=== PATIENT | male | born 1955 | race African-American/Black ===

== ENCOUNTER 2017-02-10 09:09 | Observation (INO) | payer MEDICARE, MEDICAID ==
[~2017-02-10] VITALS: Ht 182.9 cm; Wt 66.2 kg
[~2017-02-10 09:09] MED LIST: ASPI81 PO; FOLI200T PO; LASI20TA PO; LISI-357 PO; METO50CR PO; NEPHRO PO; OMEP20TA39 PO; PRAV40TA PO; SEVEL800 PO; TAB-TAB PO; TRAZ50TA4 PO
[2017-02-10 09:25] VITALS: BP 121/67; PULSE 101; RESP 20; TEMP 98.8; O2SAT 100
[2017-02-10 10:32] LABS: BICARBONATE 29.1 MEQ/L (21.0-32.0); CALCIUM 8.9 MG/DL (8.5-10.1)
[2017-02-10 10:39] LABS: CREATININE 10.79 MG/DL (0.60-1.30)
[2017-02-10] MEDS ORDERED: SEVEL800 PO ×2 (11:00)
[2017-02-10] MEDS ORDERED: FOLIC ACID (11:00)
[2017-02-10] MEDS ORDERED: MEMA21CA PO (11:00)
[2017-02-10] MEDS ORDERED: VITA2000 PO (11:00)
[2017-02-10] MEDS ORDERED: DIALTAB2 PO (11:00)
[2017-02-10] MEDS ORDERED: QUET1TAB7 PO (11:00)
[2017-02-10] MEDS ORDERED: ASPI81CH6 CHEW (11:00)
[2017-02-10] MEDS ORDERED: OMEP40CA2 PO (11:00)
[2017-02-10] MEDS ORDERED: FURO40TA PO (11:00)
[2017-02-10] MEDS ORDERED: PRAV40TA2 PO (11:00)
[2017-02-10] MEDS ORDERED: folic acid PO (11:00)
--- NOTE | 2017-02-10 11:42 | PD ---
HPI Chief Complaint: Medical Clearance Time Seen by Provider: 09:40 Travel History International Travel<30 days: No Contact w/Intl Traveler<30days: No Traveled to known affect area: No History of Present Illness HPI Is a 61-year-old who presents to the emergency department complaining of brought in by EMS. The history is a little bit confusing. Patient reports he has a history of end-stage renal disease, he follows with Dr. Hernandez, he is sister used to taken to dialysis. He reports his sister has had her boyfriend and their children movement with them. He reports a now 1 him "out of the house " and called the embolus today. He notes reports that sisters called DCF and reports that they told him to bring him to the emergency department because they were unable to care for him. Patient is not under a [place] act. He is able to give history. Denies any recent illness or injury. States he last went to dialysis last week. Is otherwise been feeling well. History Past Medical History Narrative Medical End-stage renal disease, on HD, follows with Dr. Hernandez Hypertension Social History Alcohol Use: No Tobacco Use: No Allergies-Medications (Allergen,Severity, Reaction): Coded Allergies: No Known Allergies (Verified Adverse Reaction, Unknown, 02/10/17) Reported Meds & Prescriptions Reported Meds & Active Scripts Active Reported Aspirin Low Dose (Aspirin) 81 Mg Chew 81 Mg CHEW DAILY Vitamin D3 (Cholecalciferol) 2,000 Unit Cap 2,000 Units PO DAILY Furosemide 40 Mg Tab Mg PO DAILY on non-dialysis days Pravastatin 40 Mg Tab 40 Mg PO DAILY [folic acid] 1 Mg PO DAILY [folic acide] Renvela (Sevelamer Carbonate) 800 Mg Tab 800 Mg PO BID with snacks Renvela (Sevelamer Carbonate) 800 Mg Tab 3 Tab PO TID Namenda Xr (Memantine) 21 Mg Caper 21 Mg PO DAILY Dialyvite Rx (B-Complex W/ C & Folic Acid) 1 Mg Tab 1 Tab PO DAILY Omeprazole 40 Mg Cap 40 Mg PO DAILY Quetiapine (Quetiapine Fumarate) 25 Mg Tab 25 Mg PO HS Review of Systems Except as stated in HPI: all other systems reviewed are Neg Physical Exam Narrative GENERAL: Well-appearing 61-year-old man, no acute distress. SKIN: Focused skin assessment warm/dry. HEAD: Atraumatic. Normocephalic. EYES: Pupils equal and round. No scleral icterus. No injection or drainage. ENT: No nasal bleeding or discharge. Mucous membranes pink and moist. NECK: Trachea midline. No JVD. CARDIOVASCULAR: Regular rate and rhythm. No murmur appreciated. RESPIRATORY: No accessory muscle use. Clear to auscultation. Breath sounds equal bilaterally. GASTROINTESTINAL: Abdomen soft, non-tender, nondistended. Hepatic and splenic margins not palpable. MUSCULOSKELETAL: No obvious deformities. No clubbing. No cyanosis. No edema. Large fistula left arm. NEUROLOGICAL: Awake and alert. No obvious cranial nerve deficits. Motor grossly within normal limits. Normal speech. Data Data Last Documented VS Vital Signs Date Time Temp Pulse Resp B/P (MAP) Pulse Ox O2 Delivery O2 Flow Rate FiO2 02/10/17 09:33 94 02/10/17 09:25 98.8 20 121/67 (85) 100 Orders Orders Basic Metabolic Panel (Bmp) (02/10/17 09:55) Case Management Consult (02/10/17 ) Labs Laboratory Tests Test 02/10/17 10:00 Blood Urea Nitrogen 42 MG/DL Creatinine 10.79 MG/DL Random Glucose 116 MG/DL Calcium Level 8.9 MG/DL Sodium Level 137 MEQ/L Potassium Level 5.3 MEQ/L Chloride Level 100 MEQ/L Carbon Dioxide Level 29.1 MEQ/L Anion Gap 8 MEQ/L Estimat Glomerular Filtration Rate 6 ML/MIN MDM Medical Decision Making Medical Screen Exam Complete: Yes Emergency Medical Condition: Yes Differential Diagnosis End-stage renal disease, social disturbance, delirium, dementia, other Narrative Course Medical decision-making 61-year-old man, brought to the ED reportedly for assistance with placement. Then clear the patient and wants or needs to be placed. His electrolytes show any indications for emergent electrolytes were checked. Patient has no indications for emergent dialysis or hospitalization. He does not appear to be an immediate threat to himself or others. Patient is safe for discharge. Will have case management help coordinate discharge with patient's family. Diagnosis Primary Impression: ESRD (end stage renal disease) on dialysis Additional Instructions: Follow-up with her regular scheduled dialysis. Return to the emergency department for any new or worsening symptoms. Med/Other Pt SpecificInfo: No Change to Meds Disposition: DISCHARGE HOME Condition: Stable Cale Avalos MD Feb 10, 2017 11:42
[2017-02-10 12:30] VITALS: BP 108/60; PULSE 71; RESP 20; O2SAT 97
[2017-02-10 16:49] VITALS: BP 156/95; PULSE 78; RESP 19; O2SAT 97
[2017-02-10] MEDS ORDERED: SODIUM CHLORIDE 0.9% FLUSH 10 ML FLUSH IV FLUSH PRN (17:00)
[2017-02-10] MEDS ORDERED: NALOXONE HCL 0.4 MG/ML AMP IV PUSH PRN (17:00)
[2017-02-10] MEDS: SODIUM CHLORIDE 0.9% FLUSH 10 ML FLUSH IV FLUSH SCH (21:00)
--- NOTE | 2017-02-10 21:55 | HHI.HP ---
[facility] Service [facility] Primary Care Physician Unknown Admission Diagnosis dementia with behavioral disturbance Diagnoses: Travel History International Travel<30 Days: No Contact w/Intl Traveler <30 Da: No Traveled to Known Affected Are: No History of Present Illness 61-year-old male with a past medical history significant for end-stage renal disease on dialysis, follows with Dr. Hernandez, hypertension, dementia with behavioral disturbances and hyperlipidemia was brought to the emergency department by EMS. The patient is not sure why he is in the emergency department but states that he needs to have his fistula repaired. He is an extremely poor historian. According to ED notes, EMS was called by the patient' s sister and she is unable to care for him anymore. Lab values significant for potassium of 5.3, BUN/creatinine of 42/10.79. The patient states he last had dialysis "sometime last week." The patient's fistula does not have signs of infection and has good thrill. Review of Systems Denies fever or chills Denies blurry vision, otorrhea, rhinorrhea Denies sore throat and cough No chest pain, palpitations, shortness of breath No abdominal pain Denies constipation/diarrhea/nausea/vomiting Denies muscle pain/weakness No rashes Past Family Social History Past Medical History End-stage renal disease on dialysis, patient unsure of his dialysis schedule Hypertension Hyperlipidemia Dementia with behavioral disturbances Chronic anemia Past Surgical History Left arm fistula for dialysis Left elbow Inguinal hernia repair Reported Medications Reported Meds & Active Scripts Active Reported Aspirin Low Dose (Aspirin) 81 Mg Chew 81 Mg CHEW DAILY Vitamin D3 (Cholecalciferol) 2,000 Unit Cap 2,000 Units PO DAILY Furosemide 40 Mg Tab Mg PO DAILY on non-dialysis days Pravastatin 40 Mg Tab 40 Mg PO DAILY [folic acid] 1 Mg PO DAILY [folic acide] Renvela (Sevelamer Carbonate) 800 Mg Tab 800 Mg PO BID with snacks Renvela (Sevelamer Carbonate) 800 Mg Tab 3 Tab PO TID Namenda Xr (Memantine) 21 Mg Caper 21 Mg PO DAILY Dialyvite Rx (B-Complex W/ C & Folic Acid) 1 Mg Tab 1 Tab PO DAILY Omeprazole 40 Mg Cap 40 Mg PO DAILY Quetiapine (Quetiapine Fumarate) 25 Mg Tab 25 Mg PO HS Allergies: Coded Allergies: No Known Allergies (Verified Allergy, Unknown, 02/10/17) Family History Both parents with CAD, both in their late 50s or early 60s with AL Social History Denies alcohol, tobacco or illicit drugs Physical Exam Vital Signs Vital Signs Date Time Temp Pulse Resp B/P (MAP) Pulse Ox O2 Delivery O2 Flow Rate FiO2 02/10/17 17:30 02/10/17 16:49 78 19 156/95 (115) 97 Room Air 02/10/17 12:30 71 20 108/60 (76) 97 Room Air 02/10/17 09:33 94 02/10/17 09:25 98.8 101 20 121/67 (85) 100 Physical Exam GENERAL: male sitting up in bed SKIN: No rashes, ecchymoses or lesions. Cool and dry. HEAD: Atraumatic. Normocephalic. No temporal or scalp tenderness. EYES: Pupils equal round and reactive. Extraocular motions intact. No scleral icterus. No injection or drainage. ENT: Nose without bleeding, purulent drainage or septal hematoma. Throat without erythema, tonsillar hypertrophy or exudate. Uvula midline. Airway patent. NECK: Trachea midline. No JVD or lymphadenopathy. Supple, nontender, no meningeal signs. CARDIOVASCULAR: Regular rate and rhythm without murmurs, gallops, or rubs. RESPIRATORY: Clear to auscultation. Breath sounds equal bilaterally. No wheezes , rales, or rhonchi. GASTROINTESTINAL: Abdomen soft, non-tender, nondistended. No hepato-splenomegaly , or palpable masses. No guarding. MUSCULOSKELETAL: Extremities without clubbing, cyanosis, or edema. No joint tenderness, effusion, or edema noted. No calf tenderness. Left upper extremity fistula with palpable thrill. NEUROLOGICAL: Awake and alert. Cranial nerves II through XII intact. Motor and sensory grossly within normal limits. Normal speech. Laboratory Laboratory Tests Test 02/10/17 10:00 Blood Urea Nitrogen 42 Creatinine 10.79 Random Glucose 116 Calcium Level 8.9 Sodium Level 137 Potassium Level 5.3 Chloride Level 100 Carbon Dioxide Level 29.1 Anion Gap 8 Estimat Glomerular Filtration Rate 6 Result Diagram: 02/10/17 1000 Caprini VTE Risk Assessment Caprini VTE Risk Assessment: Mod/High Risk (score >= 2) Caprini Risk Assessment Model Point Value = 1 Point Value = 2 Point Value = 3 Point Value = 5 Age 41-60 Minor surgery BMI > 25 kg/m2 Swollen legs Varicose veins or History of unexplained or recurrent spontaneous Oral contraceptives or hormone replacement Sepsis (< 1 month) Serious lung disease, including pneumonia (< 1 month) Abnormal pulmonary function Acute myocardial infarction Congestive heart failure (< 1 month) History of inflammatory bowel disease Medical patient at bed rest Age 61-74 Arthroscopic surgery Major open surgery (> 45 min) Laparoscopic surgery (> 45 min) Malignancy Confined to bed (> 72 hours) Immobilizing plaster cast Central venous access Age >= 75 History of VTE Family history of VTE Factor V Leiden Prothrombin [id number] Lupus anticoagulant Anticardiolipin antibodies Elevated serum homocysteine Heparin-induced thrombocytopenia Other congenital or acquired thrombophilia Stroke (< 1 month) Elective arthroplasty Hip, pelvis, or leg fracture Acute spinal cord injury (< 1 month) Prophylaxis Regimen Total Risk Factor Score Risk Level Prophylaxis Regimen 0-1 Low Early ambulation 2 Moderate Order ONE of the following: *Sequential Compression Device (SCD) *Heparin 5000 units SQ BID 3-4 Higher Order ONE of the following medications: *Heparin 5000 units SQ TID *Enoxaparin/Lovenox 40 mg SQ daily (WT < 150 kg, CrCl > 30 mL/min) *Enoxaparin/Lovenox 30 mg SQ daily (WT < 150 kg, CrCl > 10-29 mL/min) *Enoxaparin/Lovenox 30 mg SQ BID (WT < 150 kg, CrCl > 30 mL/min) AND/OR *Sequential Compression Device (SCD) 5 or more Highest Order ONE of the following medications: *Heparin 5000 units SQ TID (Preferred with Epidurals) *Enoxaparin/Lovenox 40 mg SQ daily (WT < 150 kg, CrCl > 30 mL/min) *Enoxaparin/Lovenox 30 mg SQ daily (WT < 150 kg, CrCl > 10-29 mL/min) *Enoxaparin/Lovenox 30 mg SQ BID (WT < 150 kg, CrCl > 30 mL/min) AND *Sequential Compression Device (SCD) Assessment and Plan Assessment and Plan Assessment/plan: 1. End-stage renal disease on dialysis Patient follows with Dr. Hernandez Potassium 5.3, creatinine 10.79 Nephrology consulted, appreciate assistance 2. Hypertension Continue home Lasix 3. Dementia Continue Seroquel and Namenda 4. GERD Continue omeprazole 5. Hyperlipidemia Continue home statin 6. Placement Case management consulted to assist in placement FEN Renal diet Electrolytes: monitor SCDs Radha Price MD Feb 10, 2017 21:55
[2017-02-10 22:44] VITALS: BP 117/69; PULSE 113; RESP 18; TEMP 98.9; O2SAT 98
[2017-02-11 00:21] VITALS: BP 110/71; PULSE 86; RESP 18; TEMP 97.9; O2SAT 98
[2017-02-11 04:24] VITALS: BP 116/73; PULSE 78; RESP 18; TEMP 97.7; O2SAT 100
[2017-02-11 07:05] LABS: AUTOMATED NEUTROPHIL # 3.8 TH/MM3 (1.8-7.7); BASOPHIL # 0.1 TH/MM3 (0-0.2); BASOPHIL % 1.5 % (0.0-2.0); EOSINOPHIL # 0.3 TH/MM3 (0-0.4); EOSINOPHIL % 5.9 % (0.0-4.0); HEMOGLOBIN 11.4 GM/DL (13.0-17.0); LYMPH % 15.8 % (9.0-44.0); LYMPHOCYTE # 0.8 TH/MM3 (1.0-4.8); MEAN CORPUSCULAR HEMOGLOBIN 29.7 PG (27.0-34.0); MEAN CORPUSCULAR HGB CONC 32.7 % (32.0-36.0); MEAN PLATELET VOLUME 8.9 FL (7.0-11.0); MONO % 6.6 % (0.0-8.0); MONOCYTE # 0.4 TH/MM3 (0-0.9); NEUT % 70.2 % (16.0-70.0); PLATELET COUNT 169 TH/MM3 (150-450); RED BLOOD COUNT 3.85 MIL/MM3 (4.50-5.90); RED CELL DISTRIBUTION WIDTH 14.3 % (11.6-17.2); WHITE BLOOD COUNT 5.4 TH/MM3 (4.0-11.0)
[2017-02-11 07:39] LABS: BICARBONATE 28.8 MEQ/L (21.0-32.0); CALCIUM 8.6 MG/DL (8.5-10.1)
[2017-02-11 07:44] LABS: CREATININE 12.87 MG/DL (0.60-1.30)
[2017-02-11] MEDS ORDERED: SODIUM CHLOR 0.9% 1000 ML INJ 1,000 ML IV PRN (08:19)
[2017-02-11] MEDS ORDERED: SODIUM CHLOR 0.9% 1000 ML INJ 1,000 ML OTHER PRN ×2 (08:19)
--- NOTE | 2017-02-11 08:19 | PD.CONS ---
HPI Service Nephrology Consult Requested By Reason for Consult ESRD Primary Care Physician Unknown History of Present Illness patient is admitted with confusion. He usually dialyzes TTS. Apparently his sister cannot take care of him anymore. When I asked him this morning, he did not why he is in the ER, thought that he brought someone here, and they found that his AVF is "too big" and therefore admitted him. Review of Systems Constitutional: DENIES: Fatigue, Fever Respiratory: DENIES: Apneas, Cough Gastrointestinal: DENIES: Abdominal pain, Black stools Musculoskeletal: DENIES: Joint pain, Muscle aches Hematologic/lymphatic: DENIES: Bruising Neurologic: DENIES: Abnormal gait, Localized weakness, Paresthesias, Seizures Psychiatric: COMPLAINS OF: Confusion Past Family Social History Allergies: Coded Allergies: No Known Allergies (Verified Allergy, Unknown, 02/10/17) Past Medical History ESRD Dementia? Anemia Reported Medications Aspirin Low Dose (Aspirin) 81 Mg Chew 81 Mg CHEW DAILY Vitamin D3 (Cholecalciferol) 2,000 Unit Cap 2,000 Units PO DAILY Furosemide 40 Mg Tab Mg PO DAILY on non-dialysis days Pravastatin 40 Mg Tab 40 Mg PO DAILY [folic acid] 1 Mg PO DAILY [folic acide] Renvela (Sevelamer Carbonate) 800 Mg Tab 800 Mg PO BID with snacks Renvela (Sevelamer Carbonate) 800 Mg Tab 3 Tab PO TID Namenda Xr (Memantine) 21 Mg Caper 21 Mg PO DAILY Dialyvite Rx (B-Complex W/ C & Folic Acid) 1 Mg Tab 1 Tab PO DAILY Omeprazole 40 Mg Cap 40 Mg PO DAILY Quetiapine (Quetiapine Fumarate) 25 Mg Tab 25 Mg PO HS Active Ordered Medications Current Medications Medications (Trade) Dose Ordered Sig/Michell Route Start Time Stop Time Status Last Admin (NS Flush) 2 ml UNSCH PRN IV FLUSH 02/10/17 17:00 (NS Flush) 2 ml BID IV FLUSH 02/10/17 21:00 (Narcan Inj) 0.4 mg UNSCH PRN IV PUSH 02/10/17 17:00 (Aspirin Chew) 81 mg DAILY CHEW 02/11/17 09:00 (Pravachol) 40 mg DAILY PO 02/11/17 09:00 (SEROquel) 25 mg HS PO 02/11/17 21:00 (Renvela) 800 mg BID PO 02/11/17 09:00 (Namenda) 10 mg BID PO 02/11/17 09:00 (Protonix) 40 mg DAILY PO 02/11/17 09:00 (Lasix) 40 mg DAILY PO 02/11/17 09:00 (Flu (Quadrivalent) Vaccine Inj) 0.5 ml ONCE ONCE IM 02/11/17 09:00 02/11/17 09:01 Family History reviewed, non contributory Social History no tobacco, no ETOH Physical Exam Vital Signs Vital Signs Date Time Temp Pulse Resp B/P (MAP) Pulse Ox O2 Delivery O2 Flow Rate FiO2 02/11/17 04:24 97.7 78 18 116/73 (87) 100 02/11/17 00:21 97.9 86 18 110/71 (84) 98 02/10/17 22:44 98.9 113 18 117/69 (85) 98 02/10/17 17:30 02/10/17 16:49 78 19 156/95 (115) 97 Room Air 02/10/17 12:30 71 20 108/60 (76) 97 Room Air 02/10/17 09:33 94 02/10/17 09:25 98.8 101 20 121/67 (85) 100 Physical Exam GENERAL: awake, not in distress, memory deficits. SKIN: Warm and dry. HEAD: Normocephalic. EYES: No scleral icterus. No injection or drainage. NECK: Supple, trachea midline. No JVD or lymphadenopathy. CARDIOVASCULAR: Regular rate and rhythm without murmurs, gallops, or rubs. RESPIRATORY: Breath sounds equal bilaterally. No accessory muscle use. GASTROINTESTINAL: Abdomen soft, non-tender, nondistended. MUSCULOSKELETAL: No cyanosis, or edema. Well formed AVF left arm. BACK: Nontender without obvious deformity. No CVA tenderness. Laboratory Laboratory Tests Test 02/10/17 10:00 02/11/17 06:00 Blood Urea Nitrogen 42 55 Creatinine 10.79 12.87 Random Glucose 116 68 Calcium Level 8.9 8.6 Sodium Level 137 138 Potassium Level 5.3 5.4 Chloride Level 100 100 Carbon Dioxide Level 29.1 28.8 Anion Gap 8 9 Estimat Glomerular Filtration Rate 6 5 White Blood Count 5.4 Red Blood Count 3.85 Hemoglobin 11.4 Hematocrit 35.0 Mean Corpuscular Volume 91.0 Mean Corpuscular Hemoglobin 29.7 Mean Corpuscular Hemoglobin Concent 32.7 Red Cell Distribution Width 14.3 Platelet Count 169 Mean Platelet Volume 8.9 Neutrophils (%) (Auto) 70.2 Lymphocytes (%) (Auto) 15.8 Monocytes (%) (Auto) 6.6 Eosinophils (%) (Auto) 5.9 Basophils (%) (Auto) 1.5 Neutrophils # (Auto) 3.8 Lymphocytes # (Auto) 0.8 Monocytes # (Auto) 0.4 Eosinophils # (Auto) 0.3 Basophils # (Auto) 0.1 CBC Comment DIFF FINAL Differential Comment Result Diagram: 02/11/17 0600 02/11/17 0600 Assessment and Plan Problem List: (1) ESRD (end stage renal disease) on dialysis ICD Codes: N18.6 - ESRD (end stage renal disease) on dialysis; Z99.2 - Dependence on renal dialysis Status: Chronic Plan: continue dialysis as per outpatient regimen. Currently he is stable. Mild hyperkalemia is noted, should improve with dialysis. High protein diet. Fluid restriction to 1500 ml/day. (2) Metabolic bone disease ICD Codes: E88.9 - Metabolic disorder, unspecified; M90.80 - Osteopathy in diseases classified elsewhere, unspecified site Plan: Obtain phosphorus level. Binder use as needed. (3) HTN (hypertension) ICD Codes: I10 - HTN (hypertension) Status: Chronic Plan: currently normotensive. (4) Chronic anemia ICD Codes: D64.9 - Chronic anemia Status: Acute Plan: Epogen with dialysis. Assessment and Plan May need placement. Thanks for the consult. Cole Valencia MD Feb 11, 2017 08:19
[2017-02-11 08:20] VITALS: BP 118/67; PULSE 63; RESP 20; TEMP 98.2; O2SAT 96
[2017-02-11] MEDS ORDERED: ONDANSETRON HCL 4 MG/2 ML VIAL IV PUSH PRN (08:30)
[2017-02-11] MEDS ORDERED: GENTAMICIN SULFATE (DIALYSIS USE ONLY) 20 MG/2 ML VIAL OTHER PRN (08:30)
[2017-02-11] MEDS ORDERED: cloNIDine HCL 0.1 MG TAB PO PRN (08:30)
[2017-02-11] MEDS ORDERED: HEPARIN SODIUM - IV 10,000 UNITS/10 ML VIAL IV FLUSH PRN (08:30)
[2017-02-11] MEDS ORDERED: HEPARIN SODIUM - IV 10,000 UNITS/10 ML VIAL PRN (08:30)
[2017-02-11] MEDS ORDERED: ALBUMIN 25% INJ 100 ML IV PRN (08:30)
[2017-02-11] MEDS ORDERED: NITROGLYCERIN 0.4 MG SL 25 TABS/BTL SL PRN (08:30)
[2017-02-11] MEDS ORDERED: ACETAMINOPHEN 325 MG TAB PO PRN (08:30)
[2017-02-11] MEDS ORDERED: SODIUM CHLORIDE 0.9% FLUSH 10 ML FLUSH IV FLUSH PRN (08:30)
[2017-02-11] MEDS ORDERED: MANNITOL 12.5 GM/50 ML VIAL IV PRN (08:30)
[2017-02-11] MEDS ORDERED: diphenhydrAMINE HCL 25 MG CAP PO PRN (08:30)
[2017-02-11] MEDS ORDERED: INFLUENZA VIRUS VACCINE (QUADRIVALENT) 0.5 ML SYR IM ONE (09:00)
[2017-02-11] MEDS: SODIUM CHLORIDE 0.9% FLUSH 10 ML FLUSH IV FLUSH SCH ×2 (09:00→19:23)
[2017-02-11] MEDS: FUROSEMIDE 40 MG TAB PO SCH (09:01)
[2017-02-11] MEDS: ASPIRIN 81 MG CHEW TAB CHEW SCH (09:01)
[2017-02-11] MEDS: PRAVASTATIN SOD 40 MG TAB PO SCH (09:01)
[2017-02-11] MEDS: PANTOPRAZOLE SOD 40 MG DELAYED RELEASE TAB PO SCH (09:01)
[2017-02-11] MEDS: MEMANTINE HCL 10 MG TAB PO SCH ×2 (09:01→19:23)
[2017-02-11] MEDS: SEVELAMER CARBONATE 800 MG TAB PO SCH ×2 (09:01→19:23)
[2017-02-11] MEDS: EPOETIN ALFA 10,000 UNITS/ML VIAL IV PUSH PRN (11:30)
[2017-02-11] MEDS: GELATIN 12 MM/7 MM FOAM TOP PRN (13:00)
--- NOTE | 2017-02-11 14:57 | HHI.PR ---
Subjective Remarks Follow up on patient with ESRD on HD, HTN, dementia. Patient seen and examined. Patient has just returned from dialysis. He has no complaints. States he is feeling well. No fever, chills, dyspnea, N/V, chest pain or abdominal pain. Objective Vitals Vital Signs Date Time Temp Pulse Resp B/P (MAP) Pulse Ox O2 Delivery O2 Flow Rate FiO2 02/11/17 08:20 98.2 63 20 118/67 (84) 96 02/11/17 04:24 97.7 78 18 116/73 (87) 100 02/11/17 00:21 97.9 86 18 110/71 (84) 98 02/10/17 22:44 98.9 113 18 117/69 (85) 98 02/10/17 17:30 02/10/17 16:49 78 19 156/95 (115) 97 Room Air I/O 02/10/17 02/10/17 02/10/17 02/11/17 02/11/17 02/11/17 07:00 15:00 23:00 07:00 15:00 23:00 Intake Total 240 ml 300 ml 100 ml Output Total 1500 ml Balance 240 ml 300 ml 100 ml -1500 ml Intake Oral 240 ml 300 ml 100 ml Output Hemodialysis 1500 ml Result Diagram: 02/11/17 0600 02/11/17 0600 Objective Remarks GENERAL: WDWN male, INAD. Ambulating in the hallway and in his room. SKIN: Cool and dry. HEAD: Atraumatic. Normocephalic. EYES: Extraocular motions intact. No scleral icterus. No injection or drainage. ENT: Nose without bleeding or purulent drainage. Airway patent. MMM. NECK: Trachea midline. CARDIOVASCULAR: Regular rate and rhythm without murmurs, gallops, or rubs. RESPIRATORY: Clear to auscultation. Breath sounds equal bilaterally. No wheezes , rales, or rhonchi. GASTROINTESTINAL: Abdomen soft, non-tender, nondistended. No guarding. MUSCULOSKELETAL: Extremities without clubbing, cyanosis, or edema. Left upper extremity fistula with palpable thrill. NEUROLOGICAL: Awake and alert. Able to move all extremities spontaneously. Nonfocal. Normal speech. Medications and IVs Current Medications Medications (Trade) Dose Ordered Sig/Michell Route Start Time Stop Time Status Last Admin (NS Flush) 2 ml UNSCH PRN IV FLUSH 02/10/17 17:00 (NS Flush) 2 ml BID IV FLUSH 02/10/17 21:00 (Narcan Inj) 0.4 mg UNSCH PRN IV PUSH 02/10/17 17:00 (Aspirin Chew) 81 mg DAILY CHEW 02/11/17 09:00 02/11/17 09:01 (Pravachol) 40 mg DAILY PO 02/11/17 09:00 02/11/17 09:01 (SEROquel) 25 mg HS PO 02/11/17 21:00 (Renvela) 800 mg BID PO 02/11/17 09:00 02/11/17 09:01 (Namenda) 10 mg BID PO 02/11/17 09:00 02/11/17 09:01 (Protonix) 40 mg DAILY PO 02/11/17 09:00 02/11/17 09:01 (Lasix) 40 mg DAILY PO 02/11/17 09:00 02/11/17 09:01 Sodium Chloride 1,000 ml @ 0 mls/hr Q0M PRN OTHER 02/11/17 08:19 (Heparin Inj) 8,000 units UNSCH PRN IV FLUSH 02/11/17 08:30 Sodium Chloride 1,000 ml @ 200 mls/hr Q5H PRN IV 02/11/17 08:19 Sodium Chloride 1,000 ml @ 0 mls/hr Q0M PRN OTHER 02/11/17 08:19 (Mannitol Inj) 12.5 gm UNSCH PRN IV 02/11/17 08:30 Albumin Human 100 ml @ 60 mls/hr UNSCH PRN IV 02/11/17 08:30 (NS Flush) 5 ml UNSCH PRN IV FLUSH 02/11/17 08:30 (Heparin Inj) UNSCH PRN .XX 02/11/17 08:30 (Gentamicin (Dialysis) Inj) 20 mg UNSCH PRN OTHER 02/11/17 08:30 (Zofran Inj) 4 mg UNSCH PRN IV PUSH 02/11/17 08:30 (Tylenol) 650 mg UNSCH PRN PO 02/11/17 08:30 (Benadryl) 25 mg UNSCH PRN PO 02/11/17 08:30 (Nitrostat Sl) 0.4 mg UNSCH PRN SL 02/11/17 08:30 (Catapres) 0.1 mg UNSCH PRN PO 02/11/17 08:30 (Epogen Inj) 5,000 units UNSCH PRN IV PUSH 02/11/17 08:30 02/11/17 11:30 (Gelfoam 12 Mm/7 Mm Top) 1 foam UNSCH PRN TOP 02/11/17 08:30 02/11/17 13:00 A/P Assessment and Plan 1. End-stage renal disease on dialysis Patient follows with Dr. Hernandez Potassium 5.4, creatinine 12.87 Nephrology consulted, appreciate assistance. s/p HD earlier today. 2. Hypertension Controlled Continue home Lasix 3. Dementia Continue Seroquel and Namenda 4. GERD Continue omeprazole 5. Hyperlipidemia Continue home statin 6. Placement Case management consulted to assist in placement FEN Renal diet Electrolytes: monitor SCDs Discussed with patient, Dr. Roman Discharge Planning Pending nephrology clearance Irma Hendrix Feb 11, 2017 14:57
[2017-02-11 16:34] VITALS: BP 103/60; PULSE 101; RESP 20; TEMP 98.2; O2SAT 96
[2017-02-11] MEDS: QUEtiapine FUMARATE 25 MG TAB PO SCH (19:23)
[2017-02-11 20:36] VITALS: BP 108/63; PULSE 99; RESP 16; TEMP 97.5; O2SAT 100
[2017-02-11 21:04] VITALS: O2SAT 94
[2017-02-12 07:10] VITALS: O2SAT 99
--- NOTE | 2017-02-12 08:03 | HHI.PR ---
Subjective Remarks Follow-up on patient with end-stage renal disease on hemodialysis, hypertension , dementia. Patient seen and examined. Patient has no complaints. He is anxious to leave our facility. He denies any fever or chills. Denies any chest pain or shortness of breath. Denies any nausea, vomiting or abdominal pain. Denies any swelling in his lower extremities. Reports good appetite. Objective Vitals Vital Signs Date Time Temp Pulse Resp B/P (MAP) Pulse Ox O2 Delivery O2 Flow Rate FiO2 02/12/17 07:10 99 21 02/11/17 21:04 94 21 02/11/17 20:36 97.5 99 16 108/63 (78) 100 02/11/17 16:34 98.2 101 20 103/60 (74) 96 02/11/17 08:20 98.2 63 20 118/67 (84) 96 I/O 02/11/17 02/11/17 02/11/17 02/12/17 02/12/17 02/12/17 07:00 15:00 23:00 07:00 15:00 23:00 Intake Total 100 ml 100 ml Output Total 1500 ml Balance 100 ml -1500 ml 100 ml Intake Oral 100 ml 100 ml Output Hemodialysis 1500 ml # Voids 1 Result Diagram: 02/11/17 0600 02/11/17 0600 Objective Remarks GENERAL: WDWN male, INAD. Ambulating in the hallway and in his room. SKIN: Cool and dry. HEAD: Atraumatic. Normocephalic. EYES: Extraocular motions intact. No scleral icterus. No injection or drainage. ENT: Nose without bleeding or purulent drainage. Airway patent. MMM. NECK: Trachea midline. CARDIOVASCULAR: Regular rate and rhythm without murmurs, gallops, or rubs. RESPIRATORY: Clear to auscultation. Breath sounds equal bilaterally. No wheezes , rales, or rhonchi. GASTROINTESTINAL: Abdomen soft, non-tender, nondistended. No guarding. MUSCULOSKELETAL: Extremities without clubbing, cyanosis, or edema. Left upper extremity fistula with palpable thrill. NEUROLOGICAL: Awake and alert. Able to move all extremities spontaneously. Nonfocal. Normal speech. Medications and IVs Current Medications Medications (Trade) Dose Ordered Sig/Michell Route Start Time Stop Time Status Last Admin (NS Flush) 2 ml UNSCH PRN IV FLUSH 02/10/17 17:00 (NS Flush) 2 ml BID IV FLUSH 02/10/17 21:00 02/11/17 19:23 (Narcan Inj) 0.4 mg UNSCH PRN IV PUSH 02/10/17 17:00 (Aspirin Chew) 81 mg DAILY CHEW 02/11/17 09:00 02/11/17 09:01 (Pravachol) 40 mg DAILY PO 02/11/17 09:00 02/11/17 09:01 (SEROquel) 25 mg HS PO 02/11/17 21:00 02/11/17 19:23 (Renvela) 800 mg BID PO 02/11/17 09:00 02/11/17 19:23 (Namenda) 10 mg BID PO 02/11/17 09:00 02/11/17 19:23 (Protonix) 40 mg DAILY PO 02/11/17 09:00 02/11/17 09:01 (Lasix) 40 mg DAILY PO 02/11/17 09:00 02/11/17 09:01 Sodium Chloride 1,000 ml @ 0 mls/hr Q0M PRN OTHER 02/11/17 08:19 (Heparin Inj) 8,000 units UNSCH PRN IV FLUSH 02/11/17 08:30 Sodium Chloride 1,000 ml @ 200 mls/hr Q5H PRN IV 02/11/17 08:19 Sodium Chloride 1,000 ml @ 0 mls/hr Q0M PRN OTHER 02/11/17 08:19 (Mannitol Inj) 12.5 gm UNSCH PRN IV 02/11/17 08:30 Albumin Human 100 ml @ 60 mls/hr UNSCH PRN IV 02/11/17 08:30 (NS Flush) 5 ml UNSCH PRN IV FLUSH 02/11/17 08:30 (Heparin Inj) UNSCH PRN .XX 02/11/17 08:30 (Gentamicin (Dialysis) Inj) 20 mg UNSCH PRN OTHER 02/11/17 08:30 (Zofran Inj) 4 mg UNSCH PRN IV PUSH 02/11/17 08:30 (Tylenol) 650 mg UNSCH PRN PO 02/11/17 08:30 (Benadryl) 25 mg UNSCH PRN PO 02/11/17 08:30 (Nitrostat Sl) 0.4 mg UNSCH PRN SL 02/11/17 08:30 (Catapres) 0.1 mg UNSCH PRN PO 02/11/17 08:30 (Epogen Inj) 5,000 units UNSCH PRN IV PUSH 02/11/17 08:30 02/11/17 11:30 (Gelfoam 12 Mm/7 Mm Top) 1 foam UNSCH PRN TOP 02/11/17 08:30 02/11/17 13:00 A/P Assessment and Plan 1. End-stage renal disease on dialysis, TTHSat schedule Patient follows with Dr. Hernandez Potassium 5.4, creatinine 12.87, today's lab pending Nephrology consulted, appreciate assistance. DR. Valencia following. s/p HD yesterday. Per recs, high protein/fluid restricted diet. Cleared for discharge from nephrology standpoint. 2. Hyperkalemia secondary to above anticipate improvement with dialysis today's labs pending continue on low K diet 3. Hypertension Controlled Continue home Lasix dose on non dialysis days 4. Dementia Continue Seroquel and Namenda 5. GERD Continue omeprazole 6. Hyperlipidemia Continue home statin 7. Placement Case management consulted to assist in placement FEN Renal diet Electrolytes: monitor SCDs Discussed with patient, nursing staff, Dr. Roman, CM Discharge patient to SNF Condition on discharge: Improved Renal, high protein, low potassium 1500ml fluid restricted diet as tolerated Ad Iva activity. Resume outpatient hemodialysis arrangements following discharge. Rx written: resume home medications Follow-up with primary care physician and Dr. Hernandez Nephrology Discharge Planning Discharge pending placement, case management actively following. Irma Hendrix Feb 12, 2017 08:03
[2017-02-12 08:21] VITALS: BP 110/50; PULSE 67; RESP 18; TEMP 98.2; O2SAT 98
[2017-02-12] MEDS: SODIUM CHLORIDE 0.9% FLUSH 10 ML FLUSH IV FLUSH SCH ×2 (09:00→19:57)
[2017-02-12] MEDS: SEVELAMER CARBONATE 800 MG TAB PO SCH ×2 (09:26→19:56)
[2017-02-12] MEDS: PANTOPRAZOLE SOD 40 MG DELAYED RELEASE TAB PO SCH (09:26)
[2017-02-12] MEDS: PRAVASTATIN SOD 40 MG TAB PO SCH (09:26)
[2017-02-12] MEDS: ASPIRIN 81 MG CHEW TAB CHEW SCH (09:26)
[2017-02-12] MEDS: FUROSEMIDE 40 MG TAB PO SCH (09:26)
[2017-02-12] MEDS: MEMANTINE HCL 10 MG TAB PO SCH ×2 (09:26→19:56)
--- NOTE | 2017-02-12 11:13 | HHI.NPPN ---
Subjective General Problems: Anemia Renal Failure: Chronic, End Stage Renal Disease Interval History Ambulating in ER. No acute concerns. He is demented, confused at baseline. Dialyzed yesterday. (Nicci Nolan) Objective Data Data Vital Signs Date Time Temp Pulse Resp B/P (MAP) Pulse Ox O2 Delivery O2 Flow Rate FiO2 02/12/17 08:21 98.2 67 18 110/50 (70) 98 02/12/17 07:10 99 21 02/11/17 21:04 94 21 02/11/17 20:36 97.5 99 16 108/63 (78) 100 02/11/17 16:34 98.2 101 20 103/60 (74) 96 (Nicci Nolan) -: 02/11/17 0600 02/11/17 0600 Physical Exam General Appearance: Well Developed, No Acute Distress, Comfortable, Malnourished (Nicci Nolan) Eyes Eye Exam: Pupils Equal (Nicci Nolan) Throat Throat Exam: Oral Mucosa [place] & Moist (Nicci Nolan) Pulmonary Resp Exam: Clear Bilaterally, Breath Sounds Equal (Nicci Nolan) Cardiology CV Exam: Regular, Normal Sinus Rhythm, Good Perfusion (Nicci Nolan) Gastrointestinal/Abdomen GI Exam: Soft, Non-Tender, Bowel Sounds Present (Nicci Nolan) Musculoskeletal MS Exam: Normal Gait, Normal Tone, Good Strength (Nicci Nolan) Extremeties Extremities Exam: No Edema, Pedal Pulses Palpable Extremeties Remarks Large AVF left upper arm, + aneurysm at site, it is patent (Nicci Nolan) Neurologic Neuro Exam: Awake, Speech Clear, Moving All Extremities (Nicci Nolan) Psychiatric Psych Remarks pleasantly confused (Nicci Nolan) Assessment/Plan Discussed Condition With: Patient Assessment Summary: Anemia of CKD, Hypertension, End Stage Renal Disease Problem List: (1) ESRD (end stage renal disease) on dialysis ICD Codes: N18.6 - ESRD (end stage renal disease) on dialysis; Z99.2 - Dependence on renal dialysis Status: Chronic Plan: HD TTS, had 1.5 L UF yesterday Continue dialysis as per outpatient regimen. Can resume outpatient arrangements after discharge Mild hyperkalemia is again noted, low K diet ordered High protein diet. Fluid restriction to 1500 ml/day. He has aneurysm at AVF however it is patent and works well. (2) Metabolic bone disease ICD Codes: E88.9 - Metabolic disorder, unspecified; M90.80 - Osteopathy in diseases classified elsewhere, unspecified site Plan: He is on Renvela. Phosphorus level has been added but not available. (3) HTN (hypertension) ICD Codes: I10 - HTN (hypertension) Status: Chronic Plan: Currently normotensive. Diet controlled. PRN clonidine has not been used. (4) Chronic anemia ICD Codes: D64.9 - Chronic anemia Status: Acute Plan: Low dose Epogen with dialysis. Plan Stable for discharge from renal perspective. (Nicci Nolan) Plan patient was seen and examined. Agree with above assessment and plan. He can be discharged from renal standpoint. (Cole Valencia MD) Nicci Nolan Feb 12, 2017 11:13 Cole Valencia MD Feb 12, 2017 15:53
--- NOTE | 2017-02-12 11:43 | HHI.DCPOC ---
Discharge Care Plan Diagnosis: (1) Dementia (2) Hyperkalemia (3) Electrolyte abnormality (4) ESRD (end stage renal disease) on dialysis (5) HTN (hypertension) (6) HLD (hyperlipidemia) Goals to Promote Your Health * To prevent worsening of your condition and complications * To maintain your health at the optimal level Directions to Meet Your Goals Maintain a heart healthy, renal failure, high protein, low potassium, 1500 mL fluid restricted diet Please continue your regular outpatient hemodialysis schedule Take your medications as prescribed Follow your dietary instruction Follow activity as directed Keep your appointments as scheduled Take your immunizations and boosters as scheduled If your symptoms worsen call your PCP, if no PCP go to Urgent Care Center or Emergency Room Smoking is Dangerous to Your Health. Avoid second hand smoke Call the 24-hour hour crisis hotline for domestic abuse at Irma Hendrix Feb 12, 2017 11:43
[2017-02-12 12:32] VITALS: BP 103/55; PULSE 88; RESP 20; TEMP 98.2; O2SAT 96
[2017-02-12 15:42] VITALS: BP 112/60; PULSE 60; RESP 20; TEMP 97.9; O2SAT 96
[2017-02-12 16:35] LABS: BICARBONATE 33.8 MEQ/L (21.0-32.0); CALCIUM 8.8 MG/DL (8.5-10.1)
[2017-02-12 16:40] LABS: CREATININE 11.53 MG/DL (0.60-1.30)
[2017-02-12] MEDS: QUEtiapine FUMARATE 25 MG TAB PO SCH (19:56)
[2017-02-12 20:00] VITALS: BP 122/64; PULSE 78; RESP 18; TEMP 97.8; O2SAT 97
[2017-02-12 22:58] VITALS: BP 118/62; PULSE 78; RESP 18; TEMP 97.9; O2SAT 97
[2017-02-13] VITALS: BP 118/68; PULSE 78; RESP 18; TEMP 98.4; O2SAT 100
[2017-02-13 07:40] VITALS: BP 114/69; PULSE 72; RESP 16; TEMP 98; O2SAT 100
--- NOTE | 2017-02-13 08:54 | HHI.PR ---
Subjective Remarks Follow-up on patient with dementia, end-stage renal disease on hemodialysis. Patient seen and examined before going to dialysis. Patient denies any complaints. States he slept well. Reports a good appetite. Denies any fever, chills, cough, chest pain, shortness of breath, nausea, vomiting or abdominal pain. Denies any swelling in his lower extremities. Objective Vitals Vital Signs Date Time Temp Pulse Resp B/P (MAP) Pulse Ox O2 Delivery O2 Flow Rate FiO2 02/13/17 07:40 98.0 72 16 114/69 (84) 100 02/13/17 00:00 98.4 78 18 118/68 (85) 100 02/12/17 22:58 97.9 78 18 118/62 (80) 97 02/12/17 20:00 97.8 78 18 122/64 (83) 97 02/12/17 15:42 97.9 60 20 112/60 (77) 96 02/12/17 12:32 98.2 88 20 103/55 (71) 96 I/O 02/12/17 02/12/17 02/12/17 02/13/17 02/13/17 02/13/17 07:00 15:00 23:00 07:00 15:00 23:00 # Voids 1 Result Diagram: 02/11/17 0600 02/12/17 1534 Objective Remarks GENERAL: WDWN male, INAD. Lying his hospital bed awake and alert. Appears comfortable. SKIN: Cool and dry. HEAD: Atraumatic. Normocephalic. EYES: Extraocular motions intact. No scleral icterus. No injection or drainage. ENT: Nose without bleeding or purulent drainage. Airway patent. MMM. NECK: Trachea midline. CARDIOVASCULAR: Regular rate and rhythm without murmurs, gallops, or rubs. RESPIRATORY: Clear to auscultation. Breath sounds equal bilaterally. No wheezes , rales, or rhonchi. GASTROINTESTINAL: Abdomen soft, non-tender, nondistended. No guarding. MUSCULOSKELETAL: Extremities without clubbing, cyanosis, or edema. Left upper extremity fistula with palpable thrill. NEUROLOGICAL: Awake and alert. Able to move all extremities spontaneously. Nonfocal. Normal speech. PSYCHIATRIC: Calm, pleasant. Medications and IVs Current Medications Medications (Trade) Dose Ordered Sig/Michell Route Start Time Stop Time Status Last Admin (NS Flush) 2 ml UNSCH PRN IV FLUSH 02/10/17 17:00 (NS Flush) 2 ml BID IV FLUSH 02/10/17 21:00 02/11/17 19:23 (Narcan Inj) 0.4 mg UNSCH PRN IV PUSH 02/10/17 17:00 (Aspirin Chew) 81 mg DAILY CHEW 02/11/17 09:00 02/12/17 09:26 (Pravachol) 40 mg DAILY PO 02/11/17 09:00 02/12/17 09:26 (SEROquel) 25 mg HS PO 02/11/17 21:00 02/12/17 19:56 (Renvela) 800 mg BID PO 02/11/17 09:00 02/12/17 19:56 (Namenda) 10 mg BID PO 02/11/17 09:00 02/12/17 19:56 (Protonix) 40 mg DAILY PO 02/11/17 09:00 02/12/17 09:26 Sodium Chloride 1,000 ml @ 0 mls/hr Q0M PRN OTHER 02/11/17 08:19 (Heparin Inj) 8,000 units UNSCH PRN IV FLUSH 02/11/17 08:30 Sodium Chloride 1,000 ml @ 200 mls/hr Q5H PRN IV 02/11/17 08:19 Sodium Chloride 1,000 ml @ 0 mls/hr Q0M PRN OTHER 02/11/17 08:19 (Mannitol Inj) 12.5 gm UNSCH PRN IV 02/11/17 08:30 Albumin Human 100 ml @ 60 mls/hr UNSCH PRN IV 02/11/17 08:30 (NS Flush) 5 ml UNSCH PRN IV FLUSH 02/11/17 08:30 (Heparin Inj) UNSCH PRN .XX 02/11/17 08:30 (Gentamicin (Dialysis) Inj) 20 mg UNSCH PRN OTHER 02/11/17 08:30 (Zofran Inj) 4 mg UNSCH PRN IV PUSH 02/11/17 08:30 (Tylenol) 650 mg UNSCH PRN PO 02/11/17 08:30 (Benadryl) 25 mg UNSCH PRN PO 02/11/17 08:30 (Nitrostat Sl) 0.4 mg UNSCH PRN SL 02/11/17 08:30 (Catapres) 0.1 mg UNSCH PRN PO 02/11/17 08:30 (Epogen Inj) 5,000 units UNSCH PRN IV PUSH 02/11/17 08:30 02/11/17 11:30 (Gelfoam 12 Mm/7 Mm Top) 1 foam UNSCH PRN TOP 02/11/17 08:30 02/11/17 13:00 (Lasix) 40 mg SuMoWeFr PO 02/14/17 09:00 A/P Assessment and Plan Patient discharged 02/12/17, discharge held pending SNF placement. 1. End-stage renal disease on dialysis, TTHSat schedule Patient follows with Dr. Hernandez Potassium 5.4, creatinine 12.87 Nephrology consulted, appreciate assistance. DR. Valencia following. Hemodialysis today. Per recs, high protein/fluid restricted diet. Cleared for discharge from nephrology standpoint. 2. Hyperphosphatemia Management per nephrology Continue on phosphate binder 3. Hyperkalemia, resolved secondary to above K now 4.6 continue on low K diet 4. Hypertension Controlled Continue home Lasix dose on non dialysis days 5. Dementia Continue Seroquel and Namenda 6. GERD Continue omeprazole 7. Hyperlipidemia Continue home statin 8. Anemia Suspect secondary to anemia of chronic disease Chronic, stable Epogen per nephrology 9. Placement Case management consulted to assist in placement FEN Renal diet Electrolytes: monitor SCDs Discussed with patient, nursing staff, Dr. Abel CM Discharge Planning Discharge pending placement, case management actively following. Irma Hendrix Feb 13, 2017 08:54
[2017-02-13] MEDS: SEVELAMER CARBONATE 800 MG TAB PO SCH ×3 (09:00→20:45)
[2017-02-13] MEDS: SODIUM CHLORIDE 0.9% FLUSH 10 ML FLUSH IV FLUSH SCH ×2 (09:00→20:57)
--- NOTE | 2017-02-13 10:01 | HHI.NPPN ---
Subjective General Problems: Anemia Renal Failure: Chronic, End Stage Renal Disease Additional Remarks Patient is alert, now on HD, no SOB, feeling better. Objective Data Data Vital Signs Date Time Temp Pulse Resp B/P (MAP) Pulse Ox O2 Delivery O2 Flow Rate FiO2 02/13/17 07:40 98.0 72 16 114/69 (84) 100 02/13/17 00:00 98.4 78 18 118/68 (85) 100 02/12/17 22:58 97.9 78 18 118/62 (80) 97 02/12/17 20:00 97.8 78 18 122/64 (83) 97 02/12/17 15:42 97.9 60 20 112/60 (77) 96 02/12/17 12:32 98.2 88 20 103/55 (71) 96 -: 02/11/17 0600 02/12/17 1534 Physical Exam General Appearance: No Acute Distress, Comfortable, Malnourished Eyes Eye Exam: Pupils Equal Throat Throat Exam: Oral Mucosa [place] & Moist Pulmonary Resp Exam: Clear Bilaterally, Breath Sounds Equal Cardiology CV Exam: Regular, Normal Sinus Rhythm, Good Perfusion Gastrointestinal/Abdomen GI Exam: Soft, Non-Tender, Bowel Sounds Present Musculoskeletal MS Exam: Normal Gait, Normal Tone, Good Strength Extremeties Extremities Exam: No Edema Neurologic Neuro Exam: Awake, Speech Clear, Moving All Extremities Assessment/Plan Discussed Condition With: Patient Assessment Summary: Anemia of CKD, Hypertension, End Stage Renal Disease Problem List: (1) ESRD (end stage renal disease) on dialysis ICD Codes: N18.6 - ESRD (end stage renal disease) on dialysis; Z99.2 - Dependence on renal dialysis Status: Chronic Plan: HD TTS, Continue dialysis as per outpatient regimen. Can resume outpatient arrangements after discharge Mild hyperkalemia , now normal, low K diet ordered High protein diet. Fluid restriction to 1500 ml/day. He has aneurysm at AVF however it is patent and works well. Confusion is improving. (2) Metabolic bone disease ICD Codes: E88.9 - Metabolic disorder, unspecified; M90.80 - Osteopathy in diseases classified elsewhere, unspecified site Plan: He is on Renvela. Phosphorus level has been added but not available. (3) HTN (hypertension) ICD Codes: I10 - HTN (hypertension) Status: Chronic Plan: Currently normotensive. Diet controlled. PRN clonidine has not been used. (4) Chronic anemia ICD Codes: D64.9 - Chronic anemia Status: Acute Plan: Low dose Epogen with dialysis. Plan patient was seen and examined. Agree with above assessment and plan. He can be discharged from renal standpoint. Problem Qualifiers (1) HTN (hypertension): Qualified Codes: I10 - Essential (primary) hypertension Najma Vilchis MD Feb 13, 2017 10:01
[2017-02-13] MEDS: GELATIN 12 MM/7 MM FOAM TOP PRN (10:31)
[2017-02-13] MEDS: EPOETIN ALFA 10,000 UNITS/ML VIAL IV PUSH PRN (10:32)
[2017-02-13] MEDS ORDERED: FOLI1TAB6 PO (10:58)
[2017-02-13] MEDS: PANTOPRAZOLE SOD 40 MG DELAYED RELEASE TAB PO SCH (12:21)
[2017-02-13] MEDS: ASPIRIN 81 MG CHEW TAB CHEW SCH (12:21)
[2017-02-13] MEDS: PRAVASTATIN SOD 40 MG TAB PO SCH (12:21)
[2017-02-13] MEDS: MEMANTINE HCL 10 MG TAB PO SCH ×2 (12:21→20:45)
[2017-02-13 12:58] VITALS: BP 127/73; PULSE 81; RESP 18; TEMP 97.7; O2SAT 97
[2017-02-13 16:29] VITALS: BP 127/83; PULSE 92; RESP 18; TEMP 98.5; O2SAT 100
[2017-02-13] MEDS: QUEtiapine FUMARATE 25 MG TAB PO SCH (20:45)
[2017-02-13 21:30] VITALS: O2SAT 98
[2017-02-14 05:18] LABS: BICARBONATE 34.2 MEQ/L (21.0-32.0); CALCIUM 8.3 MG/DL (8.5-10.1); PHOSPHORUS 4.9 MG/DL (2.5-4.9)
[2017-02-14 05:22] LABS: CREATININE 10.51 MG/DL (0.60-1.30)
[2017-02-14 08:40] VITALS: BP 112/62; PULSE 78; RESP 18; TEMP 98.2; O2SAT 96
[2017-02-14] MEDS: SODIUM CHLORIDE 0.9% FLUSH 10 ML FLUSH IV FLUSH SCH ×2 (09:00→21:00)
[2017-02-14] MEDS: PANTOPRAZOLE SOD 40 MG DELAYED RELEASE TAB PO SCH (09:02)
[2017-02-14] MEDS: SEVELAMER CARBONATE 800 MG TAB PO SCH ×2 (09:02→23:02)
[2017-02-14] MEDS: MEMANTINE HCL 10 MG TAB PO SCH ×2 (09:02→23:03)
[2017-02-14] MEDS: ASPIRIN 81 MG CHEW TAB CHEW SCH (09:02)
[2017-02-14] MEDS: FUROSEMIDE 40 MG TAB PO SCH (09:02)
[2017-02-14] MEDS: PRAVASTATIN SOD 40 MG TAB PO SCH (09:02)
[2017-02-14 12:00] VITALS: BP 110/60; PULSE 68; RESP 20; TEMP 98.2; O2SAT 98
--- NOTE | 2017-02-14 13:18 | HHI.PR ---
Subjective Remarks Follow-up dementia, end-stage renal disease on hemodialysis. Patient seen and examined, sitting up on side of bed comfortably. Alert and awake, oriented x 2. Follows commands appropriately. Denies any new acute complaints overnight. Denies any pain, chest pain, shortness of breath, n/v/d or abdominal pain. Objective Vitals Vital Signs Date Time Temp Pulse Resp B/P (MAP) Pulse Ox O2 Delivery O2 Flow Rate FiO2 02/14/17 12:00 98.2 68 20 110/60 (77) 98 02/14/17 08:40 98.2 78 18 112/62 (79) 96 02/13/17 21:30 98 02/13/17 16:29 98.5 92 18 127/83 (98) 100 Result Diagram: 02/11/17 0600 02/14/17 0339 Objective Remarks GENERAL: WDWN male, sitting on side of bed in nad. Awake and alert. Appears comfortable. SKIN: Cool and dry. HEAD: Atraumatic. Normocephalic. EYES: Extraocular motions intact. No scleral icterus. No injection or drainage. ENT: Nose without bleeding or purulent drainage. Airway patent. MMM. NECK: Trachea midline. CARDIOVASCULAR: Regular rate and rhythm without murmurs, gallops, or rubs. RESPIRATORY: Clear to auscultation. Breath sounds equal bilaterally. No wheezes , rales, or rhonchi. GASTROINTESTINAL: Abdomen soft, non-tender, nondistended. No guarding. MUSCULOSKELETAL: Extremities without clubbing, cyanosis, or edema. Left upper extremity fistula with palpable thrill, bruit present. NEUROLOGICAL: Awake and alert. Able to move all extremities spontaneously. Nonfocal. Normal speech. PSYCHIATRIC: Calm, pleasant. A/P Assessment and Plan Patient discharged 02/12/17, discharge held pending SNF placement. End-stage renal disease on dialysis, TTat schedule Patient follows with Dr. Hernandez Potassium 5.3, creatinine 10.51 Nephrology consulted, appreciate assistance. DR. Valencia following. Hemodialysis today. Per recs, high protein/fluid restricted diet. Cleared for discharge from nephrology standpoint. Hyperphosphatemia Management per nephrology Continue on phosphate binder Hyperkalemia secondary to above K now 5.3 continue on low K diet Hypertension Controlled Continue home Lasix dose on non dialysis days Dementia Continue Seroquel and Namenda GERD Continue omeprazole Hyperlipidemia Continue home statin Anemia Suspect secondary to anemia of chronic disease Chronic, stable Epogen per nephrology Placement: Case management consulted to assist in placement Shira Mckeon Feb 14, 2017 13:18
[2017-02-14] MEDS ORDERED: SODIUM POLYSTYRENE SULFONATE SUSP 15 GM/60 ML CUP PO ONE (15:15)
--- NOTE | 2017-02-14 15:17 | HHI.NPPN ---
Subjective General Problems: Anemia Renal Failure: Chronic, End Stage Renal Disease Additional Remarks Patient is alert, no SOB, feeling well. Objective Data Data Vital Signs Date Time Temp Pulse Resp B/P (MAP) Pulse Ox O2 Delivery O2 Flow Rate FiO2 02/14/17 12:00 98.2 68 20 110/60 (77) 98 02/14/17 08:40 98.2 78 18 112/62 (79) 96 02/13/17 21:30 98 02/13/17 16:29 98.5 92 18 127/83 (98) 100 -: 02/11/17 0600 02/14/17 0339 Physical Exam General Appearance: No Acute Distress, Comfortable, Malnourished Eyes Eye Exam: Pupils Equal Throat Throat Exam: Oral Mucosa [place] & Moist Pulmonary Resp Exam: Clear Bilaterally, Breath Sounds Equal Cardiology CV Exam: Regular, Normal Sinus Rhythm, Good Perfusion Gastrointestinal/Abdomen GI Exam: Soft, Non-Tender, Bowel Sounds Present Musculoskeletal MS Exam: Normal Gait, Normal Tone, Good Strength Extremeties Extremities Exam: No Edema Neurologic Neuro Exam: Awake, Speech Clear, Moving All Extremities Assessment/Plan Discussed Condition With: Patient Assessment Summary: Anemia of CKD, Hypertension, End Stage Renal Disease Problem List: (1) ESRD (end stage renal disease) on dialysis ICD Codes: N18.6 - ESRD (end stage renal disease) on dialysis; Z99.2 - Dependence on renal dialysis Status: Chronic Plan: HD TTS, Continue dialysis as per outpatient regimen. Can resume outpatient arrangements after discharge Mild hyperkalemia , now normal, low K diet ordered High protein diet. Fluid restriction to 1500 ml/day. He has aneurysm at AVF however it is patent and works well. Confusion is better. K is 5.3, one dose of Kayexalate as he will not have HD tomorrow. Possible D/C once arranged. (2) Metabolic bone disease ICD Codes: E88.9 - Metabolic disorder, unspecified; M90.80 - Osteopathy in diseases classified elsewhere, unspecified site Plan: He is on Renvela. Phosphorus level has been added but not available. (3) HTN (hypertension) ICD Codes: I10 - HTN (hypertension) Status: Chronic Plan: Currently normotensive. Diet controlled. PRN clonidine has not been used. (4) Chronic anemia ICD Codes: D64.9 - Chronic anemia Status: Acute Plan: Low dose Epogen with dialysis. Plan patient was seen and examined. Agree with above assessment and plan. He can be discharged from renal standpoint. Problem Qualifiers (1) HTN (hypertension): Qualified Codes: I10 - Essential (primary) hypertension Najma Vilchis MD Feb 14, 2017 15:17
[2017-02-14 16:16] VITALS: BP 126/70; PULSE 78; RESP 18; TEMP 97.9; O2SAT 98
[2017-02-14 19:54] VITALS: BP 125/77; PULSE 79; RESP 16; TEMP 98; O2SAT 100
[2017-02-14 20:01] VITALS: BP 118/73; PULSE 69; RESP 16; TEMP 98; O2SAT 94
[2017-02-14] MEDS: QUEtiapine FUMARATE 25 MG TAB PO SCH (23:03)
[2017-02-14 23:38] VITALS: BP 120/74; PULSE 84; RESP 16; TEMP 98; O2SAT 97
[2017-02-15 07:08] VITALS: BP 134/75; PULSE 71; RESP 18; TEMP 97.7; O2SAT 100
[2017-02-15] MEDS: PANTOPRAZOLE SOD 40 MG DELAYED RELEASE TAB PO SCH (08:41)
[2017-02-15] MEDS: ASPIRIN 81 MG CHEW TAB CHEW SCH (08:41)
[2017-02-15] MEDS: SEVELAMER CARBONATE 800 MG TAB PO SCH ×2 (08:41→19:56)
[2017-02-15] MEDS: FUROSEMIDE 40 MG TAB PO SCH (08:41)
[2017-02-15] MEDS: MEMANTINE HCL 10 MG TAB PO SCH ×2 (08:42→19:56)
[2017-02-15] MEDS: PRAVASTATIN SOD 40 MG TAB PO SCH (08:42)
[2017-02-15] MEDS: SODIUM CHLORIDE 0.9% FLUSH 10 ML FLUSH IV FLUSH SCH ×2 (08:42→19:56)
--- NOTE | 2017-02-15 08:48 | HHI.PR ---
Subjective Remarks Follow up for dementia, ESRD on HD. The patient is seen sleeping in bed, easily awakens to voice. He is oriented to person and hospital. He has no medical complaints including no headache, cough, chest pain, shortness of breath, abdominal pain, diarrhea/constipation, or urinary complaints. He wants to eat breakfast. Objective Vitals Vital Signs Date Time Temp Pulse Resp B/P (MAP) Pulse Ox O2 Delivery O2 Flow Rate FiO2 02/15/17 07:08 97.7 71 18 134/75 (94) 100 02/14/17 23:38 98.0 84 16 120/74 (89) 97 02/14/17 20:01 98.0 69 16 118/73 (88) 94 02/14/17 19:54 98.0 79 16 125/77 (93) 100 02/14/17 16:16 97.9 78 18 126/70 (88) 98 02/14/17 12:00 98.2 68 20 110/60 (77) 98 Result Diagram: 02/11/17 0600 02/14/17 0339 Objective Remarks GENERAL: Well-nourished, well-developed pleasant male patient in [facility]. SKIN: Warm and dry. No rash. HEENT: Normocephalic. Atraumatic. Pupils equal and round. Mucous membranes pink and moist. NECK: Supple. Trachea midline. CARDIOVASCULAR: Regular rate and rhythm. S1, S2 noted. No murmur appreciated. RESPIRATORY: No accessory muscle use. Clear to auscultation. Breath sounds equal bilaterally. GASTROINTESTINAL: Abdomen soft, non-tender, nondistended. Normoactive bowel sounds x4. MUSCULOSKELETAL: No obvious deformities. Extremities without clubbing, cyanosis , or edema. NEUROLOGICAL: Awake and alert. No obvious cranial nerve deficits. Motor grossly within normal limits. 5/5 muscle strength in bilateral upper and lower extremities. Normal speech. PSYCHIATRIC: Appropriate mood and affect; insight and judgment limited. Medications and IVs Current Medications Medications (Trade) Dose Ordered Sig/Michell Route Start Time Stop Time Status Last Admin (NS Flush) 2 ml UNSCH PRN IV FLUSH 02/10/17 17:00 (NS Flush) 2 ml BID IV FLUSH 02/10/17 21:00 02/11/17 19:23 (Narcan Inj) 0.4 mg UNSCH PRN IV PUSH 02/10/17 17:00 (Aspirin Chew) 81 mg DAILY CHEW 02/11/17 09:00 02/14/17 09:02 (Pravachol) 40 mg DAILY PO 02/11/17 09:00 02/14/17 09:02 (SEROquel) 25 mg HS PO 02/11/17 21:00 02/14/17 23:03 (Renvela) 800 mg BID PO 02/11/17 09:00 02/14/17 23:02 (Namenda) 10 mg BID PO 02/11/17 09:00 02/14/17 23:03 (Protonix) 40 mg DAILY PO 02/11/17 09:00 02/14/17 09:02 Sodium Chloride 1,000 ml @ 0 mls/hr Q0M PRN OTHER 02/11/17 08:19 (Heparin Inj) 8,000 units UNSCH PRN IV FLUSH 02/11/17 08:30 Sodium Chloride 1,000 ml @ 200 mls/hr Q5H PRN IV 02/11/17 08:19 Sodium Chloride 1,000 ml @ 0 mls/hr Q0M PRN OTHER 02/11/17 08:19 (Mannitol Inj) 12.5 gm UNSCH PRN IV 02/11/17 08:30 Albumin Human 100 ml @ 60 mls/hr UNSCH PRN IV 02/11/17 08:30 (NS Flush) 5 ml UNSCH PRN IV FLUSH 02/11/17 08:30 (Heparin Inj) UNSCH PRN .XX 02/11/17 08:30 (Gentamicin (Dialysis) Inj) 20 mg UNSCH PRN OTHER 02/11/17 08:30 (Zofran Inj) 4 mg UNSCH PRN IV PUSH 02/11/17 08:30 (Tylenol) 650 mg UNSCH PRN PO 02/11/17 08:30 (Benadryl) 25 mg UNSCH PRN PO 02/11/17 08:30 (Nitrostat Sl) 0.4 mg UNSCH PRN SL 02/11/17 08:30 (Catapres) 0.1 mg UNSCH PRN PO 02/11/17 08:30 (Epogen Inj) 5,000 units UNSCH PRN IV PUSH 02/11/17 08:30 02/13/17 10:32 (Gelfoam 12 Mm/7 Mm Top) 1 foam UNSCH PRN TOP 02/11/17 08:30 02/13/17 10:31 (Lasix) 40 mg SuMoWeFr PO 02/14/17 09:00 02/14/17 09:02 A/P Problem List: (1) ESRD (end stage renal disease) on dialysis ICD Code: N18.6 - ESRD (end stage renal disease) on dialysis; Z99.2 - Dependence on renal dialysis Status: Chronic (2) HTN (hypertension) ICD Code: I10 - HTN (hypertension) Status: Chronic (3) Chronic anemia ICD Code: D64.9 - Chronic anemia Status: Acute Assessment and Plan 61-year-old male with: End-stage renal disease on dialysis, TTHSat schedule: Patient follows with Dr. Hernandez Potassium 5.3, creatinine 10.51 upon arrival Nephrology consulted, Dr. Nevarez following, appreciate assistance Continue dialysis. Continue high protein/fluid restricted diet. Cleared for discharge from nephrology standpoint. Hyperphosphatemia Management per nephrology Continue on phosphate binder Hyperkalemia: secondary to above K 5.3 continue on low K diet and continue dialysis per nephrology Hypertension Controlled Continue home Lasix dose on non dialysis days Dementia Continue Seroquel and Namenda GERD Continue omeprazole Hyperlipidemia Continue home statin Anemia: Chronic, stable Suspect secondary to anemia of chronic disease Epogen per nephrology Patient medically stable and discharged 02/12/17, discharge held pending SNF placement. Discharge Planning Case management consulted to assist in placement arrangements. Problem Qualifiers (1) HTN (hypertension): Qualified Codes: I10 - Essential (primary) hypertension Liliam Hsu PA-C Feb 15, 2017 8:48 am
[2017-02-15 11:25] VITALS: BP 113/63; PULSE 77; RESP 18; TEMP 98.1; O2SAT 100
[2017-02-15 15:18] VITALS: BP 127/75; PULSE 75; RESP 16; TEMP 98.2; O2SAT 100
[2017-02-15] MEDS: QUEtiapine FUMARATE 25 MG TAB PO SCH (19:56)
[2017-02-15 20:47] VITALS: BP 120/72; PULSE 72; RESP 18; TEMP 98.2; O2SAT 100
[2017-02-16 00:52] VITALS: BP 105/66; PULSE 72; RESP 18; TEMP 97.9; O2SAT 100
[2017-02-16 04:39] VITALS: BP 117/71; PULSE 78; RESP 18; TEMP 98; O2SAT 96
[2017-02-16 07:25] VITALS: BP 110/67; PULSE 70; RESP 18; TEMP 98; O2SAT 100
[2017-02-16] MEDS: EPOETIN ALFA 10,000 UNITS/ML VIAL IV PUSH PRN (09:24)
[2017-02-16] MEDS: GELATIN 12 MM/7 MM FOAM TOP PRN (09:24)
--- NOTE | 2017-02-16 11:12 | HHI.NPPN ---
Subjective General Problems: Anemia Renal Failure: Chronic, End Stage Renal Disease Interval History patient was seen during dialysis. On 2K, UF goal is about 1800 ml. BFR 350 ml/ min. Tolerating it well. Objective Data Data 02/16/17 02/17/17 19:00 07:00 Output Total 1500 ml Balance -1500 ml Output Hemodialysis 1500 ml Vital Signs Date Time Temp Pulse Resp B/P (MAP) Pulse Ox O2 Delivery O2 Flow Rate FiO2 02/16/17 07:25 98.0 70 18 110/67 (81) 100 02/16/17 04:39 98.0 78 18 117/71 (86) 96 02/16/17 00:52 97.9 72 18 105/66 (79) 100 02/15/17 20:47 98.2 72 18 120/72 (88) 100 02/15/17 15:18 98.2 75 16 127/75 (92) 100 02/15/17 11:25 98.1 77 18 113/63 (80) 100 -: 02/14/17 0339 Physical Exam General Appearance: No Acute Distress, Comfortable, Malnourished Eyes Eye Exam: Pupils Equal Throat Throat Exam: Oral Mucosa [place] & Moist Pulmonary Resp Exam: Clear Bilaterally, Breath Sounds Equal Cardiology CV Exam: Regular, Normal Sinus Rhythm, Good Perfusion Gastrointestinal/Abdomen GI Exam: Soft, Non-Tender, Bowel Sounds Present Musculoskeletal MS Exam: Normal Gait, Normal Tone, Good Strength Extremeties Extremities Exam: No Edema Neurologic Neuro Exam: Awake, Speech Clear, Moving All Extremities Assessment/Plan Discussed Condition With: Patient Assessment Summary: Anemia of CKD, Hypertension, End Stage Renal Disease Problem List: (1) ESRD (end stage renal disease) on dialysis ICD Codes: N18.6 - ESRD (end stage renal disease) on dialysis; Z99.2 - Dependence on renal dialysis Status: Chronic Plan: HD TTS, dialysis today as above. Continue dialysis as per outpatient regimen. Can resume outpatient arrangements after discharge Mild hyperkalemia , now normal, low K diet ordered High protein diet. Fluid restriction to 1500 ml/day. He has aneurysm at AVF however it is patent and works well. (2) Metabolic bone disease ICD Codes: E88.9 - Metabolic disorder, unspecified; M90.80 - Osteopathy in diseases classified elsewhere, unspecified site Plan: He is on Renvela. Phosphorus level has been added but not available. (3) HTN (hypertension) ICD Codes: I10 - HTN (hypertension) Status: Chronic Plan: Currently normotensive. Diet controlled. PRN clonidine has not been used. (4) Chronic anemia ICD Codes: D64.9 - Chronic anemia Status: Acute Plan: Low dose Epogen with dialysis. Plan patient is cleared for discharge from renal standpoint. Problem Qualifiers (1) HTN (hypertension): Qualified Codes: I10 - Essential (primary) hypertension Cole Valencia MD Feb 16, 2017 11:12
[2017-02-16 13:09] VITALS: BP 122/68; PULSE 83; RESP 18; TEMP 98.3; O2SAT 98
[2017-02-16] MEDS: PANTOPRAZOLE SOD 40 MG DELAYED RELEASE TAB PO SCH (13:25)
[2017-02-16] MEDS: MEMANTINE HCL 10 MG TAB PO SCH ×2 (13:25→20:09)
[2017-02-16] MEDS: PRAVASTATIN SOD 40 MG TAB PO SCH (13:25)
[2017-02-16] MEDS: SODIUM CHLORIDE 0.9% FLUSH 10 ML FLUSH IV FLUSH SCH ×2 (13:25→20:09)
[2017-02-16] MEDS: SEVELAMER CARBONATE 800 MG TAB PO SCH ×2 (13:25→20:09)
[2017-02-16] MEDS: ASPIRIN 81 MG CHEW TAB CHEW SCH (13:25)
--- NOTE | 2017-02-16 13:41 | HHI.PR ---
Subjective Remarks Follow up for dementia, ESRD on HD, hyperkalemia. The patient is seen after dialysis. He has no medical complaints. Denies any headache, lightheadedness, dizziness, chest pain, or shortness of breath. Vital signs reviewed and stable. Objective Vitals Vital Signs Date Time Temp Pulse Resp B/P (MAP) Pulse Ox O2 Delivery O2 Flow Rate FiO2 02/16/17 13:09 98.3 83 18 122/68 (86) 98 02/16/17 07:25 98.0 70 18 110/67 (81) 100 02/16/17 04:39 98.0 78 18 117/71 (86) 96 02/16/17 00:52 97.9 72 18 105/66 (79) 100 02/15/17 20:47 98.2 72 18 120/72 (88) 100 02/15/17 15:18 98.2 75 16 127/75 (92) 100 I/O 02/15/17 02/15/17 02/15/17 02/16/17 02/16/17 02/16/17 07:00 15:00 23:00 07:00 15:00 23:00 Output Total 1500 ml Balance -1500 ml Output Hemodialysis 1500 ml Result Diagram: 02/14/17 0339 Objective Remarks GENERAL: Well-nourished, well-developed pleasant male patient in [facility]. SKIN: Warm and dry. No rash. LUE AVF. HEENT: Normocephalic. Atraumatic. Pupils equal and round. Mucous membranes pink and moist. CARDIOVASCULAR: Regular rate and rhythm. S1, S2 noted. RESPIRATORY: No accessory muscle use. Clear to auscultation. Breath sounds equal bilaterally. GASTROINTESTINAL: Abdomen soft, non-tender, nondistended. Normoactive bowel sounds x4. MUSCULOSKELETAL: No obvious deformities. Extremities without clubbing, cyanosis , or edema. NEUROLOGICAL: Awake and alert. No obvious cranial nerve deficits. Motor grossly within normal limits. Normal speech. PSYCHIATRIC: Appropriate mood and affect; insight and judgment limited. Medications and IVs Current Medications Medications (Trade) Dose Ordered Sig/Michell Route Start Time Stop Time Status Last Admin (NS Flush) 2 ml UNSCH PRN IV FLUSH 02/10/17 17:00 (NS Flush) 2 ml BID IV FLUSH 02/10/17 21:00 02/16/17 13:25 (Narcan Inj) 0.4 mg UNSCH PRN IV PUSH 02/10/17 17:00 (Aspirin Chew) 81 mg DAILY CHEW 02/11/17 09:00 02/16/17 13:25 (Pravachol) 40 mg DAILY PO 02/11/17 09:00 02/16/17 13:25 (SEROquel) 25 mg HS PO 02/11/17 21:00 02/15/17 19:56 (Renvela) 800 mg BID PO 02/11/17 09:00 02/16/17 13:25 (Namenda) 10 mg BID PO 02/11/17 09:00 02/16/17 13:25 (Protonix) 40 mg DAILY PO 02/11/17 09:00 02/16/17 13:25 Sodium Chloride 1,000 ml @ 0 mls/hr Q0M PRN OTHER 02/11/17 08:19 (Heparin Inj) 8,000 units UNSCH PRN IV FLUSH 02/11/17 08:30 Sodium Chloride 1,000 ml @ 200 mls/hr Q5H PRN IV 02/11/17 08:19 Sodium Chloride 1,000 ml @ 0 mls/hr Q0M PRN OTHER 02/11/17 08:19 (Mannitol Inj) 12.5 gm UNSCH PRN IV 02/11/17 08:30 Albumin Human 100 ml @ 60 mls/hr UNSCH PRN IV 02/11/17 08:30 (NS Flush) 5 ml UNSCH PRN IV FLUSH 02/11/17 08:30 (Heparin Inj) UNSCH PRN .XX 02/11/17 08:30 (Gentamicin (Dialysis) Inj) 20 mg UNSCH PRN OTHER 02/11/17 08:30 (Zofran Inj) 4 mg UNSCH PRN IV PUSH 02/11/17 08:30 (Tylenol) 650 mg UNSCH PRN PO 02/11/17 08:30 (Benadryl) 25 mg UNSCH PRN PO 02/11/17 08:30 (Nitrostat Sl) 0.4 mg UNSCH PRN SL 02/11/17 08:30 (Catapres) 0.1 mg UNSCH PRN PO 02/11/17 08:30 (Epogen Inj) 5,000 units UNSCH PRN IV PUSH 02/11/17 08:30 02/16/17 09:24 (Gelfoam 12 Mm/7 Mm Top) 1 foam UNSCH PRN TOP 02/11/17 08:30 02/16/17 09:24 (Lasix) 40 mg SuMoWeFr PO 02/14/17 09:00 02/15/17 08:41 A/P Problem List: (1) ESRD (end stage renal disease) on dialysis ICD Code: N18.6 - ESRD (end stage renal disease) on dialysis; Z99.2 - Dependence on renal dialysis Status: Chronic (2) HTN (hypertension) ICD Code: I10 - HTN (hypertension) Status: Chronic (3) Chronic anemia ICD Code: D64.9 - Chronic anemia Status: Acute Assessment and Plan 61-year-old male with: End-stage renal disease on dialysis: TuThSat schedule. Patient follows with Dr. Hernandez. Potassium 5.3, creatinine 10.51 upon arrival -Nephrology consulted, Dr. Valencia following, appreciate assistance -Continue dialysis as scheduled. -Continue high protein/fluid restricted diet. -Cleared for discharge from nephrology standpoint. Hyperphosphatemia -Management per nephrology -Continue on phosphate binder Hyperkalemia: secondary to above -K 5.3 -given Kayexalate -continue on low K diet and continue dialysis per nephrology Hypertension: Well Controlled -Continue home Lasix dose on non dialysis days Dementia -Continue Seroquel and Namenda GERD -Continue omeprazole Hyperlipidemia -Continue home statin Anemia: Chronic, stable -Suspect secondary to anemia of chronic disease -Epogen per nephrology Patient medically stable and discharged 02/12/17, discharge held pending SNF placement. Discharge Planning Case management consulted to assist in placement arrangements. Problem Qualifiers (1) HTN (hypertension): Qualified Codes: I10 - Essential (primary) hypertension Liliam Hsu PA-C Feb 16, 2017 13:41
[2017-02-16 15:48] VITALS: BP 112/70; PULSE 84; RESP 18; TEMP 97.9; O2SAT 98
[2017-02-16 19:56] VITALS: BP 124/71; PULSE 80; RESP 18; TEMP 97.9; O2SAT 99
[2017-02-16] MEDS: QUEtiapine FUMARATE 25 MG TAB PO SCH (20:09)
[2017-02-17 03:18] VITALS: BP 123/72; PULSE 70; RESP 18; TEMP 97.9; O2SAT 99
[2017-02-17] MEDS: SODIUM CHLORIDE 0.9% FLUSH 10 ML FLUSH IV FLUSH SCH ×2 (09:00→19:40)
[2017-02-17 09:02] VITALS: BP 130/78; PULSE 75; RESP 18; TEMP 98.4; O2SAT 97
--- NOTE | 2017-02-17 09:12 | HHI.NPPN ---
Subjective General Problems: Anemia Renal Failure: Chronic, End Stage Renal Disease Interval History Had dialysis yesterday, he is cleared for discharge from renal prospective. Objective Data Data Vital Signs Date Time Temp Pulse Resp B/P (MAP) Pulse Ox O2 Delivery O2 Flow Rate FiO2 02/17/17 09:02 98.4 75 18 130/78 (95) 97 02/17/17 03:18 97.9 70 18 123/72 (89) 99 02/16/17 19:56 97.9 80 18 124/71 (88) 99 02/16/17 15:48 97.9 84 18 112/70 (84) 98 02/16/17 13:09 98.3 83 18 122/68 (86) 98 -: 02/14/17 0339 Physical Exam General Appearance: No Acute Distress, Comfortable, Malnourished Eyes Eye Exam: Pupils Equal Throat Throat Exam: Oral Mucosa [place] & Moist Pulmonary Resp Exam: Clear Bilaterally, Breath Sounds Equal Cardiology CV Exam: Regular, Normal Sinus Rhythm, Good Perfusion Gastrointestinal/Abdomen GI Exam: Soft, Non-Tender, Bowel Sounds Present Musculoskeletal MS Exam: Normal Gait, Normal Tone, Good Strength Extremeties Extremities Exam: No Edema Neurologic Neuro Exam: Awake, Speech Clear, Moving All Extremities Assessment/Plan Discussed Condition With: Patient Assessment Summary: Anemia of CKD, Hypertension, End Stage Renal Disease Problem List: (1) ESRD (end stage renal disease) on dialysis ICD Codes: N18.6 - ESRD (end stage renal disease) on dialysis; Z99.2 - Dependence on renal dialysis Status: Chronic Plan: HD to be continued TTS. High protein, Low potassium diet. Fluid restriction to 1500 ml/day. He has aneurysm at AVF however it is patent and works well. (2) Metabolic bone disease ICD Codes: E88.9 - Metabolic disorder, unspecified; M90.80 - Osteopathy in diseases classified elsewhere, unspecified site Plan: He is on Renvela. Phosphorus level has been added but not available. (3) HTN (hypertension) ICD Codes: I10 - HTN (hypertension) Status: Chronic Plan: Currently normotensive. Diet controlled. PRN clonidine has not been used. (4) Chronic anemia ICD Codes: D64.9 - Chronic anemia Status: Acute Plan: Low dose Epogen with dialysis. Plan patient is cleared for discharge from renal standpoint. Problem Qualifiers (1) HTN (hypertension): Qualified Codes: I10 - Essential (primary) hypertension Cole Valencia MD Feb 17, 2017 09:12
[2017-02-17] MEDS: SEVELAMER CARBONATE 800 MG TAB PO SCH ×2 (10:02→20:28)
[2017-02-17] MEDS: ASPIRIN 81 MG CHEW TAB CHEW SCH (10:03)
[2017-02-17] MEDS: MEMANTINE HCL 10 MG TAB PO SCH ×2 (10:03→20:28)
[2017-02-17] MEDS: PANTOPRAZOLE SOD 40 MG DELAYED RELEASE TAB PO SCH (10:03)
[2017-02-17] MEDS: PRAVASTATIN SOD 40 MG TAB PO SCH (10:03)
--- NOTE | 2017-02-17 11:07 | HHI.PR ---
Subjective Remarks Follow up for ESRD on HD, hyperkalemia, placement issue. The patient is seen lying in his bed. He has no medical complaints. He is oriented to self only, says he's in the skilled nursing, doesn't know the year/president. No acute events overnight. Vital signs reviewed and stable. Objective Vitals Vital Signs Date Time Temp Pulse Resp B/P (MAP) Pulse Ox O2 Delivery O2 Flow Rate FiO2 02/17/17 09:02 98.4 75 18 130/78 (95) 97 02/17/17 03:18 97.9 70 18 123/72 (89) 99 02/16/17 19:56 97.9 80 18 124/71 (88) 99 02/16/17 15:48 97.9 84 18 112/70 (84) 98 02/16/17 13:09 98.3 83 18 122/68 (86) 98 I/O 02/16/17 02/16/17 02/16/17 02/17/17 02/17/17 02/17/17 07:00 15:00 23:00 07:00 15:00 23:00 Intake Total 800 ml Output Total 1500 ml Balance -1500 ml 800 ml Intake Oral 800 ml Output Hemodialysis 1500 ml Result Diagram: 02/14/17 0339 Objective Remarks GENERAL: Well-nourished, well-developed pleasant male patient in [facility]. SKIN: Warm and dry. No rash. LUE AVF with chronic aneurysm. HEENT: Normocephalic. Atraumatic. Pupils equal and round. Mucous membranes pink and moist. CARDIOVASCULAR: Regular rate and rhythm. S1, S2 noted. RESPIRATORY: No accessory muscle use. Clear to auscultation. Breath sounds equal bilaterally. GASTROINTESTINAL: Abdomen soft, non-tender, nondistended. Normoactive bowel sounds x4. MUSCULOSKELETAL: No obvious deformities. Extremities without clubbing, cyanosis , or edema. NEUROLOGICAL: Awake and alert. No obvious cranial nerve deficits. Motor grossly within normal limits. Normal speech. PSYCHIATRIC: Pleasantly confused; insight and judgment limited. Medications and IVs Current Medications Medications (Trade) Dose Ordered Sig/Michell Route Start Time Stop Time Status Last Admin (NS Flush) 2 ml UNSCH PRN IV FLUSH 02/10/17 17:00 (NS Flush) 2 ml BID IV FLUSH 02/10/17 21:00 02/16/17 13:25 (Narcan Inj) 0.4 mg UNSCH PRN IV PUSH 02/10/17 17:00 (Aspirin Chew) 81 mg DAILY CHEW 02/11/17 09:00 02/17/17 10:03 (Pravachol) 40 mg DAILY PO 02/11/17 09:00 02/17/17 10:03 (SEROquel) 25 mg HS PO 02/11/17 21:00 02/16/17 20:09 (Renvela) 800 mg BID PO 02/11/17 09:00 02/17/17 10:02 (Namenda) 10 mg BID PO 02/11/17 09:00 02/17/17 10:03 (Protonix) 40 mg DAILY PO 02/11/17 09:00 02/17/17 10:03 Sodium Chloride 1,000 ml @ 0 mls/hr Q0M PRN OTHER 02/11/17 08:19 (Heparin Inj) 8,000 units UNSCH PRN IV FLUSH 02/11/17 08:30 Sodium Chloride 1,000 ml @ 200 mls/hr Q5H PRN IV 02/11/17 08:19 Sodium Chloride 1,000 ml @ 0 mls/hr Q0M PRN OTHER 02/11/17 08:19 (Mannitol Inj) 12.5 gm UNSCH PRN IV 02/11/17 08:30 Albumin Human 100 ml @ 60 mls/hr UNSCH PRN IV 02/11/17 08:30 (NS Flush) 5 ml UNSCH PRN IV FLUSH 02/11/17 08:30 (Heparin Inj) UNSCH PRN .XX 02/11/17 08:30 (Gentamicin (Dialysis) Inj) 20 mg UNSCH PRN OTHER 02/11/17 08:30 (Zofran Inj) 4 mg UNSCH PRN IV PUSH 02/11/17 08:30 (Tylenol) 650 mg UNSCH PRN PO 02/11/17 08:30 (Benadryl) 25 mg UNSCH PRN PO 02/11/17 08:30 (Nitrostat Sl) 0.4 mg UNSCH PRN SL 02/11/17 08:30 (Catapres) 0.1 mg UNSCH PRN PO 02/11/17 08:30 (Epogen Inj) 5,000 units UNSCH PRN IV PUSH 02/11/17 08:30 02/16/17 09:24 (Gelfoam 12 Mm/7 Mm Top) 1 foam UNSCH PRN TOP 02/11/17 08:30 02/16/17 09:24 (Lasix) 40 mg SuMoWeFr PO 02/14/17 09:00 02/15/17 08:41 A/P Problem List: (1) ESRD (end stage renal disease) on dialysis ICD Code: N18.6 - ESRD (end stage renal disease) on dialysis; Z99.2 - Dependence on renal dialysis Status: Chronic (2) HTN (hypertension) ICD Code: I10 - HTN (hypertension) Status: Chronic (3) Chronic anemia ICD Code: D64.9 - Chronic anemia Status: Acute Assessment and Plan 61-year-old male with: End-stage renal disease on dialysis[facility] Patient follows with Dr. Hernandez. Potassium 5.3, creatinine 10.51 upon arrival -Nephrology consulted, Dr. Valencia following, appreciate assistance -Continue dialysis as scheduled. -Continue high protein/fluid restricted diet. -Cleared for discharge from nephrology standpoint. Hyperphosphatemia -Management per nephrology -Continue on phosphate binder Hyperkalemia: secondary to above -K 5.3 -given Kayexalate -continue on low K diet and continue dialysis per nephrology -repeat labs pending Hypertension: Well Controlled -Continue home Lasix dose on non dialysis days Dementia -Continue Seroquel and Namenda GERD -Continue omeprazole Hyperlipidemia -Continue home statin Anemia: Chronic, stable -Suspect secondary to anemia of chronic disease -Epogen per nephrology Patient medically stable and discharged 02/12/17, discharge held pending SNF placement. Discharge Planning Case management consulted to assist in placement arrangements. Problem Qualifiers (1) HTN (hypertension): Qualified Codes: I10 - Essential (primary) hypertension Liliam Hsu PA-C Feb 17, 2017 11:07 am
[2017-02-17] MEDS: FUROSEMIDE 40 MG TAB PO SCH (11:15)
[2017-02-17 11:46] LABS: BICARBONATE 32.4 MEQ/L (21.0-32.0); CALCIUM 8.3 MG/DL (8.5-10.1)
[2017-02-17 11:54] LABS: CREATININE 11.83 MG/DL (0.60-1.30)
[2017-02-17 12:45] VITALS: BP 132/79; PULSE 75; RESP 18; TEMP 97.6; O2SAT 98
[2017-02-17 16:26] VITALS: BP 137/80; PULSE 70; RESP 18; TEMP 97.4; O2SAT 98
[2017-02-17] MEDS: QUEtiapine FUMARATE 25 MG TAB PO SCH (20:28)
[2017-02-17 22:11] VITALS: BP 128/74; PULSE 74; RESP 18; TEMP 98.5; O2SAT 97
[2017-02-17 23:33] VITALS: BP 128/68; PULSE 78; RESP 18; TEMP 98.5; O2SAT 98
[2017-02-18 05:44] LABS: AUTOMATED NEUTROPHIL # 2.4 TH/MM3 (1.8-7.7); BASOPHIL # 0.1 TH/MM3 (0-0.2); BASOPHIL % 1.9 % (0.0-2.0); EOSINOPHIL # 0.3 TH/MM3 (0-0.4); EOSINOPHIL % 7.3 % (0.0-4.0); HEMATOCRIT 30.9 % (39.0-51.0); HEMOGLOBIN 10.4 GM/DL (13.0-17.0); LYMPH % 25.5 % (9.0-44.0); LYMPHOCYTE # 1.2 TH/MM3 (1.0-4.8); MEAN CELL VOLUME 90.1 FL (80.0-100.0); MEAN CORPUSCULAR HEMOGLOBIN 30.3 PG (27.0-34.0); MEAN CORPUSCULAR HGB CONC 33.7 % (32.0-36.0); MONO % 11.2 % (0.0-8.0); MONOCYTE # 0.5 TH/MM3 (0-0.9); NEUT % 54.1 % (16.0-70.0); PLATELET COUNT 179 TH/MM3 (150-450); RED BLOOD COUNT 3.43 MIL/MM3 (4.50-5.90); RED CELL DISTRIBUTION WIDTH 13.9 % (11.6-17.2); WHITE BLOOD COUNT 4.5 TH/MM3 (4.0-11.0)
[2017-02-18 06:07] LABS: ALBUMIN 2.9 GM/DL (3.4-5.0); ALKALINE PHOSPHATASE 62 U/L (45-117); ALT (GPT) 16 U/L (12-78); AST (GOT) 18 U/L (15-37); BICARBONATE 29.6 MEQ/L (21.0-32.0); BLOOD UREA NITROGEN 63 MG/DL (7-18); CALCIUM 7.7 MG/DL (8.5-10.1); CHLORIDE 90 MEQ/L (98-107); GLOMERULAR FILTRATION RATE 5 ML/MIN (>89); GLUCOSE,RANDOM 72 MG/DL (74-106); SODIUM (NA) 132 MEQ/L (136-145); TOTAL BILIRUBIN ADULT 0.3 MG/DL (0.2-1.0); TOTAL PROTEIN 6.4 GM/DL (6.4-8.2)
[2017-02-18 07:47] VITALS: BP 123/70; PULSE 67; RESP 18; TEMP 98.1; O2SAT 100
[2017-02-18] MEDS: PRAVASTATIN SOD 40 MG TAB PO SCH (08:02)
[2017-02-18] MEDS: PANTOPRAZOLE SOD 40 MG DELAYED RELEASE TAB PO SCH (08:02)
[2017-02-18] MEDS: SODIUM CHLORIDE 0.9% FLUSH 10 ML FLUSH IV FLUSH SCH ×2 (08:02→21:00)
[2017-02-18] MEDS: ASPIRIN 81 MG CHEW TAB CHEW SCH (08:02)
[2017-02-18] MEDS: MEMANTINE HCL 10 MG TAB PO SCH ×2 (08:02→21:03)
[2017-02-18] MEDS: SEVELAMER CARBONATE 800 MG TAB PO SCH ×4 (08:21→17:55)
--- NOTE | 2017-02-18 08:41 | HHI.NPPN ---
Subjective General Problems: Anemia Renal Failure: Chronic, End Stage Renal Disease Interval History Seen during dialysis. Confusion persists. No complaints from patient. (Nicci Nolan) Objective Data Data Vital Signs Date Time Temp Pulse Resp B/P (MAP) Pulse Ox O2 Delivery O2 Flow Rate FiO2 02/18/17 07:47 98.1 67 18 123/70 (87) 100 02/17/17 23:33 98.5 78 18 128/68 (88) 98 02/17/17 22:11 98.5 74 18 128/74 (92) 97 02/17/17 16:26 97.4 70 18 137/80 (99) 98 02/17/17 12:45 97.6 75 18 132/79 (96) 98 02/17/17 09:02 98.4 75 18 130/78 (95) 97 (Nicci Nolan) -: 02/18/17 0336 02/18/17 0336 Physical Exam General Appearance: No Acute Distress, Comfortable, Malnourished (Nicci Nolan) Eyes Eye Exam: Pupils Equal (Nicci Nolan) Throat Throat Exam: Oral Mucosa [place] & Moist (Nicci Nolan) Pulmonary Resp Exam: Clear Bilaterally, Breath Sounds Equal (Nicci Nolan) Cardiology CV Exam: Regular, Normal Sinus Rhythm, Good Perfusion (Nicci Nolan) Gastrointestinal/Abdomen GI Exam: Soft, Non-Tender, Bowel Sounds Present (Nicci Nolan) Musculoskeletal MS Exam: Normal Gait, Normal Tone, Good Strength (Nicci Nolan) Extremeties Extremities Exam: No Edema Extremeties Remarks Large AVF left upper arm, + aneurysm at site, it is patent (Nicci Nolan) Neurologic Neuro Exam: Awake, Speech Clear, Moving All Extremities (Nicci Nolan) Psychiatric Psych Remarks pleasantly confused (Nicci Nolan) Assessment/Plan Discussed Condition With: Patient Assessment Summary: Anemia of CKD, Hypertension, End Stage Renal Disease Problem List: (1) ESRD (end stage renal disease) on dialysis ICD Codes: N18.6 - ESRD (end stage renal disease) on dialysis; Z99.2 - Dependence on renal dialysis Status: Chronic Plan: Seen during dialysis today on a 2K, 350 BFR, goal 2L HD to be continued TTS. He has outpatient HD arrangements at [facility]. High protein, Low potassium diet. Monitor potassium level, intermittently hyperkalemic this admission. Fluid restriction to 1500 ml/day. He has aneurysm at AVF however it is patent and works well. (2) Metabolic bone disease ICD Codes: E88.9 - Metabolic disorder, unspecified; M90.80 - Osteopathy in diseases classified elsewhere, unspecified site Plan: He is on Renvela. Phosphorus level is acceptable. (3) HTN (hypertension) ICD Codes: I10 - HTN (hypertension) Status: Chronic Plan: Currently normotensive. Diet controlled. PRN clonidine has not been used. (4) Chronic anemia ICD Codes: D64.9 - Chronic anemia Status: Acute Plan: Low dose Epogen with dialysis. Plan patient is cleared for discharge from renal standpoint. (Nicci Nolan) Problem List: (1) ESRD (end stage renal disease) on dialysis ICD Codes: N18.6 - ESRD (end stage renal disease) on dialysis; Z99.2 - Dependence on renal dialysis Status: Chronic Plan: Seen during dialysis today on a 2K, 350 BFR, goal 2L HD to be continued TTS. He has outpatient HD arrangements at [facility]. High protein, Low potassium diet. Monitor potassium level, intermittently hyperkalemic this admission. Fluid restriction to 1500 ml/day. He has aneurysm at AVF however it is patent and works well. (2) Metabolic bone disease ICD Codes: E88.9 - Metabolic disorder, unspecified; M90.80 - Osteopathy in diseases classified elsewhere, unspecified site Plan: He is on Renvela. Phosphorus level is acceptable. (3) HTN (hypertension) ICD Codes: I10 - HTN (hypertension) Status: Chronic Plan: Currently normotensive. Diet controlled. PRN clonidine has not been used. (4) Chronic anemia ICD Codes: D64.9 - Chronic anemia Status: Acute Plan: Low dose Epogen with dialysis. Plan patient was seen and examined. Agree with above assessment and plan. (Cole Valencia MD) Problem Qualifiers (1) HTN (hypertension): Qualified Codes: I10 - Essential (primary) hypertension Nicci Nolan Feb 18, 2017 08:41 Cole Valencia MD Feb 18, 2017 14:33
[2017-02-18] MEDS: EPOETIN ALFA 10,000 UNITS/ML VIAL IV PUSH PRN (08:48)
[2017-02-18] MEDS: GELATIN 12 MM/7 MM FOAM TOP PRN (08:48)
[2017-02-18] MEDS ORDERED: SEVELAMER CARBONATE 800 MG TAB PO SCH (09:00)
--- NOTE | 2017-02-18 13:02 | HHI.PR ---
Subjective Remarks Follow up for ESRD on HD, placement issue. The patient is seen s/p dialysis. He has no medical complaints. He is oriented to self and knows he is in a hospital today, does not know the year or president. He is hungry and wants to eat. No acute events overnight. Objective Vitals Vital Signs Date Time Temp Pulse Resp B/P (MAP) Pulse Ox O2 Delivery O2 Flow Rate FiO2 02/18/17 07:47 98.1 67 18 123/70 (87) 100 02/17/17 23:33 98.5 78 18 128/68 (88) 98 02/17/17 22:11 98.5 74 18 128/74 (92) 97 02/17/17 16:26 97.4 70 18 137/80 (99) 98 I/O 02/17/17 02/17/17 02/17/17 02/18/17 02/18/17 02/18/17 07:00 15:00 23:00 07:00 15:00 23:00 Intake Total 240 ml Balance 240 ml Intake Oral 240 ml # Voids 1 1 Result Diagram: 02/18/17 0336 02/18/17 0336 Objective Remarks GENERAL: Well-nourished, well-developed pleasant male patient in [facility]. SKIN: Warm and dry. No rash. LUE AVF with chronic aneurysm. HEENT: Normocephalic. Atraumatic. Pupils equal and round. Mucous membranes pink and moist. CARDIOVASCULAR: Regular rate and rhythm. S1, S2 noted. RESPIRATORY: No accessory muscle use. Clear to auscultation. Breath sounds equal bilaterally. GASTROINTESTINAL: Abdomen soft, non-tender, nondistended. Normoactive bowel sounds x4. MUSCULOSKELETAL: No obvious deformities. Extremities without clubbing, cyanosis , or edema. NEUROLOGICAL: Awake and alert. No obvious cranial nerve deficits. Motor grossly within normal limits. Normal speech. PSYCHIATRIC: Pleasantly confused; insight and judgment limited. Medications and IVs Current Medications Medications (Trade) Dose Ordered Sig/Michell Route Start Time Stop Time Status Last Admin (NS Flush) 2 ml UNSCH PRN IV FLUSH 02/10/17 17:00 (NS Flush) 2 ml BID IV FLUSH 02/10/17 21:00 02/16/17 13:25 (Narcan Inj) 0.4 mg UNSCH PRN IV PUSH 02/10/17 17:00 (Aspirin Chew) 81 mg DAILY CHEW 02/11/17 09:00 02/18/17 08:02 (Pravachol) 40 mg DAILY PO 02/11/17 09:00 02/18/17 08:02 (SEROquel) 25 mg HS PO 02/11/17 21:00 02/17/17 20:28 (Namenda) 10 mg BID PO 02/11/17 09:00 02/18/17 08:02 (Protonix) 40 mg DAILY PO 02/11/17 09:00 02/18/17 08:02 Sodium Chloride 1,000 ml @ 0 mls/hr Q0M PRN OTHER 02/11/17 08:19 (Heparin Inj) 8,000 units UNSCH PRN IV FLUSH 02/11/17 08:30 Sodium Chloride 1,000 ml @ 200 mls/hr Q5H PRN IV 02/11/17 08:19 Sodium Chloride 1,000 ml @ 0 mls/hr Q0M PRN OTHER 02/11/17 08:19 (Mannitol Inj) 12.5 gm UNSCH PRN IV 02/11/17 08:30 Albumin Human 100 ml @ 60 mls/hr UNSCH PRN IV 02/11/17 08:30 (NS Flush) 5 ml UNSCH PRN IV FLUSH 02/11/17 08:30 (Heparin Inj) UNSCH PRN .XX 02/11/17 08:30 (Gentamicin (Dialysis) Inj) 20 mg UNSCH PRN OTHER 02/11/17 08:30 (Zofran Inj) 4 mg UNSCH PRN IV PUSH 02/11/17 08:30 (Tylenol) 650 mg UNSCH PRN PO 02/11/17 08:30 (Benadryl) 25 mg UNSCH PRN PO 02/11/17 08:30 (Nitrostat Sl) 0.4 mg UNSCH PRN SL 02/11/17 08:30 (Catapres) 0.1 mg UNSCH PRN PO 02/11/17 08:30 (Epogen Inj) 5,000 units UNSCH PRN IV PUSH 02/11/17 08:30 02/18/17 08:48 (Gelfoam 12 Mm/7 Mm Top) 1 foam UNSCH PRN TOP 02/11/17 08:30 02/18/17 08:48 (Lasix) 40 mg SuMoWeFr PO 02/14/17 09:00 02/17/17 11:15 (Renvela) 800 mg TID PO 02/18/17 10:00 A/P Problem List: (1) ESRD (end stage renal disease) on dialysis ICD Code: N18.6 - ESRD (end stage renal disease) on dialysis; Z99.2 - Dependence on renal dialysis Status: Chronic (2) HTN (hypertension) ICD Code: I10 - HTN (hypertension) Status: Chronic (3) Chronic anemia ICD Code: D64.9 - Chronic anemia Status: Acute Assessment and Plan 61-year-old male with: End-stage renal disease on dialysis: TuThSat schedule. Patient follows with Dr. Hernandez. Potassium 5.3, creatinine 10.51 upon arrival -Nephrology consulted, Dr. Valencia following, appreciate assistance -Continue dialysis as scheduled. -Continue high protein/fluid restricted diet. -Cleared for discharge from nephrology standpoint. Hyperphosphatemia -Management per nephrology -Continue on phosphate binder Hyperkalemia: secondary to above -K 5.4 -given Kayexalate -continue on low K diet and continue dialysis per nephrology -repeat labs show improvement with K 4.4 Hypertension: Well Controlled -Continue home Lasix dose on non dialysis days Dementia -Continue Seroquel and Namenda GERD -Continue omeprazole Hyperlipidemia -Continue home statin Anemia: Chronic, stable -Suspect secondary to anemia of chronic disease -Epogen per nephrology Patient medically stable and discharged 02/12/17, discharge held pending SNF placement. Discharge Planning Case management consulted to assist in placement arrangements. The patient is medically cleared for discharge. Problem Qualifiers (1) HTN (hypertension): Qualified Codes: I10 - Essential (primary) hypertension Liliam Hsu PA-C Feb 18, 2017 1:02 pm
[2017-02-18 15:37] VITALS: BP 126/78; PULSE 83; RESP 18; TEMP 98.7; O2SAT 98
[2017-02-18] MEDS: QUEtiapine FUMARATE 25 MG TAB PO SCH (21:03)
[2017-02-19] VITALS (7 sets, daily range): BP systolic 122–147; BP diastolic 60–79; PULSE 68–76; RESP 16–20; TEMP 97.9–98.3; O2SAT 96–99
[2017-02-19 07:23] LABS: AUTOMATED NEUTROPHIL # 2.8 TH/MM3 (1.8-7.7); BASOPHIL # 0.1 TH/MM3 (0-0.2); BASOPHIL % 1.4 % (0.0-2.0); EOSINOPHIL # 0.3 TH/MM3 (0-0.4); EOSINOPHIL % 6.2 % (0.0-4.0); HEMOGLOBIN 11.4 GM/DL (13.0-17.0); LYMPH % 17.1 % (9.0-44.0); LYMPHOCYTE # 0.7 TH/MM3 (1.0-4.8); MEAN CELL VOLUME 91.1 FL (80.0-100.0); MEAN CORPUSCULAR HEMOGLOBIN 30.4 PG (27.0-34.0); MEAN CORPUSCULAR HGB CONC 33.4 % (32.0-36.0); MEAN PLATELET VOLUME 8.9 FL (7.0-11.0); MONO % 10.5 % (0.0-8.0); MONOCYTE # 0.5 TH/MM3 (0-0.9); NEUT % 64.8 % (16.0-70.0); PLATELET COUNT 188 TH/MM3 (150-450); RED BLOOD COUNT 3.73 MIL/MM3 (4.50-5.90); RED CELL DISTRIBUTION WIDTH 14.2 % (11.6-17.2); WHITE BLOOD COUNT 4.3 TH/MM3 (4.0-11.0)
[2017-02-19 07:40] LABS: ALBUMIN 3.3 GM/DL (3.4-5.0); ALKALINE PHOSPHATASE 69 U/L (45-117); ALT (GPT) 19 U/L (12-78); AST (GOT) 18 U/L (15-37); BICARBONATE 30.9 MEQ/L (21.0-32.0); BLOOD UREA NITROGEN 45 MG/DL (7-18); CALCIUM 8.6 MG/DL (8.5-10.1); CHLORIDE 95 MEQ/L (98-107); GLOMERULAR FILTRATION RATE 6 ML/MIN (>89); GLUCOSE,RANDOM 93 MG/DL (74-106); SODIUM (NA) 136 MEQ/L (136-145); TOTAL BILIRUBIN ADULT 0.4 MG/DL (0.2-1.0); TOTAL PROTEIN 7.2 GM/DL (6.4-8.2)
[2017-02-19 07:46] LABS: CREATININE 10.45 MG/DL (0.60-1.30)
[2017-02-19] MEDS: SEVELAMER CARBONATE 800 MG TAB PO SCH ×3 (09:04→17:44)
[2017-02-19] MEDS: PANTOPRAZOLE SOD 40 MG DELAYED RELEASE TAB PO SCH (09:05)
[2017-02-19] MEDS: PRAVASTATIN SOD 40 MG TAB PO SCH (09:05)
[2017-02-19] MEDS: MEMANTINE HCL 10 MG TAB PO SCH ×2 (09:05→20:26)
[2017-02-19] MEDS: ASPIRIN 81 MG CHEW TAB CHEW SCH (09:07)
[2017-02-19] MEDS: SODIUM CHLORIDE 0.9% FLUSH 10 ML FLUSH IV FLUSH SCH ×2 (09:07→20:26)
[2017-02-19] MEDS: FUROSEMIDE 40 MG TAB PO SCH (09:07)
--- NOTE | 2017-02-19 09:23 | HHI.NPPN ---
Subjective General Problems: Anemia Renal Failure: Chronic, End Stage Renal Disease Interval History Sitting up eating breakfast, no distress noted. Per case management he has been accepted at [facility] just waiting on bed placement. (Nicci Nolan) Objective Data Data Vital Signs Date Time Temp Pulse Resp B/P (MAP) Pulse Ox O2 Delivery O2 Flow Rate FiO2 02/19/17 08:05 97.9 72 18 127/73 (91) 96 02/19/17 05:15 98.0 68 18 122/62 (82) 98 02/19/17 00:13 98.3 68 18 147/69 (95) 97 02/18/17 15:37 98.7 83 18 126/78 (94) 98 (Nicci Nolan) -: 02/19/17 0615 02/19/17 0615 Physical Exam General Appearance: No Acute Distress, Comfortable, Malnourished (Nicci Nolan) Eyes Eye Exam: Pupils Equal (Nicci Nolan) Throat Throat Exam: Oral Mucosa [place] & Moist (Nicci Nolan) Pulmonary Resp Exam: Clear Bilaterally, Breath Sounds Equal (Nicci Nolan) Cardiology CV Exam: Regular, Normal Sinus Rhythm, Good Perfusion (Nicci Nolan) Gastrointestinal/Abdomen GI Exam: Soft, Non-Tender, Bowel Sounds Present (Nicci Nolan) Musculoskeletal MS Exam: Normal Gait, Normal Tone, Good Strength (Nicci Nolan) Extremeties Extremities Exam: No Edema Extremeties Remarks Large AVF left upper arm, + aneurysm at site, it is patent (Nicci Nolan) Neurologic Neuro Exam: Awake, Speech Clear, Moving All Extremities (Nicci Nolan) Psychiatric Psych Remarks pleasantly confused (Nicci Nolan) Assessment/Plan Discussed Condition With: Patient Assessment Summary: Anemia of CKD, Hypertension, End Stage Renal Disease Problem List: (1) ESRD (end stage renal disease) on dialysis ICD Codes: N18.6 - ESRD (end stage renal disease) on dialysis; Z99.2 - Dependence on renal dialysis Status: Chronic Plan: HD to be continued TTS. 2L UF yesterday. He has outpatient HD arrangements at [facility]. High protein, Low potassium diet. Monitor potassium level, intermittently hyperkalemic this admission. Fluid restriction to 1500 ml/day. He has aneurysm at AVF however it is patent and works well. (2) Metabolic bone disease ICD Codes: E88.9 - Metabolic disorder, unspecified; M90.80 - Osteopathy in diseases classified elsewhere, unspecified site Plan: He is on Renvela. Intermittently monitor phosphorus level. Repeat has been ordered. (3) HTN (hypertension) ICD Codes: I10 - HTN (hypertension) Status: Chronic Plan: Currently normotensive. Diet controlled. PRN clonidine has not been used. He is on Lasix on non HD days. (4) Chronic anemia ICD Codes: D64.9 - Chronic anemia Status: Acute Plan: Low dose Epogen with dialysis. (Nicci Nolan) Plan patient was seen and examined. Agree with above assessment and plan. (Cole Valencia MD) Problem Qualifiers (1) HTN (hypertension): Qualified Codes: I10 - Essential (primary) hypertension Nicci Nolan Feb 19, 2017 09:23 Cole Valencia MD Feb 19, 2017 13:47
--- NOTE | 2017-02-19 09:58 | HHI.PR ---
Subjective Remarks Follow up for ESRD on HD, placement issue. The patient is seen awake, lying in bed. He is oriented to self only today. He has no specific medical complaints. He says he is feeling alright. Vital signs reviewed and stable. Objective Vitals Vital Signs Date Time Temp Pulse Resp B/P (MAP) Pulse Ox O2 Delivery O2 Flow Rate FiO2 02/19/17 08:05 97.9 72 18 127/73 (91) 96 02/19/17 05:15 98.0 68 18 122/62 (82) 98 02/19/17 00:13 98.3 68 18 147/69 (95) 97 02/18/17 15:37 98.7 83 18 126/78 (94) 98 I/O 02/18/17 02/18/17 02/18/17 02/19/17 02/19/17 02/19/17 07:00 15:00 23:00 07:00 15:00 23:00 Intake Total 600 ml Output Total 2000 ml Balance -2000 ml 600 ml Intake Oral 600 ml Output Hemodialysis 2000 ml Result Diagram: 02/19/1715 02/19/1715 Objective Remarks GENERAL: Well-nourished, well-developed pleasant male patient in [facility]. SKIN: Warm and dry. No rash. LUE AVF with chronic aneurysm. HEENT: Normocephalic. Atraumatic. Pupils equal and round. Mucous membranes pink and moist. CARDIOVASCULAR: Regular rate and rhythm. S1, S2 noted. RESPIRATORY: No accessory muscle use. Clear to auscultation. Breath sounds equal bilaterally. GASTROINTESTINAL: Abdomen soft, non-tender, nondistended. Normoactive bowel sounds x4. MUSCULOSKELETAL: No obvious deformities. Extremities without clubbing, cyanosis , or edema. NEUROLOGICAL: Awake and alert. No obvious cranial nerve deficits. Motor grossly within normal limits. Normal speech. PSYCHIATRIC: Pleasantly confused; insight and judgment limited. Medications and IVs Current Medications Medications (Trade) Dose Ordered Sig/Michell Route Start Time Stop Time Status Last Admin (NS Flush) 2 ml UNSCH PRN IV FLUSH 02/10/17 17:00 (NS Flush) 2 ml BID IV FLUSH 02/10/17 21:00 02/16/17 13:25 (Narcan Inj) 0.4 mg UNSCH PRN IV PUSH 02/10/17 17:00 (Aspirin Chew) 81 mg DAILY CHEW 02/11/17 09:00 02/19/17 09:07 (Pravachol) 40 mg DAILY PO 02/11/17 09:00 02/19/17 09:05 (SEROquel) 25 mg HS PO 02/11/17 21:00 02/18/17 21:03 (Namenda) 10 mg BID PO 02/11/17 09:00 02/19/17 09:05 (Protonix) 40 mg DAILY PO 02/11/17 09:00 02/19/17 09:05 Sodium Chloride 1,000 ml @ 0 mls/hr Q0M PRN OTHER 02/11/17 08:19 (Heparin Inj) 8,000 units UNSCH PRN IV FLUSH 02/11/17 08:30 Sodium Chloride 1,000 ml @ 200 mls/hr Q5H PRN IV 02/11/17 08:19 Sodium Chloride 1,000 ml @ 0 mls/hr Q0M PRN OTHER 02/11/17 08:19 (Mannitol Inj) 12.5 gm UNSCH PRN IV 02/11/17 08:30 Albumin Human 100 ml @ 60 mls/hr UNSCH PRN IV 02/11/17 08:30 (NS Flush) 5 ml UNSCH PRN IV FLUSH 02/11/17 08:30 (Heparin Inj) UNSCH PRN .XX 02/11/17 08:30 (Gentamicin (Dialysis) Inj) 20 mg UNSCH PRN OTHER 02/11/17 08:30 (Zofran Inj) 4 mg UNSCH PRN IV PUSH 02/11/17 08:30 (Tylenol) 650 mg UNSCH PRN PO 02/11/17 08:30 (Benadryl) 25 mg UNSCH PRN PO 02/11/17 08:30 (Nitrostat Sl) 0.4 mg UNSCH PRN SL 02/11/17 08:30 (Catapres) 0.1 mg UNSCH PRN PO 02/11/17 08:30 (Epogen Inj) 5,000 units UNSCH PRN IV PUSH 02/11/17 08:30 02/18/17 08:48 (Gelfoam 12 Mm/7 Mm Top) 1 foam UNSCH PRN TOP 02/11/17 08:30 02/18/17 08:48 (Lasix) 40 mg SuMoWeFr PO 02/14/17 09:00 02/19/17 09:07 (Renvela) 800 mg TID PO 02/18/17 10:00 02/18/17 17:55 A/P Problem List: (1) ESRD (end stage renal disease) on dialysis ICD Code: N18.6 - ESRD (end stage renal disease) on dialysis; Z99.2 - Dependence on renal dialysis Status: Chronic (2) HTN (hypertension) ICD Code: I10 - HTN (hypertension) Status: Chronic (3) Chronic anemia ICD Code: D64.9 - Chronic anemia Status: Acute Assessment and Plan 61-year-old male with: End-stage renal disease on dialysis: TuTat schedule. Patient follows with Dr. Heranndez. Potassium 5.3, creatinine 10.51 upon arrival -Nephrology consulted, Dr. Valencia following, appreciate assistance -Continue dialysis as scheduled. -Continue high protein/fluid restricted diet. -Continue Renvela -Cleared for discharge from nephrology standpoint. Hyperphosphatemia -Management per nephrology -Continue on phosphate binder Hyperkalemia: secondary to above -K 5.4 -given Kayexalate -continue on low K diet and continue dialysis per nephrology -repeat labs show improvement with K 3.9 Hypertension: Well Controlled -Continue home Lasix dose on non dialysis days Dementia -Continue Seroquel and Namenda GERD -Continue omeprazole Hyperlipidemia -Continue home statin Anemia: Chronic, stable -Suspect secondary to anemia of chronic disease -Epogen per nephrology Patient medically stable and discharged 02/12/17, discharge held pending SNF placement. Discharge Planning The patient is medically cleared for discharge. Discussed with case management , patient accepted to facility clinically however awaiting financial sources. Problem Qualifiers (1) HTN (hypertension): Qualified Codes: I10 - Essential (primary) hypertension Liliam Hsu PA-C Feb 19, 2017 09:58
[2017-02-19] MEDS ORDERED: SEVEL800 PO (16:21)
[2017-02-19] MEDS ORDERED: FURO40TA PO (16:30)
[2017-02-19] MEDS ORDERED: ASPI81CH6 CHEW (16:30)
[2017-02-19] MEDS ORDERED: DIALTAB2 PO (16:30)
[2017-02-19] MEDS ORDERED: OMEP40CA2 PO (16:30)
[2017-02-19] MEDS ORDERED: QUET1TAB7 PO (16:30)
[2017-02-19] MEDS ORDERED: PRAV40TA2 PO (16:30)
[2017-02-19] MEDS ORDERED: MEMA21CA PO (16:30)
[2017-02-19] MEDS ORDERED: FOLI1TAB6 PO (16:30)
[2017-02-19] MEDS ORDERED: VITA2000 PO (16:30)
[2017-02-19] MEDS: QUEtiapine FUMARATE 25 MG TAB PO SCH (20:26)
[2017-02-20 04:36] VITALS: BP 122/74; PULSE 76; RESP 18; TEMP 98.4; O2SAT 100
[2017-02-20 07:57] LABS: AUTOMATED NEUTROPHIL # 3.7 TH/MM3 (1.8-7.7); BASOPHIL % 0.9 % (0.0-2.0); EOSINOPHIL # 0.3 TH/MM3 (0-0.4); EOSINOPHIL % 5.5 % (0.0-4.0); HEMATOCRIT 32.4 % (39.0-51.0); HEMOGLOBIN 10.7 GM/DL (13.0-17.0); LYMPH % 15.8 % (9.0-44.0); LYMPHOCYTE # 0.8 TH/MM3 (1.0-4.8); MEAN CELL VOLUME 90.2 FL (80.0-100.0); MEAN CORPUSCULAR HEMOGLOBIN 29.8 PG (27.0-34.0); MEAN CORPUSCULAR HGB CONC 33.1 % (32.0-36.0); MEAN PLATELET VOLUME 8.3 FL (7.0-11.0); MONO % 8.9 % (0.0-8.0); MONOCYTE # 0.5 TH/MM3 (0-0.9); NEUT % 68.9 % (16.0-70.0); PLATELET COUNT 177 TH/MM3 (150-450); RED BLOOD COUNT 3.59 MIL/MM3 (4.50-5.90); WHITE BLOOD COUNT 5.4 TH/MM3 (4.0-11.0)
[2017-02-20 08:18] LABS: ALBUMIN 3.4 GM/DL (3.4-5.0); ALKALINE PHOSPHATASE 69 U/L (45-117); ALT (GPT) 20 U/L (12-78); AST (GOT) 22 U/L (15-37); BICARBONATE 28.8 MEQ/L (21.0-32.0); BLOOD UREA NITROGEN 59 MG/DL (7-18); CALCIUM 8.3 MG/DL (8.5-10.1); CHLORIDE 93 MEQ/L (98-107); GLOMERULAR FILTRATION RATE 5 ML/MIN (>89); GLUCOSE,RANDOM 71 MG/DL (74-106); SODIUM (NA) 133 MEQ/L (136-145); TOTAL BILIRUBIN ADULT 0.3 MG/DL (0.2-1.0); TOTAL PROTEIN 7.2 GM/DL (6.4-8.2)
[2017-02-20 08:24] LABS: CREATININE 12.31 MG/DL (0.60-1.30)
--- NOTE | 2017-02-20 08:37 | HHI.DS ---
Discharge Summary Admission Date Feb 10, 2017 at 4:58 pm Discharge Date: Feb 20, 2017 Admitting Diagnosis dementia with behavioral disturbance (1) Dementia with behavioral disturbance ICD Code: F03.91 - Unspecified dementia with behavioral disturbance (2) ESRD (end stage renal disease) on dialysis ICD Code: N18.6 - ESRD (end stage renal disease) on dialysis; Z99.2 - Dependence on renal dialysis Status: Chronic (3) HTN (hypertension) ICD Code: I10 - HTN (hypertension) Status: Chronic (4) Chronic anemia ICD Code: D64.9 - Chronic anemia Status: Acute Procedures None. Brief History - From Admission 61-year-old male with a past medical history significant for end-stage renal disease on dialysis, follows with Dr. Hernandez, hypertension, dementia with behavioral disturbances and hyperlipidemia was brought to the emergency department by EMS. The patient is not sure why he is in the emergency department but states that he needs to have his fistula repaired. He is an extremely poor historian. According to ED notes, EMS was called by the patient' s sister and she is unable to care for him anymore. Lab values significant for potassium of 5.3, BUN/creatinine of 42/10.79. The patient states he last had dialysis "sometime last week." The patient's fistula does not have signs of infection and has good thrill. CBC/BMP: 02/20/17 0744 02/20/17 0744 Significant Findings Laboratory Tests Test 02/17/17 10:28 02/18/17 03:36 02/19/17 06:15 02/20/17 07:44 Blood Urea Nitrogen 54 MG/DL (7-18) 63 MG/DL (7-18) 45 MG/DL (7-18) 59 MG/DL (7-18) Creatinine 11.83 MG/DL (0.60-1.30) 13.20 MG/DL (0.60-1.30) 10.45 MG/DL (0.60-1.30) 12.31 MG/DL (0.60-1.30) Random Glucose 134 MG/DL (74-106) 72 MG/DL (74-106) 71 MG/DL (74-106) Calcium Level 8.3 MG/DL (8.5-10.1) 7.7 MG/DL (8.5-10.1) 8.3 MG/DL (8.5-10.1) Chloride Level 95 MEQ/L (98-107) 90 MEQ/L (98-107) 95 MEQ/L (98-107) 93 MEQ/L (98-107) Carbon Dioxide Level 32.4 MEQ/L (21.0-32.0) Estimat Glomerular Filtration Rate 5 ML/MIN (>89) 5 ML/MIN (>89) 6 ML/MIN (>89) 5 ML/MIN (>89) Red Blood Count 3.43 MIL/MM3 (4.50-5.90) 3.73 MIL/MM3 (4.50-5.90) 3.59 MIL/MM3 (4.50-5.90) Hemoglobin 10.4 GM/DL (13.0-17.0) 11.4 GM/DL (13.0-17.0) 10.7 GM/DL (13.0-17.0) Hematocrit 30.9 % (39.0-51.0) 34.0 % (39.0-51.0) 32.4 % (39.0-51.0) Monocytes (%) (Auto) 11.2 % (0.0-8.0) 10.5 % (0.0-8.0) 8.9 % (0.0-8.0) Eosinophils (%) (Auto) 7.3 % (0.0-4.0) 6.2 % (0.0-4.0) 5.5 % (0.0-4.0) Albumin 2.9 GM/DL (3.4-5.0) 3.3 GM/DL (3.4-5.0) Sodium Level 132 MEQ/L (136-145) 133 MEQ/L (136-145) Lymphocytes # (Auto) 0.7 TH/MM3 (1.0-4.8) 0.8 TH/MM3 (1.0-4.8) Phosphorus Level 5.0 MG/DL (2.5-4.9) PE at Discharge GENERAL: Well-nourished, well-developed pleasant male patient in [facility]. SKIN: Warm and dry. No rash. LUE AVF with chronic aneurysm. HEENT: Normocephalic. Atraumatic. Pupils equal and round. Mucous membranes pink and moist. CARDIOVASCULAR: Regular rate and rhythm. S1, S2 noted. RESPIRATORY: No accessory muscle use. Clear to auscultation. Breath sounds equal bilaterally. GASTROINTESTINAL: Abdomen soft, non-tender, nondistended. Normoactive bowel sounds x4. MUSCULOSKELETAL: No obvious deformities. Extremities without clubbing, cyanosis , or edema. NEUROLOGICAL: Awake and alert. No obvious cranial nerve deficits. Motor grossly within normal limits. Normal speech. PSYCHIATRIC: Pleasantly confused; insight and judgment limited. Pt update on day of discharge The patient has no medical complaints including no headache, lightheadedness, chest pain, shortness of breath, or abdominal complaints. He is going for dialysis prior to discharge today. No acute events overnight. Vital signs reviewed and stable. Hospital Course 61-year-old male with history of ESRD on HD, Dementia, GERD, HLD, Anemia, presents after his sister brought him in, unable to care for him any longer. There were reports of behavioral disturbances at home however patient was calm, cooperative, and very pleasant throughout his 10 day stay. He was admitted on , discharged on 02/12, however stayed in observation unit until placement could be arranged. He was seen by nephrology to continue dialysis on TuThSat schedule. He has an aneurysm at the left AVF however it is patent and works well per nephrology. He was treated for hyperphosphatemia with phosphate binder. He was treated for hyperkalemia K 5.4 with Kayexalate x1 and repeat labs showed improvement with K 3.9. His blood pressure remained well controlled. His Lasix 40mg on non-dialysis days was continued. He was continued on seroquel and Namenda for his dementia. His anemia remained stable, likely anemia of chronic disease, on Epogen per nephrology. After 10 day admission, placement was finally arranged at [place]. Pt Condition on Discharge: Stable Discharge Disposition: Discharge to SNF Discharge Time: > 30 minutes Discharge Instructions DIET: Follow Instructions for: Heart Healthy Diet, Renal Failure Diet, High Protein Diet Additional Diet Instructions: Low potassium diet Fluid Restrictions: 1500ml Activities you can perform: Regular-No Restrictions Follow up Referrals: Nephrology - 1 Week PCP Follow-up - 1 Week New Medications: Sevelamer Carbonate (Renvela) 800 Mg Tab 800 MG PO TID for CKD, #90 TAB Changed Medications: Furosemide (Furosemide) 40 Mg Tab 40 MG PO DAILY for fluid, #30 TAB 0 Refills (Changed from: MG; on non-dialysis days) give on non-dialysis days ONLY (Wednesday, Wednesday, Wed, Wed) Continued Medications: Aspirin (Aspirin Low Dose) 81 Mg Chew 81 MG CHEW DAILY for Prevent Blood Clot, #30 TAB 0 Refills (This prescription has been renewed) B-Complex W/ C & Folic Acid (Dialyvite Rx) 1 Mg Tab 1 TAB PO DAILY for vitamin, #30 TAB (This prescription has been renewed) Cholecalciferol (Vitamin D3) 2,000 Unit Cap 2000 UNITS PO DAILY for Nutritional Supplement, #30 TAB 0 Refills (This prescription has been renewed) Folic Acid (Folic Acid) 1 Mg Tablet 1 MG PO DAILY for Nutritional Supplement, #30 TAB (This prescription has been renewed) Memantine Er (Namenda Xr) 21 Mg Caper 21 MG PO DAILY for Alzheimer Disease, #30 CAP 0 Refills (This prescription has been renewed) Omeprazole (Omeprazole) 40 Mg Cap 40 MG PO DAILY for GERD, #30 CAP 0 Refills (This prescription has been renewed) Pravastatin (Pravastatin) 40 Mg Tab 40 MG PO DAILY for Cholesterol Management, #30 TAB 0 Refills (This prescription has been renewed) Quetiapine (Quetiapine) 25 Mg Tab 25 MG PO HS for Control Mood Swing, #30 TAB 0 Refills (This prescription has been renewed) Discontinued Medications: Sevelamer Carbonate (Renvela) 800 Mg Tab 3 TAB PO TID for Control phosphorous levels, #90 TAB 0 Refills Sevelamer Carbonate (Renvela) 800 Mg Tab 800 MG PO BID for Control phosphorous levels, #90 TAB 0 Refills with snacks Liliam Hsu PA-C Feb 20, 2017 8:37 am
[2017-02-20] MEDS: SODIUM CHLORIDE 0.9% FLUSH 10 ML FLUSH IV FLUSH SCH (09:00)
[2017-02-20] MEDS: SEVELAMER CARBONATE 800 MG TAB PO SCH ×2 (09:00→12:55)
[2017-02-20] MEDS: GELATIN 12 MM/7 MM FOAM TOP PRN (09:22)
[2017-02-20] MEDS: EPOETIN ALFA 10,000 UNITS/ML VIAL IV PUSH PRN (09:22)
--- NOTE | 2017-02-20 11:13 | HHI.NPPN ---
Subjective General Problems: Anemia Renal Failure: Chronic, End Stage Renal Disease Interval History patient was seen during dialysis. On 3K, UF goal is 1500 ml. AVF is cannulated. He is tolerating dialysis well. To be discharged today Objective Data Data 02/20/17 02/21/17 19:00 07:00 Intake Total 360 ml Output Total 1500 ml Balance -1140 ml Intake Oral 360 ml Output Hemodialysis 1500 ml Vital Signs Date Time Temp Pulse Resp B/P (MAP) Pulse Ox O2 Delivery O2 Flow Rate FiO2 02/20/17 04:36 98.4 76 18 122/74 (90) 100 02/19/17 23:10 98.1 74 16 124/79 (94) 99 02/19/17 19:22 98.1 76 18 143/71 (95) 98 02/19/17 15:33 97.9 70 20 122/60 (80) 96 02/19/17 12:04 98.2 68 20 122/60 (80) 96 -: 02/20/17 0744 02/20/17 0744 Physical Exam General Appearance: No Acute Distress, Comfortable, Malnourished Eyes Eye Exam: Pupils Equal Throat Throat Exam: Oral Mucosa [place] & Moist Pulmonary Resp Exam: Clear Bilaterally, Breath Sounds Equal Cardiology CV Exam: Regular, Normal Sinus Rhythm, Good Perfusion Gastrointestinal/Abdomen GI Exam: Soft, Non-Tender, Bowel Sounds Present Musculoskeletal MS Exam: Normal Gait, Normal Tone, Good Strength Extremeties Extremities Exam: No Edema Neurologic Neuro Exam: Awake, Speech Clear, Moving All Extremities Assessment/Plan Discussed Condition With: Patient Assessment Summary: Anemia of CKD, Hypertension, End Stage Renal Disease Problem List: (1) ESRD (end stage renal disease) on dialysis ICD Codes: N18.6 - ESRD (end stage renal disease) on dialysis; Z99.2 - Dependence on renal dialysis Status: Chronic Plan: HD to be continued TTS. He has outpatient HD arrangements at [facility]. High protein, Low potassium diet. Monitor potassium level, intermittently hyperkalemic this admission. Fluid restriction to 1500 ml/day. (2) Metabolic bone disease ICD Codes: E88.9 - Metabolic disorder, unspecified; M90.80 - Osteopathy in diseases classified elsewhere, unspecified site Plan: He is on Renvela. Intermittently monitor phosphorus level. Repeat has been ordered. (3) HTN (hypertension) ICD Codes: I10 - HTN (hypertension) Status: Chronic Plan: Currently normotensive. Diet controlled. PRN clonidine has not been used. He is on Lasix on non HD days. (4) Chronic anemia ICD Codes: D64.9 - Chronic anemia Status: Acute Plan: Low dose Epogen with dialysis. Problem Qualifiers (1) HTN (hypertension): Qualified Codes: I10 - Essential (primary) hypertension Cole Valencia MD Feb 20, 2017 11:13
[2017-02-20] MEDS: PRAVASTATIN SOD 40 MG TAB PO SCH (12:55)
[2017-02-20] MEDS: MEMANTINE HCL 10 MG TAB PO SCH (12:55)
[2017-02-20] MEDS: PANTOPRAZOLE SOD 40 MG DELAYED RELEASE TAB PO SCH (12:55)
[2017-02-20] MEDS: ASPIRIN 81 MG CHEW TAB CHEW SCH (12:58)
== END 2017-02-20 15:55 | disposition home or self-care (01) ==
LOC: NEPE 09:09 → NEDA 16:58 → NEPGCP 19:38
PROVIDERS: ADMIT Hospitalist; ATTEND Hospitalist
DX: F03.91 Unspecified dementia, unspecified severity, with behavioral disturbance (principal); E87.5 Hyperkalemia; N18.6 End stage renal disease; Z99.2 Dependence on renal dialysis; E78.5 Hyperlipidemia, unspecified; D63.1 Anemia in chronic kidney disease; K21.9 Gastro-esophageal reflux disease without esophagitis; E83.39 Other disorders of phosphorus metabolism; Z79.899 Other long term (current) drug therapy; Z75.1 Person awaiting admission to adequate facility elsewhere; E88.89 Other specified metabolic disorders; M90.80 Osteopathy in diseases classified elsewhere, unspecified site; I12.0 Hypertensive chronic kidney disease with stage 5 chronic kidney disease or end stage renal disease
CPT/HCPCS: 80048; 80053; 84100; 85025; 90935; 96372; 96374; 97161; 99285; G0257; G0378; G8987; G8988; Q4081

== ENCOUNTER 2017-06-13 05:58 | Inpatient (IN) | payer MEDICARE, MEDICAID, OTHER ==
[~2017-06-13] VITALS: Ht 170.2 cm; Wt 67.7 kg
[~2017-06-13 05:58] MED LIST changes: -ASPI81 PO; +ASPI81CH6 CHEW; +DIALTAB2 PO; +FOLI1TAB6 PO; -FOLI200T PO; +FURO40TA PO; -LASI20TA PO; -LISI-357 PO; +MEMA21CA PO; -METO50CR PO; -NEPHRO PO; -OMEP20TA39 PO; +OMEP40CA2 PO; -PRAV40TA PO; +PRAV40TA2 PO; +QUET1TAB7 PO; -TAB-TAB PO; -TRAZ50TA4 PO; +VITA2000 PO
[2017-06-13 06:12] VITALS: BP 117/59; PULSE 97; RESP 19; TEMP 98.1; O2SAT 98
[2017-06-13 06:30] VITALS: BP 115/65; PULSE 91; RESP 18; O2SAT 95
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
[2017-06-13 07:04] LABS: AUTOMATED NEUTROPHIL # 3.5 TH/MM3 (1.8-7.7); BASOPHIL # 0.1 TH/MM3 (0-0.2); BASOPHIL % 1.9 % (0.0-2.0); EOSINOPHIL # 0.4 TH/MM3 (0-0.4); EOSINOPHIL % 8.3 % (0.0-4.0); HEMATOCRIT 31.7 % (39.0-51.0); HEMOGLOBIN 10.4 GM/DL (13.0-17.0); LYMPH % 12.9 % (9.0-44.0); LYMPHOCYTE # 0.7 TH/MM3 (1.0-4.8); MEAN CELL VOLUME 89.5 FL (80.0-100.0); MEAN CORPUSCULAR HEMOGLOBIN 29.3 PG (27.0-34.0); MEAN CORPUSCULAR HGB CONC 32.7 % (32.0-36.0); MEAN PLATELET VOLUME 8.3 FL (7.0-11.0); MONO % 10.9 % (0.0-8.0); MONOCYTE # 0.6 TH/MM3 (0-0.9); PLATELET COUNT 185 TH/MM3 (150-450); RED BLOOD COUNT 3.54 MIL/MM3 (4.50-5.90); RED CELL DISTRIBUTION WIDTH 15.1 % (11.6-17.2); WHITE BLOOD COUNT 5.3 TH/MM3 (4.0-11.0)
[2017-06-13 07:24] LABS: ALBUMIN 3.4 GM/DL (3.4-5.0); ALT (GPT) 30 U/L (12-78); AST (GOT) 24 U/L (15-37); BICARBONATE 29.2 MEQ/L (21.0-32.0); BLOOD UREA NITROGEN 51 MG/DL (7-18); CALCIUM 8.5 MG/DL (8.5-10.1); CHLORIDE 99 MEQ/L (98-107); GLOMERULAR FILTRATION RATE 8 ML/MIN (>89); GLUCOSE,RANDOM 81 MG/DL (74-106); SODIUM (NA) 139 MEQ/L (136-145)
--- NOTE | 2017-06-13 07:31 | PD ---
Physical Exam Narrative Received sign out from previous team to follow up labs to medically clear patient for psych evaluation. 61yo M with dementia sent here from residential for agitation. Pt apparently threatened staff and is now sent here for psych evaluation under Mcrae Act. Pt is a ESRD patient on HD but has no complaints. Pt tells me his name and then closes his eyes and sleeps. Currently calm and not agitated. Labs reviewed, no leukocytosis. H/H low at 10.4/31.7 but is at baseline. K is normal at 4.5. BUN/creatinine 51/8.30 consistent with his ESRD. Vital signs stable. Pt is medically clear for psych evaluation. Pt became agitated and was wandering and redirected back to his bed. He is aggressive and requires medication to calm him at this time. Haldol 5mg IM given. Pt now has a sitter watching him. Will place pt on director of cardiac rehabilitation. Pt has been observed and is calm now. Still pending psych evaluation. Data Data Last Documented VS Vital Signs Date Time Temp Pulse Resp B/P (MAP) Pulse Ox O2 Delivery O2 Flow Rate FiO2 06/14/17 07:45 71 18 140/87 (104) 99 Room Air 06/13/17 06:12 98.1 Orders Orders Complete Blood Count With Diff (06/13/17 06:31) Comprehensive Metabolic Panel (06/13/17 06:31) Thyroid Stimulating Hormone (06/13/17 06:31) Urinalysis - C+S If Indicated (06/13/17 06:31) Psych Screen (06/13/17 06:31) Haloperidol Inj (Haldol Inj) (06/13/17 11:15) Director Of Teaching And Learning / Telemetry [email or web address] (06/13/17 11:12) Diet Renal (06/13/17 Dinner) Memantine (Namenda) (06/14/17 15:30) Quetiapine (Seroquel) (06/14/17 15:30) Labs Laboratory Tests Test 06/13/17 06:46 White Blood Count 5.3 TH/MM3 Red Blood Count 3.54 MIL/MM3 Hemoglobin 10.4 GM/DL Hematocrit 31.7 % Mean Corpuscular Volume 89.5 FL Mean Corpuscular Hemoglobin 29.3 PG Mean Corpuscular Hemoglobin Concent 32.7 % Red Cell Distribution Width 15.1 % Platelet Count 185 TH/MM3 Mean Platelet Volume 8.3 FL Neutrophils (%) (Auto) 66.0 % Lymphocytes (%) (Auto) 12.9 % Monocytes (%) (Auto) 10.9 % Eosinophils (%) (Auto) 8.3 % Basophils (%) (Auto) 1.9 % Neutrophils # (Auto) 3.5 TH/MM3 Lymphocytes # (Auto) 0.7 TH/MM3 Monocytes # (Auto) 0.6 TH/MM3 Eosinophils # (Auto) 0.4 TH/MM3 Basophils # (Auto) 0.1 TH/MM3 CBC Comment DIFF FINAL Differential Comment Blood Urea Nitrogen 51 MG/DL Creatinine 8.30 MG/DL Random Glucose 81 MG/DL Total Protein 7.8 GM/DL Albumin 3.4 GM/DL Calcium Level 8.5 MG/DL Alkaline Phosphatase 60 U/L Aspartate Amino Transf (AST/SGOT) 24 U/L Alanine Aminotransferase (ALT/SGPT) 30 U/L Total Bilirubin 0.3 MG/DL Sodium Level 139 MEQ/L Potassium Level 4.5 MEQ/L Chloride Level 99 MEQ/L Carbon Dioxide Level 29.2 MEQ/L Anion Gap 11 MEQ/L Estimat Glomerular Filtration Rate 8 ML/MIN Thyroid Stimulating Hormone 3rd Gen 1.390 uIU/ML MDM Supervised Visit with EDA: No Diagnosis Primary Impression: Dementia with behavioral disturbance Additional Impression: ESRD (end stage renal disease) on dialysis Kendal Alcazar DO Jun 13, 2017 07:31
[2017-06-13 07:34] LABS: ALKALINE PHOSPHATASE 60 U/L (45-117); TOTAL BILIRUBIN ADULT 0.3 MG/DL (0.2-1.0); TOTAL PROTEIN 7.8 GM/DL (6.4-8.2)
[2017-06-13] MEDS ORDERED: HALOPERIDOL LACTATE 5 MG/ML AMP IM ONE (11:15)
[2017-06-13 13:38] VITALS: BP 134/70; PULSE 94; RESP 18; O2SAT 97
[2017-06-13 17:44] VITALS: BP 136/84; PULSE 91; RESP 18; O2SAT 99
[2017-06-14] MEDS ORDERED: CINA30 PO (07:33)
[2017-06-14] MEDS ORDERED: ZOFR4TAB PO (07:33)
[2017-06-14] MEDS ORDERED: QUET1TAB7 PO (07:33)
[2017-06-14] MEDS ORDERED: CALC1CAP PO (07:33)
[2017-06-14 07:45] VITALS: BP 140/87; PULSE 71; RESP 18; O2SAT 99
[2017-06-14] MEDS ORDERED: QUEtiapine FUMARATE 25 MG TAB PO ONE (15:30)
[2017-06-14] MEDS ORDERED: MEMANTINE HCL 10 MG TAB PO ONE (15:30)
[2017-06-14] MEDS ORDERED: MAGNESIUM HYDROXIDE SUSP 30 ML CUP PO PRN (16:45)
[2017-06-14] MEDS ORDERED: ACETAMINOPHEN 325 MG TAB PO PRN (16:45)
[2017-06-14] MEDS ORDERED: ALUMINUM/MAGNESIUM/SIMETH 30 ML CUP PO PRN (16:45)
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
--- NOTE | 2017-06-14 17:37 | PD.CONS ---
HPI Service [facility] Consult Requested By Primary Care Physician Unknown Diagnoses: History of Present Illness Mr. Rodriguez is a 61-year-old male. He is admitted secondary to psychosis and dementia. At baseline he is on dialysis secondary to chronic end-stage renal disease. His last dialysis date is unknown. Creatinine is elevated above 8. Patient is presently delusional and not providing any coherent history. Review of Systems ROS Limitations: Altered Mental Status, Uncooperative, Psychotic, Poor Historian Past Family Social History Allergies: Coded Allergies: No Known Allergies (Verified Allergy, Unknown, 06/13/17) Past Medical History ESRD on dialysis HTN HLD PR---10 yrs ago, no stents per patient report Past Surgical History vascular access for dialysis (AV fistula) Reported Medications Reported Meds & Active Scripts Active Folic Acid 1 Mg Tablet 1 Mg PO DAILY Aspirin Low Dose (Aspirin) 81 Mg Chew 81 Mg CHEW DAILY Vitamin D3 (Cholecalciferol) 2,000 Unit Cap 2,000 Units PO DAILY Furosemide 40 Mg Tab 40 Mg PO DAILY give on non-dialysis days ONLY (Wednesday, Wednesday, Wed, Wed) Pravastatin 40 Mg Tab 40 Mg PO DAILY Namenda Xr (Memantine) 21 Mg Caper 21 Mg PO DAILY Dialyvite Rx (B-Complex W/ C & Folic Acid) 1 Mg Tab 1 Tab PO DAILY Omeprazole 40 Mg Cap 40 Mg PO DAILY Reported Zofran (Ondansetron HCl) 4 Mg Tab 4 Mg PO Q6HR PRN Sensipar (Cinacalcet) 30 Mg Tab 30 Mg PO HS Calcium Acetate (Phosphate Binder) 667 Mg Cap 1,334 Mg PO TID Quetiapine (Quetiapine Fumarate) 25 Mg Tab 25 Mg PO BID Family History mother from CHF father had unknown cancer Social History Uncertain of current habits, patient is a poor historian today In the past patient drinks about 1 beer per week Patient has no past history of smoking No IV drug abuse history Past history of cocaine abuse Physical Exam Vital Signs Vital Signs Date Time Temp Pulse Resp B/P (MAP) Pulse Ox O2 Delivery O2 Flow Rate FiO2 06/14/17 16:34 06/14/17 07:45 71 18 140/87 (104) 99 Room Air 06/14/17 07:45 71 18 06/13/17 17:44 91 18 136/84 (101) 99 Room Air Physical Exam GENERAL: NAD, A&Ox0 HEAD: Normocephalic. NECK: Supple, trachea midline. No lymphadenopathy. EYES: No scleral icterus. No injection or drainage. CARDIOVASCULAR: Regular rate and rhythm without murmurs, gallops, or rubs. RESPIRATORY: Breath sounds equal bilaterally. No accessory muscle use. GASTROINTESTINAL: Abdomen soft, non-tender, nondistended. MUSCULOSKELETAL: No cyanosis, or edema. SKIN: Warm and dry. NEURO: No focal neurological deficitis. Result Diagram: 06/13/1764506/13/17645 Assessment and Plan Problem List: (1) ESRD (end stage renal disease) on dialysis ICD Code: N18.6 - ESRD (end stage renal disease) on dialysis; Z99.2 - Dependence on renal dialysis Status: Chronic Assessment and Plan 61-year-old male admitted secondary to psychosis and dementia with chronic end- stage renal disease Acute psychosis Dementia Management per psychiatry ESRD on dialysis Consult nephrology Monitor renal function Plan for dialysis continuation Hypertension Continue baseline treatment Follow blood pressures Adjust treatments as needed Hyperlipidemia Continue present treatment Follow as an outpatient Coronary artery disease [place] Continue baseline treatments No complaints of chest pain Follow clinically DVT prophylaxis Patient is ambulatory Patient is ambulating during my visit with him today Jose Roberto Meyer MD Jun 14, 2017 17:37
[2017-06-14 18:00] VITALS: BP 131/64; PULSE 67; RESP 16; TEMP 97.8; O2SAT 98
[2017-06-14] MEDS ORDERED: HALOPERIDOL LACTATE 5 MG/ML AMP IM ONE (23:33)
[2017-06-14] MEDS ORDERED: LORazepam 2 MG/ML VIAL IM ONE (23:33)
[2017-06-14] MEDS ORDERED: LORazepam 2 MG/ML VIAL ONE (23:43)
[2017-06-14] MEDS ORDERED: HALOPERIDOL LACTATE 5 MG/ML AMP ONE (23:43)
[2017-06-15 06:19] VITALS: BP 128/71; PULSE 88; RESP 15; TEMP 97.6
[2017-06-15] MEDS: QUEtiapine FUMARATE 25 MG TAB PO SCH ×2 (09:00→20:14)
[2017-06-15] MEDS ORDERED: NAMENDA 21 MG PO SCH (09:00)
[2017-06-15 09:03] LABS: AUTOMATED NEUTROPHIL # 2.8 TH/MM3 (1.8-7.7); BASOPHIL # 0.1 TH/MM3 (0-0.2); BASOPHIL % 1.8 % (0.0-2.0); EOSINOPHIL # 0.4 TH/MM3 (0-0.4); EOSINOPHIL % 7.6 % (0.0-4.0); HEMATOCRIT 30.1 % (39.0-51.0); MEAN CELL VOLUME 88.5 FL (80.0-100.0); MEAN CORPUSCULAR HEMOGLOBIN 29.4 PG (27.0-34.0); MEAN CORPUSCULAR HGB CONC 33.2 % (32.0-36.0); MEAN PLATELET VOLUME 8.3 FL (7.0-11.0); MONO % 8.1 % (0.0-8.0); MONOCYTE # 0.4 TH/MM3 (0-0.9); NEUT % 60.5 % (16.0-70.0); PLATELET COUNT 190 TH/MM3 (150-450); RED CELL DISTRIBUTION WIDTH 14.6 % (11.6-17.2); WHITE BLOOD COUNT 4.6 TH/MM3 (4.0-11.0)
[2017-06-15 09:31] LABS: ALBUMIN 3.3 GM/DL (3.4-5.0); ALKALINE PHOSPHATASE 53 U/L (45-117); ALT (GPT) 26 U/L (12-78); AST (GOT) 21 U/L (15-37); BICARBONATE 24.2 MEQ/L (21.0-32.0); BLOOD UREA NITROGEN 91 MG/DL (7-18); CALCIUM 8.5 MG/DL (8.5-10.1); CHLORIDE 97 MEQ/L (98-107); CHOLESTEROL 105 MG/DL (120-200); CHOLESTEROL/ HDL RATIO 1.95 RATIO; GLOMERULAR FILTRATION RATE 4 ML/MIN (>89); GLUCOSE,RANDOM 70 MG/DL (74-106); HDL CHOLESTEROL 53.7 MG/DL (40.0-60.0); LDL CHOLESTEROL 44 MG/DL (0-99); SODIUM (NA) 137 MEQ/L (136-145); TOTAL BILIRUBIN ADULT 0.4 MG/DL (0.2-1.0); TOTAL PROTEIN 7.4 GM/DL (6.4-8.2); TRIGLYCERIDES 38 MG/DL (42-150)
[2017-06-15 09:34] LABS: CREATININE 13.74 MG/DL (0.60-1.30)
[2017-06-15] MEDS ORDERED: SODIUM CHLOR 0.9% 1000 ML INJ 1,000 ML OTHER PRN ×2 (09:51)
[2017-06-15] MEDS ORDERED: SODIUM CHLOR 0.9% 1000 ML INJ 1,000 ML IV PRN (09:51)
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
[2017-06-15] MEDS ORDERED: cloNIDine HCL 0.1 MG TAB PO PRN (10:00)
[2017-06-15] MEDS ORDERED: HEPARIN SODIUM - IV 10,000 UNITS/10 ML VIAL IV FLUSH PRN (10:00)
[2017-06-15] MEDS ORDERED: ALBUMIN 25% INJ 100 ML IV PRN (10:00)
[2017-06-15] MEDS ORDERED: NITROGLYCERIN 0.4 MG SL 25 TABS/BTL SL PRN (10:00)
[2017-06-15] MEDS ORDERED: ONDANSETRON HCL 4 MG/2 ML VIAL IV PUSH PRN (10:00)
[2017-06-15] MEDS ORDERED: SODIUM CHLORIDE 0.9% FLUSH 10 ML FLUSH IV FLUSH PRN (10:00)
[2017-06-15] MEDS ORDERED: GENTAMICIN SULFATE 20 MG/2 ML VIAL OTHER PRN (10:00)
[2017-06-15] MEDS ORDERED: INFLUENZA VIRUS VACCINE (QUADRIVALENT) 0.5 ML SYR IM ONE (10:00)
[2017-06-15] MEDS ORDERED: EPOETIN ALFA 4,000 UNITS/ML VIAL IV PUSH PRN (10:00)
[2017-06-15] MEDS ORDERED: diphenhydrAMINE HCL 25 MG CAP PO PRN (10:00)
[2017-06-15] MEDS ORDERED: HEPARIN SODIUM - IV 10,000 UNITS/10 ML VIAL PRN (10:00)
[2017-06-15] MEDS ORDERED: MANNITOL 12.5 GM/50 ML VIAL IV PRN (10:00)
[2017-06-15] MEDS ORDERED: GELATIN 12 MM/7 MM FOAM TOP PRN (10:00)
[2017-06-15] MEDS ORDERED: ACETAMINOPHEN 325 MG TAB PO PRN (10:00)
[2017-06-15 16:45] LABS: HEMOGLOBIN A1C 5.4 % (4.3-6.0)
--- NOTE | 2017-06-15 17:11 | HHI.PR ---
Subjective Remarks Follow-up visit end-stage renal disease on hemodialysis, dementia. Patient seen and examined today sitting in a chair. Patient does ask how is he doing, patient replies "I am 70." Every question being asked with a yes or no answer patient answers "uh huh." Occasionally follows commands. No meaningful conversation. As per RN, no acute issues overnight. Objective Vitals Vital Signs Date Time Temp Pulse Resp B/P (MAP) Pulse Ox O2 Delivery O2 Flow Rate FiO2 06/15/17 06:19 97.6 88 15 128/71 (90) 06/14/17 18:00 97.8 67 16 131/64 (86) 98 I/O 06/14/17 06/14/17 06/14/17 06/15/17 06/15/17 06/15/17 07:00 15:00 23:00 07:00 15:00 23:00 Intake Total 480 ml 120 ml 240 ml Output Total 2000 ml Balance 480 ml 120 ml -1760 ml Intake Oral 480 ml 120 ml 240 ml Output Hemodialysis 2000 ml # Voids 1 0 Result Diagram: 06/15/1719 06/15/17 0819 Objective Remarks GENERAL: This is a well-nourished, well-developed patient, in no apparent distress. SKIN: Warm and dry HEENT: Normocephalic. Pupils equal round and reactive. Nose without bleeding. Airway patent. NECK: Trachea midline. CARDIOVASCULAR: Regular rate and rhythm without murmurs, gallops, or rubs. RESPIRATORY: Clear to auscultation. Breath sounds equal bilaterally. No wheezes , rales, or rhonchi. GASTROINTESTINAL: Abdomen soft, non-tender, nondistended. Bowel Sounds normoactive x4. MUSCULOSKELETAL: Extremities without clubbing, cyanosis, or edema. Left upper extremity AV fistula site positive thrill and bruit. NEUROLOGICAL: Awake and alert. Moves all extremities. Minimal verbalization. A/P Problem List: (1) ESRD (end stage renal disease) on dialysis ICD Code: N18.6 - ESRD (end stage renal disease) on dialysis; Z99.2 - Dependence on renal dialysis Status: Chronic Assessment and Plan 61-year-old male with a history of dementia, sent from the intermediate for psychiatric evaluation. Acute psychosis Dementia -Management per psychiatry ESRD on dialysis -Consult nephrology -Monitor renal function. DIGITAL ASSOCIATE 13 but will have HD today -Continue HD T-TH-S Coronary artery disease History of AR HLD Hx HTN -Continue pravastatin 40 mg, aspirin 81 mg -BP well controlled. Clonidine as needed. DVT prophylaxis ambulatory Stable from Hospitalist standpoint. We will sign off. Reconsult as needed. Erma Salinas Jun 15, 2017 17:11
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
[2017-06-15 18:33] VITALS: BP 120/69; PULSE 101; RESP 14; TEMP 98.7; O2SAT 98
[2017-06-16 05:07] VITALS: BP 118/70; PULSE 86; RESP 17; TEMP 98.2; O2SAT 96
[2017-06-16 05:15] VITALS: O2SAT 94
[2017-06-16] MEDS: QUEtiapine FUMARATE 25 MG TAB PO SCH ×2 (08:15→20:31)
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
[2017-06-16 09:39] LABS: ALBUMIN 3.3 GM/DL (3.4-5.0); BICARBONATE 26.9 MEQ/L (21.0-32.0); CALCIUM 8.4 MG/DL (8.5-10.1); PHOSPHORUS 8.6 MG/DL (2.5-4.9)
--- NOTE | 2017-06-16 09:39 | EKG ---
Date Performed: 06/15/2017 Time Performed: 13:59:32 PTAGE: 61 years EKG: Sinus rhythm WITH SINUS ARRHYTHMIA LEFT ANTERIOR FASCICULAR BLOCK NONSPECIFIC T-WAVE ABNORMALITY ABNORMAL ECG PREVIOUS TRACING : 09/29/2013 23.34 DOCTOR: Cale To Interpretating Date/Time 06/16/2017 09:36:55
[2017-06-16 09:45] LABS: CREATININE 12.74 MG/DL (0.60-1.30)
--- NOTE | 2017-06-16 10:23 | HHI.NPPN ---
Subjective General Problems: Anemia Renal Failure: Chronic, End Stage Renal Disease Interval History Ambulating in hallway, doing well. No new issues. Dialyzed yesterday without incident. (Nicci Nolan) Objective Data Data 06/16/17 06/17/17 19:00 07:00 Intake Total 240 ml Balance 240 ml Intake Oral 240 ml Vital Signs Date Time Temp Pulse Resp B/P (MAP) Pulse Ox O2 Delivery O2 Flow Rate FiO2 06/16/17 05:15 94 21 06/16/17 05:07 98.2 86 17 118/70 (86) 96 06/15/17 18:33 98.7 101 14 120/69 (86) 98 (Nicci Nolan) -: 06/15/17 0819 06/16/17 0750 Physical Exam General Appearance: Well Developed, Well Nourished, Comfortable (Nicci Nolan) Eyes Eye Exam: Pupils Equal (Nicci Nolan) Throat Throat Exam: Oral Mucosa [place] & Moist (Nicci Nolan) Pulmonary Resp Exam: Clear Bilaterally, Breath Sounds Equal (Nicci Nolan) Cardiology CV Exam: Regular, Normal Sinus Rhythm (Nicci Nolan) Gastrointestinal/Abdomen GI Exam: Soft, Non-Tender, Bowel Sounds Present (Nicci Nolan) Musculoskeletal MS Exam: Normal Tone, Good Strength (Nicci Nolan) Integumentary Skin Exam: Clear, Warm, Dry, Intact (Nicci Nolan) Extremeties Extremities Exam: No Edema, Pedal Pulses Palpable (Nicci Nolan) Neurologic Neuro Exam: Alert, Awake, Oriented (Nicci Nolan) Psychiatric Psych Remarks flat affect, cooperative , quiet voice, mumbles at times, scattered/ disorganized thought processes (Nicci Nolan) Assessment/Plan Discussed Condition With: Patient Assessment Summary: Anemia of CKD, Hypertension, End Stage Renal Disease Problem List: (1) ESRD (end stage renal disease) on dialysis ICD Codes: N18.6 - ESRD (end stage renal disease) on dialysis; Z99.2 - Dependence on renal dialysis Status: Chronic Plan: HD TTS, 2L UF yesterday Due for treatment tomorrow AVF left arm with aneurism, protect that extremity Avoid IVF administration High protein diet ordered He has outpatient HD arrangements at [facility] (2) Dementia with behavioral disturbance ICD Codes: F03.91 - Unspecified dementia with behavioral disturbance Plan: Admitted to [facility] unit He has been evaluated by psychiatrist, may need dementia type SNF at discharge On Seroquel scheduled, had PRN Ativan and Haldol (3) Chronic anemia ICD Codes: D64.9 - Chronic anemia Status: Acute Plan: Epogen with dialysis, monitor hemoglobin (4) HTN (hypertension) ICD Codes: I10 - HTN (hypertension) Status: Chronic Plan: Resume home medications, titrate to effectiveness (5) Metabolic bone disease ICD Codes: E88.9 - Metabolic disorder, unspecified; M90.80 - Osteopathy in diseases classified elsewhere, unspecified site Plan: Start Renvela with meals (Nicci Nolan) Plan patient was seen and examined. Patient is psychiatry oropeza. Agree with above assessment and plan. (Cole Valencia MD) Nicci Nolan Jun 16, 2017 10:23 Cole Valencia MD Jun 17, 2017 14:28
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
[2017-06-16] MEDS: SEVELAMER CARBONATE 800 MG TAB PO SCH ×2 (13:03→16:59)
--- NOTE | 2017-06-16 16:44 | HHI.PYPN ---
Subjective Remarks Patient seen for follow-up, chart reviewed. Discussion with nursing staff reported that patient continues to be confused, paranoid; med compliant. Patient was found ambulating in the hallways; noted to be superficially cooperative with interview. He was noted to provided concrete answers. He states feeling "ok", reports sleeping well, no physical complaints at this time. Alert and oriented only to person. Review of Systems Except as stated in HPI: all other systems reviewed are Neg Mental Status Examination Appearance: Disheveled Consciousness: Alert Orientation: Person Motor Activity: Other Speech: Unremarkable Language: Adequate Fund of Knowledge: Inadequate, Poor Attention and Concentration: Inadequate Memory: Impaired Mood: Appropriate Affect: Blunt Thought Process & Associations: Disorganized Thought Content: Other Hallucination Type: Other Delusion Type: Other Suicidal Ideation: Yes (denies) Suicidal Plan: No Suicidal Intention: No Homicidal Ideation: Yes (denies) Homicidal Plan: No Homicidal Intention: No Insight: Poor Judgment: Poor Results Labs labs reviewed Test 06/16/17 07:50 Blood Urea Nitrogen 82 MG/DL Creatinine 12.74 MG/DL Random Glucose 81 MG/DL Albumin 3.3 GM/DL Calcium Level 8.4 MG/DL Phosphorus Level 8.6 MG/DL Sodium Level 137 MEQ/L Potassium Level 4.4 MEQ/L Chloride Level 95 MEQ/L Carbon Dioxide Level 26.9 MEQ/L Anion Gap 15 MEQ/L Estimat Glomerular Filtration Rate 5 ML/MIN Vitals/IOs Vital Signs Date Time Temp Pulse Resp B/P (MAP) Pulse Ox O2 Delivery O2 Flow Rate FiO2 06/16/17 05:15 94 21 06/16/17 05:07 98.2 86 17 118/70 (86) 06/14/17 07:45 Room Air Intake and Output 06/16/17 06/16/17 06/16/17 07:59 15:59 23:59 Intake Total 480 ml 720 ml Balance 480 ml 720 ml Assessment & Plan Problem List: (1) Dementia with behavioral disturbance ICD Codes: F03.91 - Unspecified dementia with behavioral disturbance Assessment & Plan Patient at this time continues to be confused, with disorganized behavior at times. Attempts to reach patient's sister have been unsuccessful today, therefore patient is unable to start psychotropic medications until consent is obtained. Continue to monitor mood and behavior. Discharge planning in progress. Justification for Cont. Inpt. At risk for further decompensation at lower level of care. Request HC Surrog/Guard Advoc?: Yes Troy Mayfield MD Jun 16, 2017 16:44
[2017-06-16 17:56] VITALS: BP 166/97; PULSE 108; RESP 16; TEMP 97.3; O2SAT 98
[2017-06-17 06:00] VITALS: BP 150/80; PULSE 91; RESP 20; TEMP 97.6
[2017-06-17] MEDS: SEVELAMER CARBONATE 800 MG TAB PO SCH ×3 (08:00→17:41)
[2017-06-17] MEDS: QUEtiapine FUMARATE 25 MG TAB PO SCH ×2 (08:31→20:24)
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
[2017-06-17] MEDS: EPOETIN ALFA 10,000 UNITS/ML VIAL IV PUSH PRN (11:28)
--- NOTE | 2017-06-17 16:17 | HHI.PYPN ---
Subjective Remarks Patient seen for follow-up, chart review. Patient was taken to dialysis today and become agitated and was put in four-point restraints which she required redirection. Patient on the units continues to be exit seeking, intrusive and spitting on the floor in the hallway. Patient was found heavily on the unit noted B, cooperative, concrete, alert and oriented only to person. Patient denies any physical complaints at this time. Patient states that he was visited by his family 2 weeks ago. Patient denies feeling depressed, having any SI or HI or perceptual disturbances. Review of Systems Except as stated in HPI: all other systems reviewed are Neg Mental Status Examination Appearance: Disheveled Consciousness: Alert Orientation: Person Motor Activity: Other Speech: Unremarkable Language: Adequate Fund of Knowledge: Inadequate, Poor Attention and Concentration: Inadequate Memory: Impaired Mood: Appropriate Affect: Blunt Thought Process & Associations: Disorganized Thought Content: Other Hallucination Type: Other Delusion Type: Other Suicidal Ideation: Yes (denies) Suicidal Plan: No Suicidal Intention: No Homicidal Ideation: Yes (denies) Homicidal Plan: No Homicidal Intention: No Insight: Poor Judgment: Poor Results Vitals/IOs Vital Signs Date Time Temp Pulse Resp B/P (MAP) Pulse Ox O2 Delivery O2 Flow Rate FiO2 06/17/17 06:00 97.6 91 20 150/80 (103) 06/16/17 17:56 98 06/16/17 05:15 21 06/14/17 07:45 Room Air Intake and Output 06/17/17 06/17/17 06/18/17 08:00 16:00 00:00 Intake Total 600 ml Output Total 3000 ml Balance -2400 ml Assessment & Plan Problem List: (1) Dementia with behavioral disturbance ICD Codes: F03.91 - Unspecified dementia with behavioral disturbance Assessment & Plan Patient this time continues to be alert and oriented only to person, compliant with dialysis treatment but had become agitated which she required 4 point restraints. Multiple attempts have been made to try to reach patient's sister who will serve as patient's health care surrogate to start psychotropic medications but multiple times have been unsuccessful. Specialist Field Engineer again attempted to call today, Dilip Vasques [phone]; [phone], and left a voicemail for her to call back. Patient continues to have some disorganized behavior required redirection. Continue to monitor mood and behavior. Discharge planning in progress. Justification for Cont. Inpt. At risk of further decompensation a lower level of care. Request HC Surrog/Guard Advoc?: Yes Troy Mayfield MD Jun 17, 2017 16:17
[2017-06-17 18:52] VITALS: BP 128/71; PULSE 88; RESP 15; TEMP 97.6
[2017-06-18] MEDS: SEVELAMER CARBONATE 800 MG TAB PO SCH ×3 (08:00→17:00)
[2017-06-18] MEDS: QUEtiapine FUMARATE 25 MG TAB PO SCH ×3 (09:00→20:16)
--- NOTE | 2017-06-18 13:47 | HHI.NPPN ---
Subjective General Problems: Anemia Renal Failure: Chronic, End Stage Renal Disease Interval History Ambulating in room. Has a bizarre affect, seems confused and paranoid. Dialyzed yesterday. No nursing concerns. (Nicci Nolan) Objective Data Data 06/18/17 06/19/17 19:00 07:00 Intake Total 600 ml Balance 600 ml Intake Oral 600 ml Vital Signs Date Time Temp Pulse Resp B/P (MAP) Pulse Ox O2 Delivery O2 Flow Rate FiO2 06/17/17 18:52 97.6 88 15 128/71 (90) (Nicci Nolan) -: 06/15/17 0819 06/16/17 0750 Physical Exam General Appearance: Well Developed, Well Nourished, No Acute Distress, Comfortable (Nicci Nolan) Eyes Eye Exam: Pupils Equal (Nicci Nolan) Throat Throat Exam: Oral Mucosa [place] & Moist (Nicci Nolan) Pulmonary Resp Exam: Clear Bilaterally, Breath Sounds Equal (Nicci Nolan) Cardiology CV Exam: Regular, Normal Sinus Rhythm (Nicci Nolan) Gastrointestinal/Abdomen GI Exam: Soft, Non-Tender, Bowel Sounds Present (Nicci Nolan) Musculoskeletal MS Exam: Normal Tone, Good Strength (Nicci Nolan) Integumentary Skin Exam: Clear, Warm, Dry, Intact (Nicci Nolan) Extremeties Extremities Exam: No Edema, Pedal Pulses Palpable (Nicci Nolan) Neurologic Neuro Exam: Alert, Awake, Oriented (Nicci Nolan) Psychiatric Psych Remarks flat affect, cooperative , quiet voice, mumbles at times, scattered/ disorganized thought processes (Nicci Nolan) Assessment/Plan Discussed Condition With: Patient Assessment Summary: Anemia of CKD, Hypertension, End Stage Renal Disease Problem List: (1) ESRD (end stage renal disease) on dialysis ICD Codes: N18.6 - ESRD (end stage renal disease) on dialysis; Z99.2 - Dependence on renal dialysis Status: Chronic Plan: Continue HD support TTS, 3L UF yesterday AVF left arm with aneurism, protect that extremity Avoid IVF administration High protein diet ordered He has outpatient HD arrangements at [facility], but he may not be safe to dialyze outpatient given recent psych issues. (2) Dementia with behavioral disturbance ICD Codes: F03.91 - Unspecified dementia with behavioral disturbance Plan: [facility], may need dementia type SNF at discharge On Seroquel scheduled, has PRN Ativan and Haldol Out of restraints (3) Chronic anemia ICD Codes: D64.9 - Chronic anemia Status: Acute Plan: Epogen with dialysis, monitor hemoglobin (4) HTN (hypertension) ICD Codes: I10 - HTN (hypertension) Status: Chronic Plan: Resume home medications, titrate to effectiveness (5) Metabolic bone disease ICD Codes: E88.9 - Metabolic disorder, unspecified; M90.80 - Osteopathy in diseases classified elsewhere, unspecified site Plan: On Renvela with meals (Nicci Nolan) Plan patient was seen and examined. Agree with above assessment and plan. (Cole Valencia MD) Nicci Nolan Jun 18, 2017 13:47 Cole Valencia MD Jun 18, 2017 15:40
--- NOTE | 2017-06-18 17:54 | HHI.PYPN ---
Subjective Remarks Patient seen for follow, chart reviewed. Discussion nursing staff reported the patient with no behavioral disturbances today, has a compliant medications can be continued to be exit seeking at times but redirectable. Patient was found walking on the unit was able to sit down to participate in interview today. Patient confused and alert and oriented only to person. Patient states that he is feeling "alright" noted to be disorganized during interview making some nonsensical statements but did express wanted to contact his sister. Gasket Maker was able to contact patient's sister as patient's sister is now patient's healthcare surrogate and agreed to starting neuroleptic medications to address behavioral disturbances as well as mood stabilization. She had also expressed that the patient cannot return back to her residence that she is unable to care for him adequately. Review of Systems Except as stated in HPI: all other systems reviewed are Neg Mental Status Examination Appearance: Disheveled Consciousness: Alert Orientation: Person Motor Activity: Other Speech: Unremarkable Language: Adequate Fund of Knowledge: Inadequate, Poor Attention and Concentration: Inadequate Memory: Impaired Mood: Appropriate Affect: Blunt Thought Process & Associations: Disorganized Thought Content: Other Hallucination Type: Other Delusion Type: Other Suicidal Ideation: No Suicidal Plan: No Suicidal Intention: No Homicidal Ideation: No Homicidal Plan: No Homicidal Intention: No Insight: Poor Judgment: Poor Results Vitals/IOs Vital Signs Date Time Temp Pulse Resp B/P (MAP) Pulse Ox O2 Delivery O2 Flow Rate FiO2 06/17/17 18:52 97.6 88 15 128/71 (90) 06/16/17 17:56 98 06/16/17 05:15 21 06/14/17 07:45 Room Air Intake and Output 06/18/17 06/18/17 06/19/17 08:00 16:00 00:00 Intake Total 600 ml Balance 600 ml Assessment & Plan Problem List: (1) Dementia with behavioral disturbance ICD Codes: F03.91 - Unspecified dementia with behavioral disturbance Assessment & Plan Patient continues to have baseline confusion secondary to dementia. Patient had recent agitation yesterday but no behavioral disturbances today. We will start patient on quetiapine 25 mg p.o. twice daily with upper titration as needed. Patient's sister will be healthcare surrogate during his admission. Continue current treatment. We will continue to monitor mood and behavior. Patient to continue dialysis as scheduled. Discharge planning in progress. Justification for Cont. Inpt. At risk for further decompensation if at lower level of care Discharge Planning To be determined. Request HC Surrog/Guard Advoc?: Yes Troy Mayfield MD Jun 18, 2017 17:54
[2017-06-18 18:01] VITALS: BP 106/72; PULSE 113; RESP 18; TEMP 97.8
[2017-06-19 06:04] VITALS: BP 126/65; PULSE 88; RESP 18; TEMP 97.9; O2SAT 95
[2017-06-19] MEDS: QUEtiapine FUMARATE 25 MG TAB PO SCH ×2 (07:55→20:28)
[2017-06-19] MEDS: SEVELAMER CARBONATE 800 MG TAB PO SCH ×3 (07:55→17:00)
--- NOTE | 2017-06-19 10:44 | HHI.NPPN ---
Subjective General Problems: Anemia Renal Failure: Chronic, End Stage Renal Disease Additional Remarks seen on dialysis, ongoing confusion. Objective Data Data 06/19/17 06/20/17 19:00 07:00 Intake Total 120 ml Balance 120 ml Intake Oral 120 ml Vital Signs Date Time Temp Pulse Resp B/P (MAP) Pulse Ox O2 Delivery O2 Flow Rate FiO2 06/19/17 06:04 97.9 88 18 126/65 (85) 95 06/18/17 18:01 97.8 113 18 106/72 (83) -: 06/15/17 0819 06/16/17 0750 Physical Exam General Appearance: Well Developed, Well Nourished, No Acute Distress, Comfortable Eyes Eye Exam: Pupils Equal Throat Throat Exam: Oral Mucosa [place] & Moist Pulmonary Resp Exam: Clear Bilaterally, Breath Sounds Equal Cardiology CV Exam: Regular, Normal Sinus Rhythm Gastrointestinal/Abdomen GI Exam: Soft, Non-Tender, Bowel Sounds Present Musculoskeletal MS Exam: Normal Tone, Good Strength Integumentary Skin Exam: Clear, Warm, Dry, Intact Extremeties Extremities Exam: No Edema, Pedal Pulses Palpable Neurologic Neuro Exam: Alert, Awake, Oriented Assessment/Plan Discussed Condition With: Patient Assessment Summary: Anemia of CKD, Hypertension, End Stage Renal Disease Problem List: (1) ESRD (end stage renal disease) on dialysis ICD Codes: N18.6 - ESRD (end stage renal disease) on dialysis; Z99.2 - Dependence on renal dialysis Status: Chronic Plan: Continue HD support TTS HD Seen on HD today, tolerating HD well. 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 Avoid IVF administration High protein diet ordered He has outpatient HD arrangements at [facility], but he may not be safe to dialyze outpatient given recent psych issues. (2) Dementia with behavioral disturbance ICD Codes: F03.91 - Unspecified dementia with behavioral disturbance Plan: Admitted to [facility] unit, may need dementia type SNF at discharge On Seroquel scheduled, has PRN Ativan and Haldol Out of restraints (3) Chronic anemia ICD Codes: D64.9 - Chronic anemia Status: Acute Plan: Epogen with dialysis, monitor hemoglobin (4) HTN (hypertension) ICD Codes: I10 - HTN (hypertension) Status: Chronic Plan: Resume home medications, titrate to effectiveness (5) Metabolic bone disease ICD Codes: E88.9 - Metabolic disorder, unspecified; M90.80 - Osteopathy in diseases classified elsewhere, unspecified site Plan: On Renvela with meals Jose Roberto Hernandez MD Jun 19, 2017 10:44
[2017-06-19] MEDS: EPOETIN ALFA 10,000 UNITS/ML VIAL IV PUSH PRN (11:29)
--- NOTE | 2017-06-19 11:58 | HHI.PYPN ---
Subjective Remarks The patient was seen today for psychiatric reevaluation. Patient confused and alert and oriented only to person. Patient states that he is feeling "ok" noted to be disorganized during interview making some nonsensical statements but did express wanted to contact his sister. Patient has been compliant with medications. Today he got his hemodialysis without problems. Mental Status Examination Appearance: Disheveled Consciousness: Alert Orientation: Person Motor Activity: Other Speech: Unremarkable Language: Adequate Fund of Knowledge: Inadequate, Poor Attention and Concentration: Inadequate Memory: Impaired Mood: Appropriate Affect: Blunt Thought Process & Associations: Disorganized Thought Content: Other Hallucination Type: Other Delusion Type: Other Suicidal Ideation: No Suicidal Plan: No Suicidal Intention: No Homicidal Ideation: No Homicidal Plan: No Homicidal Intention: No Insight: Poor Judgment: Poor Results Vitals/IOs Vital Signs Date Time Temp Pulse Resp B/P (MAP) Pulse Ox O2 Delivery O2 Flow Rate FiO2 06/19/17 06:04 97.9 88 18 126/65 (85) 95 06/16/17 05:15 21 Intake and Output 06/19/17 06/19/17 06/20/17 08:00 16:00 00:00 Intake Total 0 ml 120 ml Output Total 3000 ml Balance 0 ml -2880 ml Assessment & Plan Problem List: (1) Dementia with behavioral disturbance ICD Codes: F03.91 - Unspecified dementia with behavioral disturbance Assessment & Plan: Continue current psychotropic regimen. Assessment & Plan Estimated LOS: days Justification for Cont. Inpt. Patient has an elevated risk to decompensate at a lower level of care Request HC Surrog/Guard Advoc?: Yes Hector Cisneros MD Jun 19, 2017 11:58
[2017-06-19 18:27] VITALS: BP 103/58; PULSE 106; RESP 16; TEMP 98.9; O2SAT 96
[2017-06-20 07:22] VITALS: BP 132/71; PULSE 91; RESP 18; TEMP 97.7
[2017-06-20] MEDS: QUEtiapine FUMARATE 25 MG TAB PO SCH ×2 (08:42→21:00)
[2017-06-20] MEDS: SEVELAMER CARBONATE 800 MG TAB PO SCH ×3 (08:42→18:16)
--- NOTE | 2017-06-20 09:15 | HHI.NPPN ---
Subjective General Problems: Anemia Renal Failure: Chronic, End Stage Renal Disease Additional Remarks Tolerated HD yesterday, ongoing confusion Objective Data Data Vital Signs Date Time Temp Pulse Resp B/P (MAP) Pulse Ox O2 Delivery O2 Flow Rate FiO2 06/20/17 07:22 97.7 91 18 132/71 (91) 06/19/17 18:27 98.9 106 16 103/58 (73) 96 -: 06/16/17 0750 Physical Exam General Appearance: Well Developed, Well Nourished, No Acute Distress, Comfortable Eyes Eye Exam: Pupils Equal Throat Throat Exam: Oral Mucosa [place] & Moist Pulmonary Resp Exam: Clear Bilaterally, Breath Sounds Equal Cardiology CV Exam: Regular, Normal Sinus Rhythm Gastrointestinal/Abdomen GI Exam: Soft, Non-Tender, Bowel Sounds Present Musculoskeletal MS Exam: Normal Tone, Good Strength Integumentary Skin Exam: Clear, Warm, Dry, Intact Extremeties Extremities Exam: No Edema, Pedal Pulses Palpable Neurologic Neuro Exam: Alert, Awake, Oriented Assessment/Plan Discussed Condition With: Patient Assessment Summary: Anemia of CKD, Hypertension, End Stage Renal Disease Problem List: (1) ESRD (end stage renal disease) on dialysis ICD Codes: N18.6 - ESRD (end stage renal disease) on dialysis; Z99.2 - Dependence on renal dialysis Status: Chronic Plan: Continue HD support TTS HD Tolerated HD yesterday, 3L UF. 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 Avoid IVF administration High protein diet ordered He has outpatient HD arrangements at [facility], but he may not be safe to dialyze outpatient given recent psych issues. (2) Dementia with behavioral disturbance ICD Codes: F03.91 - Unspecified dementia with behavioral disturbance Plan: Admitted to [facility] unit, may need dementia type SNF at discharge On Seroquel scheduled, has PRN Ativan and Haldol Out of restraints (3) Chronic anemia ICD Codes: D64.9 - Chronic anemia Status: Acute Plan: Epogen with dialysis, monitor hemoglobin (4) HTN (hypertension) ICD Codes: I10 - HTN (hypertension) Status: Chronic Plan: BP stable, continue medications (5) Metabolic bone disease ICD Codes: E88.9 - Metabolic disorder, unspecified; M90.80 - Osteopathy in diseases classified elsewhere, unspecified site Plan: On Renvela with meals Jose Roberto Hernandez MD Jun 20, 2017 09:15
--- NOTE | 2017-06-20 11:25 | HHI.PYPN ---
Subjective Remarks The patient was seen today for psychiatric reevaluation. Patient confused and alert and oriented only to person, denies SI/HI/VH/ANDERSON. Patient denies mood symptoms, just partially oriented and time and place . Patient has been compliant with medications, no side effect reported. Mental Status Examination Appearance: Disheveled Consciousness: Alert Orientation: Person Motor Activity: Other Speech: Unremarkable Language: Adequate Fund of Knowledge: Inadequate, Poor Attention and Concentration: Inadequate Memory: Impaired Mood: Appropriate Affect: Blunt Thought Process & Associations: Disorganized Thought Content: Other Hallucination Type: Other Delusion Type: Other Suicidal Ideation: No Suicidal Plan: No Suicidal Intention: No Homicidal Ideation: No Homicidal Plan: No Homicidal Intention: No Insight: Poor Judgment: Poor Results Vitals/IOs Vital Signs Date Time Temp Pulse Resp B/P (MAP) Pulse Ox O2 Delivery O2 Flow Rate FiO2 06/20/17 07:22 97.7 91 18 132/71 (91) 06/19/17 18:27 96 Intake and Output 06/20/17 06/20/17 06/21/17 08:00 16:00 00:00 Intake Total 0 ml Balance 0 ml Assessment & Plan Problem List: (1) Dementia with behavioral disturbance ICD Codes: F03.91 - Unspecified dementia with behavioral disturbance Assessment & Plan: continue current psychotropic regiment Assessment & Plan Estimated LOS: days Justification for Cont. Inpt. Patient has a high risk to decompensate Request HC Surrog/Guard Advoc?: Yes Hector Cisneros MD Jun 20, 2017 11:25
[2017-06-20 17:53] VITALS: BP 112/86; PULSE 95; RESP 18; TEMP 97.5; O2SAT 99
[2017-06-20] MEDS ORDERED: HALOPERIDOL LACTATE 5 MG/ML AMP ONE (19:21)
[2017-06-20] MEDS ORDERED: LORazepam 2 MG/ML VIAL ONE (19:22)
[2017-06-20] MEDS ORDERED: LORazepam 2 MG/ML VIAL IM STA (19:28)
[2017-06-20] MEDS ORDERED: HALOPERIDOL LACTATE 5 MG/ML AMP IM STA (19:28)
[2017-06-21 06:00] VITALS: BP 94/62; PULSE 72; RESP 16; TEMP 98; O2SAT 95
[2017-06-21] MEDS: QUEtiapine FUMARATE 25 MG TAB PO SCH ×2 (08:13→20:18)
[2017-06-21] MEDS: SEVELAMER CARBONATE 800 MG TAB PO SCH ×3 (08:13→16:50)
[2017-06-21 08:14] LABS: ALBUMIN 3.4 GM/DL (3.4-5.0); BICARBONATE 30.6 MEQ/L (21.0-32.0); CALCIUM 9.4 MG/DL (8.5-10.1)
[2017-06-21 08:16] LABS: PHOSPHORUS 7.4 MG/DL (2.5-4.9)
[2017-06-21 08:33] LABS: CREATININE 13.81 MG/DL (0.60-1.30)
--- NOTE | 2017-06-21 11:03 | HHI.NPPN ---
Subjective General Problems: Anemia Renal Failure: Chronic, End Stage Renal Disease Interval History Sleeping. No issues this morning. (Nicci Nolan) Objective Data Data Vital Signs Date Time Temp Pulse Resp B/P (MAP) Pulse Ox O2 Delivery O2 Flow Rate FiO2 06/21/17 06:00 98.0 72 16 94/62 (73) 95 06/20/17 17:53 97.5 95 18 112/86 (95) 99 (Nicci Nolan) -: 06/21/17 0710 Physical Exam General Appearance: Well Developed, Well Nourished, No Acute Distress, Comfortable (Nicci Nolan) Eyes Eye Exam: Pupils Equal (Nicci Nolan) Throat Throat Exam: Oral Mucosa [place] & Moist (Nicci Nolan) Pulmonary Resp Exam: Clear Bilaterally, Breath Sounds Equal (Nicci Nolan) Cardiology CV Exam: Regular, Normal Sinus Rhythm (Nicci Nolan) Gastrointestinal/Abdomen GI Exam: Soft, Non-Tender, Bowel Sounds Present (Nicci Nolan) Musculoskeletal MS Exam: Normal Tone, Good Strength (Nicci Nolan) Integumentary Skin Exam: Clear, Warm, Dry, Intact (Nicci Nolan) Extremeties Extremities Exam: No Edema, Pedal Pulses Palpable (Nicci Nolan) Neurologic Neuro Exam: Alert, Awake, Oriented (Nicci Nolan) Psychiatric Psych Remarks flat affect, cooperative , quiet voice, mumbles at times, scattered/ disorganized thought processes (Nicci Nolan) Assessment/Plan Discussed Condition With: Patient Assessment Summary: Anemia of CKD, Hypertension, End Stage Renal Disease Problem List: (1) ESRD (end stage renal disease) on dialysis ICD Codes: N18.6 - ESRD (end stage renal disease) on dialysis; Z99.2 - Dependence on renal dialysis Status: Chronic Plan: Continue HD support TTS, due tomorrow 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 Avoid procedures on that side. Avoid IVF administration High protein diet ordered He has outpatient HD arrangements at [facility], but he may not be safe to dialyze outpatient given recent psych issues. (2) Dementia with behavioral disturbance ICD Codes: F03.91 - Unspecified dementia with behavioral disturbance Plan: Admitted [facility] unit, may need dementia type SNF at discharge On Seroquel scheduled, has PRN Ativan and Haldol Out of restraints (3) Chronic anemia ICD Codes: D64.9 - Chronic anemia Status: Acute Plan: Epogen with dialysis, monitor hemoglobin (4) HTN (hypertension) ICD Codes: I10 - HTN (hypertension) Status: Chronic Plan: BP stable, continue medications (5) Metabolic bone disease ICD Codes: E88.9 - Metabolic disorder, unspecified; M90.80 - Osteopathy in diseases classified elsewhere, unspecified site Plan: On Renvela with meals (Nicci Nolan) Plan patient was seen and examined on 06/21/17. Agree with above assessment and plan. (Cole Valencia MD) Nicci Nolan Jun 21, 2017 11:03 Cole Valencia MD June 22, 2017 11:21
[2017-06-21 18:13] VITALS: BP 125/71; PULSE 89; RESP 17; TEMP 98; O2SAT 94
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
[2017-06-22 04:46] VITALS: BP 104/51; PULSE 91; RESP 16; TEMP 98.3; O2SAT 94
[2017-06-22] MEDS: SEVELAMER CARBONATE 800 MG TAB PO SCH ×3 (08:00→17:00)
--- NOTE | 2017-06-22 10:01 | HHI.NPPN ---
Subjective General Problems: Anemia Renal Failure: Chronic, End Stage Renal Disease Interval History Seen during dialysis. No new complaints. (Nicci Nolan) Objective Data Data Vital Signs Date Time Temp Pulse Resp B/P (MAP) Pulse Ox O2 Delivery O2 Flow Rate FiO2 06/22/17 04:46 98.3 91 16 104/51 (68) 94 06/21/17 18:13 98.0 89 17 125/71 (89) 94 (Nicci Nolan) -: 06/21/17 0710 Physical Exam General Appearance: Well Developed, Well Nourished, No Acute Distress, Comfortable (Nicci Nolan) Eyes Eye Exam: Pupils Equal (Nicci Nolan) Throat Throat Exam: Oral Mucosa [place] & Moist (Nicci Nolan) Pulmonary Resp Exam: Clear Bilaterally, Breath Sounds Equal (Nicci Nolan) Cardiology CV Exam: Regular, Normal Sinus Rhythm (Nicci Nolan) Gastrointestinal/Abdomen GI Exam: Soft, Non-Tender, Bowel Sounds Present (Nicci Nolan) Musculoskeletal MS Exam: Normal Tone, Good Strength (Nicci Nolan) Integumentary Skin Exam: Clear, Warm, Dry, Intact (Nicci Nolan) Extremeties Extremities Exam: No Edema, Pedal Pulses Palpable (Nicci Nolan) Neurologic Neuro Exam: Alert, Awake, Oriented (Nicic Nolan) Psychiatric Psych Remarks flat affect, cooperative , quiet voice, mumbles at times, scattered/ disorganized thought processes (Nicci Nolan) Assessment/Plan Discussed Condition With: Patient Assessment Summary: Anemia of CKD, Hypertension, End Stage Renal Disease Problem List: (1) ESRD (end stage renal disease) on dialysis ICD Codes: N18.6 - ESRD (end stage renal disease) on dialysis; Z99.2 - Dependence on renal dialysis Status: Chronic Plan: Seen during dialysis today on a 2K, 350 BFR, goal 2L Continue HD support TTS 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 Avoid procedures on that side. Avoid IVF administration High protein diet ordered He has outpatient HD arrangements at [facility], but he may not be safe to dialyze outpatient given recent psych issues. (2) Dementia with behavioral disturbance ICD Codes: F03.91 - Unspecified dementia with behavioral disturbance Plan: Admitted to [facility] unit, may need dementia type SNF at discharge On Seroquel scheduled, has PRN Ativan and Haldol Out of restraints (3) Chronic anemia ICD Codes: D64.9 - Chronic anemia Status: Acute Plan: Epogen with dialysis, monitor hemoglobin (4) HTN (hypertension) ICD Codes: I10 - HTN (hypertension) Status: Chronic Plan: BP stable, continue medications (5) Metabolic bone disease ICD Codes: E88.9 - Metabolic disorder, unspecified; M90.80 - Osteopathy in diseases classified elsewhere, unspecified site Plan: On Renvela with meals, phosphorus elevated but improving. 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 Avoid procedures on that side. Avoid IVF administration High protein diet ordered He has outpatient HD arrangements at [facility], but he may not be safe to dialyze outpatient given recent psych issues. (2) Dementia with behavioral disturbance ICD Codes: F03.91 - Unspecified dementia with behavioral disturbance Plan: Admitted to [facility] unit, may need dementia type SNF at discharge On Seroquel scheduled, has PRN Ativan and Haldol Out of restraints (3) Chronic anemia ICD Codes: D64.9 - Chronic anemia Status: Acute Plan: Epogen with dialysis, monitor hemoglobin (4) HTN (hypertension) ICD Codes: I10 - HTN (hypertension) Status: Chronic Plan: BP stable, continue medications (5) Metabolic bone disease ICD Codes: E88.9 - Metabolic disorder, unspecified; M90.80 - Osteopathy in diseases classified elsewhere, unspecified site Plan: On Renvela with meals, phosphorus elevated but improving. Plan patient was seen and examined, agree with above assessment and plan. Seen during dialysis. (Cole Valencia MD) Nicci Nolan June 22, 2017 10:01 Cole Valencia MD June 22, 2017 11:40
--- NOTE | 2017-06-22 11:07 | PD.TTN ---
Patient Problems 1. Discharge planning 2. Medication compliance 3. Knowledge deficit 4. Lack of coping skills Progress Toward Goals Provider Present: Dr. Paresh Mayfield Provider Input: 06/21/2017; Adjustment with patient's medication, Nurse(s) Present: RN Nurse(s) Input: Patient require redirection and coaching, he can be exist seeking at times. Takes medication and eat meals Psychiatric Counselors Present: PEG Marmolejo Psych Therapist Input: 06/21/2017; counselor will request that [facility] reassess patient to return to there facility, and continue faxing package to other skill facility/refer to DC counselor (Ellyn) Group Spec/RT/OT/FIELD Present: Jean Salgado OT Group Spec/RT/OT/FIELD Input: 06/21/2017 refuses to participate with groups or activities Documentation Scribe: Lucy Owens June 22, 2017 11:07
[2017-06-22] MEDS: QUEtiapine FUMARATE 25 MG TAB PO SCH ×2 (13:28→20:24)
--- NOTE | 2017-06-22 17:22 | HHI.PYPN ---
Subjective Remarks Patient seen for follow, chart reviewed. Discussion with nursing staff reported patient has a compliant with treatment has been having decreased episodes of emesis since yesterday. Patient was found in blade on the unit noted B, cooperative. Patient had dialysis earlier today with no behavioral disturbances. Patient states that he has not been vomiting today feeling physically better, patient continued to be noted to be disorganized during interview, alert and oriented only to person. Review of Systems Except as stated in HPI: all other systems reviewed are Neg Mental Status Examination Appearance: Disheveled Consciousness: Alert Orientation: Person Motor Activity: Other Speech: Unremarkable Language: Adequate Fund of Knowledge: Inadequate, Poor Attention and Concentration: Inadequate Memory: Impaired Mood: Other ("Okay") Affect: Blunt Thought Process & Associations: Disorganized Thought Content: Other Hallucination Type: None Delusion Type: None Suicidal Ideation: No Suicidal Plan: No Suicidal Intention: No Homicidal Ideation: No Homicidal Plan: No Homicidal Intention: No Insight: Poor Judgment: Poor Results Vitals/IOs Vital Signs Date Time Temp Pulse Resp B/P (MAP) Pulse Ox O2 Delivery O2 Flow Rate FiO2 06/22/17 04:46 98.3 91 16 104/51 (68) 94 Intake and Output 06/22/17 06/22/17 06/23/17 08:00 16:00 00:00 Intake Total 0 ml Output Total 2000 ml Balance 0 ml -2000 ml Assessment & Plan Problem List: (1) Dementia with behavioral disturbance ICD Codes: F03.91 - Unspecified dementia with behavioral disturbance Assessment & Plan Patient to continue current treatment, continue monitor mood and behavior. Patient continues with baseline confusion secondary to neurocognitive deficits. Discharge planning in progress. Justification for Cont. Inpt. At risk of further decompensation at lower level of care. Request HC Surrog/Guard Advoc?: Yes Troy Mayfield MD June 22, 2017 17:22
[2017-06-22 18:23] VITALS: BP 104/65; PULSE 111; RESP 16; TEMP 98.1; O2SAT 96
[2017-06-23 06:24] VITALS: BP 107/56; PULSE 96; RESP 18; TEMP 97.8; O2SAT 94
[2017-06-23] MEDS ORDERED: SEVEL800 PO (08:36)
[2017-06-23] MEDS ORDERED: QUET1TAB7 PO (08:36)
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
[2017-06-23] MEDS: QUEtiapine FUMARATE 25 MG TAB PO SCH (09:21)
[2017-06-23] MEDS: SEVELAMER CARBONATE 800 MG TAB PO SCH (09:21)
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
== END 2017-06-23 10:45 | DRG 884 ==
LOC: NEPE 05:58 → NEDA 06-14 16:08 → H4EA 06-14 16:30
PROVIDERS: ADMIT Student in an Organized Health Care Education/Training Program; ATTEND Student in an Organized Health Care Education/Training Program
PROC: 5A1D70Z Performance of Urinary Filtration, Intermittent, Less than 6 Hours Per Day (ICD-10-PCS; principal; 2017-06-15)
DX: F03.91 Unspecified dementia, unspecified severity, with behavioral disturbance (principal); N18.6 End stage renal disease; I12.0 Hypertensive chronic kidney disease with stage 5 chronic kidney disease or end stage renal disease; E78.5 Hyperlipidemia, unspecified; I25.10 Atherosclerotic heart disease of native coronary artery without angina pectoris; E88.9 Metabolic disorder, unspecified; F28 Other psychotic disorder not due to a substance or known physiological condition; M90.80 Osteopathy in diseases classified elsewhere, unspecified site; D63.1 Anemia in chronic kidney disease; Z79.82 Long term (current) use of aspirin; Z79.899 Other long term (current) drug therapy; I25.2 Old myocardial infarction; Z99.2 Dependence on renal dialysis
CPT/HCPCS: 80053; 80061; 80069; 83036; 84443; 85025; 90935; 93005; 96372; 96374; J1630; J2060; Q4081

== ENCOUNTER 2017-06-30 14:53 | Emergency (ER) | payer MEDICARE, MEDICAID ==
[~2017-06-30] VITALS: Ht 177.8 cm; Wt 67.7 kg
[~2017-06-30 14:53] MED LIST changes: -ASPI81CH6 CHEW; +CINA30 PO; +ZOFR4TAB PO
[2017-06-30 15:13] VITALS: BP 139/79; PULSE 91; RESP 18; TEMP 98.8; O2SAT 100
--- NOTE | 2017-06-30 15:19 | PD ---
HPI Chief Complaint: Edema Time Seen by Provider: 15:06 Travel History International Travel<30 days: No Contact w/Intl Traveler<30days: No History of Present Illness HPI 62-year-old male presents to the emergency department via EMS from nursing facility for evaluation of enlarged AV fistula to the left upper extremity. The patient has dementia and is a poor historian. According to EMS, they noticed today that his AV fistula was enlarged. There is no active bleeding noted. The patient denies any pain. He states his enamel sprayer is Dr. Hernandez. Moderate severity. PFSH Past Medical History Arthritis: No Asthma: No Autoimmune Disease: No Blood Disorders: No Anxiety: No Depression: No Heart Rhythm Problems: No Cardiovascular Problems: No (see EMR) High Cholesterol: No Chemotherapy: No Chest Pain: No Congestive Heart Failure: No COPD: No Cerebrovascular Accident: No Dementia: Yes Dialysis: Yes () Diminished Hearing: No Endocrine: No Gastrointestinal Disorders: No GERD: No Glaucoma: No Genitourinary: Yes (dialysis patient) Hepatitis: No Hiatal Hernia: No Hypertension: Yes Immune Disorder: No Implanted Vascular Access Dvce: No Kidney Stones: No Musculoskeletal: No Neurologic: Yes (becoming forgetful) Reproductive: No Respiratory: No Migraines: No Myocardial Infarction: No Radiation Therapy: No Renal Failure: Yes Seizures: No (see EMR) Sickle Cell Disease: No Sleep Apnea: No Thyroid Disease: No Ulcer: No Past Surgical History Abdominal Surgery: Yes (hernia repair) AICD: No Appendectomy: No Arteriovenous Shunt: Yes Cardiac Surgery: No Cholecystectomy: No Ear Surgery: No Endocrine Surgery: No Eye Surgery: No Genitourinary Surgery: No Gynecologic Surgery: No Insulin Pump: No Joint Replacement: No Neurologic Surgery: No Oral Surgery: No Pacemaker: No Thoracic Surgery: No Other Surgery: Yes (ELBOW SURGERY,INGUINAL HERNIA REPAIR, LEFT AV FISTULA) Social History Alcohol Use: No Tobacco Use: No Substance Use: No Allergies-Medications (Allergen,Severity, Reaction): Coded Allergies: No Known Allergies (Verified Allergy, Unknown, 06/30/17) Reported Meds & Prescriptions Reported Meds & Active Scripts Active Renvela (Sevelamer Carbonate) 800 Mg Tab 1,600 Mg PO TIDAC 30 Days Quetiapine (Quetiapine Fumarate) 25 Mg Tab 25 Mg PO BID 30 Days Folic Acid 1 Mg Tablet 1 Mg PO DAILY Vitamin D3 (Cholecalciferol) 2,000 Unit Cap 2,000 Units PO DAILY Furosemide 40 Mg Tab 40 Mg PO DAILY give on non-dialysis days ONLY (Wednesday, Wednesday, Wed, Wed) Pravastatin 40 Mg Tab 40 Mg PO DAILY Namenda Xr (Memantine) 21 Mg Caper 21 Mg PO DAILY Dialyvite Rx (B-Complex W/ C & Folic Acid) 1 Mg Tab 1 Tab PO DAILY Omeprazole 40 Mg Cap 40 Mg PO DAILY Reported Lexapro (Escitalopram Oxalate) 10 Mg Tab 10 Mg PO DAILY Zofran (Ondansetron HCl) 4 Mg Tab 4 Mg PO Q6HR PRN Sensipar (Cinacalcet) 30 Mg Tab 30 Mg PO HS Review of Systems Except as stated in HPI: all other systems reviewed are Neg Physical Exam Narrative GENERAL: Well-nourished, well-developed male patient. Patient is alert and oriented to self only. SKIN: Focused skin assessment warm/dry. Patient has AV fistula which appears to be quite enlarged on exam. He has a positive bruit and thrill. HEAD: Normocephalic. Atraumatic. EYES: No scleral icterus. No injection or drainage. NECK: Supple, trachea midline. No JVD or lymphadenopathy. CARDIOVASCULAR: Regular rate and rhythm without murmurs, gallops, or rubs. RESPIRATORY: Breath sounds equal bilaterally. No accessory muscle use. Lung sounds are clear to auscultation. GASTROINTESTINAL: Abdomen soft, non-tender, nondistended. MUSCULOSKELETAL: No cyanosis, or edema. BACK: Nontender without obvious deformity. No CVA tenderness. Data Data Last Documented VS Vital Signs Date Time Temp Pulse Resp B/P (MAP) Pulse Ox O2 Delivery O2 Flow Rate FiO2 06/30/17 15:29 Nasal Cannula 2.00 06/30/17 15:13 98.8 91 18 139/79 (99) 100 Orders Orders Us Arm Hematoma/Pseudoaneurysm (06/30/17 ) Complete Blood Count With Diff (06/30/17 15:14) Comprehensive Metabolic Panel (06/30/17 15:14) Prothrombin Time / Inr (Pt) (06/30/17 15:14) Act Partial Throm Time (Ptt) (06/30/17 15:14) Iv Access Insert/Monitor (06/30/17 15:14) Haloperidol Inj (Haldol Inj) (06/30/17 16:30) Labs Laboratory Tests Test 06/30/17 15:40 White Blood Count 5.4 TH/MM3 Red Blood Count 2.98 MIL/MM3 Hemoglobin 8.7 GM/DL Hematocrit 26.7 % Mean Corpuscular Volume 89.6 FL Mean Corpuscular Hemoglobin 29.4 PG Mean Corpuscular Hemoglobin Concent 32.8 % Red Cell Distribution Width 14.5 % Platelet Count 211 TH/MM3 Mean Platelet Volume 8.6 FL Neutrophils (%) (Auto) 64.0 % Lymphocytes (%) (Auto) 20.8 % Monocytes (%) (Auto) 8.9 % Eosinophils (%) (Auto) 5.3 % Basophils (%) (Auto) 1.0 % Neutrophils # (Auto) 3.5 TH/MM3 Lymphocytes # (Auto) 1.1 TH/MM3 Monocytes # (Auto) 0.5 TH/MM3 Eosinophils # (Auto) 0.3 TH/MM3 Basophils # (Auto) 0.1 TH/MM3 CBC Comment DIFF FINAL Differential Comment Prothrombin Time 10.9 SEC Prothromb Time International Ratio 1.1 RATIO Activated Partial Thromboplast Time 30.1 SEC Blood Urea Nitrogen 58 MG/DL Creatinine 11.47 MG/DL Random Glucose 108 MG/DL Total Protein 7.0 GM/DL Albumin 3.2 GM/DL Calcium Level 8.2 MG/DL Alkaline Phosphatase 52 U/L Aspartate Amino Transf (AST/SGOT) 17 U/L Alanine Aminotransferase (ALT/SGPT) 16 U/L Total Bilirubin 0.3 MG/DL Sodium Level 141 MEQ/L Potassium Level 4.1 MEQ/L Chloride Level 101 MEQ/L Carbon Dioxide Level 28.3 MEQ/L Anion Gap 12 MEQ/L Estimat Glomerular Filtration Rate 5 ML/MIN [facility] Medical Decision Making Medical Screen Exam Complete: Yes Emergency Medical Condition: Yes Medical Record Reviewed: Yes Differential Diagnosis Pseudoaneurysm versus hematoma versus medical clearance Narrative Course 62-year-old male presents to the emergency department for evaluation of a large AV fistula to left upper extremity. Patient denies any pain. IV access established. CBC, CMP, PTT, PT/INR are ordered and pending. Ultrasound of the arm for hematoma/pseudoaneurysm is ordered and pending CBC shows anemia hemoglobin 8.7, hematocrit 26.7. CMP shows BUN 58, creatinine 11.47. Coags are unremarkable. The US report shows dilatation of the cephalic vein with increased flow likely from a dialysis fistula. I spoke with Dr. Maria, the radiologist, who states the proced tech needs to do further images. He contacted the proced tech and I did as well and she states she will obtain the additional requested images. There is a long delay in getting additional images. My attending physician, Dr. Cortez, performed bedside ultrasound which shows pseudoaneurysm. I spoke to Dr. Gillette, vascular surgeon. He would like the vascular surgeon who placed AV fistula to be called if possible. Otherwise, he states that he would admit the patient and consult vascular. The AV fistula [place] [address] Mcnair. I contacted Dr. Durham who states that the patient needs to go back to the assisted and be seen in the office. He states that this is a typical complication and he does not need admission at this time. Patient's enamel sprayer, Dr. Jose Roberto Hernandez is paged. I spoke to Dr. Valencia who actually states he is the patient's enamel sprayer. I told him what was going on with the AV fistula my concern that he will not be able to receive dialysis tomorrow. Dr. Valencia says that he will evaluate the patient tomorrow at dialysis. He states the patient is safe to be discharged back to nursing facility. Diagnosis Primary Impression: Pseudoaneurysm of AV hemodialysis fistula Qualified Codes: T82.898A - Other specified complication of vascular prosthetic devices, implants and grafts, initial encounter Referrals: Casey Durham MD Patient Instructions: General Instructions, Pseudoaneurysm (ED) Additional Instructions: Please follow-up with Dr. Durham, vascular surgeon. Your enamel sprayer, Dr. Valencia, states he will evaluate tomorrow at dialysis. Return to the emergency department for any acute worsening of symptoms. Med/Other Pt SpecificInfo: No Change to Meds Disposition: 01 DISCHARGE HOME Condition: Stable Katy Banks SANDY June 30, 2017 15:19
[2017-06-30] MEDS ORDERED: LEXA10TA PO (16:21)
[2017-06-30] MEDS ORDERED: HALOPERIDOL LACTATE 5 MG/ML AMP IM ONE (16:30)
[2017-06-30 16:45] LABS: AUTOMATED NEUTROPHIL # 3.5 TH/MM3 (1.8-7.7); BASOPHIL # 0.1 TH/MM3 (0-0.2); EOSINOPHIL # 0.3 TH/MM3 (0-0.4); EOSINOPHIL % 5.3 % (0.0-4.0); HEMATOCRIT 26.7 % (39.0-51.0); HEMOGLOBIN 8.7 GM/DL (13.0-17.0); LYMPH % 20.8 % (9.0-44.0); LYMPHOCYTE # 1.1 TH/MM3 (1.0-4.8); MEAN CELL VOLUME 89.6 FL (80.0-100.0); MEAN CORPUSCULAR HEMOGLOBIN 29.4 PG (27.0-34.0); MEAN CORPUSCULAR HGB CONC 32.8 % (32.0-36.0); MEAN PLATELET VOLUME 8.6 FL (7.0-11.0); MONO % 8.9 % (0.0-8.0); MONOCYTE # 0.5 TH/MM3 (0-0.9); PLATELET COUNT 211 TH/MM3 (150-450); RED BLOOD COUNT 2.98 MIL/MM3 (4.50-5.90); RED CELL DISTRIBUTION WIDTH 14.5 % (11.6-17.2); WHITE BLOOD COUNT 5.4 TH/MM3 (4.0-11.0)
[2017-06-30 16:52] LABS: INTERNATIONAL NORMALIZED RATIO 1.1 RATIO; PROTHROMBIN TIME - PATIENT 10.9 SEC (9.8-11.6)
[2017-06-30 17:01] LABS: ALBUMIN 3.2 GM/DL (3.4-5.0); ALT (GPT) 16 U/L (12-78); AST (GOT) 17 U/L (15-37); BICARBONATE 28.3 MEQ/L (21.0-32.0); BLOOD UREA NITROGEN 58 MG/DL (7-18); CALCIUM 8.2 MG/DL (8.5-10.1); CHLORIDE 101 MEQ/L (98-107); GLOMERULAR FILTRATION RATE 5 ML/MIN (>89); GLUCOSE,RANDOM 108 MG/DL (74-106); SODIUM (NA) 141 MEQ/L (136-145)
[2017-06-30 17:03] LABS: ALKALINE PHOSPHATASE 52 U/L (45-117); TOTAL BILIRUBIN ADULT 0.3 MG/DL (0.2-1.0)
[2017-06-30 17:21] LABS: CREATININE 11.47 MG/DL (0.60-1.30)
--- NOTE | 2017-06-30 18:39 | RADRPT ---
EXAM DATE/TIME: 06/30/2017 17:48 [facility] COMPARISON: No previous studies available for comparison. INDICATIONS : Pseudoaneurysm left arm. Enlarged AV fistula. MEDICAL HISTORY : Dementia. AV shunt. HTN. Dialysis. Renal failure. SURGICAL HISTORY : Hernia repair. Left elbow repair. ENCOUNTER: Initial ACUITY: 1 day PAIN SCORE: 0/10 LOCATION: Left arm. AREA EVALUATED: Left arm venous. FINDINGS: An ultrasound of the left upper arm has been performed. The cephalic vein appears dilated measuring u p to 3.8 cm in diameter. There is increased flow seen in the cephalic vein. The patient does have a h istory of a dialysis fistula. The fistula was not imaged. CONCLUSION: Dilatation of the cephalic vein with increased flow likely from a dialysis fistula. Paresh Maria MD on June 30, 2017 at 18:35 Board Certified Radiologist. This report was verified electronically.
--- NOTE | 2017-06-30 22:16 | PD ---
Data Data Last Documented VS Vital Signs Date Time Temp Pulse Resp B/P (MAP) Pulse Ox O2 Delivery O2 Flow Rate FiO2 06/30/17 15:29 Nasal Cannula 2.00 06/30/17 15:13 98.8 91 18 139/79 (99) 100 Orders Orders Us Arm Hematoma/Pseudoaneurysm (06/30/17 ) Complete Blood Count With Diff (06/30/17 15:14) Comprehensive Metabolic Panel (06/30/17 15:14) Prothrombin Time / Inr (Pt) (06/30/17 15:14) Act Partial Throm Time (Ptt) (06/30/17 15:14) Iv Access Insert/Monitor (06/30/17 15:14) Haloperidol Inj (Haldol Inj) (06/30/17 16:30) Ed Discharge Order (06/30/17 22:45) Labs Laboratory Tests Test 06/30/17 15:40 White Blood Count 5.4 TH/MM3 Red Blood Count 2.98 MIL/MM3 Hemoglobin 8.7 GM/DL Hematocrit 26.7 % Mean Corpuscular Volume 89.6 FL Mean Corpuscular Hemoglobin 29.4 PG Mean Corpuscular Hemoglobin Concent 32.8 % Red Cell Distribution Width 14.5 % Platelet Count 211 TH/MM3 Mean Platelet Volume 8.6 FL Neutrophils (%) (Auto) 64.0 % Lymphocytes (%) (Auto) 20.8 % Monocytes (%) (Auto) 8.9 % Eosinophils (%) (Auto) 5.3 % Basophils (%) (Auto) 1.0 % Neutrophils # (Auto) 3.5 TH/MM3 Lymphocytes # (Auto) 1.1 TH/MM3 Monocytes # (Auto) 0.5 TH/MM3 Eosinophils # (Auto) 0.3 TH/MM3 Basophils # (Auto) 0.1 TH/MM3 CBC Comment DIFF FINAL Differential Comment Prothrombin Time 10.9 SEC Prothromb Time International Ratio 1.1 RATIO Activated Partial Thromboplast Time 30.1 SEC Blood Urea Nitrogen 58 MG/DL Creatinine 11.47 MG/DL Random Glucose 108 MG/DL Total Protein 7.0 GM/DL Albumin 3.2 GM/DL Calcium Level 8.2 MG/DL Alkaline Phosphatase 52 U/L Aspartate Amino Transf (AST/SGOT) 17 U/L Alanine Aminotransferase (ALT/SGPT) 16 U/L Total Bilirubin 0.3 MG/DL Sodium Level 141 MEQ/L Potassium Level 4.1 MEQ/L Chloride Level 101 MEQ/L Carbon Dioxide Level 28.3 MEQ/L Anion Gap 12 MEQ/L Estimat Glomerular Filtration Rate 5 ML/MIN [facility] Supervised Visit with EDA: Yes Narrative Course I, Dr. Cortez, have reviewed the advance practice practitioner's documentation and am in agreement, met with the patient face to face, made the diagnosis, and the medical decision making was done by me. *My assessment and Findings: Patient seen and examined by me in addition to Katy Frazier, this is a severely demented man who is not able to give any history is not oriented at all. Apparently this is his baseline. He presented to the emergency department today after was noted in the [facility] that his left-sided brachial AV fistula was significantly dilated. I have examined it with ultrasound bedside do see what appears to be swirling motion inside the dilation, my concern is for a pseudoaneurysm, the patient has had formal ultrasound here and with talking with the data clerk it appears as though the patient either has aneurysm or pseudoaneurysm. We discussed the patient with Dr. Durham patient's vascular surgeon who states that this does not represent a surgical emergency and is a common complication and can follow-up in the office. My concern however is that the patient has no other access for hemodialysis at this time and I doubt that this axis can be used. We therefore page the patient's meat products demonstrator Dr. Hernandez for additional recommendations. The patient may require admission to establish new access for dialysis if Dr. Hernandez thinks indicated. Was informed by Katy that after speaking with the patient's actual meat products demonstrator Dr. Valencia he would like the patient to go to regular scheduled dialysis tomorrow and he will evaluate there. If necessary we will refer back to the emergency department. I think is a reasonable course of action. He is stable for discharge per Artie Cortez MD June 30, 2017 22:16
== END 2017-07-01 00:31 | disposition home or self-care (01) ==
LOC: NEPC 14:53
DX: T82.898A Other specified complication of vascular prosthetic devices, implants and grafts, initial encounter (principal); F03.90 Unspecified dementia, unspecified severity, without behavioral disturbance, psychotic disturbance, mood disturbance, and anxiety; I12.0 Hypertensive chronic kidney disease with stage 5 chronic kidney disease or end stage renal disease; N18.6 End stage renal disease; Z99.2 Dependence on renal dialysis
CPT/HCPCS: 80053; 85025; 85610; 85730; 93931; 96372

== ENCOUNTER 2017-08-03 10:10 | Inpatient (IN) | payer MEDICARE, MEDICAID ==
[~2017-08-03] VITALS: Ht 180.3 cm; Wt 73.1 kg
[~2017-08-03 10:10] MED LIST changes: +LEXA10TA PO
[2017-08-03 10:26] VITALS: BP 122/78; PULSE 130; PULSE 70; RESP 16; TEMP 98.6; O2SAT 95
[2017-08-03] MEDS ORDERED: LORazepam 1 MG TAB PO ONE (10:30)
[2017-08-03] MEDS ORDERED: HALOPERIDOL 5 MG TAB PO ONE (10:30)
--- NOTE | 2017-08-03 10:52 | PD ---
HPI Chief Complaint: Altered Mental Status Time Seen by Provider: 10:20 Travel History International Travel<30 days: No Contact w/Intl Traveler<30days: No Traveled to known affect area: No History of Present Illness HPI The patient is a 62-year-old -[place] male who presents to the emergency department from the dialysis center for combative behavior. The patient has a history of end-stage renal disease and is on hemodialysis followed by his senior product engineer, Dr. Hi Hernandez. The patient was receiving dialysis earlier today when he became combative, started picking at his dialysis catheters, subsequently was sent to the emergency department. The patient does have a history of dementia and psychosis and is a poor historian. Upon arrival the patient was noted to be tachycardic with underlying atrial fibrillation. The patient is unable to tell me if he has any history of atrial fibrillation. Symptoms are moderate. He denies any chest pain or shortness of breath, however, is a limited historian. PFSH Past Medical History Anemia: Yes Arthritis: No Asthma: No Autoimmune Disease: No Blood Disorders: No Anxiety: Yes Depression: No Heart Rhythm Problems: No High Cholesterol: No Chemotherapy: No Chest Pain: No Congestive Heart Failure: No COPD: No Cerebrovascular Accident: No Dementia: Yes Dialysis: Yes () Diminished Hearing: No Endocrine: No Gastrointestinal Disorders: No GERD: No Glaucoma: No Genitourinary: Yes (dialysis patient) Hepatitis: No Hiatal Hernia: No Hypertension: Yes Immune Disorder: No Implanted Vascular Access Dvce: No Kidney Stones: No Musculoskeletal: Yes (LOW BACK PAIN) Neurologic: Yes (becoming forgetful) Reproductive: No Respiratory: No Immunizations Current: No Migraines: No Myocardial Infarction: No Radiation Therapy: No Renal Failure: Yes Sickle Cell Disease: No Sleep Apnea: No Thyroid Disease: No Ulcer: No Influenza Vaccination: No Past Surgical History Abdominal Surgery: Yes (hernia repair) AICD: No Appendectomy: No Arteriovenous Shunt: Yes Cardiac Surgery: No Cholecystectomy: No Ear Surgery: No Endocrine Surgery: No Eye Surgery: No Genitourinary Surgery: No Gynecologic Surgery: No Insulin Pump: No Joint Replacement: No Neurologic Surgery: No Oral Surgery: No Pacemaker: No Thoracic Surgery: No Other Surgery: Yes (ELBOW SURGERY,INGUINAL HERNIA REPAIR, LEFT AV FISTULA) Social History Alcohol Use: No Tobacco Use: No Substance Use: No Allergies-Medications (Allergen,Severity, Reaction): Coded Allergies: No Known Allergies (Verified Allergy, Unknown, 06/30/17) Reported Meds & Prescriptions Reported Meds & Active Scripts Active Renvela (Sevelamer Carbonate) 800 Mg Tab 1,600 Mg PO TIDAC 30 Days Quetiapine (Quetiapine Fumarate) 25 Mg Tab 25 Mg PO BID 30 Days Folic Acid 1 Mg Tablet 1 Mg PO DAILY Vitamin D3 (Cholecalciferol) 2,000 Unit Cap 2,000 Units PO DAILY Furosemide 40 Mg Tab 40 Mg PO DAILY give on non-dialysis days ONLY (Wednesday, Wednesday, Wed, Wed) Pravastatin 40 Mg Tab 40 Mg PO DAILY Namenda Xr (Memantine) 21 Mg Caper 21 Mg PO DAILY Dialyvite Rx (B-Complex W/ C & Folic Acid) 1 Mg Tab 1 Tab PO DAILY Omeprazole 40 Mg Cap 40 Mg PO DAILY Reported Lexapro (Escitalopram Oxalate) 10 Mg Tab 10 Mg PO DAILY Zofran (Ondansetron HCl) 4 Mg Tab 4 Mg PO Q6HR PRN Sensipar (Cinacalcet) 30 Mg Tab 30 Mg PO HS Review of Systems ROS Limitations: Poor Historian Except as stated in HPI: all other systems reviewed are Neg Cardiovascular: No: Chest Pain or Discomfort Respiratory: No: Shortness of Breath Gastrointestinal: No: Nausea, Vomiting Neurologic: Positive: Change in Mentation Physical Exam Narrative GENERAL: Awake, alert, 62-year-old male who is a poor historian. SKIN: Focused skin assessment warm/dry. HEAD: Atraumatic. Normocephalic. EYES: No injection or drainage. ENT: No nasal bleeding or discharge. Mucous membranes pink and moist. NECK: Trachea midline. No JVD. CARDIOVASCULAR: Irregularly irregular with a heart rate in the RESPIRATORY: No accessory muscle use. Clear to auscultation. Breath sounds equal bilaterally. GASTROINTESTINAL: Abdomen soft, non-tender, nondistended. MUSCULOSKELETAL: Large left AV fistula with positive thrill. Positive bruit. Patient also has a positive thrill over a vein overlying the left anterior shoulder. NEUROLOGICAL: Awake and alert. No obvious cranial nerve deficits. Motor grossly within normal limits. Poor historian, does not answer questions appropriately. Needs multiple redirection to follow commands. PSYCHIATRIC: Appears confused, possible underlying dementia. Data Data Last Documented VS Vital Signs Date Time Temp Pulse Resp B/P (MAP) Pulse Ox O2 Delivery O2 Flow Rate FiO2 08/03/17 12:33 138 17 146/104 (118) 97 Room Air 08/03/17 10:26 98.6 Orders Orders Complete Blood Count With Diff (08/03/17 10:25) Basic Metabolic Panel (Bmp) (08/03/17 10:25) Lorazepam (Ativan) (08/03/17 10:30) Haloperidol (Haldol) (08/03/17 10:30) Electrocardiogram (08/03/17 ) Chest, Single Ap (08/03/17 ) Metoprolol Tartrate Inj (Lopressor Inj) (08/03/17 11:45) Esmolol Drip Inj Premix (Brevibloc Drip (08/03/17 12:15) Esmolol Bolus Inj (Brevibloc Bolus Inj) (08/03/17 12:15) Aspirin Chew (Aspirin Chew) (08/03/17 12:30) Metoprolol Tartrate Inj (Lopressor Inj) (08/03/17 12:45) Admit Order (Ed Use Only) (08/03/17 13:11) Labs Laboratory Tests Test 08/03/17 10:30 White Blood Count 6.3 TH/MM3 Red Blood Count 3.80 MIL/MM3 Hemoglobin 11.0 GM/DL Hematocrit 33.9 % Mean Corpuscular Volume 89.3 FL Mean Corpuscular Hemoglobin 28.9 PG Mean Corpuscular Hemoglobin Concent 32.3 % Red Cell Distribution Width 16.5 % Platelet Count 223 TH/MM3 Mean Platelet Volume 9.0 FL Neutrophils (%) (Auto) 57.0 % Lymphocytes (%) (Auto) 22.9 % Monocytes (%) (Auto) 11.7 % Eosinophils (%) (Auto) 7.3 % Basophils (%) (Auto) 1.1 % Neutrophils # (Auto) 3.6 TH/MM3 Lymphocytes # (Auto) 1.4 TH/MM3 Monocytes # (Auto) 0.7 TH/MM3 Eosinophils # (Auto) 0.5 TH/MM3 Basophils # (Auto) 0.1 TH/MM3 CBC Comment DIFF FINAL Differential Comment Blood Urea Nitrogen 32 MG/DL Creatinine 8.95 MG/DL Random Glucose 64 MG/DL Calcium Level 8.9 MG/DL Sodium Level 140 MEQ/L Potassium Level 4.3 MEQ/L Chloride Level 102 MEQ/L Carbon Dioxide Level 27.9 MEQ/L Anion Gap 10 MEQ/L Estimat Glomerular Filtration Rate 7 ML/MIN [facility] Medical Decision Making Medical Screen Exam Complete: Yes Emergency Medical Condition: Yes Medical Record Reviewed: Yes Interpretation(s) EKG reveals atrial fibrillation with RVR with a rate of 154. Nonspecific T- wave changes. Last Impressions Chest X-Ray 08/03/17 0000 Signed Impressions: CONCLUSION: 1. Cardiomegaly with vascular congestive changes and small to moderate right p leural effusion. 2. Bibasilar airspace disease. 3. Stable bilateral pleural nodules previously described. Laboratory Tests Test 08/03/17 10:30 White Blood Count 6.3 TH/MM3 Red Blood Count 3.80 MIL/MM3 Hemoglobin 11.0 GM/DL Hematocrit 33.9 % Mean Corpuscular Volume 89.3 FL Mean Corpuscular Hemoglobin 28.9 PG Mean Corpuscular Hemoglobin Concent 32.3 % Red Cell Distribution Width 16.5 % Platelet Count 223 TH/MM3 Mean Platelet Volume 9.0 FL Neutrophils (%) (Auto) 57.0 % Lymphocytes (%) (Auto) 22.9 % Monocytes (%) (Auto) 11.7 % Eosinophils (%) (Auto) 7.3 % Basophils (%) (Auto) 1.1 % Neutrophils # (Auto) 3.6 TH/MM3 Lymphocytes # (Auto) 1.4 TH/MM3 Monocytes # (Auto) 0.7 TH/MM3 Eosinophils # (Auto) 0.5 TH/MM3 Basophils # (Auto) 0.1 TH/MM3 CBC Comment DIFF FINAL Differential Comment Blood Urea Nitrogen 32 MG/DL Creatinine 8.95 MG/DL Random Glucose 64 MG/DL Calcium Level 8.9 MG/DL Sodium Level 140 MEQ/L Potassium Level 4.3 MEQ/L Chloride Level 102 MEQ/L Carbon Dioxide Level 27.9 MEQ/L Anion Gap 10 MEQ/L Estimat Glomerular Filtration Rate 7 ML/MIN Differential Diagnosis Differential diagnosis includes atrial fibrillation with RVR, electrolyte abnormality, volume overload, ESRD on HD, dementia, psychosis, delirium. Narrative Course IV was established, labs are drawn and sent, and the patient was placed on cardiac telemetry monitoring and continuous pulse oximetry monitoring. EKG was ordered and interpreted. Chest x-ray was obtained. The patient was administered Ativan and Haldol orally, was administered Lopressor 5 mg intravenously for A. fib with RVR. I reviewed the EMR, the patient was just recently seen for an enlarged left AV fistula and underwent ultrasound of the left upper extremity. I reviewed Dr. Cortez's note, he spoke with Dr. Durham and with Dr. Hernandez. The patient was discharged home. I also reviewed old EKGs, the patient has a history of sinus rhythm with sinus arrhythmia, but I cannot see any old EKG revealing atrial fibrillation. The patient appears to have new onset atrial fibrillation with RVR. The patient was administered Lopressor 5 mg intravenously. The patient continued to be tachycardic with a heart rate in 120s-130s, therefore, was placed on an esmolol drip. Prior to the esmolol drip , the patient was re-bolused with Lopressor 5 mg intravenously. The patient was placed in soft restraints as he was somewhat confused with underlying dementia and psychosis. Patient was administered aspirin 162 mg orally. The patient will be admitted to the medical service. The patient's primary physician is Dr. Ana Saxena, therefore, [facility]. Critical Care Narrative Aggregate critical care time was 40 minutes. Time to perform other separately billable procedures was not included in the critical care time. My time did not include minutes spent treating any other patients simultaneously or on activities that did not directly contribute to the patient's treatment. The services I provided to this patient were to treat and/or prevent clinically significant deterioration that could result in: Arrhythmia, anoxia, hypoxia, cardiomyopathy, congestive heart failure, pulmonary edema, . I provided critical care services requiring my management, as noted below: Chart data review, documentation time, medication orders and management, vital sign assessments/reviewing monitor data, ordering and reviewing lab tests, ordering and interpreting/reviewing x-rays and diagnostic studies, care of the patient and discussion of the patient with the admitting physicians. Physician Communication Physician Communication [facility]. I discussed the patient with Dr. Crum who agrees with admission. Diagnosis Primary Impression: New onset atrial fibrillation Additional Impressions: Dementia with behavioral disturbance Qualified Codes: F03.91 - Unspecified dementia with behavioral disturbance ESRD (end stage renal disease) on dialysis Admitting Information Admitting Physician Requests: Admit Condition: Stable Armando Payne MD Aug 03, 2017 10:52
--- NOTE | 2017-08-03 11:23 | RADRPT ---
EXAM DATE: 08/03/2017 11:16 AM EDT AGE/SEX: 62 years / Male INDICATIONS: Palpitations. CLINICAL DATA: This is the patient's initial encounter. Patient reports that signs and symptoms have been present for 1 day and indicates a pain score of Nonresponsive. MEDICAL/SURGICAL HISTORY: . renal failure,dialysis, dementia. Information per nurse Non-respon sive. COMPARISON: [facility] [place] AP, 09/29/2013. . FINDINGS: The heart is moderately enlarged. Vascular coursing is seen throughout both lungs. Small to moderate right pleural effusion is identified. Bilateral pleural nodules are again identifie d. Bibasilar airspace disease is noted. Mediastinal and hilar calcific deposits are noted. Left subclavian vascular stent is noted. CONCLUSION: 1. Cardiomegaly with vascular congestive changes and small to moderate right pleural effusion. 2. Bibasilar airspace disease. 3. Stable bilateral pleural nodules previously described. Electronically signed by: Antonio Alex MD 08/03/2017 11:21 AM EDT
[2017-08-03 11:31] LABS: AUTOMATED NEUTROPHIL # 3.6 TH/MM3 (1.8-7.7); BASOPHIL # 0.1 TH/MM3 (0-0.2); BASOPHIL % 1.1 % (0.0-2.0); EOSINOPHIL # 0.5 TH/MM3 (0-0.4); EOSINOPHIL % 7.3 % (0.0-4.0); HEMATOCRIT 33.9 % (39.0-51.0); LYMPH % 22.9 % (9.0-44.0); LYMPHOCYTE # 1.4 TH/MM3 (1.0-4.8); MEAN CELL VOLUME 89.3 FL (80.0-100.0); MEAN CORPUSCULAR HEMOGLOBIN 28.9 PG (27.0-34.0); MEAN CORPUSCULAR HGB CONC 32.3 % (32.0-36.0); MONO % 11.7 % (0.0-8.0); MONOCYTE # 0.7 TH/MM3 (0-0.9); PLATELET COUNT 223 TH/MM3 (150-450); RED CELL DISTRIBUTION WIDTH 16.5 % (11.6-17.2); WHITE BLOOD COUNT 6.3 TH/MM3 (4.0-11.0)
[2017-08-03] MEDS ORDERED: METOPROLOL TARTRATE 5 MG/5 ML VIAL IV PUSH ONE ×2 (11:45→12:45)
[2017-08-03 11:50] VITALS: BP 135/78; PULSE 130; RESP 16; O2SAT 95
[2017-08-03 11:59] LABS: BICARBONATE 27.9 MEQ/L (21.0-32.0); CALCIUM 8.9 MG/DL (8.5-10.1); CREATININE 8.95 MG/DL (0.60-1.30)
[2017-08-03] MEDS ORDERED: ESMOLOL HCL 100 MG/10 ML VIAL IV PUSH PRN (12:15)
[2017-08-03] MEDS ORDERED: ASPIRIN 81 MG CHEW TAB CHEW ONE (12:30)
[2017-08-03 12:33] VITALS: BP 146/104; PULSE 138; RESP 17; O2SAT 97
[2017-08-03] MEDS: ESMOLOL DRIP INJ PREMIX 250 ML IV PRN ×2 (13:14→20:16)
[2017-08-03] MEDS ORDERED: BISACODYL 10 MG SUPP RECTAL PRN (13:30)
[2017-08-03] MEDS ORDERED: LACTULOSE SYRUP 20 GM/30 ML CUP PO PRN (13:30)
[2017-08-03] MEDS ORDERED: ACETAMINOPHEN 325 MG TAB PO PRN ×2 (13:30→14:00)
[2017-08-03] MEDS ORDERED: SENNOSIDES 8.6 MG TAB PO PRN (13:30)
[2017-08-03] MEDS ORDERED: NALOXONE HCL 0.4 MG/ML AMP IV PUSH PRN (13:30)
[2017-08-03] MEDS ORDERED: SODIUM CHLORIDE 0.9% FLUSH 10 ML FLUSH IV FLUSH PRN ×2 (13:30→14:00)
[2017-08-03] MEDS ORDERED: METOCLOPRAMIDE HCL 10 MG/2 ML VIAL IV PUSH PRN (13:30)
[2017-08-03] MEDS ORDERED: MAGNESIUM HYDROXIDE SUSP 30 ML CUP PO PRN (13:30)
[2017-08-03 13:40] VITALS: BP 122/99; PULSE 126; RESP 17; O2SAT 97
--- NOTE | 2017-08-03 13:43 | HHI.HP ---
[facility] Service [facility] Primary Care Physician Ana Saxena MD Admission Diagnosis Atrial fibrillation with RVR, ESRD on HD, dementia with psychosis Diagnoses: Travel History International Travel<30 Days: No Contact w/Intl Traveler <30 Da: No Traveled to Known Affected Are: No History of Present Illness 62 yo AA M with PMH of ESRD on dialysis, HTN, HLD, ME---10 years ago, psychosis and dementia who went for HD today. The patient presents to the emergency department from the dialysis center for evaluation of combative behavior. The patient has a history of end-stage renal disease and is on hemodialysis followed by his device test engineer, Dr. Hi Hernandez. The patient was receiving dialysis earlier today when he became combative, started picking at his dialysis catheters, subsequently was sent to the emergency department. The patient does have a history of dementia and psychosis and is a poor historian. Upon arrival the patient was noted to be tachycardic with underlying atrial fibrillation. The patient is unable to tell me if he has any history of atrial fibrillation. Symptoms are moderate. He denies any chest pain or shortness of breath, however, is a limited historian. History is limited as patient is a very poor historian and due to clinical presentation. history is obtained from records, staff. Review of Systems ROS Limitations: Clinical Condition, Altered Mental Status, Combative, Psychotic, Poor Historian Except as stated in HPI: all other systems reviewed are Neg Past Family Social History Past Medical History ESRD on dialysis HTN HLD ME---10 yrs ago, no stents per records Past Surgical History Vascular access for dialysis (AV fistula) Reported Medications Reported Meds & Active Scripts Active Renvela (Sevelamer Carbonate) 800 Mg Tab 1,600 Mg PO TIDAC 30 Days Quetiapine (Quetiapine Fumarate) 25 Mg Tab 25 Mg PO BID 30 Days Folic Acid 1 Mg Tablet 1 Mg PO DAILY Vitamin D3 (Cholecalciferol) 2,000 Unit Cap 2,000 Units PO DAILY Furosemide 40 Mg Tab 40 Mg PO DAILY give on non-dialysis days ONLY (Wednesday, Wednesday, Wed, Wed) Pravastatin 40 Mg Tab 40 Mg PO DAILY Namenda Xr (Memantine) 21 Mg Caper 21 Mg PO DAILY Dialyvite Rx (B-Complex W/ C & Folic Acid) 1 Mg Tab 1 Tab PO DAILY Omeprazole 40 Mg Cap 40 Mg PO DAILY Reported Lexapro (Escitalopram Oxalate) 10 Mg Tab 10 Mg PO DAILY Zofran (Ondansetron HCl) 4 Mg Tab 4 Mg PO Q6HR PRN Sensipar (Cinacalcet) 30 Mg Tab 30 Mg PO HS Allergies: Coded Allergies: No Known Allergies (Verified Allergy, Unknown, 06/30/17) Family History mother from CHF father had unknown cancer Social History In the past 1 beer per week per records Patient has no past history of smoking No IV drug abuse history Past history of cocaine abuse per records Physical Exam Vital Signs Vital Signs Date Time Temp Pulse Resp B/P (MAP) Pulse Ox O2 Delivery O2 Flow Rate FiO2 08/03/17 13:14 125 146/104 08/03/17 12:33 138 17 146/104 (118) 97 Room Air 08/03/17 11:50 130 16 135/78 (97) 95 Room Air 08/03/17 10:26 98.6 130 16 122/78 (93) 95 Physical Exam GENERAL: This is a well-nourished, well-developed patient, in no apparent distress. SKIN: No rashes, ecchymoses or lesions. Cool and dry. HEAD: Atraumatic. Normocephalic. No temporal or scalp tenderness. EYES: Pupils equal round and reactive. Extraocular motions intact. No scleral icterus. No injection or drainage. ENT: Nose without bleeding, purulent drainage or septal hematoma. Throat without erythema, tonsillar hypertrophy or exudate. Uvula midline. Airway patent. NECK: Trachea midline. No JVD or lymphadenopathy. Supple, nontender, no meningeal signs. CARDIOVASCULAR: Regular rate and rhythm without murmurs, gallops, or rubs. RESPIRATORY: Clear to auscultation. Breath sounds equal bilaterally. No wheezes , rales, or rhonchi. GASTROINTESTINAL: Abdomen soft, non-tender, nondistended. No hepato-splenomegaly , or palpable masses. No guarding. MUSCULOSKELETAL: Extremities without clubbing, cyanosis, or edema. No joint tenderness, effusion, or edema noted. No calf tenderness. Negative Homans sign bilaterally. NEUROLOGICAL: Awake and alert. Cranial nerves II through XII intact. Motor and sensory grossly within normal limits. Five out of 5 muscle strength in all muscle groups. Normal speech. Laboratory Laboratory Tests Test 08/03/17 10:30 White Blood Count 6.3 Red Blood Count 3.80 Hemoglobin 11.0 Hematocrit 33.9 Mean Corpuscular Volume 89.3 Mean Corpuscular Hemoglobin 28.9 Mean Corpuscular Hemoglobin Concent 32.3 Red Cell Distribution Width 16.5 Platelet Count 223 Mean Platelet Volume 9.0 Neutrophils (%) (Auto) 57.0 Lymphocytes (%) (Auto) 22.9 Monocytes (%) (Auto) 11.7 Eosinophils (%) (Auto) 7.3 Basophils (%) (Auto) 1.1 Neutrophils # (Auto) 3.6 Lymphocytes # (Auto) 1.4 Monocytes # (Auto) 0.7 Eosinophils # (Auto) 0.5 Basophils # (Auto) 0.1 CBC Comment DIFF FINAL Differential Comment Blood Urea Nitrogen 32 Creatinine 8.95 Random Glucose 64 Calcium Level 8.9 Sodium Level 140 Potassium Level 4.3 Chloride Level 102 Carbon Dioxide Level 27.9 Anion Gap 10 Estimat Glomerular Filtration Rate 7 Result Diagram: 08/03/17 1030 08/03/17 1030 Imaging Last Impressions Chest X-Ray 08/03/17 0000 Signed Impressions: CONCLUSION: 1. Cardiomegaly with vascular congestive changes and small to moderate right p leural effusion. 2. Bibasilar airspace disease. 3. Stable bilateral pleural nodules previously described. Caprini VTE Risk Assessment Caprini VTE Risk Assessment: Mod/High Risk (score >= 2) Caprini Risk Assessment Model Point Value = 1 Point Value = 2 Point Value = 3 Point Value = 5 Age 41-60 Minor surgery BMI > 25 kg/m2 Swollen legs Varicose veins or History of unexplained or recurrent spontaneous Oral contraceptives or hormone replacement Sepsis (< 1 month) Serious lung disease, including pneumonia (< 1 month) Abnormal pulmonary function Acute myocardial infarction Congestive heart failure (< 1 month) History of inflammatory bowel disease Medical patient at bed rest Age 61-74 Arthroscopic surgery Major open surgery (> 45 min) Laparoscopic surgery (> 45 min) Malignancy Confined to bed (> 72 hours) Immobilizing plaster cast Central venous access Age >= 75 History of VTE Family history of VTE Factor V Leiden Prothrombin [id number] Lupus anticoagulant Anticardiolipin antibodies Elevated serum homocysteine Heparin-induced thrombocytopenia Other congenital or acquired thrombophilia Stroke (< 1 month) Elective arthroplasty Hip, pelvis, or leg fracture Acute spinal cord injury (< 1 month) Prophylaxis Regimen Total Risk Factor Score Risk Level Prophylaxis Regimen 0-1 Low Early ambulation 2 Moderate Order ONE of the following: *Sequential Compression Device (SCD) *Heparin 5000 units SQ BID 3-4 Higher Order ONE of the following medications: *Heparin 5000 units SQ TID *Enoxaparin/Lovenox 40 mg SQ daily (WT < 150 kg, CrCl > 30 mL/min) *Enoxaparin/Lovenox 30 mg SQ daily (WT < 150 kg, CrCl > 10-29 mL/min) *Enoxaparin/Lovenox 30 mg SQ BID (WT < 150 kg, CrCl > 30 mL/min) AND/OR *Sequential Compression Device (SCD) 5 or more Highest Order ONE of the following medications: *Heparin 5000 units SQ TID (Preferred with Epidurals) *Enoxaparin/Lovenox 40 mg SQ daily (WT < 150 kg, CrCl > 30 mL/min) *Enoxaparin/Lovenox 30 mg SQ daily (WT < 150 kg, CrCl > 10-29 mL/min) *Enoxaparin/Lovenox 30 mg SQ BID (WT < 150 kg, CrCl > 30 mL/min) AND *Sequential Compression Device (SCD) Assessment and Plan Assessment and Plan 62-year-old male admitted secondary to new onset Afib with RVR, psychosis and dementia, chronic end-stage renal disease on HD New onset A fib with RVR EKG reviewed with ER phsyciain Patient received multiple labetalol IV bolus in the ED. Started on esmolol drip Place on telemetry Consult cardiology 2D ECHO Acute psychosis/ Dementia. Consult psych . Management per psychiatry. Hold home meds at this time until reconcilliation meds done and after seen by psych as patient is also altered mental status Will also have neurochecks ESRD on dialysis Consult nephrology. Continue HD per nephro recommendations Monitor renal function Hypertension Continue homemeds Follow blood pressures Adjust treatments as needed Hyperlipidemia Continue present treatment Follow as an outpatient Coronary artery disease Old [place] Continue home meds DVT prophylaxis SCD/TEDs, lovenox Records reviewed. Discussed Condition With pt, nurse, ED physician Dr Payne Physician Certification 2 Midnight Certification Type: Admission for Inpatient Services Order for Inpatient Services The services are ordered in accordance with Medicare regulations or non- Medicare payer requirements, as applicable. In the case of services not specified as inpatient-only, they are appropriately provided as inpatient services in accordance with the 2-midnight benchmark. Estimated LOS (days): 3 days is the estimated time the patient will need to remain in the hospital, assuming treatment plan goals are met and no additional complications. Post-Hospital Plan: Home Mavis Black MD Aug 03, 2017 13:43
[2017-08-03] MEDS ORDERED: SODIUM CHLOR 0.9% 1000 ML INJ 1,000 ML IV PRN (13:49)
[2017-08-03] MEDS ORDERED: SODIUM CHLOR 0.9% 1000 ML INJ 1,000 ML OTHER PRN ×2 (13:49)
--- NOTE | 2017-08-03 13:56 | EKG ---
Date Performed: 08/03/2017 Time Performed: 10:41:34 PTAGE: 62 years EKG: ATRIAL FIBRILLATION WITH RAPID VENTRICULAR RESPONSE LEFT ANTERIOR FASCICULAR BLOCK NONSPECI FIC ST & T-WAVE ABNORMALITY ABNORMAL ECG Compared to prior electrocardiogram, atrial fibrillation is now present . PREVIOUS TRACING : 06/15/2017 13.59 DOCTOR: Kayode Cesar Interpretating Date/Time 08/03/2017 13:56:09
[2017-08-03] MEDS ORDERED: ONDANSETRON ODT 4 MG TAB PO PRN (14:00)
[2017-08-03] MEDS ORDERED: MANNITOL 12.5 GM/50 ML VIAL IV PRN (14:00)
[2017-08-03] MEDS ORDERED: diphenhydrAMINE HCL 25 MG CAP PO PRN (14:00)
[2017-08-03] MEDS ORDERED: HEPARIN SODIUM - IV 10,000 UNITS/10 ML VIAL PRN (14:00)
[2017-08-03] MEDS ORDERED: cloNIDine HCL 0.1 MG TAB PO PRN (14:00)
[2017-08-03] MEDS ORDERED: HEPARIN SODIUM - IV 10,000 UNITS/10 ML VIAL IV FLUSH PRN (14:00)
[2017-08-03] MEDS ORDERED: NITROGLYCERIN 0.4 MG SL 25 TABS/BTL SL PRN (14:00)
[2017-08-03] MEDS ORDERED: GENTAMICIN SULFATE 20 MG/2 ML VIAL OTHER PRN (14:00)
[2017-08-03] MEDS: HEPARIN SODIUM - SQ 10,000 UNITS/ML VIAL SQ SCH (14:00)
[2017-08-03] MEDS ORDERED: ALBUMIN 25% INJ 100 ML IV PRN (14:00)
--- NOTE | 2017-08-03 16:57 | PD.CONS ---
HPI Service Nephrology Consult Requested By Reason for Consult ESRD on HD Primary Care Physician Ana Saxena MD History of Present Illness This is a 62 y/o AAM dialysis patient who was one hour into treatment today when he became aggressive and attempted to decannulate HD needles. PMH listed below includes HTN, anemia, and psychiatric issues. He was in A fib RVR on arrival, on Esmolol gtt currently, seen during dialysis. We were consulted to assist with management, and he is a full code. (Nicci Nolan) Review of Systems ROS Limitations: Clinical Condition, Altered Mental Status (Nicci Nolan) Past Family Social History Allergies: Coded Allergies: No Known Allergies (Verified Allergy, Unknown, 06/30/17) Past Medical History ESRD on HD TTS HTN Hyperlipidemia Dementia/behavioral issues CT/CAD Anemia Past Surgical History AVF Left arm Reported Medications Renvela (Sevelamer Carbonate) 800 Mg Tab 1,600 Mg PO TIDAC 30 Days Quetiapine (Quetiapine Fumarate) 25 Mg Tab 25 Mg PO BID 30 Days Folic Acid 1 Mg Tablet 1 Mg PO DAILY Vitamin D3 (Cholecalciferol) 2,000 Unit Cap 2,000 Units PO DAILY Furosemide 40 Mg Tab 40 Mg PO DAILY give on non-dialysis days ONLY (Wednesday, Wednesday, Wed, Wed) Pravastatin 40 Mg Tab 40 Mg PO DAILY Namenda Xr (Memantine) 21 Mg Caper 21 Mg PO DAILY Dialyvite Rx (B-Complex W/ C & Folic Acid) 1 Mg Tab 1 Tab PO DAILY Omeprazole 40 Mg Cap 40 Mg PO DAILY Lexapro (Escitalopram Oxalate) 10 Mg Tab 10 Mg PO DAILY Zofran (Ondansetron HCl) 4 Mg Tab 4 Mg PO Q6HR PRN Sensipar (Cinacalcet) 30 Mg Tab 30 Mg PO HS Active Ordered Medications Current Medications Medications (Trade) Dose Ordered Sig/Michell Route Start Time Stop Time Status Last Admin Esmolol HCl/ Sodium Chloride 250 ml @ 0 mls/hr TITRATE PRN IV 08/03/17 12:15 08/03/17 13:14 (Brevibloc Bolus Inj) 35 mg BOLUS PRN IV PUSH 08/03/17 12:15 (NS Flush) 2 ml UNSCH PRN IV FLUSH 08/03/17 13:30 (NS Flush) 2 ml BID IV FLUSH 08/03/17 21:00 (Tylenol) 650 mg Q4H PRN PO 08/03/17 13:30 (Reglan Inj) 5 mg Q6H PRN IV PUSH 08/03/17 13:30 (Heparin Inj) 5,000 units Q12H SQ 08/03/17 14:00 (Narcan Inj) 0.4 mg UNSCH PRN IV PUSH 08/03/17 13:30 (Hilda-Colace) 1 tab BID PO 08/03/17 21:00 (Milk Of Magnesia Liq) 30 ml Q12H PRN PO 08/03/17 13:30 (Senokot) 17.2 mg Q12H PRN PO 08/03/17 13:30 (Dulcolax Supp) 10 mg DAILY PRN RECTAL 08/03/17 13:30 (Lactulose Liq) 30 ml DAILY PRN PO 08/03/17 13:30 Sodium Chloride 1,000 ml @ 0 mls/hr Q0M PRN OTHER 08/03/17 13:49 (Heparin Inj) 8,000 units UNSCH PRN IV FLUSH 08/03/17 14:00 Sodium Chloride 1,000 ml @ 200 mls/hr Q5H PRN IV 08/03/17 13:49 Sodium Chloride 1,000 ml @ 0 mls/hr Q0M PRN OTHER 08/03/17 13:49 (Mannitol Inj) 12.5 gm UNSCH PRN IV 08/03/17 14:00 Albumin Human 100 ml @ 60 mls/hr UNSCH PRN IV 08/03/17 14:00 (NS Flush) 5 ml UNSCH PRN IV FLUSH 08/03/17 14:00 (Heparin Inj) UNSCH PRN .XX 08/03/17 14:00 (Gentamicin Inj) 20 mg UNSCH PRN OTHER 08/03/17 14:00 (Zofran Odt) 4 mg UNSCH PRN PO 08/03/17 14:00 (Tylenol) 650 mg UNSCH PRN PO 08/03/17 14:00 (Benadryl) 25 mg UNSCH PRN PO 08/03/17 14:00 (Nitrostat Sl) 0.4 mg UNSCH PRN SL 08/03/17 14:00 (Catapres) 0.1 mg UNSCH PRN PO 08/03/17 14:00 (Epogen Inj) 5,000 units UNSCH PRN IV PUSH 08/03/17 14:00 (Gelfoam 12 Mm/7 Mm Top) 1 foam UNSCH PRN TOP 08/03/17 14:00 Family History Non contributory Social History Lives in a SNF/LTC Non smoking No ETOH He is not has grown children Full code status (Nicci Nolan) Physical Exam Vital Signs Vital Signs Date Time Temp Pulse Resp B/P (MAP) Pulse Ox O2 Delivery O2 Flow Rate FiO2 08/03/17 13:40 97 21 08/03/17 13:40 126 17 122/99 (107) 97 Room Air 08/03/17 13:14 125 146/104 08/03/17 12:33 138 17 146/104 (118) 97 Room Air 08/03/17 11:50 130 16 135/78 (97) 95 Room Air 08/03/17 10:26 98.6 130 16 122/78 (93) 95 Physical Exam AAM awake, seems confused, restless. Seen during dialysis AVF aneurysm, accessed during HD Rhonchi scattered abdomen soft, normal bowel sounds Ext no edema Laboratory Laboratory Tests Test 08/03/17 10:30 White Blood Count 6.3 Red Blood Count 3.80 Hemoglobin 11.0 Hematocrit 33.9 Mean Corpuscular Volume 89.3 Mean Corpuscular Hemoglobin 28.9 Mean Corpuscular Hemoglobin Concent 32.3 Red Cell Distribution Width 16.5 Platelet Count 223 Mean Platelet Volume 9.0 Neutrophils (%) (Auto) 57.0 Lymphocytes (%) (Auto) 22.9 Monocytes (%) (Auto) 11.7 Eosinophils (%) (Auto) 7.3 Basophils (%) (Auto) 1.1 Neutrophils # (Auto) 3.6 Lymphocytes # (Auto) 1.4 Monocytes # (Auto) 0.7 Eosinophils # (Auto) 0.5 Basophils # (Auto) 0.1 CBC Comment DIFF FINAL Differential Comment Blood Urea Nitrogen 32 Creatinine 8.95 Random Glucose 64 Calcium Level 8.9 Sodium Level 140 Potassium Level 4.3 Chloride Level 102 Carbon Dioxide Level 27.9 Anion Gap 10 Estimat Glomerular Filtration Rate 7 (Nicci Nolan) Result Diagram: 08/03/17 1030 08/03/17 1030 Imaging Last Impressions Chest X-Ray 08/03/17 0000 Signed Impressions: CONCLUSION: 1. Cardiomegaly with vascular congestive changes and small to moderate right p leural effusion. 2. Bibasilar airspace disease. 3. Stable bilateral pleural nodules previously described. (Nicci Nolan) Assessment and Plan Problem List: (1) ESRD (end stage renal disease) on dialysis ICD Codes: N18.6 - ESRD (end stage renal disease) on dialysis; Z99.2 - Dependence on renal dialysis Status: Chronic Plan: Seen during HD on a 2K, 350 BFR, goal 2L We will continue HD TTS Monitor electrolytes intermittently Fluid removal as tolerated. High protein diet Avoid IVF (2) Chronic anemia ICD Codes: D64.9 - Chronic anemia Status: Acute Plan: Epogen has been ordered (3) HTN (hypertension) ICD Codes: I10 - HTN (hypertension) Status: Chronic Plan: Resume antihypertensives (4) Dementia with behavioral disturbance ICD Codes: F03.91 - Unspecified dementia with behavioral disturbance Plan: Psych eval ordered Restraints for safety as needed (5) A-fib ICD Codes: I48.91 - Unspecified atrial fibrillation Plan: New onset, A fib RVR To go to [facility] [place], will need cardiology evaluation On Esmolol gtt currently (Nicci Nolan) Problem List: (1) ESRD (end stage renal disease) on dialysis ICD Codes: N18.6 - ESRD (end stage renal disease) on dialysis; Z99.2 - Dependence on renal dialysis Status: Chronic Plan: Seen during HD on a 2K, 350 BFR, goal 2L We will continue HD TTS Monitor electrolytes intermittently Fluid removal as tolerated. High protein diet Avoid IVF (2) Chronic anemia ICD Codes: D64.9 - Chronic anemia Status: Acute Plan: Epogen has been ordered (3) HTN (hypertension) ICD Codes: I10 - HTN (hypertension) Status: Chronic Plan: Resume antihypertensives (4) Dementia with behavioral disturbance ICD Codes: F03.91 - Unspecified dementia with behavioral disturbance Plan: Psych eval ordered Restraints for safety as needed (5) A-fib ICD Codes: I48.91 - Unspecified atrial fibrillation Plan: New onset, A fib RVR [facility], will need cardiology evaluation On Esmolol gtt currently Assessment and Plan patient was seen and examined. Agree with above assessment and plan. Consider neurology evaluation as his mental status has rapidly deteriorated in the past few months. (Cole Valencia MD) Problem Qualifiers (1) Dementia with behavioral disturbance: Qualified Codes: F03.91 - Unspecified dementia with behavioral disturbance Nicci Nolan Aug 03, 2017 16:56 Cole Valencia MD Aug 03, 2017 20:07
[2017-08-03] MEDS: EPOETIN ALFA 10,000 UNITS/ML VIAL IV PUSH PRN (18:03)
[2017-08-03] MEDS ORDERED: CALC1CAP PO (18:31)
[2017-08-03] MEDS ORDERED: LORA-392 PO (18:31)
[2017-08-03] MEDS ORDERED: MEMA14CA PO (18:31)
[2017-08-03] MEDS ORDERED: LORA-474 PO (18:31)
[2017-08-03] MEDS ORDERED: NEPHTAB3 PO (18:31)
[2017-08-03] MEDS ORDERED: ASPI81TA16 PO (18:31)
[2017-08-03] MEDS ORDERED: LORazepam 2 MG/ML VIAL ONE (19:38)
[2017-08-03] MEDS ORDERED: LORazepam 2 MG/ML VIAL IV PUSH ONE (19:45)
[2017-08-03] MEDS ORDERED: CHLORHEXIDINE GLUCONATE 2 % 1 PACK (2 CLOTHS)(extra cloths) TOPICAL PRN (19:45)
[2017-08-03 20:00] VITALS: BP 184/84; PULSE 97; RESP 24; TEMP 97.7; O2SAT 96
[2017-08-03] MEDS ORDERED: HALOPERIDOL LACTATE 5 MG/ML AMP IV PUSH ONE (20:15)
[2017-08-03] MEDS: DOCUSATE SODIUM 50 MG/SENNA 8.6 MG TAB PO SCH (21:00)
[2017-08-03] MEDS: SODIUM CHLORIDE 0.9% FLUSH 10 ML FLUSH IV FLUSH SCH (21:40)
[2017-08-03 22:00] VITALS: PULSE 90
[2017-08-04] VITALS (12 sets, daily range): BP systolic 120–176; BP diastolic 72–104; PULSE 83–101; RESP 14–30; TEMP 97.4–98.3; O2SAT 77–100
[2017-08-04] MEDS: HEPARIN SODIUM - SQ 10,000 UNITS/ML VIAL SQ SCH ×2 (02:00→13:10)
[2017-08-04] MEDS ORDERED: HALOPERIDOL LACTATE 5 MG/ML AMP IM ONE (03:45)
[2017-08-04] MEDS: CHLORHEXIDINE GLUCONATE 2 % 1 PACK (2 CLOTHS)(taper/protocol) TOPICAL SCH (03:59)
[2017-08-04 05:50] LABS: ALKALINE PHOSPHATASE 67 U/L (45-117); ALT (GPT) 40 U/L (12-78); AST (GOT) 31 U/L (15-37); BICARBONATE 25.7 MEQ/L (21.0-32.0); BLOOD UREA NITROGEN 24 MG/DL (7-18); CALCIUM 8.3 MG/DL (8.5-10.1); CHLORIDE 99 MEQ/L (98-107); GLOMERULAR FILTRATION RATE 9 ML/MIN (>89); GLUCOSE,RANDOM 64 MG/DL (74-106); SODIUM (NA) 136 MEQ/L (136-145); TOTAL BILIRUBIN ADULT 0.4 MG/DL (0.2-1.0); TOTAL PROTEIN 6.8 GM/DL (6.4-8.2)
[2017-08-04 05:53] LABS: AUTOMATED NEUTROPHIL # 3.9 TH/MM3 (1.8-7.7); BASOPHIL # 0.1 TH/MM3 (0-0.2); BASOPHIL % 1.1 % (0.0-2.0); EOSINOPHIL # 0.2 TH/MM3 (0-0.4); EOSINOPHIL % 3.4 % (0.0-4.0); HEMATOCRIT 36.5 % (39.0-51.0); HEMOGLOBIN 11.7 GM/DL (13.0-17.0); LYMPH % 14.6 % (9.0-44.0); LYMPHOCYTE # 0.8 TH/MM3 (1.0-4.8); MEAN CORPUSCULAR HEMOGLOBIN 28.8 PG (27.0-34.0); MEAN PLATELET VOLUME 8.9 FL (7.0-11.0); MONO % 11.8 % (0.0-8.0); MONOCYTE # 0.7 TH/MM3 (0-0.9); NEUT % 69.1 % (16.0-70.0); PLATELET COUNT 200 TH/MM3 (150-450); RED BLOOD COUNT 4.05 MIL/MM3 (4.50-5.90); RED CELL DISTRIBUTION WIDTH 16.4 % (11.6-17.2); WHITE BLOOD COUNT 5.7 TH/MM3 (4.0-11.0)
--- NOTE | 2017-08-04 08:36 | PD.CONS ---
HPI Consult Requested By Dr Black Reason for Consult Atrial fibrillation with rapid ventricular response Primary Care Physician Ana Sxaena MD History of Present Illness HPI obtained from admission H&P as patient is confused and unable to provide additional information. 62 yo AA M with PMH of ESRD on dialysis, HTN, HLD, remote history of SVT, [place]--- 10 years ago, psychosis and dementia who went for HD today. The patiented to the emergency department from the dialysis center for evaluation of combative behavior. The patient has a history of end-stage renal disease and is on hemodialysis followed by his otr van cdl truck driver, Dr. Hi Hernandez. The patient was receiving dialysis yesterday when he became combative, started picking at his dialysis catheters, subsequently was sent to the emergency department. The patient does have a history of dementia and psychosis and is a poor historian. Upon arrival to the ED the patient was noted to be tachycardic with underlying atrial fibrillation. The patient is unable to tell me if he has any history of atrial fibrillation. History is limited as patient is a very poor historian and due to clinical presentation. Review of Systems unable to be obtained due to the patient's confusion and poor historian Past Family Social History Allergies: Coded Allergies: No Known Allergies (Verified Allergy, Unknown, 06/30/17) Past Medical History ESRD on dialysis HTN HLD SVT in 2013 [place]---10 yrs ago, no stents per records Dementia Psychosis Past Surgical History Vascular access for dialysis (AV fistula) Reported Medications Reported Meds & Active Scripts Active Renvela (Sevelamer Carbonate) 800 Mg Tab 1,600 Mg PO TIDAC 30 Days Quetiapine (Quetiapine Fumarate) 25 Mg Tab 25 Mg PO BID 30 Days Folic Acid 1 Mg Tablet 1 Mg PO DAILY Furosemide 40 Mg Tab 40 Mg PO DAILY give on non-dialysis days ONLY (Wednesday, Wednesday, Wed, Wed) Pravastatin 40 Mg Tab 40 Mg PO DAILY Omeprazole 40 Mg Cap 40 Mg PO DAILY Reported Nephro-Minal (B-Complex W/ C & Folic Acid) 1 Tab 1 Tab PO DAILY Namenda Xr (Memantine) 14 Mg Caper 14 Mg PO DAILY Calcium Acetate (Phosphate Binder) 667 Mg Cap 1,334 Mg PO TID Ativan (Lorazepam) 1 Mg Tab 1 Mg PO TUTHSA PRN Take 1 tablet (1mg) daily on Wednesday, and Wednesday Ativan (Lorazepam) 0.5 Mg Tab 0.5 Mg PO Q8H Aspirin Adult Low Strength (Aspirin) 81 Mg Tabdr 81 Mg PO DAILY Lexapro (Escitalopram Oxalate) 10 Mg Tab 10 Mg PO DAILY Sensipar (Cinacalcet) 30 Mg Tab 30 Mg PO HS Active Ordered Medications Current Medications Medications (Trade) Dose Ordered Sig/Michell Route Start Time Stop Time Status Last Admin Esmolol HCl/ Sodium Chloride 250 ml @ 0 mls/hr TITRATE PRN IV 08/03/17 12:15 08/03/17 20:16 (Brevibloc Bolus Inj) 35 mg BOLUS PRN IV PUSH 08/03/17 12:15 (NS Flush) 2 ml UNSCH PRN IV FLUSH 08/03/17 13:30 (NS Flush) 2 ml BID IV FLUSH 08/03/17 21:00 08/03/17 21:40 (Tylenol) 650 mg Q4H PRN PO 08/03/17 13:30 (Reglan Inj) 5 mg Q6H PRN IV PUSH 08/03/17 13:30 (Heparin Inj) 5,000 units Q12H SQ 08/03/17 14:00 08/04/17 02:00 (Narcan Inj) 0.4 mg UNSCH PRN IV PUSH 08/03/17 13:30 (Hilda-Colace) 1 tab BID PO 08/03/17 21:00 (Milk Of Magnesia Liq) 30 ml Q12H PRN PO 08/03/17 13:30 (Senokot) 17.2 mg Q12H PRN PO 08/03/17 13:30 (Dulcolax Supp) 10 mg DAILY PRN RECTAL 08/03/17 13:30 (Lactulose Liq) 30 ml DAILY PRN PO 08/03/17 13:30 Sodium Chloride 1,000 ml @ 0 mls/hr Q0M PRN OTHER 08/03/17 13:49 (Heparin Inj) 8,000 units UNSCH PRN IV FLUSH 08/03/17 14:00 Sodium Chloride 1,000 ml @ 200 mls/hr Q5H PRN IV 08/03/17 13:49 Sodium Chloride 1,000 ml @ 0 mls/hr Q0M PRN OTHER 08/03/17 13:49 (Mannitol Inj) 12.5 gm UNSCH PRN IV 08/03/17 14:00 Albumin Human 100 ml @ 60 mls/hr UNSCH PRN IV 08/03/17 14:00 (NS Flush) 5 ml UNSCH PRN IV FLUSH 08/03/17 14:00 (Heparin Inj) UNSCH PRN .XX 08/03/17 14:00 (Gentamicin Inj) 20 mg UNSCH PRN OTHER 08/03/17 14:00 (Zofran Odt) 4 mg UNSCH PRN PO 08/03/17 14:00 (Tylenol) 650 mg UNSCH PRN PO 08/03/17 14:00 (Benadryl) 25 mg UNSCH PRN PO 08/03/17 14:00 (Nitrostat Sl) 0.4 mg UNSCH PRN SL 08/03/17 14:00 (Catapres) 0.1 mg UNSCH PRN PO 08/03/17 14:00 (Epogen Inj) 5,000 units UNSCH PRN IV PUSH 08/03/17 14:00 08/03/17 18:03 (Gelfoam 12 Mm/7 Mm Top) 1 foam UNSCH PRN TOP 08/03/17 14:00 ([facility]) Patient in critical care unit? Ass... Q361D .XX 08/03/17 19:45 08/03/17 19:45 (Chlorhexidine 2% Cloth) 3 pack DAILY@04 TOPICAL 08/04/17 04:00 08/08/17 04:01 08/04/17 03:59 (Chlorhexidine 2% Cloth) 3 pack UNSCH PRN TOPICAL 08/03/17 19:45 08/08/17 19:32 Family History mother from CHF father had unknown cancer Social History In the past 1 beer per week per records Patient has no past history of smoking No IV drug abuse history Past history of cocaine abuse per records Physical Exam Vital Signs Vital Signs Date Time Temp Pulse Resp B/P (MAP) Pulse Ox O2 Delivery O2 Flow Rate FiO2 08/04/17 06:00 93 08/04/17 04:00 97.7 100 26 176/81 (112) 08/04/17 04:00 100 08/04/17 02:00 96 08/04/17 00:00 97.4 95 27 147/95 (112) 08/04/17 00:00 95 08/03/17 22:00 90 08/03/17 20:16 93 184/84 08/03/17 20:00 97 08/03/17 20:00 97.7 97 24 184/84 (117) 96 08/03/17 13:40 97 21 08/03/17 13:40 126 17 122/99 (107) 97 Room Air 08/03/17 13:14 125 146/104 08/03/17 12:33 138 17 146/104 (118) 97 Room Air 08/03/17 11:50 130 16 135/78 (97) 95 Room Air 08/03/17 10:26 98.6 130 16 122/78 (93) 95 Physical Exam GENERAL: Patient is confused in four-point restraints. NECK: No carotid bruits. No JVD. CARDIOVASCULAR: Tachycardic and rhythm. No murmur appreciated. RESPIRATORY: No accessory muscle use. Clear to auscultation. Breath sounds equal bilaterally. MUSCULOSKELETAL: No clubbing or cyanosis. No edema. AV fistula noted in upper extremity NEUROLOGICAL: Awake and alert. Moves all except extremities Laboratory Laboratory Tests Test 08/03/17 10:30 08/03/17 20:38 08/04/17 04:59 White Blood Count 6.3 5.7 Red Blood Count 3.80 4.05 Hemoglobin 11.0 11.7 Hematocrit 33.9 36.5 Mean Corpuscular Volume 89.3 90.0 Mean Corpuscular Hemoglobin 28.9 28.8 Mean Corpuscular Hemoglobin Concent 32.3 32.0 Red Cell Distribution Width 16.5 16.4 Platelet Count 223 200 Mean Platelet Volume 9.0 8.9 Neutrophils (%) (Auto) 57.0 69.1 Lymphocytes (%) (Auto) 22.9 14.6 Monocytes (%) (Auto) 11.7 11.8 Eosinophils (%) (Auto) 7.3 3.4 Basophils (%) (Auto) 1.1 1.1 Neutrophils # (Auto) 3.6 3.9 Lymphocytes # (Auto) 1.4 0.8 Monocytes # (Auto) 0.7 0.7 Eosinophils # (Auto) 0.5 0.2 Basophils # (Auto) 0.1 0.1 CBC Comment DIFF FINAL DIFF FINAL Differential Comment Blood Urea Nitrogen 32 24 Creatinine 8.95 7.50 Random Glucose 64 64 Calcium Level 8.9 8.3 Sodium Level 140 136 Potassium Level 4.3 5.0 Chloride Level 102 99 Carbon Dioxide Level 27.9 25.7 Anion Gap 10 11 Estimat Glomerular Filtration Rate 7 9 Nasal Screen MRSA (PCR) MRSA NOT DETECTED Total Protein 6.8 Albumin 3.0 Alkaline Phosphatase 67 Aspartate Amino Transf (AST/SGOT) 31 Alanine Aminotransferase (ALT/SGPT) 40 Total Bilirubin 0.4 Result Diagram: 08/04/1745808/04/17458 Imaging Last Impressions Chest X-Ray 08/03/17 0000 Signed Impressions: CONCLUSION: 1. Cardiomegaly with vascular congestive changes and small to moderate right p leural effusion. 2. Bibasilar airspace disease. 3. Stable bilateral pleural nodules previously described. Assessment and Plan Assessment and Plan 62-year-old -French gentleman with ESRD on dialysis, hypertension, dyslipidemia, CAD with remote [place] and remote documented history of SVT presented to the ER after an episode of psychosis at HD yesterday and was noted to be in atrial fibrillation with rapid ventricular response. He was started on an esmolol drip. Apparently he spontaneously cardioverted to normal sinus rhythm for which he currently maintains. Atrial fibrillation with rapid ventricular response: Currently in normal sinus rhythm. -Discontinue esmolol drip -Start diltiazem 120 mg twice daily with holding parameters SBP<100, HR<60 which may be continued at time of discharge -He is not a candidate for chronic anticoagulation therapy due to his underlying dementia and psychosis which would cause increased risk for severe bleeding complication. CAD: Continue aspirin 81 mg daily and pravastatin. EKG is nonischemic Hypertension: BP currently elevated. The diltiazem will help with this however clearly with ESRD he is at risk of becoming hypotensive during dialysis. This will need to be followed closely by his outpatient otr van cdl truck driver. We will sign off for now. Please contact with any questions. Tomas Mullen DO Aug 04, 2017 08:36
[2017-08-04] MEDS ORDERED: CARD120C4 PO (08:39)
--- NOTE | 2017-08-04 08:39 | HHI.DS ---
Discharge Summary Admission Date Aug 03, 2017 at 13:12 Discharge Date: Aug 04, 2017 Admitting Diagnosis Atrial fibrillation with RVR, ESRD on HD, dementia with psychosis Brief History - From Admission 62 yo AA M with PMH of ESRD on dialysis, HTN, HLD, [place]---10 years ago, psychosis and dementia who went for HD today. The patient presents to the emergency department from the dialysis center for evaluation of combative behavior. The patient has a history of end-stage renal disease and is on hemodialysis followed by his angle shear operator, Dr. Hi Hernandez. The patient was receiving dialysis earlier today when he became combative, started picking at his dialysis catheters, subsequently was sent to the emergency department. The patient does have a history of dementia and psychosis and is a poor historian. Upon arrival the patient was noted to be tachycardic with underlying atrial fibrillation. The patient is unable to tell me if he has any history of atrial fibrillation. Symptoms are moderate. He denies any chest pain or shortness of breath, however, is a limited historian. History is limited as patient is a very poor historian and due to clinical presentation. history is obtained from records, staff. CBC/BMP: 08/04/17 0459 08/04/17 0459 Significant Findings Laboratory Tests Test 08/03/17 10:30 08/03/17 20:38 08/04/17 04:59 Red Blood Count 3.80 MIL/MM3 (4.50-5.90) 4.05 MIL/MM3 (4.50-5.90) Hemoglobin 11.0 GM/DL (13.0-17.0) 11.7 GM/DL (13.0-17.0) Hematocrit 33.9 % (39.0-51.0) 36.5 % (39.0-51.0) Monocytes (%) (Auto) 11.7 % (0.0-8.0) 11.8 % (0.0-8.0) Eosinophils (%) (Auto) 7.3 % (0.0-4.0) Eosinophils # (Auto) 0.5 TH/MM3 (0-0.4) Blood Urea Nitrogen 32 MG/DL (7-18) 24 MG/DL (7-18) Creatinine 8.95 MG/DL (0.60-1.30) 7.50 MG/DL (0.60-1.30) Random Glucose 64 MG/DL (74-106) 64 MG/DL (74-106) Estimat Glomerular Filtration Rate 7 ML/MIN (>89) 9 ML/MIN (>89) Lymphocytes # (Auto) 0.8 TH/MM3 (1.0-4.8) Albumin 3.0 GM/DL (3.4-5.0) Calcium Level 8.3 MG/DL (8.5-10.1) Imaging Last Impressions Chest X-Ray 08/03/17 0000 Signed Impressions: CONCLUSION: 1. Cardiomegaly with vascular congestive changes and small to moderate right p leural effusion. 2. Bibasilar airspace disease. 3. Stable bilateral pleural nodules previously described. Pt Condition on Discharge: Stable Discharge Disposition: Discharge Home Discharge Time: > 30 minutes Discharge Instructions DIET: Follow Instructions for: Dialysis Diet Activities you can perform: Regular-No Restrictions Mavis Black MD Aug 04, 2017 08:39
[2017-08-04] MEDS ORDERED: DILTIAZEM-CD 120 MG CAP ER PO ONE (10:15)
--- NOTE | 2017-08-04 11:07 | HHI.NPPN ---
Subjective General Problems: Anemia Renal Failure: Chronic, End Stage Renal Disease Interval History Dialyzed yesterday, he was not aggressive during treatment. Today he is not speaking. In restraints. Off esmolol. (Nicci Nolan) Objective Data Data Vital Signs Date Time Temp Pulse Resp B/P (MAP) Pulse Ox O2 Delivery O2 Flow Rate FiO2 08/04/17 06:00 93 08/04/17 04:00 97.7 100 26 176/81 (112) 08/04/17 04:00 100 08/04/17 02:00 96 08/04/17 00:00 97.4 95 27 147/95 (112) 08/04/17 00:00 95 08/03/17 22:00 90 08/03/17 20:16 93 184/84 08/03/17 20:00 97 08/03/17 20:00 97.7 97 24 184/84 (117) 96 08/03/17 13:40 97 21 08/03/17 13:40 126 17 122/99 (107) 97 Room Air 08/03/17 13:14 125 146/104 08/03/17 12:33 138 17 146/104 (118) 97 Room Air 08/03/17 11:50 130 16 135/78 (97) 95 Room Air (Nicci Nolan) -: 08/04/17 0459 08/04/17 0459 Imaging Last 72 hours Impressions Chest X-Ray 08/03/17 0000 Signed Impressions: CONCLUSION: 1. Cardiomegaly with vascular congestive changes and small to moderate right p leural effusion. 2. Bibasilar airspace disease. 3. Stable bilateral pleural nodules previously described. (Nicci Nolan) Physical Exam General Appearance: Well Developed, Comfortable, Malnourished (Nicci Nolan) Eyes Eye Exam: Pupils Equal, Pupils Reactive (Nicci Nolan) Throat Throat Exam: Oral Mucosa [place] & Moist (Nicci Nolan) Pulmonary Resp Exam: Clear Bilaterally, Breath Sounds Equal (Nicci Nolan) Cardiology CV Exam: Irregular, Tachycardia (Nicci Nolan) Gastrointestinal/Abdomen GI Exam: Soft, Non-Tender, Bowel Sounds Present (Nicci Nolan) Musculoskeletal MS Exam: Joints Intact, Good Strength, Atrophy (Nicci Nolan) Integumentary Skin Exam: Clear, Warm, Dry, Intact (Nicci Nolan) Extremeties Extremities Exam: No Edema, Pedal Pulses Palpable (Nicci Nolan) Neurologic Neuro Exam: Awake, Moving All Extremities (Nicci Nolan) Assessment/Plan Discussed Condition With: Patient Assessment Summary: Anemia of CKD, Hypertension, End Stage Renal Disease Problem List: (1) ESRD (end stage renal disease) on dialysis ICD Codes: N18.6 - ESRD (end stage renal disease) on dialysis; Z99.2 - Dependence on renal dialysis Status: Chronic Plan: 2L fluid removal yesterday. We will continue HD TTS, due tomorrow. Monitor electrolytes intermittently Fluid removal as tolerated. High protein diet ordered, supplements added Avoid IVF (2) Chronic anemia ICD Codes: D64.9 - Chronic anemia Status: Acute Plan: Epogen with dialysis (3) HTN (hypertension) ICD Codes: I10 - HTN (hypertension) Status: Chronic Plan: Start Cardizem 120 mg BID per cardiology (4) Dementia with behavioral disturbance ICD Codes: F03.91 - Unspecified dementia with behavioral disturbance Plan: Consider neurology evaluation He has had a significant decline recently Restraints for safety as needed (5) A-fib ICD Codes: I48.91 - Unspecified atrial fibrillation Plan: New onset Off esmolol gtt Start Cardizem PO Echo pending (Nicci Nolan) Plan patient was seen and examined. Agree with above assessment and plan. Started on Cardizem for tachycardia and hypertension. Consider neurology evaluation in addition to psychiatric consult. (Cole Valencia MD) Problem Qualifiers (1) Dementia with behavioral disturbance: Qualified Codes: F03.91 - Unspecified dementia with behavioral disturbance Nicci Nolan Aug 04, 2017 11:07 Cole Valencia MD Aug 05, 2017 09:04
[2017-08-04] MEDS: DOCUSATE SODIUM 50 MG/SENNA 8.6 MG TAB PO SCH ×2 (13:47→21:30)
[2017-08-04] MEDS: SODIUM CHLORIDE 0.9% FLUSH 10 ML FLUSH IV FLUSH SCH ×2 (13:47→21:31)
--- NOTE | 2017-08-04 14:12 | HHI.PR ---
Subjective Remarks Patient is still confused. However heart rate is better controlled. He is agitated on and off requiring restraints and his heart rate is going up when he is agitated. Patient denies having any chest pain or shortness of breath. He is saturating well while on room air. Nephrology also following for dialysis. Cardiology signed off Objective Vitals Vital Signs Date Time Temp Pulse Resp B/P (MAP) Pulse Ox O2 Delivery O2 Flow Rate FiO2 08/04/17 12:00 97 08/04/17 12:00 97.8 97 30 162/104 (123) 99 08/04/17 10:00 101 08/04/17 09:15 92 160/80 08/04/17 08:00 93 08/04/17 08:00 97.7 93 29 122/87 (99) 77 08/04/17 06:00 93 08/04/17 04:00 97.7 100 26 176/81 (112) 08/04/17 04:00 100 08/04/17 02:00 96 08/04/17 00:00 97.4 95 27 147/95 (112) 08/04/17 00:00 95 08/03/17 22:00 90 08/03/17 20:16 93 184/84 08/03/17 20:00 97 08/03/17 20:00 97.7 97 24 184/84 (117) 96 I/O 08/03/17 08/03/17 08/03/17 08/04/17 08/04/17 08/04/17 07:00 15:00 23:00 07:00 15:00 23:00 # Voids 2 # Bowel Movements 0 Result Diagram: 08/04/17 0459 08/04/17 0459 Imaging Last Impressions Chest X-Ray 08/03/17 0000 Signed Impressions: CONCLUSION: 1. Cardiomegaly with vascular congestive changes and small to moderate right p leural effusion. 2. Bibasilar airspace disease. 3. Stable bilateral pleural nodules previously described. Objective Remarks GENERAL: This is a well-nourished, well-developed patient, in no apparent distress. CARDIOVASCULAR: Regular rate and rhythm without murmurs, gallops, or rubs. RESPIRATORY: Clear to auscultation. Breath sounds equal bilaterally. No wheezes , rales, or rhonchi. GASTROINTESTINAL: Abdomen soft, non-tender, nondistended. No hepato-splenomegaly , or palpable masses. No guarding. MUSCULOSKELETAL: Extremities without clubbing, cyanosis, or edema. No joint tenderness, effusion, or edema noted. No calf tenderness. Negative Homans sign bilaterally. NEUROLOGICAL: Awake and alert. Cranial nerves II through XII intact. Motor and sensory grossly within normal limits. Five out of 5 muscle strength in all muscle groups. Normal speech. A/P Assessment and Plan 62-year-old male admitted secondary to new onset Afib with RVR, psychosis and dementia, chronic end-stage renal disease on HD New onset A fib with RVR EKG reviewed with ER phscorbyiain Patient received multiple labetalol IV bolus in the ED. Discontinue esmolol drip, cardiology signed off. Start on Cardizem p.o. patient is requiring Place on telemetry Consult cardiology 2D ECHO is pending Acute psychosis/ Dementia. Consult psych . Management per psychiatry. Hold home meds at this time until reconcilliation meds done and after seen by psych as patient is also altered mental status Will also have neurochecks The patient is requiring restraints ESRD on dialysis Consult nephrology. Continue HD per nephro recommendations Monitor renal function Hypertension Continue homemeds Follow blood pressures Adjust treatments as needed Hyperlipidemia Continue present treatment Follow as an outpatient Coronary artery disease [place] Continue home meds DVT prophylaxis SCD/TEDs, lovenox Records reviewed. Discussed Condition With pt, nurse, Heart rate is better controlled now on p.o. Cardizem. Medically appears stable. Awaiting psychiatry evaluation is still patient is with agitation or confusion. Might benefit from inpatient psychiatric admission. Mavis Black MD Aug 04, 2017 14:11
--- NOTE | 2017-08-04 14:56 | PD.PSY.CON ---
Provisional Diagnosis Admission Date Aug 03, 2017 at 13:12 [place] I. Unspecified psychosis, delirium, dementia with behavioral disturbance [place] II. Deferred History of Present Illness Service Psychiatry Consult Requested By Critical care team Reason for Consult psychosis Primary Care Physician Ana Saxena MD HPI Patient is a 62-year-old -[place] man, domiciled in a [facility], with past psychiatric history of psychosis/dementia, recently admitted to [facility] in May 2017, documentation review, remote history of cocaine use, no previous suicidal attempts, he was discharged on quetiapine 25 mg twice daily, Namenda 14 mg with a past medical history significant for ESRD on HD, HTN, who admitted secondary to new onset Afib with RVR, psychosis and dementia, chronic end-stage renal disease on HD. Admitted due to New onset A fib with RVR. The patient was consulted to psychiatry due to acute psychosis. On my psychiatric evaluation today the patient is restrained in four-point, is quite disorganized, disoriented, unable to provide any meaningful information for the psychiatric assessment at the moment. He was recently medicated with Haldol 5 mg due to severe agitation. Past psychiatric history: Dementia, one psychiatric hospitalization here at [facility] in May 2017, no previous suicide attempts or self-injurious behavior. Medication reconciliation list included Namenda as well as quetiapine. Substance use history: Remote history of cocaine use Past medical history: ESRD, on HD, hypertension Review of Systems Constitutional: DENIES: Diaphoretic episodes, Fatigue, Fever, Weight gain, Weight loss, Chills, Dizziness, Change in appetite, Night Sweats Endocrine: DENIES: Heat/cold intolerance, Polydipsia, Polyuria, Polyphagia Eyes: DENIES: Blurred vision, Diplopia, Eye inflammation, Eye pain, Vision loss , Photosensitivity, Double Vision Ears, nose, mouth, throat: DENIES: Tinnitus, Hearing loss, Vertigo, Nasal discharge, Oral lesions, Throat pain, Hoarseness, Ear Pain, Running Nose, Epistaxis, Sinus Pain, Toothache, Odynophagia Respiratory: DENIES: Apneas, Cough, Snoring, Wheezing, Hemoptysis, Sputum production, Shortness of breath Cardiovascular: DENIES: Chest pain, Palpitations, Syncope, Dyspnea on Exertion , PND, Lower Extremity Edema, Orthopnea, Claudication Gastrointestinal: DENIES: Abdominal pain, Black stools, Bloody stools, Constipation, Diarrhea, Nausea, Vomiting, Difficulty Swallowing, Anorexia Genitourinary: DENIES: Sexual dysfunction, Urinary frequency, Urinary incontinence, Urgency, Hematuria, Dysuria, Nocturia, Penile Discharge, Testicular Pain, Testicular Swelling Musculoskeletal: DENIES: Joint pain, Muscle aches, Stiffness, Joint Swelling, Back pain, Neck pain Integumentary: DENIES: Abnormal pigmentation, Nail changes, Pruritus, Rash Hematologic/lymphatic: DENIES: Bruising, Lymphadenopathy Immunologic/allergic: DENIES: Eczema, Urticaria Neurologic: DENIES: Abnormal gait, Headache, Localized weakness, Paresthesias, Seizures, Speech Problems, Tremor, Poor Balance Psychiatric: COMPLAINS OF: Hallucinations, Agitation, Delusions Past Family Social History Coded Allergies: No Known Allergies (Verified Allergy, Unknown, 06/30/17) Active Scripts Diltiazem CD 24 HR (Cardizem CD 24 HR) 120 Mg Caper, 120 MG PO DAILY for Blood Pressure Management, #30 CAP 0 Refills Prov:Mavis Black MD 08/04/17 Sevelamer Carbonate (Renvela) 800 Mg Tab, 1600 MG PO TIDAC for health for 30 Days, #90 TAB Prov:Troy Mayfield MD 06/23/17 Quetiapine (Quetiapine) 25 Mg Tab, 25 MG PO BID for health for 30 Days, #60 TAB 0 Refills Prov:Troy Mayfield MD 06/23/17 Folic Acid (Folic Acid) 1 Mg Tablet, 1 MG PO DAILY for Nutritional Supplement, # 30 TAB Prov:Liliam Hsu PA-C 02/19/17 Furosemide (Furosemide) 40 Mg Tab, 40 MG PO DAILY for fluid, #30 TAB 0 Refills give on non-dialysis days ONLY (Wednesday, Wednesday, Wed, Wed) Prov:Liliam Hsu PA-C 02/19/17 Pravastatin (Pravastatin) 40 Mg Tab, 40 MG PO DAILY for Cholesterol Management, #30 TAB 0 Refills Prov:Liliam Hsu PA-C 02/19/17 Omeprazole (Omeprazole) 40 Mg Cap, 40 MG PO DAILY for GERD, #30 CAP 0 Refills Prov:Liliam Hsu PA-C 02/19/17 Reported Medications B-Complex W/ C & Folic Acid (Nephro-Minal) 1 Tab, 1 TAB PO DAILY for Nutritional Supplement, #30 TAB 0 Refills 08/03/17 Memantine Er (Namenda Xr) 14 Mg Caper, 14 MG PO DAILY for Alzheimer Disease, # 30 CAP 0 Refills 08/03/17 Calcium Acetate (Phosphate Binder) (Calcium Acetate (Phosphate Binder)) 667 Mg Cap, 1334 MG PO TID for Hyperphosphatemia, #180 CAP 0 Refills 08/03/17 Lorazepam (Ativan) 1 Mg Tab, 1 MG PO TuThSa Y for ANXIETY AND/OR AGITATION, TAB 0 Refills Take 1 tablet (1mg) daily on Wednesday, and Wednesday08/03/17 Lorazepam (Ativan) 0.5 Mg Tab, 0.5 MG PO Q8H for Anxiety, TAB 0 Refills 08/03/[address] (Aspirin Adult Low Strength) 81 Mg Tabdr, 81 MG PO DAILY, TAB 08/03/17 Escitalopram (Lexapro) 10 Mg Tab, 10 MG PO DAILY, #30 TAB 0 Refills 06/30/17 Cinacalcet (Sensipar) 30 Mg Tab, 30 MG PO HS, #30 TAB 0 Refills 06/14/17 Discontinued Reported Medications Ondansetron (Zofran) 4 Mg Tab, 4 MG PO Q6HR Y for NAUSEA OR VOMITING, TAB 0 Refills 06/14/17 Discontinued Scripts Cholecalciferol (Vitamin D3) 2,000 Unit Cap, 2000 UNITS PO DAILY for Nutritional Supplement, #30 TAB 0 Refills Prov:Liliam Hsu PA-C 02/19/17 B-Complex W/ C & Folic Acid (Dialyvite Rx) 1 Mg Tab, 1 TAB PO DAILY for vitamin , #30 TAB Prov:Liliam Hsu PA-C 02/19/17 Current Medications Medications (Trade) Dose Ordered Sig/Michell Route Start Time Stop Time Status Last Admin (Brevibloc Bolus Inj) 35 mg BOLUS PRN IV PUSH 08/03/17 12:15 (NS Flush) 2 ml UNSCH PRN IV FLUSH 08/03/17 13:30 (NS Flush) 2 ml BID IV FLUSH 08/03/17 21:00 08/04/17 13:47 (Tylenol) 650 mg Q4H PRN PO 08/03/17 13:30 (Reglan Inj) 5 mg Q6H PRN IV PUSH 08/03/17 13:30 (Heparin Inj) 5,000 units Q12H SQ 08/03/17 14:00 08/04/17 13:10 (Narcan Inj) 0.4 mg UNSCH PRN IV PUSH 08/03/17 13:30 (Hilda-Colace) 1 tab BID PO 08/03/17 21:00 08/04/17 13:47 (Milk Of Magnesia Liq) 30 ml Q12H PRN PO 08/03/17 13:30 (Senokot) 17.2 mg Q12H PRN PO 08/03/17 13:30 (Dulcolax Supp) 10 mg DAILY PRN RECTAL 08/03/17 13:30 (Lactulose Liq) 30 ml DAILY PRN PO 08/03/17 13:30 Sodium Chloride 1,000 ml @ 0 mls/hr Q0M PRN OTHER 08/03/17 13:49 (Heparin Inj) 8,000 units UNSCH PRN IV FLUSH 08/03/17 14:00 Sodium Chloride 1,000 ml @ 200 mls/hr Q5H PRN IV 08/03/17 13:49 Sodium Chloride 1,000 ml @ 0 mls/hr Q0M PRN OTHER 08/03/17 13:49 (Mannitol Inj) 12.5 gm UNSCH PRN IV 08/03/17 14:00 Albumin Human 100 ml @ 60 mls/hr UNSCH PRN IV 08/03/17 14:00 (NS Flush) 5 ml UNSCH PRN IV FLUSH 08/03/17 14:00 (Heparin Inj) UNSCH PRN .XX 08/03/17 14:00 (Gentamicin Inj) 20 mg UNSCH PRN OTHER 08/03/17 14:00 (Zofran Odt) 4 mg UNSCH PRN PO 08/03/17 14:00 (Tylenol) 650 mg UNSCH PRN PO 08/03/17 14:00 (Benadryl) 25 mg UNSCH PRN PO 08/03/17 14:00 (Nitrostat Sl) 0.4 mg UNSCH PRN SL 08/03/17 14:00 (Catapres) 0.1 mg UNSCH PRN PO 08/03/17 14:00 08/04/17 13:46 (Epogen Inj) 5,000 units UNSCH PRN IV PUSH 08/03/17 14:00 08/03/17 18:03 (Gelfoam 12 Mm/7 Mm Top) 1 foam UNSCH PRN TOP 08/03/17 14:00 ([facility]) Patient in critical care unit? Ass... Q361D .XX 08/03/17 19:45 08/03/17 19:45 (Chlorhexidine 2% Cloth) 3 pack DAILY@04 TOPICAL 08/04/17 04:00 08/08/17 04:01 08/04/17 03:59 (Chlorhexidine 2% Cloth) 3 pack UNSCH PRN TOPICAL 08/03/17 19:45 08/08/17 19:32 (Cardizem Cd) 120 mg BID PO 08/04/17 21:00 Physical Exam Vital Signs Vital Signs Date Time Temp Pulse Resp B/P (MAP) Pulse Ox O2 Delivery O2 Flow Rate FiO2 08/04/17 12:00 97 08/04/17 12:00 97.8 30 162/104 (123) 99 08/03/17 13:40 21 08/03/17 13:40 Room Air Lab Results Test 08/03/17 20:38 08/04/17 04:59 Nasal Screen MRSA (PCR) MRSA NOT DETECTED White Blood Count 5.7 TH/MM3 Red Blood Count 4.05 MIL/MM3 Hemoglobin 11.7 GM/DL Hematocrit 36.5 % Mean Corpuscular Volume 90.0 FL Mean Corpuscular Hemoglobin 28.8 PG Mean Corpuscular Hemoglobin Concent 32.0 % Red Cell Distribution Width 16.4 % Platelet Count 200 TH/MM3 Mean Platelet Volume 8.9 FL Neutrophils (%) (Auto) 69.1 % Lymphocytes (%) (Auto) 14.6 % Monocytes (%) (Auto) 11.8 % Eosinophils (%) (Auto) 3.4 % Basophils (%) (Auto) 1.1 % Neutrophils # (Auto) 3.9 TH/MM3 Lymphocytes # (Auto) 0.8 TH/MM3 Monocytes # (Auto) 0.7 TH/MM3 Eosinophils # (Auto) 0.2 TH/MM3 Basophils # (Auto) 0.1 TH/MM3 CBC Comment DIFF FINAL Differential Comment Blood Urea Nitrogen 24 MG/DL Creatinine 7.50 MG/DL Random Glucose 64 MG/DL Total Protein 6.8 GM/DL Albumin 3.0 GM/DL Calcium Level 8.3 MG/DL Alkaline Phosphatase 67 U/L Aspartate Amino Transf (AST/SGOT) 31 U/L Alanine Aminotransferase (ALT/SGPT) 40 U/L Total Bilirubin 0.4 MG/DL Sodium Level 136 MEQ/L Potassium Level 5.0 MEQ/L Chloride Level 99 MEQ/L Carbon Dioxide Level 25.7 MEQ/L Anion Gap 11 MEQ/L Estimat Glomerular Filtration Rate 9 ML/MIN Mental Status Examination Appearance: Appropriate Consciousness: Alert Orientation: Person Motor Activity: Abnormal gait Speech: Incoherent Memory: Impaired Mood: Oppositional Affect: Irritable Thought Process & Associations: Loose associations, Disorganized Hallucination Type: Visual Suicidal Ideation: No Suicidal Plan: No Suicidal Intention: No Homicidal Ideation: No Homicidal Plan: No Homicidal Intention: No Insight: Poor Judgment: Poor Assessment & Plan Problem List: (1) Unspecified psychosis ICD Codes: F29 - Unspecified psychosis not due to a substance or known physiological condition Assessment & Plan: On psychiatric evaluation today the patient is restrained in 4 points, disorganized, incoherent, completely disoriented, unable to provide any meaningful information for the psychiatric assessment. Patient had attention deficit, visible fluctuation of consciousness which could be consistent with delirium secondary to his underlying medical conditions. There is a patient with an underlying dementia with behavioral disturbances, he has been psychotic before, with previous psychiatric hospitalizations, one recently here in [place] in May 2017. I will restart his Seroquel 25 mg twice daily. Haldol 5 mg IM/IV every 8 hours as needed aggressive behavior and agitation. QTc is 447. I will follow-up Assessment & Plan Estimated LOS: Hector Randhawa MD Aug 04, 2017 14:56
[2017-08-04] MEDS: QUEtiapine FUMARATE 25 MG TAB PO SCH ×2 (15:00→21:31)
[2017-08-04] MEDS: DILTIAZEM-CD 120 MG CAP ER PO SCH (21:30)
[2017-08-04] MEDS: MEMANTINE HCL 10 MG TAB PO SCH (21:31)
[2017-08-05] VITALS (10 sets, daily range): BP systolic 114–146; BP diastolic 83–95; PULSE 83–101; RESP 18–20; TEMP 97.5–98.2; O2SAT 94–100
[2017-08-05] MEDS: HEPARIN SODIUM - SQ 10,000 UNITS/ML VIAL SQ SCH ×2 (02:00→14:00)
[2017-08-05] MEDS: CHLORHEXIDINE GLUCONATE 2 % 1 PACK (2 CLOTHS)(taper/protocol) TOPICAL SCH (03:52)
[2017-08-05 04:20] LABS: AUTOMATED NEUTROPHIL # 3.6 TH/MM3 (1.8-7.7); BASOPHIL # 0.1 TH/MM3 (0-0.2); BASOPHIL % 1.2 % (0.0-2.0); EOSINOPHIL # 0.5 TH/MM3 (0-0.4); EOSINOPHIL % 8.2 % (0.0-4.0); HEMATOCRIT 33.9 % (39.0-51.0); HEMOGLOBIN 10.9 GM/DL (13.0-17.0); LYMPH % 15.2 % (9.0-44.0); LYMPHOCYTE # 0.9 TH/MM3 (1.0-4.8); MEAN CELL VOLUME 89.6 FL (80.0-100.0); MEAN CORPUSCULAR HEMOGLOBIN 28.8 PG (27.0-34.0); MEAN CORPUSCULAR HGB CONC 32.1 % (32.0-36.0); MEAN PLATELET VOLUME 8.8 FL (7.0-11.0); MONO % 12.5 % (0.0-8.0); MONOCYTE # 0.7 TH/MM3 (0-0.9); NEUT % 62.9 % (16.0-70.0); PLATELET COUNT 181 TH/MM3 (150-450); RED BLOOD COUNT 3.79 MIL/MM3 (4.50-5.90); RED CELL DISTRIBUTION WIDTH 15.9 % (11.6-17.2); WHITE BLOOD COUNT 5.7 TH/MM3 (4.0-11.0)
[2017-08-05 05:00] LABS: BICARBONATE 28.7 MEQ/L (21.0-32.0); CALCIUM 8.4 MG/DL (8.5-10.1); MAGNESIUM 2.2 MG/DL (1.5-2.5)
[2017-08-05 05:06] LABS: CREATININE 10.11 MG/DL (0.60-1.30)
[2017-08-05] MEDS: QUEtiapine FUMARATE 25 MG TAB PO SCH ×2 (08:15→20:39)
[2017-08-05] MEDS: DOCUSATE SODIUM 50 MG/SENNA 8.6 MG TAB PO SCH ×2 (08:15→20:39)
[2017-08-05] MEDS: DILTIAZEM-CD 120 MG CAP ER PO SCH ×2 (08:15→20:39)
[2017-08-05] MEDS: SODIUM CHLORIDE 0.9% FLUSH 10 ML FLUSH IV FLUSH SCH ×2 (08:15→20:39)
[2017-08-05] MEDS: MEMANTINE HCL 10 MG TAB PO SCH ×2 (08:15→20:39)
[2017-08-05] MEDS ORDERED: DILTIAZEM-CD 120 MG CAP ER PO SCH (09:00)
--- NOTE | 2017-08-05 11:47 | HHI.NPPN ---
Subjective General Problems: Anemia Renal Failure: Chronic, End Stage Renal Disease Interval History He continues to be restrained, was evaluated by psychiatry. Due for dialysis. (Nicci Nolan) Objective Data Data Vital Signs Date Time Temp Pulse Resp B/P (MAP) Pulse Ox O2 Delivery O2 Flow Rate FiO2 08/05/17 09:00 97.9 85 18 142/92 (109) 94 08/05/17 08:29 Room Air 08/05/17 08:00 94 Room Air 08/05/17 08:00 87 08/05/17 04:00 86 08/05/17 03:52 97.8 88 18 132/83 (99) 100 08/05/17 02:35 Room Air 08/05/17 00:00 98.2 101 18 138/92 (107) 100 08/05/17 00:00 83 08/04/17 22:08 91 08/04/17 20:00 100 08/04/17 20:00 Room Air 08/04/17 20:00 98.1 83 20 120/83 (95) 100 08/04/17 17:15 98.3 89 20 125/72 (89) 100 08/04/17 16:00 90 08/04/17 16:00 90 14 126/82 (97) 92 08/04/17 14:00 101 08/04/17 12:00 97 08/04/17 12:00 97.8 97 30 162/104 (123) 99 (Nicci Nolan) -: 08/05/17 0342 08/05/17 0342 Imaging Last 72 hours Impressions Chest X-Ray 08/03/17 0000 Signed Impressions: CONCLUSION: 1. Cardiomegaly with vascular congestive changes and small to moderate right p leural effusion. 2. Bibasilar airspace disease. 3. Stable bilateral pleural nodules previously described. (Nicci Nolan) Physical Exam General Appearance: Well Developed, Comfortable, Malnourished (Nicci Nolan) Eyes Eye Exam: Pupils Equal, Pupils Reactive (Nicci Nolan) Throat Throat Exam: Oral Mucosa Lilly & Moist (Nicci Nolan) Pulmonary Resp Exam: Clear Bilaterally, Breath Sounds Equal (Nicci Nolan) Cardiology CV Exam: Good Perfusion, Irregular, Tachycardia (Nicci Nolan) Gastrointestinal/Abdomen GI Exam: Soft, Non-Tender, Bowel Sounds Present (Nicci Nolan) Musculoskeletal MS Exam: Joints Intact, Good Strength, Atrophy (Nicci Nolan) Integumentary Skin Exam: Clear, Warm, Dry, Intact (Nicci Nolan) Extremeties Extremities Exam: No Edema, Pedal Pulses Palpable (Nicci Nolan) Neurologic Neuro Exam: Awake, Moving All Extremities (Nicci Nolan) Assessment/Plan Discussed Condition With: Patient Assessment Summary: Anemia of CKD, Hypertension, End Stage Renal Disease Problem List: (1) ESRD (end stage renal disease) on dialysis ICD Codes: N18.6 - ESRD (end stage renal disease) on dialysis; Z99.2 - Dependence on renal dialysis Status: Chronic Plan: We will continue HD TTS, due today Monitor electrolytes intermittently Fluid removal as tolerated. 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 (2) Dementia with behavioral disturbance ICD Codes: F03.91 - Unspecified dementia with behavioral disturbance Plan: s/p psychiatry evaluation, started on Namenda, Seroquel, and PRN Haldol Consider neurology evaluation as there has had a significant decline recently Restraints for safety as needed (3) Chronic anemia ICD Codes: D64.9 - Chronic anemia Status: Acute Plan: Epogen with dialysis (4) HTN (hypertension) ICD Codes: I10 - HTN (hypertension) Status: Chronic Plan: Ordered Cardizem 120 mg BID per cardiology (5) A-fib ICD Codes: I48.91 - Unspecified atrial fibrillation Plan: Rate controlled, on PO Cardizem Echo pending (Nicci Nolan) Problem List: (1) ESRD (end stage renal disease) on dialysis ICD Codes: N18.6 - ESRD (end stage renal disease) on dialysis; Z99.2 - Dependence on renal dialysis Status: Chronic Plan: We will continue HD TTS, due today Monitor electrolytes intermittently Fluid removal as tolerated. 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 (2) Dementia with behavioral disturbance ICD Codes: F03.91 - Unspecified dementia with behavioral disturbance Plan: s/p psychiatry evaluation, started on Namenda, Seroquel, and PRN Haldol Consider neurology evaluation as there has had a significant decline recently Restraints for safety as needed (3) Chronic anemia ICD Codes: D64.9 - Chronic anemia Status: Acute Plan: Epogen with dialysis (4) HTN (hypertension) ICD Codes: I10 - HTN (hypertension) Status: Chronic Plan: Ordered Cardizem 120 mg BID per cardiology (5) A-fib ICD Codes: I48.91 - Unspecified atrial fibrillation Plan: Rate controlled, on PO Cardizem Echo pending Plan patient was seen and examined. Agree with above assessment and plan. (Cole Valencia MD) Problem Qualifiers (1) Dementia with behavioral disturbance: Qualified Codes: F03.91 - Unspecified dementia with behavioral disturbance Nicci Nolan [facility] Aug 05, 2017 11:47 Cole Valencia MD Aug 05, 2017 20:22
--- NOTE | 2017-08-05 12:43 | HHI.PR ---
Subjective Remarks He is pleasantly confused today. Denies any chest pain or shortness of breath. No nausea vomiting diarrhea constipation. Dialysis today. Objective Vitals Vital Signs Date Time Temp Pulse Resp B/P (MAP) Pulse Ox O2 Delivery O2 Flow Rate FiO2 08/05/17 09:00 97.9 85 18 142/92 (109) 94 08/05/17 08:29 Room Air 08/05/17 08:00 94 Room Air 08/05/17 08:00 87 08/05/17 04:00 86 08/05/17 03:52 97.8 88 18 132/83 (99) 100 08/05/17 02:35 Room Air 08/05/17 00:00 98.2 101 18 138/92 (107) 100 08/05/17 00:00 83 08/04/17 22:08 91 08/04/17 20:00 100 08/04/17 20:00 Room Air 08/04/17 20:00 98.1 83 20 120/83 (95) 100 08/04/17 17:15 98.3 89 20 125/72 (89) 100 08/04/17 16:00 90 08/04/17 16:00 90 14 126/82 (97) 92 08/04/17 14:00 101 I/O 08/04/17 08/04/17 08/04/17 08/05/17 08/05/17 08/05/17 07:00 15:00 23:00 07:00 15:00 23:00 Intake Total 360 ml 0 ml Output Total 0 ml Balance 360 ml 0 ml Intake Oral 360 ml 0 ml Output Urine Total 0 ml # Voids 2 # Bowel Movements 0 0 1 Result Diagram: 08/05/17 0342 08/05/17 0342 Imaging Last Impressions Chest X-Ray 08/03/17 0000 Signed Impressions: CONCLUSION: 1. Cardiomegaly with vascular congestive changes and small to moderate right p leural effusion. 2. Bibasilar airspace disease. 3. Stable bilateral pleural nodules previously described. Objective Remarks GENERAL: This is a well-nourished, well-developed patient, in no apparent distress. CARDIOVASCULAR: Regular rate and rhythm without murmurs, gallops, or rubs. RESPIRATORY: Clear to auscultation. Breath sounds equal bilaterally. No wheezes , rales, or rhonchi. GASTROINTESTINAL: Abdomen soft, non-tender, nondistended. No hepato-splenomegaly , or palpable masses. No guarding. MUSCULOSKELETAL: Extremities without clubbing, cyanosis, or edema. No joint tenderness, effusion, or edema noted. No calf tenderness. Negative Homans sign bilaterally. NEUROLOGICAL: Awake and alert. Cranial nerves II through XII intact. Motor and sensory grossly within normal limits. Five out of 5 muscle strength in all muscle groups. Normal speech. A/P Assessment and Plan 62-year-old male admitted secondary to new onset Afib with RVR, psychosis and dementia, chronic end-stage renal disease on HD New onset A fib with RVR EKG reviewed with ER phsyciain Patient received multiple labetalol IV bolus in the ED. Discontinue esmolol drip, cardiology signed off. Start on Cardizem p.o. patient is requiring Place on telemetry Consult cardiology 2D ECHO is pending Acute psychosis/ Dementia. Consult psych . Management per psychiatry. Hold home meds at this time until reconcilliation meds done and after seen by psych as patient is also altered mental status Will also have neurochecks The patient is requiring restraints ESRD on dialysis Consult nephrology. Continue HD per nephro recommendations Monitor renal function Hypertension Continue homemeds Follow blood pressures Adjust treatments as needed Hyperlipidemia Continue present treatment Follow as an outpatient Coronary artery disease [place] Continue home meds DVT prophylaxis SCD/TEDs, lovenox Records reviewed. Discussed Condition With pt, nurse, Heart rate is better controlled now on p.o. Cardizem. Medically appears stable. Awaiting psychiatry evaluation is still patient is with agitation or confusion. Might benefit from inpatient psychiatric admission. Mavis Black MD Aug 05, 2017 12:43
--- NOTE | 2017-08-05 14:56 | ECHRPT ---
Indication: Cardiac arrhythmia, unspecified CONCLUSIONS The left ventricular systolic function is [id number] reduced with an estimated ejection fra ction in the range of 35-40%. Moderate concentric left ventricular hypertrophy. The left atrial size is moderately dilated. [id number] mitral valve regurgitation. There is trace tricuspid valve regurgitation. Trivial pulmonary valve regurgitation. There is a small pericardial effusion present. No hemodynamically significant echocardiographic features were observed (no pre-tamponade physiology). Moderate left sided pleural effusion. BP: / HR: Rhythm: MEASUREMENTS (Male / Female) Normal Values Technical Quality:Technically difficult study 2D ECHO LV Diastolic Diameter PLAX 5.7 cm 4.2 - 5.9 / 3.9 - 5.3 cm LV Systolic Diameter PLAX 4.7 cm IVS Diastolic Thickness 1.5 cm 0.6 - 1.0 / 0.6 - 0.9 cm LVPW Diastolic Thickness 1.5 cm 0.6 - 1.0 / 0.6 - 0.9 cm LV Relative Wall Thickness 0.5 RV Internal Dim ED PLAX 2.9 cm M-MODE Aortic Root Diameter MM 3.5 cm LA Systolic Diameter MM 5.6 cm LA Ao Ratio MM 1.6 AV Cusp Separation MM 2.0 cm DOPPLER Mitral E Point Velocity 110.0 cm/s Mitral A Point Velocity 66.7 cm/s Mitral E to A Ratio 1.6 LV E' Lateral Velocity 9.5 cm/s Mitral E to LV E' Lateral Ratio 11.6 TR Peak Velocity 251.0 cm/s TR Peak Gradient 25.2 mmHg Right Atrial Pressure 10.0 mmHg Pulmonary Artery Systolic Pressu 35.2 mmHg Right Ventricular Systolic Press 35.2 mmHg FINDINGS LEFT VENTRICLE Normal left ventricular size. The left ventricular systolic function is [id number] reduced with an estimated ejection fra ction in the range of 35-40%. Moderate concentric left ventricular hypertrophy. RIGHT VENTRICLE The right ventricle is mildly dilated. LEFT ATRIUM The left atrial size is moderately dilated. RIGHT ATRIUM The right atrial size is normal. ATRIAL SEPTUM Normal atrial septal thickness AORTA The aortic root and proximal ascending aorta are not well visualized. MITRAL VALVE Grossly normal Irgww-no-mnnp mitral valve regurgitation. No mitral valve stenosis. AORTIC VALVE Trileaflet aortic valve. No aortic valve stenosis or regurgitation. Aortic valve sclerosis is present. TRICUSPID VALVE The estimated pulmonary arterial pressure is 35.2 mmHg. There is trace tricuspid valve regurgitation. Grossly normal valve PULMONARY VALVE Trivial pulmonary valve regurgitation. The pulmonary valve is not well visualized. VESSELS The inferior vena cava was not well visualized. PERICARDIUM There is a small pericardial effusion present. No hemodynamically significant echocardiographic features were observed (no pre-tamponade physiology). Moderate left sided pleural effusion Bertrand Stewart DO (Electronically Signed) Final Date:05 August 2017 14:55
[2017-08-05] MEDS: EPOETIN ALFA 10,000 UNITS/ML VIAL IV PUSH PRN (15:10)
[2017-08-06] VITALS (9 sets, daily range): BP systolic 137–166; BP diastolic 84–99; PULSE 94–115; RESP 17–20; TEMP 97.5–98.1; O2SAT 92–97
[2017-08-06] MEDS: HEPARIN SODIUM - SQ 10,000 UNITS/ML VIAL SQ SCH ×2 (03:00→13:52)
[2017-08-06] MEDS: CHLORHEXIDINE GLUCONATE 2 % 1 PACK (2 CLOTHS)(taper/protocol) TOPICAL SCH (04:00)
--- NOTE | 2017-08-06 08:14 | HHI.PR ---
Subjective Remarks Patient is in bed she is still agitated on and off. He is very confused. Answering some questions following some commands. However with poor insight and judgment. Objective Vitals Vital Signs Date Time Temp Pulse Resp B/P (MAP) Pulse Ox O2 Delivery O2 Flow Rate FiO2 08/06/17 04:00 97.5 105 20 166/99 (121) 92 08/06/17 04:00 96 08/06/17 00:00 97.7 94 20 139/93 (108) 93 08/05/17 21:57 99 21 08/05/17 20:00 96 08/05/17 20:00 Room Air 08/05/17 20:00 97.5 100 20 146/95 (112) 99 08/05/17 16:00 97.9 90 18 114/93 (100) 98 08/05/17 13:00 97.5 85 18 134/89 (104) 99 08/05/17 12:00 94 08/05/17 09:00 97.9 85 18 142/92 (109) 94 08/05/17 08:29 Room Air I/O 08/05/17 08/05/17 08/05/17 08/06/17 08/06/17 08/06/17 07:00 15:00 23:00 07:00 15:00 23:00 Intake Total 0 ml 480 ml 460 ml Output Total 0 ml 1500 ml Balance 0 ml -1020 ml 460 ml Intake Oral 0 ml 480 ml 460 ml Output Urine Total 0 ml Hemodialysis 1500 ml # Voids 2 # Bowel Movements 1 3 2 Result Diagram: 08/05/17 0342 08/05/17 0342 Imaging Last Impressions Chest X-Ray 08/03/17 0000 Signed Impressions: CONCLUSION: 1. Cardiomegaly with vascular congestive changes and small to moderate right p leural effusion. 2. Bibasilar airspace disease. 3. Stable bilateral pleural nodules previously described. Objective Remarks GENERAL: This is a well-nourished, well-developed patient, in no apparent distress. CARDIOVASCULAR: Regular rate and rhythm without murmurs, gallops, or rubs. RESPIRATORY: Clear to auscultation. Breath sounds equal bilaterally. No wheezes , rales, or rhonchi. GASTROINTESTINAL: Abdomen soft, non-tender, nondistended. No hepato-splenomegaly , or palpable masses. No guarding. MUSCULOSKELETAL: Extremities without clubbing, cyanosis, or edema. No joint tenderness, effusion, or edema noted. No calf tenderness. Negative Homans sign bilaterally. NEUROLOGICAL: Awake and alert. Cranial nerves II through XII intact. Motor and sensory grossly within normal limits. Five out of 5 muscle strength in all muscle groups. Normal speech. A/P Assessment and Plan 62-year-old male admitted secondary to new onset Afib with RVR, psychosis and dementia, chronic end-stage renal disease on HD New onset A fib with RVR EKG reviewed with ER physician Patient received multiple labetalol IV bolus in the ED. Discontinue esmolol drip, cardiology signed off. Start on Cardizem p.o. patient is requiring Place on telemetry Consult cardiology 2D ECHO is pending Acute psychosis/ Dementia. Consult psych . Management per psychiatry. Hold home meds at this time until reconcilliation meds done and after seen by psych as patient is also altered mental status Will also have neurochecks The patient is requiring restraints ESRD on dialysis Consult nephrology. Continue HD per nephro recommendations Monitor renal function Hypertension Continue homemeds Follow blood pressures Adjust treatments as needed Hyperlipidemia Continue present treatment Follow as an outpatient Coronary artery disease [place] Continue home meds DVT prophylaxis SCD/TEDs, lovenox Records reviewed. Discussed Condition With pt, nurse, Heart rate is better controlled now on p.o. Cardizem. Medically appears stable. Awaiting psychiatry evaluation is still patient is with agitation or confusion. Might benefit from inpatient psychiatric admission. Mavis Black MD Aug 06, 2017 08:14
[2017-08-06] MEDS: DOCUSATE SODIUM 50 MG/SENNA 8.6 MG TAB PO SCH ×2 (09:00→20:27)
[2017-08-06] MEDS: MEMANTINE HCL 10 MG TAB PO SCH ×2 (09:09→20:27)
[2017-08-06] MEDS: DILTIAZEM-CD 120 MG CAP ER PO SCH ×2 (09:10→20:27)
[2017-08-06] MEDS: QUEtiapine FUMARATE 25 MG TAB PO SCH ×2 (09:10→20:27)
[2017-08-06] MEDS: SODIUM CHLORIDE 0.9% FLUSH 10 ML FLUSH IV FLUSH SCH ×2 (09:10→20:27)
--- NOTE | 2017-08-06 15:15 | HHI.NPPN ---
Subjective General Problems: Anemia Renal Failure: Chronic, End Stage Renal Disease Interval History Confused but calm. Dialyzed yesterday. (Nicci Nolan) Objective Data Data Vital Signs Date Time Temp Pulse Resp B/P (MAP) Pulse Ox O2 Delivery O2 Flow Rate FiO2 08/06/17 13:34 96 08/06/17 12:00 98.1 96 17 137/84 (101) 96 08/06/17 09:00 Room Air 08/06/17 08:00 110 08/06/17 08:00 98.1 115 20 158/96 (116) 96 08/06/17 04:00 97.5 105 20 166/99 (121) 92 08/06/17 04:00 96 08/06/17 00:00 97.7 94 20 139/93 (108) 93 08/05/17 21:57 99 21 08/05/17 20:00 96 08/05/17 20:00 Room Air 08/05/17 20:00 97.5 100 20 146/95 (112) 99 08/05/17 16:00 97.9 90 18 114/93 (100) 98 (Nicci Nolan) -: 08/05/17 0342 08/05/17 0342 Physical Exam General Appearance: Well Developed, Comfortable, Malnourished (Nicci Nolan) Eyes Eye Exam: Pupils Equal, Pupils Reactive (Nicci Nolan) Throat Throat Exam: Oral Mucosa [place] & Moist (Nicci Nolan) Pulmonary Resp Exam: Clear Bilaterally, Breath Sounds Equal (Nicci Nolan) Cardiology CV Exam: Good Perfusion, Irregular, Tachycardia (Nicci Nolan) Gastrointestinal/Abdomen GI Exam: Soft, Non-Tender, Bowel Sounds Present (Nicci Nolan) Musculoskeletal MS Exam: Joints Intact, Good Strength, Atrophy (Nicci Nolan) Integumentary Skin Exam: Clear, Warm, Dry, Intact (Nicci Nolan) Extremeties Extremities Exam: No Edema, Pedal Pulses Palpable (Nicci Nolan) Neurologic Neuro Exam: Awake, Moving All Extremities (Nicci Nolan) Assessment/Plan Discussed Condition With: Patient Assessment Summary: Anemia of CKD, Hypertension, End Stage Renal Disease Problem List: (1) ESRD (end stage renal disease) on dialysis ICD Codes: N18.6 - ESRD (end stage renal disease) on dialysis; Z99.2 - Dependence on renal dialysis Status: Chronic Plan: We will continue HD TTS, 1.5 L UF yesterday Monitor electrolytes intermittently Fluid removal as tolerated. 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 (2) Dementia with behavioral disturbance ICD Codes: F03.91 - Unspecified dementia with behavioral disturbance Plan: He had psychiatry evaluation, currently on Namenda and Seroquel, with PRN Eddie Consider neurology evaluation as there has had a significant decline recently Restraints for safety as needed (3) Chronic anemia ICD Codes: D64.9 - Chronic anemia Status: Acute Plan: Epogen with dialysis (4) HTN (hypertension) ICD Codes: I10 - HTN (hypertension) Status: Chronic Plan: On Cardizem 120 mg BID Amlodipine added (5) A-fib ICD Codes: I48.91 - Unspecified atrial fibrillation Plan: Rate controlled, on PO Cardizem Echo shows EF 30-35% (Nicci Nolan) Plan patient was seen and examined. Agree with above assessment and plan. (Cole Valencia MD) Problem Qualifiers (1) Dementia with behavioral disturbance: Qualified Codes: F03.91 - Unspecified dementia with behavioral disturbance Nicci Nolan Aug 06, 2017 15:15 Cole Valencia MD Aug 06, 2017 16:07
[2017-08-07] VITALS (8 sets, daily range): BP systolic 111–150; BP diastolic 78–96; PULSE 86–128; RESP 18; TEMP 97.5–98.4; O2SAT 96–100
[2017-08-07] MEDS: HEPARIN SODIUM - SQ 10,000 UNITS/ML VIAL SQ SCH ×2 (03:13→12:31)
[2017-08-07] MEDS: CHLORHEXIDINE GLUCONATE 2 % 1 PACK (2 CLOTHS)(taper/protocol) TOPICAL SCH (04:00)
--- NOTE | 2017-08-07 09:29 | HHI.NPPN ---
Subjective General Problems: Anemia Renal Failure: Chronic, End Stage Renal Disease Interval History patient was seen and examined during dialysis. Remains disoriented, confused. Seen during dialysis, was on 3K, will be switched to 2K, UF goal is 3 liters, BFR is 350 ml/min. Objective Data Data Vital Signs Date Time Temp Pulse Resp B/P (MAP) Pulse Ox O2 Delivery O2 Flow Rate FiO2 08/07/17 04:00 97.6 86 18 121/80 (94) 96 08/07/17 04:00 87 08/07/17 00:00 95 08/07/17 00:00 97.5 98 18 150/88 (108) 96 08/06/17 20:00 103 08/06/17 20:00 97.6 101 18 144/86 (105) 97 08/06/17 17:07 96 21 08/06/17 16:00 97.9 97 18 144/88 (106) 95 08/06/17 13:34 96 08/06/17 12:00 98.1 96 17 137/84 (101) 96 08/06/17 11:22 95 -: 08/05/17 0342 08/05/17 0342 Physical Exam General Appearance: Well Developed, Comfortable, Malnourished Eyes Eye Exam: Pupils Equal, Pupils Reactive Throat Throat Exam: Oral Mucosa [place] & Moist Pulmonary Resp Exam: Clear Bilaterally, Breath Sounds Equal Cardiology CV Exam: Good Perfusion, Irregular, Tachycardia Gastrointestinal/Abdomen GI Exam: Soft, Non-Tender, Bowel Sounds Present Musculoskeletal MS Exam: Joints Intact, Good Strength, Atrophy Integumentary Skin Exam: Clear, Warm, Dry, Intact Extremeties Extremities Exam: No Edema, Pedal Pulses Palpable Neurologic Neuro Exam: Awake, Moving All Extremities Assessment/Plan Discussed Condition With: Patient Assessment Summary: Anemia of CKD, Hypertension, End Stage Renal Disease Problem List: (1) ESRD (end stage renal disease) on dialysis ICD Codes: N18.6 - ESRD (end stage renal disease) on dialysis; Z99.2 - Dependence on renal dialysis Status: Chronic Plan: We will continue HD TTS. Monitor electrolytes intermittently Fluid removal as tolerated. 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 (2) Dementia with behavioral disturbance ICD Codes: F03.91 - Unspecified dementia with behavioral disturbance Plan: He had psychiatry evaluation, currently on Namenda and Seroquel, with PRN Lupillodol Consider neurology evaluation as there has had a significant decline recently Restraints for safety as needed (3) Chronic anemia ICD Codes: D64.9 - Chronic anemia Status: Acute Plan: Epogen with dialysis (4) HTN (hypertension) ICD Codes: I10 - HTN (hypertension) Status: Chronic Plan: On Cardizem 120 mg BID Amlodipine added (5) A-fib ICD Codes: I48.91 - Unspecified atrial fibrillation Plan: Rate controlled, on PO Cardizem Echo shows EF 30-35% Problem Qualifiers (1) Dementia with behavioral disturbance: Qualified Codes: F03.91 - Unspecified dementia with behavioral disturbance Cole Valencia MD Aug 07, 2017 09:29
[2017-08-07] MEDS: EPOETIN ALFA 10,000 UNITS/ML VIAL IV PUSH PRN (09:39)
[2017-08-07] MEDS: GELATIN 12 MM/7 MM FOAM TOP PRN (09:40)
[2017-08-07] MEDS: MEMANTINE HCL 10 MG TAB PO SCH ×2 (12:26→22:49)
[2017-08-07] MEDS: SODIUM CHLORIDE 0.9% FLUSH 10 ML FLUSH IV FLUSH SCH ×2 (12:27→22:48)
[2017-08-07] MEDS: DILTIAZEM-CD 120 MG CAP ER PO SCH ×2 (12:27→22:48)
[2017-08-07] MEDS: DOCUSATE SODIUM 50 MG/SENNA 8.6 MG TAB PO SCH ×2 (12:27→22:48)
[2017-08-07] MEDS: QUEtiapine FUMARATE 25 MG TAB PO SCH ×2 (12:27→22:49)
--- NOTE | 2017-08-07 15:35 | HHI.PR ---
Subjective Remarks The patient was seen earlier today after dialysis. He is confused and still agitated on and off. No chest pain. No shortness of breath. Vital signs are fairly stable. Tachycardic when he is agitated. Objective Vitals Vital Signs Date Time Temp Pulse Resp B/P (MAP) Pulse Ox O2 Delivery O2 Flow Rate FiO2 08/07/17 14:13 96 21 08/07/17 12:33 Room Air 08/07/17 12:00 128 18 111/90 (97) 96 08/07/17 08:00 94 08/07/17 08:00 98.2 96 18 142/96 (111) 96 08/07/17 04:00 97.6 86 18 121/80 (94) 96 08/07/17 04:00 87 08/07/17 00:00 95 08/07/17 00:00 97.5 98 18 150/88 (108) 96 08/06/17 20:00 103 08/06/17 20:00 97.6 101 18 144/86 (105) 97 08/06/17 17:07 96 21 08/06/17 16:00 97.9 97 18 144/88 (106) 95 I/O 08/06/17 08/06/17 08/06/17 08/07/17 08/07/17 08/07/17 07:00 15:00 23:00 07:00 15:00 23:00 Intake Total 460 ml 500 ml 240 ml Output Total 3000 ml Balance 460 ml 500 ml 240 ml -3000 ml Intake Oral 460 ml 500 ml 240 ml Hemodialysis 3000 ml # Voids 0 2 # Bowel Movements 2 2 1 Result Diagram: 08/05/17 0342 08/05/17 0342 Imaging Last Impressions Chest X-Ray 08/03/17 0000 Signed Impressions: CONCLUSION: 1. Cardiomegaly with vascular congestive changes and small to moderate right p leural effusion. 2. Bibasilar airspace disease. 3. Stable bilateral pleural nodules previously described. Objective Remarks GENERAL: This is a well-nourished, well-developed patient, in no apparent distress. CARDIOVASCULAR: Regular rate and rhythm without murmurs, gallops, or rubs. RESPIRATORY: Clear to auscultation. Breath sounds equal bilaterally. No wheezes , rales, or rhonchi. GASTROINTESTINAL: Abdomen soft, non-tender, nondistended. No hepato-splenomegaly , or palpable masses. No guarding. MUSCULOSKELETAL: Extremities without clubbing, cyanosis, or edema. No joint tenderness, effusion, or edema noted. No calf tenderness. Negative Homans sign bilaterally. NEUROLOGICAL: Awake and alert. Cranial nerves II through XII intact. Motor and sensory grossly within normal limits. Five out of 5 muscle strength in all muscle groups. Normal speech. A/P Assessment and Plan 62-year-old male admitted secondary to new onset Afib with RVR, psychosis and dementia, chronic end-stage renal disease on HD New onset A fib with RVR EKG reviewed with ER physician Patient received multiple labetalol IV bolus in the ED. Discontinue esmolol drip, cardiology signed off. Start on Cardizem p.o. patient is requiring Place on telemetry Consult cardiology 2D ECHO is pending Acute psychosis/ Dementia. Consult psych . Management per psychiatry. Hold home meds at this time until reconcilliation meds done and after seen by psych as patient is also altered mental status Will also have neurochecks The patient is requiring restraints ESRD on dialysis Consult nephrology. Continue HD per nephro recommendations Monitor renal function Hypertension Continue homemeds Follow blood pressures Adjust treatments as needed Hyperlipidemia Continue present treatment Follow as an outpatient Coronary artery disease [place] Continue home meds DVT prophylaxis SCD/TEDs, lovenox Records reviewed. Discussed Condition With pt, nurse, Heart rate is better controlled now on p.o. Cardizem. Medically appears stable. Awaiting psychiatry evaluation is still patient is with agitation or confusion. Might benefit from inpatient psychiatric admission. Mavis Black MD Aug 07, 2017 15:35
[2017-08-08] VITALS (13 sets, daily range): BP systolic 103–136; BP diastolic 75–94; PULSE 88–133; RESP 18–20; TEMP 97.1–97.8; O2SAT 90–100
[2017-08-08] MEDS: HEPARIN SODIUM - SQ 10,000 UNITS/ML VIAL SQ SCH ×2 (02:00→14:19)
[2017-08-08] MEDS: CHLORHEXIDINE GLUCONATE 2 % 1 PACK (2 CLOTHS)(taper/protocol) TOPICAL SCH (03:51)
[2017-08-08] MEDS: QUEtiapine FUMARATE 25 MG TAB PO SCH ×2 (07:46→21:25)
[2017-08-08] MEDS: SODIUM CHLORIDE 0.9% FLUSH 10 ML FLUSH IV FLUSH SCH ×2 (07:46→21:25)
[2017-08-08] MEDS: DILTIAZEM-CD 120 MG CAP ER PO SCH ×2 (07:46→21:25)
[2017-08-08] MEDS: MEMANTINE HCL 10 MG TAB PO SCH ×2 (07:46→21:25)
[2017-08-08] MEDS: DOCUSATE SODIUM 50 MG/SENNA 8.6 MG TAB PO SCH ×2 (07:46→21:24)
[2017-08-08 08:30] LABS: AUTOMATED NEUTROPHIL # 3.6 TH/MM3 (1.8-7.7); BASOPHIL # 0.1 TH/MM3 (0-0.2); BASOPHIL % 1.3 % (0.0-2.0); EOSINOPHIL # 0.3 TH/MM3 (0-0.4); EOSINOPHIL % 5.2 % (0.0-4.0); HEMATOCRIT 39.2 % (39.0-51.0); HEMOGLOBIN 12.8 GM/DL (13.0-17.0); LYMPH % 19.1 % (9.0-44.0); LYMPHOCYTE # 1.1 TH/MM3 (1.0-4.8); MEAN CORPUSCULAR HEMOGLOBIN 28.9 PG (27.0-34.0); MEAN CORPUSCULAR HGB CONC 32.5 % (32.0-36.0); MEAN PLATELET VOLUME 8.8 FL (7.0-11.0); MONO % 14.4 % (0.0-8.0); MONOCYTE # 0.9 TH/MM3 (0-0.9); PLATELET COUNT 219 TH/MM3 (150-450); RED BLOOD COUNT 4.41 MIL/MM3 (4.50-5.90); RED CELL DISTRIBUTION WIDTH 16.1 % (11.6-17.2)
[2017-08-08 08:56] LABS: BICARBONATE 28.1 MEQ/L (21.0-32.0); CALCIUM 9.5 MG/DL (8.5-10.1); CREATININE 9.92 MG/DL (0.60-1.30); MAGNESIUM 2.4 MG/DL (1.5-2.5)
--- NOTE | 2017-08-08 16:03 | HHI.PR ---
Subjective Remarks He is agitated on and off. Vital signs stable. Confused with poor judgment. No fever chills no diarrhea or constipation. Objective Vitals Vital Signs Date Time Temp Pulse Resp B/P (MAP) Pulse Ox O2 Delivery O2 Flow Rate FiO2 08/08/17 12:00 93 08/08/17 11:50 97.1 101 20 113/75 (88) 97 08/08/17 09:00 93 21 08/08/17 08:00 112 08/08/17 07:50 97.4 133 20 124/94 (104) 90 08/08/17 07:29 Room Air 08/08/17 04:00 97.5 100 18 136/84 (101) 99 08/08/17 03:43 126 08/08/17 00:00 97.8 96 18 103/84 (90) 100 08/07/17 23:43 126 08/07/17 20:00 Room Air 08/07/17 20:00 97.9 92 18 119/78 (92) 100 08/07/17 19:26 21 I/O 08/07/17 08/07/17 08/07/17 08/08/17 08/08/17 08/08/17 07:00 15:00 23:00 07:00 15:00 23:00 Intake Total 240 ml Output Total 3000 ml Balance 240 ml -3000 ml Intake Oral 240 ml Hemodialysis 3000 ml # Voids 2 3 # Bowel Movements 1 Result Diagram: 08/08/17 0735 08/08/17 0735 Objective Remarks GENERAL: This is a well-nourished, well-developed patient, in no apparent distress. CARDIOVASCULAR: Regular rate and rhythm without murmurs, gallops, or rubs. RESPIRATORY: Clear to auscultation. Breath sounds equal bilaterally. No wheezes , rales, or rhonchi. GASTROINTESTINAL: Abdomen soft, non-tender, nondistended. No hepato-splenomegaly , or palpable masses. No guarding. MUSCULOSKELETAL: Extremities without clubbing, cyanosis, or edema. No joint tenderness, effusion, or edema noted. No calf tenderness. Negative Homans sign bilaterally. NEUROLOGICAL: Awake and alert. Cranial nerves II through XII intact. Motor and sensory grossly within normal limits. Five out of 5 muscle strength in all muscle groups. Normal speech. A/P Assessment and Plan 62-year-old male admitted secondary to new onset Afib with RVR, psychosis and dementia, chronic end-stage renal disease on HD New onset A fib with RVR EKG reviewed with ER physician Patient received multiple labetalol IV bolus in the ED. Discontinue esmolol drip, cardiology signed off. Start on Cardizem p.o. patient is requiring Place on telemetry Consult cardiology 2D ECHO is pending Acute psychosis/ Dementia. Consult psych . Management per psychiatry. Hold home meds at this time until reconcilliation meds done and after seen by psych as patient is also altered mental status Will also have neurochecks The patient is requiring restraints ESRD on dialysis Consult nephrology. Continue HD per nephro recommendations Monitor renal function Hypertension Continue homemeds Follow blood pressures Adjust treatments as needed Hyperlipidemia Continue present treatment Follow as an outpatient Coronary artery disease [place] Continue home meds DVT prophylaxis SCD/TEDs, lovenox Records reviewed. Discussed Condition With pt, nurse, Heart rate is better controlled now on p.o. Cardizem. Medically appears stable. Psychiatry evaluation, patient is with agitation and confusion. Might benefit from inpatient psychiatric admission ?. We will consult palliative care for goals of care. Mavis Black MD Aug 08, 2017 16:03
[2017-08-09] VITALS (10 sets, daily range): BP systolic 120–153; BP diastolic 72–93; PULSE 81–109; RESP 16–20; TEMP 97.2–98.2; O2SAT 92–100
[2017-08-09] MEDS: HEPARIN SODIUM - SQ 10,000 UNITS/ML VIAL SQ SCH ×2 (02:06→16:29)
--- NOTE | 2017-08-09 10:13 | HHI.NPPN ---
Subjective General Problems: Anemia Renal Failure: Chronic, End Stage Renal Disease Interval History He is sleeping quietly. No new nursing concerns. (Nicci Nolan) Objective Data Data Vital Signs Date Time Temp Pulse Resp B/P (MAP) Pulse Ox O2 Delivery O2 Flow Rate FiO2 08/09/17 08:06 97.2 92 20 143/93 (110) 98 08/09/17 04:00 Room Air 08/09/17 03:42 91 08/09/17 00:00 97.6 87 18 131/82 (98) 98 08/09/17 00:00 Room Air 08/08/17 23:40 88 08/08/17 20:00 Room Air 08/08/17 20:00 97.6 92 18 134/84 (101) 100 08/08/17 19:44 92 08/08/17 16:00 93 08/08/17 15:30 97.3 91 20 121/81 (94) 98 08/08/17 12:00 93 08/08/17 11:50 97.1 101 20 113/75 (88) 97 (Nicci Nolan) -: 08/08/17 0735 08/08/17 0735 Physical Exam General Appearance: Well Developed, Comfortable, Sleeping, Malnourished (Nicci Nolan) Eyes Eye Exam: Pupils Equal, Pupils Reactive (Nicci Nolan) Throat Throat Exam: Oral Mucosa [place] & Moist (Nicci Nolan) Pulmonary Resp Exam: Clear Bilaterally, Breath Sounds Equal (Nicci Nolan) Cardiology CV Exam: Good Perfusion, Irregular, Tachycardia (Nicci Nolan) Gastrointestinal/Abdomen GI Exam: Soft, Non-Tender, Bowel Sounds Present (Nicci Nolan) Musculoskeletal MS Exam: Joints Intact, Good Strength, Atrophy (Nicci Nolan) Integumentary Skin Exam: Clear, Warm, Dry, Intact (Nicci Nolan) Extremeties Extremities Exam: No Edema, Pedal Pulses Palpable (Nicci Nolan) Neurologic Neuro Exam: Awake, Moving All Extremities (Nicci Nolan) Assessment/Plan Discussed Condition With: Patient Assessment Summary: Anemia of CKD, Hypertension, End Stage Renal Disease Problem List: (1) ESRD (end stage renal disease) on dialysis ICD Codes: N18.6 - ESRD (end stage renal disease) on dialysis; Z99.2 - Dependence on renal dialysis Status: Chronic Plan: We will continue HD TTS. Due tomorrow. Monitor electrolytes intermittently Fluid removal as tolerated. High protein diet ordered, on supplements. 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 (2) Dementia with behavioral disturbance ICD Codes: F03.91 - Unspecified dementia with behavioral disturbance Plan: He had psychiatry evaluation, currently on Namenda and Seroquel (dosage increased), with PRN Haldol May need inpatient psych admission. Restraints for safety as needed (3) Chronic anemia ICD Codes: D64.9 - Chronic anemia Status: Acute Plan: Epogen with dialysis (4) HTN (hypertension) ICD Codes: I10 - HTN (hypertension) Status: Chronic Plan: On Cardizem 120 mg BID Also on Amlodipine (5) A-fib ICD Codes: I48.91 - Unspecified atrial fibrillation Plan: Rate controlled, on PO Cardizem Echo shows EF 30-35% (Nicci Nolan) Plan patient was seen and examined. Agree with above assessment and plan. (Cole Valencia MD) Problem Qualifiers (1) Dementia with behavioral disturbance: Qualified Codes: F03.91 - Unspecified dementia with behavioral disturbance Nicci Nolan Aug 09, 2017 10:13 Cole Valencia MD Aug 10, 2017 10:43
[2017-08-09] MEDS: QUEtiapine FUMARATE 25 MG TAB PO SCH ×2 (10:22→20:58)
[2017-08-09] MEDS: DILTIAZEM-CD 120 MG CAP ER PO SCH ×2 (10:22→20:58)
[2017-08-09] MEDS: MEMANTINE HCL 10 MG TAB PO SCH ×2 (10:22→20:58)
[2017-08-09] MEDS: DOCUSATE SODIUM 50 MG/SENNA 8.6 MG TAB PO SCH ×2 (10:22→20:58)
[2017-08-09] MEDS: SODIUM CHLORIDE 0.9% FLUSH 10 ML FLUSH IV FLUSH SCH ×2 (10:23→21:00)
--- NOTE | 2017-08-09 11:19 | PD.CONS ---
Consult Service Palliative Care Consult Requested By Dr. Black . Primary Care Physician Ana Saxena MD Reason for Consultation a. To assist with evaluation and management of symptoms including: Altered mental status b. To assist medical decision maker(s) with: better understanding of current medical conditions; weighing benefits/burdens of medical treatment options; making medical treatment decisions. (Siva Abarca) HPI History of Present Illness Mr Rodriguez is a 62 years old patient with a past medical history significant for ESRD on hemodialysis, anemia, dementia, hypertension, hyperlipidemia, coronary artery disease and old myocardial infarction. Patient was brought to the ER on 08/03/17 from a hemodialysis center after he was noted to have altered mentation during dialysis with aggressive behavior, attempting to decannulate his dialysis catheter. Patient was last hospitalized in May,, and was seen by psychiatry for dementia with behavioral disturbances. ER Course: * Vital signs: Temperature 98.6, heart rate 138, respirations 17, blood pressure 146/108, O2 saturation 97% on room air. * EKG revealed atrial fibrillation with RVR, rate 154. Nonspecific T-wave changes * Chest x-ray revealed cardiomegaly with vascular congestive changes, small to moderate right pleural effusion and bibasilar airspace disease. Stable bilateral pleural nodules. * Lorazepam, Haldol, aspirin 162 mg administered orally and Lopressor 5 mg x2 intravenously administered for A. fib with RVR. Patient's heart rate remained in the 120s-130s and was started on esmolol infusion. * Laboratory workup revealed WBC 6.3, hemoglobin 11.0, hematocrit 33.9, platelet count 223, sodium 140, potassium 4.3, BUN/creatinine 32/8.95, random glucose 64 * Bilateral upper extremity restraints started for confusion * Patient admitted for further evaluation under [facility]. Nephrology Dr. Valencia consulted on 08/03/17 for evaluation and management of patient with ESRD on hemodialysis, recommended neurology evaluation since patient`s mental status has been rapidly deteriorating in the past few months. PT consulted on 08/03/17 to evaluate patient, recommended PT at rehab. Cardiology Dr. Mullen consulted on 08/03/17 to evaluate and manage patient with new onset atrial fibrillation, recommended staring patient on Diltiazem and discontinuing Esmolol infusion.Cardiology felt that patient is not a candidate for anticoagulation due to increased risk for severe hemorrhaging complication for a patient with underlying dementia with behavioral disturbances. Psychiatry Dr. Pope consulted on 08/04/17 for evaluation of patient with unspecified psychosis, delirium and and dementia with behavioral disturbance, recommended starting patient on Seroquel and Haldol as needed for agitation and aggressive behavior. 2D Echocardiogram on 08/05/17 revealed left ventricular systolic function and moderate to severely reduced with an estimated ejection fraction in the range of 35-40%. Clinical course complicated with new onset A. fib with RVR, and altered mental status. Palliative care consulted to assist with establishing goals of care and symptom management Patient seen and examined in his room. Patient is sitting up in bed alert, oriented to self only and confused to place and situation. Patient denies pain and appears to show no signs of pain. Patient is in 4 point soft restraints but has managed to pull out his peripheral IV. Bedside RN notified. Call placed to [facility] requesting advanced directives for patient. Telephone call to patient's sister Dilip Vasques, who is also he is healthcare surrogate per SNF. Palliative care was able to get in touch with Dilip Vasques through her daughter Tiffany Vasques . Patient`s niece Tiffany Vasques also included in telephone conversation. Obtained patient's psychosocial and past medical history. Family aware that patient is currently hospitalized. Updated family on patient`s current medical condition and treatment that has been rendered. Patient`s sister has been close to patient for the past 5 years after he moved in with her due to deterioration in his health. Patient progressively became combative at home and was requiring more care and he was then transferred to a group home facility. Per patient`s sister, patient never completed a living will and she never had a chance to discuss his wishes with him. Patient`s sister understands that patient has end- stage renal disease and is aware that dementia is a progressive disease. Addressed code status, discussed CPR limitations, and complications. Patient`s sister elected full code. In light of patient`s current medical condition, patient`s sister would like goals to be aggressive. Family would want everything possible to be done to keep patient alive in the event of a cardiac arrest or respiratory failure. Family concerned that in the past few weeks they noted that when they visited with patient at SNF, he has been having insomnia problems and that may contribute to his confusion. . Function/Cognitive Trajectory Patient is a assisted resident at a SNF. Patient started living in a SNF in January of 2017. Patient is ambulatory at the SNF. He is able to feed himself. Patient is sometimes incontinent of bowel and bladder. Sometimes he is able to verbalize needs and sometimes they have to be anticipated. . (Siva Abarca) Review of Systems ROS Limitations: Altered Mental Status, Poor Historian Constitutional: DENIES: Fever Eyes: DENIES: Eye inflammation Ears, nose, mouth, throat: DENIES: Hearing loss, Nasal discharge Respiratory: DENIES: Cough, Shortness of breath Cardiovascular: DENIES: Lower Extremity Edema Gastrointestinal: DENIES: Nausea, Vomiting Genitourinary: COMPLAINS OF: Urinary incontinence Hematologic/Lymphatics: COMPLAINS OF: Bruising Psychiatric: COMPLAINS OF: Confusion Other ROS: ROS obtained from EMR, family and clinical observation. . (Siva Abarca) Past Family Social History Coded Allergies: No Known Allergies (Verified Allergy, Unknown, 06/30/17) Past Medical History ESRD on hemodialysis Dwight Mcwilliams, Daniel Hypertension Hyperlipidemia CAD/GA---10 yrs ago Anemia History of right upper extremity fracture Congestive heart failure with an ejection fraction of 45% in 2006 . Past Surgical History Obtained from past electronic medical records: Vascular access for dialysis (AV fistula) Left inguinal hernia repair with mesh-Dr. Muse PD catheter-Dr. Durham Left brachiocephalic AV fistula and removal of PD catheter - Dr. Durham Eye surgery . Reported Medications Cardizem CD 24 HR (Diltiazem CD 24 HR) 120 Mg Caper 120 Mg PO DAILY Renvela (Sevelamer Carbonate) 800 Mg Tab 1,600 Mg PO TIDAC 30 Days Quetiapine (Quetiapine Fumarate) 25 Mg Tab 25 Mg PO BID 30 Days Folic Acid 1 Mg Tablet 1 Mg PO DAILY Furosemide 40 Mg Tab 40 Mg PO DAILY Pravastatin 40 Mg Tab 40 Mg PO DAILY Omeprazole 40 Mg Cap 40 Mg PO DAILY Nephro-Minal (B-Complex W/ C & Folic Acid) 1 Tab 1 Tab PO DAILY Namenda Xr (Memantine) 14 Mg Caper 14 Mg PO DAILY Calcium Acetate (Phosphate Binder) 667 Mg Cap 1,334 Mg PO TID Ativan (Lorazepam) 1 Mg Tab 1 Mg PO TUTHSA PRN Ativan (Lorazepam) 0.5 Mg Tab 0.5 Mg PO Q8H Aspirin Adult Low Strength (Aspirin) 81 Mg Tabdr 81 Mg PO DAILY Lexapro (Escitalopram Oxalate) 10 Mg Tab 10 Mg PO DAILY Sensipar (Cinacalcet) 30 Mg Tab 30 Mg PO HS . Current Medications Medications (Trade) Dose Ordered Sig/Michell Route Start Time Stop Time Status Last Admin (Brevibloc Bolus Inj) 35 mg BOLUS PRN IV PUSH 08/03/17 12:15 (NS Flush) 2 ml UNSCH PRN IV FLUSH 08/03/17 13:30 (NS Flush) 2 ml BID IV FLUSH 08/03/17 21:00 08/08/17 21:25 (Tylenol) 650 mg Q4H PRN PO 08/03/17 13:30 (Reglan Inj) 5 mg Q6H PRN IV PUSH 08/03/17 13:30 (Heparin Inj) 5,000 units Q12H SQ 08/03/17 14:00 08/09/17 02:06 (Narcan Inj) 0.4 mg UNSCH PRN IV PUSH 08/03/17 13:30 (Hilda-Colace) 1 tab BID PO 08/03/17 21:00 08/08/17 21:24 (Milk Of Magnesia Liq) 30 ml Q12H PRN PO 08/03/17 13:30 (Senokot) 17.2 mg Q12H PRN PO 08/03/17 13:30 (Dulcolax Supp) 10 mg DAILY PRN RECTAL 08/03/17 13:30 (Lactulose Liq) 30 ml DAILY PRN PO 08/03/17 13:30 Sodium Chloride 1,000 ml @ 0 mls/hr Q0M PRN OTHER 08/03/17 13:49 08/07/17 09:40 (Heparin Inj) 8,000 units UNSCH PRN IV FLUSH 08/03/17 14:00 Sodium Chloride 1,000 ml @ 200 mls/hr Q5H PRN IV 08/03/17 13:49 Sodium Chloride 1,000 ml @ 0 mls/hr Q0M PRN OTHER 08/03/17 13:49 (Mannitol Inj) 12.5 gm UNSCH PRN IV 08/03/17 14:00 Albumin Human 100 ml @ 60 mls/hr UNSCH PRN IV 08/03/17 14:00 (NS Flush) 5 ml UNSCH PRN IV FLUSH 08/03/17 14:00 (Heparin Inj) UNSCH PRN .XX 08/03/17 14:00 (Gentamicin Inj) 20 mg UNSCH PRN OTHER 08/03/17 14:00 (Zofran Odt) 4 mg UNSCH PRN PO 08/03/17 14:00 (Tylenol) 650 mg UNSCH PRN PO 08/03/17 14:00 (Benadryl) 25 mg UNSCH PRN PO 08/03/17 14:00 (Nitrostat Sl) 0.4 mg UNSCH PRN SL 08/03/17 14:00 (Catapres) 0.1 mg UNSCH PRN PO 08/03/17 14:00 08/04/17 13:46 (Epogen Inj) 5,000 units UNSCH PRN IV PUSH 08/03/17 14:00 08/07/17 09:39 (Gelfoam 12 Mm/7 Mm Top) 1 foam UNSCH PRN TOP 08/03/17 14:00 08/07/17 09:40 ([facility] Patient in critical care unit? Ass... Q361D .XX 08/03/17 19:45 08/03/17 19:45 (Cardizem Cd) 120 mg BID PO 08/04/17 21:00 08/08/17 21:25 (Namenda) 10 mg BID PO 08/04/17 21:00 08/08/17 21:25 (Norvasc) 10 mg DAILY PO 08/06/17 12:45 08/08/17 07:46 (SEROquel) 50 mg BID PO 08/08/17 21:00 08/08/17 21:25 Family History Mother -had CHF Father sustained a GA at the age of 52yrs old per EMR records . Substance Use Tobacco: None reported Alcohol: per previous records one beer per week Prescription med abuse: None reported Illicits: Remote history of cocaine abuse in the records . Psychosocial History Patient was born and raised in [place], [place]. He was once and . Patient has 4 adult children, 3 sons and 1 daughter. 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 Patient does not have any background. . Spiritual/Cultural Factors Patient is Druze-declined gyro mechanic visit. Patient`s brother is a Event Set Up Specialist . (Siva Abarca) Living Will: Never completed Health Care Surrogate: Copy in medical record Durable Power of Perfect Binder Operator: Copy in medical record Date completed: DPOA-signed 06/22/2013 -No longer valid- Patient updated Health Care Power of Perfect Binder Operator Appointment of Health Care Agent and Proxy and Unlimited Power of Perfect Binder Operator signed on 02/06/2015 . Health Care Surrogate(s): Healthcare Power of Perfect Binder Operator-Sister- Dilip Vasques [phone]/ [phone] . Family/friends goals: Aggressive goals. Wants patient to be treated and discharged back to SNF . Ethical and Legal Issues None identified at this time . (Siva Abarca) Physical Exam Vital Signs Date Time Temp Pulse Resp B/P (MAP) Pulse Ox O2 Delivery O2 Flow Rate FiO2 08/09/17 08:06 97.2 92 20 143/93 (110) 98 08/09/17 04:00 Room Air 08/09/17 03:42 91 08/09/17 00:00 97.6 87 18 131/82 (98) 98 08/09/17 00:00 Room Air 08/08/17 23:40 88 08/08/17 20:00 Room Air 08/08/17 20:00 97.6 92 18 134/84 (101) 100 08/08/17 19:44 92 08/08/17 16:00 93 08/08/17 15:30 97.3 91 20 121/81 (94) 98 08/08/17 12:00 93 08/08/17 11:50 97.1 101 20 113/75 (88) 97 Exam CONSTITUTIONAL/GENERAL: This is an adequately nourished patient, restless and four-point soft restraints TUBES/LINES/DRAINS: SCDs, Just pulled out PIV SKIN: No jaundice, rashes, or lesions. Ecchymoses on upper extremities. No wounds seen anteriorly. Normothermic HEAD: Atraumatic. Normocephalic. EYES: PERRLA. Extraocular motions intact. No scleral icterus. Fundi not examined. ENT: Hearing grossly normal. No bleeding or drainage noted to bilateral nares. Moist oral mucosa NECK: Trachea midline. Supple, nontender. CARDIOVASCULAR: Irregular rhythm without murmurs, gallops, or rubs. No JVD. Peripheral pulses symmetric. RESPIRATORY/CHEST: Symmetric, unlabored respirations. Clear to auscultation. Breath sounds equal bilaterally. No wheezes, rales, or rhonchi. GASTROINTESTINAL: Abdomen soft, non-tender, nondistended. No guarding. Bowel sounds present. GENITOURINARY: Without palpable bladder distension. MUSCULOSKELETAL: Extremities without clubbing, cyanosis, or edema. No joint tenderness or effusion noted. 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 NEUROLOGICAL: Awake and alert, oriented to self only and confused. Moves all extremities spontaneously and intermittently to command. PSYCHIATRIC: No obvious depression. Restless. . (Siva Abarca) Diagnostic Tests Laboratory Laboratory Tests Test 08/08/17 07:35 White Blood Count 6.0 TH/MM3 (4.0-11.0) Red Blood Count 4.41 MIL/MM3 (4.50-5.90) Hemoglobin 12.8 GM/DL (13.0-17.0) Hematocrit 39.2 % (39.0-51.0) Mean Corpuscular Volume 89.0 FL (80.0-100.0) Mean Corpuscular Hemoglobin 28.9 PG (27.0-34.0) Mean Corpuscular Hemoglobin Concent 32.5 % (32.0-36.0) Red Cell Distribution Width 16.1 % (11.6-17.2) Platelet Count 219 TH/MM3 (150-450) Mean Platelet Volume 8.8 FL (7.0-11.0) Neutrophils (%) (Auto) 60.0 % (16.0-70.0) Lymphocytes (%) (Auto) 19.1 % (9.0-44.0) Monocytes (%) (Auto) 14.4 % (0.0-8.0) Eosinophils (%) (Auto) 5.2 % (0.0-4.0) Basophils (%) (Auto) 1.3 % (0.0-2.0) Neutrophils # (Auto) 3.6 TH/MM3 (1.8-7.7) Lymphocytes # (Auto) 1.1 TH/MM3 (1.0-4.8) Monocytes # (Auto) 0.9 TH/MM3 (0-0.9) Eosinophils # (Auto) 0.3 TH/MM3 (0-0.4) Basophils # (Auto) 0.1 TH/MM3 (0-0.2) CBC Comment DIFF FINAL Differential Comment Blood Urea Nitrogen 33 MG/DL (7-18) Creatinine 9.92 MG/DL (0.60-1.30) Random Glucose 79 MG/DL (74-106) Calcium Level 9.5 MG/DL (8.5-10.1) Magnesium Level 2.4 MG/DL (1.5-2.5) Sodium Level 138 MEQ/L (136-145) Potassium Level 3.9 MEQ/L (3.5-5.1) Chloride Level 97 MEQ/L (98-107) Carbon Dioxide Level 28.1 MEQ/L (21.0-32.0) Anion Gap 13 MEQ/L (5-15) Estimat Glomerular Filtration Rate 6 ML/MIN (>89) (Siva Abarca) Result Diagram: 08/08/17 0735 08/08/17 0735 Imaging Last Impressions Chest X-Ray 08/03/17 0000 Signed Impressions: CONCLUSION: 1. Cardiomegaly with vascular congestive changes and small to moderate right p leural effusion. 2. Bibasilar airspace disease. 3. Stable bilateral pleural nodules previously described. (Siva Abarca) Patient/Family Conference Family Conference Location: Telephone Issues Discussed: * Palliative care role, purpose, approach * Additional medical, psychosocial, and spiritual history * Patients general health, functional status, and cognitive changes in the months leading up to the current hospitalization * Patient/family understanding of the current medical problems * Patient/family understanding of prognosis * Patients goals of care as best understood from advance directives and/or conversations and/or values * Current medical treatment options and benefits/burdens of those options * Likely scenarios comparing ongoing aggressive care with a transition to comfort measures only * Questions answered to the best of my ability * Palliative care contact information provided (Siva Abarca) Assessment and Plan Disease Oriented Problem List: (1) HLD (hyperlipidemia) (2) HTN (hypertension) (3) ESRD (end stage renal disease) on dialysis (4) New onset atrial fibrillation (5) Chronic anemia (6) Dementia with behavioral disturbance Symptom Scale: (1) Altered mental status 0-10 Scale: Unable to quantify Comment: History of dementia and end-stage renal disease . Pertinent Non-Medical Issues Psychosocial:Patient was born and raised in [place], [place]. He was once and . Patient has 4 adult children, 3 sons and 1 daughter. 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 Patient does not have any background. Spiritual:Patient is Druze-declined gyro mechanic visit. Patient`s brother is a Event Set Up Specialist Legal: DPOA on EMR (2013) Ethical issues impacting care: None identified at this time . Important Contacts [facility] Fhsmqf-[phone]/[phone] other [place]- Tiffany Vasques- [phone] (Dilip currently living with her daughter Tiffany Vasques- call daughter to get in touch with Dilip Vasques) Daughter- Jennifer [phone] Son-Jennifer, Paresh Dove Son- Jeninfer, Chandrakant Son-Jennifer, Ez . Prognosis Mr Rodriguez is a 62 years old patient with a past medical history significant for ESRD on hemodialysis, anemia, dementia, hypertension, hyperlipidemia, coronary artery disease and old myocardial infarction. Patient was brought to the ER on 08/03/17 from a hemodialysis center after he was noted to have altered mentation during dialysis with aggressive behavior, attempting to decannulate his dialysis catheter. Clinical course complicated with new onset A. fib with RVR, and altered mental status. Patient has multiple ongoing comorbidities which increase his risk for further complications, deterioration and decline. . Code Status: Full Code Plan PLAN: Legal decision maker: Patient has dementia with behavioral disturbances and is not able to participate in medical decision making. and will most likely not regain capacity to participate in medical decision making. Patient`s sister Dilip Vasques who will serve as his Healthcare Power of Perfect Binder Operator. Goals: Family`s goals are aggressive at this time. Patient`s sister would like everything possible to be done to keep patient alive in the event of a cardiac arrest or respiratory failure. CODE STATUS: Full Code Per patient`s sister, patient never completed a living will and she never had a chance to discuss his wishes with him. Patient`s sister understands that patient has end-stage renal disease and is aware that dementia is a progressive disease. Addressed code status, discussed CPR limitations, and complications. Patient`s sister elected full code. In light of patient`s current medical condition, patient`s sister would like goals to be aggressive. Family would want everything possible to be done to keep patient alive in the event of a cardiac arrest or respiratory failure. Family concerned that in the past few weeks they noted that when they visited with patient at [facility], he has been having insomnia problems and that may contribute to his confusion. SYMPTOMS: * Altered mental status: Patient he has history of dementia with behavioral disturbances and end-stage renal disease on hemodialysis. Patient came in with altered mentation. Patient was evaluated by psychiatry and patient was started on Seroquel twice daily. Psychiatry recommended prn Haldol. Nephrology recommended neurology consult since patient has been showing rapid deterioration in the past few months. Patient is on Memantine 10mg BID. No recommendations at this time. Palliative care will continue to follow the patient during hospital course as condition evolves, to assist patient/decision-maker with understanding of their medical conditions, weighing benefits/burdens of treatment options, for clarification of goals of treatment. Additionally will assist with any symptoms of palliative concern (Siva Abarca) Thank you for the opportunity to participate in the care of Mr. Rodriguez. (Siva Abarca) Attestation To help prompt me to consider important information that might be impacting today's encounter and assessment, information from prior notes written by myself or my colleagues may have been "brought forward" into today's note. My signature on this note, however, is an attestation that I personally performed the exam, history, and/or decision-making noted today, and, unless otherwise indicated, the interactions with patient, family, and staff as well as the review of records all occurred today. I also attest that the listed assessment and stated plan reflect my best clinical judgment today based on the combination of historical information, prior notes, and today's exam/ interactions. When time spent is documented, it refers only to time spent today by the signer, or if indicated, combined time spent today by collaborating physician/nurse practitioner. (Siva Abarca) Collaborating MD Comments Chart reviewed. Case discussed with palliative care nurse practitioner. Above SANDY note reviewed and I concur. . (Shamir Gunter MD) Siva Abarca Aug 09, 2017 11:01 Shamir Gunter MD Aug 19, 2017 17:53
--- NOTE | 2017-08-09 15:04 | HHI.PR ---
Subjective Remarks The patient is in bed he appears in not acute distress. Pleasantly confused. He is off restraints. However he pulled off with IVs. He is eating. Very poor insight and judgment. No chest pain. Objective Vitals Vital Signs Date Time Temp Pulse Resp B/P (MAP) Pulse Ox O2 Delivery O2 Flow Rate FiO2 08/09/17 12:06 97.7 88 19 120/72 (88) 100 08/09/17 08:06 97.2 92 20 143/93 (110) 98 08/09/17 07:46 81 08/09/17 07:45 Room Air 21 08/09/17 04:00 Room Air 08/09/17 03:42 91 08/09/17 00:00 97.6 87 18 131/82 (98) 98 08/09/17 00:00 Room Air 08/08/17 23:40 88 08/08/17 20:00 Room Air 08/08/17 20:00 97.6 92 18 134/84 (101) 100 08/08/17 19:44 92 08/08/17 16:00 93 08/08/17 15:30 97.3 91 20 121/81 (94) 98 I/O 08/08/17 08/08/17 08/08/17 08/09/17 08/09/17 08/09/17 07:00 15:00 23:00 07:00 15:00 23:00 Intake Total 420 ml 240 ml Balance 420 ml 240 ml Intake Oral 420 ml 240 ml # Voids 2 # Bowel Movements 0 Result Diagram: 08/08/17 0735 08/08/17 0735 Imaging Last Impressions Chest X-Ray 08/03/17 0000 Signed Impressions: CONCLUSION: 1. Cardiomegaly with vascular congestive changes and small to moderate right p leural effusion. 2. Bibasilar airspace disease. 3. Stable bilateral pleural nodules previously described. Objective Remarks GENERAL: This is a well-nourished, well-developed patient, in no apparent distress. CARDIOVASCULAR: Regular rate and rhythm without murmurs, gallops, or rubs. RESPIRATORY: Clear to auscultation. Breath sounds equal bilaterally. No wheezes , rales, or rhonchi. GASTROINTESTINAL: Abdomen soft, non-tender, nondistended. No hepato-splenomegaly , or palpable masses. No guarding. MUSCULOSKELETAL: Extremities without clubbing, cyanosis, or edema. No joint tenderness, effusion, or edema noted. No calf tenderness. Negative Homans sign bilaterally. NEUROLOGICAL: Awake and alert. Cranial nerves II through XII intact. Motor and sensory grossly within normal limits. Five out of 5 muscle strength in all muscle groups. Normal speech. A/P Assessment and Plan 62-year-old male admitted secondary to new onset Afib with RVR, psychosis and dementia, chronic end-stage renal disease on HD New onset A fib with RVR EKG reviewed with ER physician Patient received multiple labetalol IV bolus in the ED. Discontinue esmolol drip, cardiology signed off. Start on Cardizem p.o. patient is requiring Place on telemetry Consult cardiology 2D ECHO is pending Acute psychosis/ Dementia. Consult psych . Management per psychiatry. Hold home meds at this time until reconcilliation meds done and after seen by psych as patient is also altered mental status Will also have neurochecks The patient is requiring restraints ESRD on dialysis Consult nephrology. Continue HD per nephro recommendations Monitor renal function Hypertension Continue homemeds Follow blood pressures Adjust treatments as needed Hyperlipidemia Continue present treatment Follow as an outpatient Coronary artery disease Old SC Continue home meds DVT prophylaxis SCD/TEDs, lovenox Records reviewed. Discussed Condition With pt, nurse, Heart rate is better controlled now on p.o. Cardizem. Medically appears stable. Psychiatry evaluation, patient is with agitation and confusion. Might benefit from inpatient psychiatric admission ?. We will consult palliative care for goals of care. Mavis Black MD Aug 09, 2017 15:04
[2017-08-10] VITALS (10 sets, daily range): BP systolic 118–134; BP diastolic 70–81; PULSE 88–114; RESP 18–20; TEMP 97.6–98.8; O2SAT 94–100
[2017-08-10] MEDS: HEPARIN SODIUM - SQ 10,000 UNITS/ML VIAL SQ SCH ×2 (02:23→13:18)
--- NOTE | 2017-08-10 08:57 | HHI.PR ---
Subjective Remarks Still agitated on and off and on restraints. Less confused. No nausea or vomiting. No pain. History is very difficult to obtain. He appears in not acute distress at this time. Objective Vitals Vital Signs Date Time Temp Pulse Resp B/P (MAP) Pulse Ox O2 Delivery O2 Flow Rate FiO2 08/10/17 08:00 Room Air 08/10/17 04:22 94 08/10/17 04:00 Room Air 08/10/17 04:00 98.8 108 20 118/70 (86) 100 08/10/17 00:31 112 08/10/17 00:00 Room Air 08/10/17 00:00 97.9 114 19 121/74 (90) 99 08/09/17 20:31 21 08/09/17 20:12 92 08/09/17 20:00 Room Air 08/09/17 20:00 98.2 94 18 153/87 (109) 96 08/09/17 16:06 97.9 88 18 132/74 (93) 100 08/09/17 16:00 94 08/09/17 15:40 88 08/09/17 12:06 97.7 88 19 120/72 (88) 100 I/O 08/09/17 08/09/17 08/09/17 08/10/17 08/10/17 08/10/17 07:00 15:00 23:00 07:00 15:00 23:00 Intake Total 240 ml 380 ml Balance 240 ml 380 ml Intake Oral 240 ml 380 ml # Voids 2 3 2 # Bowel Movements 0 1 1 Result Diagram: 08/08/17 0735 08/08/17 0735 Imaging Last Impressions Chest X-Ray 08/03/17 0000 Signed Impressions: CONCLUSION: 1. Cardiomegaly with vascular congestive changes and small to moderate right p leural effusion. 2. Bibasilar airspace disease. 3. Stable bilateral pleural nodules previously described. Objective Remarks GENERAL: This is a well-nourished, well-developed patient, in no apparent distress. CARDIOVASCULAR: Regular rate and rhythm without murmurs, gallops, or rubs. RESPIRATORY: Clear to auscultation. Breath sounds equal bilaterally. No wheezes , rales, or rhonchi. GASTROINTESTINAL: Abdomen soft, non-tender, nondistended. No hepato-splenomegaly , or palpable masses. No guarding. MUSCULOSKELETAL: Extremities without clubbing, cyanosis, or edema. No joint tenderness, effusion, or edema noted. No calf tenderness. Negative Homans sign bilaterally. NEUROLOGICAL: Awake and alert. Cranial nerves II through XII intact. Motor and sensory grossly within normal limits. Five out of 5 muscle strength in all muscle groups. Normal speech. A/P Assessment and Plan 62-year-old male admitted secondary to new onset Afib with RVR, psychosis and dementia, chronic end-stage renal disease on HD New onset A fib with RVR EKG reviewed with ER physician Patient received multiple labetalol IV bolus in the ED. Discontinue esmolol drip, cardiology signed off. Start on Cardizem p.o. patient is requiring Place on telemetry Consult cardiology 2D ECHO is pending Acute psychosis/ Dementia. Consult psych . Management per psychiatry. Hold home meds at this time until reconcilliation meds done and after seen by psych as patient is also altered mental status Will also have neurochecks The patient is requiring restraints ESRD on dialysis Consult nephrology. Continue HD per nephro recommendations Monitor renal function Hypertension Continue homemeds Follow blood pressures Adjust treatments as needed Hyperlipidemia Continue present treatment Follow as an outpatient Coronary artery disease [place] Continue home meds DVT prophylaxis SCD/TEDs, lovenox Records reviewed. Discussed Condition With pt, nurse, Heart rate is better controlled now on p.o. Cardizem. Medically appears stable. Psychiatry evaluation, patient is with agitation and confusion. Might benefit from inpatient psychiatric admission ?. We will consult palliative care for goals of care. Mavis Black MD Aug 10, 2017 08:57
[2017-08-10] MEDS: SODIUM CHLORIDE 0.9% FLUSH 10 ML FLUSH IV FLUSH SCH ×2 (09:00→21:00)
[2017-08-10] MEDS: QUEtiapine FUMARATE 25 MG TAB PO SCH (09:22)
[2017-08-10] MEDS: MEMANTINE HCL 10 MG TAB PO SCH ×2 (09:22→21:41)
[2017-08-10] MEDS: DOCUSATE SODIUM 50 MG/SENNA 8.6 MG TAB PO SCH ×2 (09:23→21:41)
[2017-08-10] MEDS: DILTIAZEM-CD 120 MG CAP ER PO SCH ×2 (09:23→21:41)
--- NOTE | 2017-08-10 10:26 | HHI.NPPN ---
Subjective General Problems: Anemia Renal Failure: Chronic, End Stage Renal Disease Interval History He is calm, restrained, sleeping. Due for dialysis. (Nicci Nolan) Objective Data Data Vital Signs Date Time Temp Pulse Resp B/P (MAP) Pulse Ox O2 Delivery O2 Flow Rate FiO2 08/10/17 08:06 97.8 90 19 133/81 (98) 99 08/10/17 08:00 92 08/10/17 08:00 Room Air 08/10/17 04:22 94 08/10/17 04:00 Room Air 08/10/17 04:00 98.8 108 20 118/70 (86) 100 08/10/17 00:31 112 08/10/17 00:00 Room Air 08/10/17 00:00 97.9 114 19 121/74 (90) 99 08/09/17 20:31 21 08/09/17 20:12 92 08/09/17 20:00 Room Air 08/09/17 20:00 98.2 94 18 153/87 (109) 96 08/09/17 16:06 97.9 88 18 132/74 (93) 100 08/09/17 16:00 94 08/09/17 15:40 88 08/09/17 12:06 97.7 88 19 120/72 (88) 100 (Nicci Nolan) -: 08/08/17 0735 08/08/17 0735 Physical Exam General Appearance: Well Developed, Comfortable, Sleeping, Malnourished (Nicci Nolan) Eyes Eye Exam: Pupils Equal, Pupils Reactive (Nicci Nolan) Throat Throat Exam: Oral Mucosa [place] & Moist (Nicci Nolan) Pulmonary Resp Exam: Clear Bilaterally, Breath Sounds Equal (Nicci Nolan) Cardiology CV Exam: Good Perfusion, Irregular, Tachycardia (Nicci Nolan) Gastrointestinal/Abdomen GI Exam: Soft, Non-Tender, Bowel Sounds Present (Nicci Nolan) Musculoskeletal MS Exam: Joints Intact, Good Strength, Atrophy (Nicci Nolan) Integumentary Skin Exam: Clear, Warm, Dry, Intact (Nicci Nolan) Extremeties Extremities Exam: No Edema, Pedal Pulses Palpable (Nicci Nolan) Neurologic Neuro Exam: Awake, Moving All Extremities (Nicci Nolan) Assessment/Plan Discussed Condition With: Patient Assessment Summary: Anemia of CKD, Hypertension, End Stage Renal Disease Problem List: (1) ESRD (end stage renal disease) on dialysis ICD Codes: N18.6 - ESRD (end stage renal disease) on dialysis; Z99.2 - Dependence on renal dialysis Status: Chronic Plan: We will continue HD TTS. Due today. Monitor electrolytes intermittently, labs ordered for AM. Fluid removal as tolerated. High protein diet ordered, added protein supplements. 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 (2) Dementia with behavioral disturbance ICD Codes: F03.91 - Unspecified dementia with behavioral disturbance Plan: Psychiatry has followed, currently on Namenda and Seroquel, with PRN Haldol Seems to be working. May need inpatient psych admission. Restraints for safety as needed (3) Chronic anemia ICD Codes: D64.9 - Chronic anemia Status: Acute Plan: Epogen with dialysis (4) HTN (hypertension) ICD Codes: I10 - HTN (hypertension) Status: Chronic Plan: On Cardizem 120 mg BID and Amlodipine (5) A-fib ICD Codes: I48.91 - Unspecified atrial fibrillation Plan: Rate controlled, on PO Cardizem Echo shows EF 30-35% (Nicci Nolan) Plan patient was seen and examined. Agree with above assessment and plan. (Cole Valencia MD) Problem Qualifiers (1) Dementia with behavioral disturbance: Qualified Codes: F03.91 - Unspecified dementia with behavioral disturbance Nicci Nolan Aug 10, 2017 10:26 Cole Valencia MD Aug 10, 2017 11:04
--- NOTE | 2017-08-10 14:45 | HHI.HCPN ---
Reason for visit a. To assist with evaluation and management of symptoms including: Altered mental status b. To assist medical decision maker(s) with: better understanding of current medical conditions; weighing benefits/burdens of medical treatment options; making medical treatment decisions. (Siva Abarca) Subjective/Interval History Follow-up medically necessary for further clarification of goals of care. Patient seen and examined in his room. Patient is currently sleeping, easily arousable. Patient remains in restraints. Patient continues to be on and off restraints. Patient remains oriented to self only, and confused to time, place and situation. He appears calm today. Patient denies pain at this time. Vital signs are stable, patient remains afebrile. No recent laboratory workup or imaging. Patient scheduled for hemodialysis today. Case discussed with Dr. Black. Family/friend interactions No family at bedside . (Siva Abarca) Advance Directives Living Will: Never completed Health Care Surrogate: Copy in medical record Durable Power of Neck Fitter: Copy in medical record (Siva Abarca) Advance Directive Specifics Date completed: DPOA-signed 06/22/2013 -No longer valid- Patient updated Health Care Power of Neck Fitter Appointment of Health Care Agent and Proxy and Unlimited Power of Neck Fitter signed on 02/06/2015 . Health Care Surrogate(s): Healthcare Power of Neck Fitter-Sister- Dilip Vasques [phone]/ . (Siva Abarca) Objective Vital Signs Date Time Temp Pulse Resp B/P (MAP) Pulse Ox O2 Delivery O2 Flow Rate FiO2 08/10/17 12:06 97.6 88 18 134/80 (98) 99 08/10/17 12:00 Room Air 08/10/17 08:06 97.8 90 19 133/81 (98) 99 08/10/17 08:00 92 08/10/17 08:00 Room Air 08/10/17 04:22 94 08/10/17 04:00 Room Air 08/10/17 04:00 98.8 108 20 118/70 (86) 100 08/10/17 00:31 112 08/10/17 00:00 Room Air 08/10/17 00:00 97.9 114 19 121/74 (90) 99 08/09/17 20:31 21 08/09/17 20:12 92 08/09/17 20:00 Room Air 08/09/17 20:00 98.2 94 18 153/87 (109) 96 08/09/17 16:06 97.9 88 18 132/74 (93) 100 08/09/17 16:00 94 08/09/17 15:40 88 Intake & Output 08/10/17 08/10/17 07:00 19:00 # Voids 2 # Bowel Movements 1 Physical Exam CONSTITUTIONAL/GENERAL: This is an adequately nourished patient, remains in restraints and currently calm TUBES/LINES/DRAINS: SCDs SKIN: No jaundice, rashes, or lesions. Ecchymoses on upper extremities. No wounds seen anteriorly. Normothermic HEAD: Atraumatic. Normocephalic. EYES: PERRLA. Extraocular motions intact. No scleral icterus. Fundi not examined. ENT: No bleeding or drainage noted to bilateral nares. Moist oral mucosa NECK: Trachea midline. Supple, nontender. CARDIOVASCULAR: Irregular rhythm without murmurs, gallops, or rubs. No JVD. Peripheral pulses symmetric. RESPIRATORY/CHEST: Symmetric, unlabored respirations. Clear to auscultation. No rhonchi or wheeze GASTROINTESTINAL: Abdomen soft, non-tender, nondistended. No guarding. Bowel sounds present. GENITOURINARY: Without palpable bladder distension. MUSCULOSKELETAL: Extremities without clubbing, cyanosis, or edema. No joint tenderness or effusion noted. 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 NEUROLOGICAL: Awake and alert, oriented to self only and confused. Moves all extremities spontaneously and intermittently to command. PSYCHIATRIC: No obvious depression. Restless. . (Siva Abarca) Diagnostic Tests Laboratory Laboratory Tests Test 08/08/17 07:35 White Blood Count 6.0 TH/MM3 (4.0-11.0) Red Blood Count 4.41 MIL/MM3 (4.50-5.90) Hemoglobin 12.8 GM/DL (13.0-17.0) Hematocrit 39.2 % (39.0-51.0) Mean Corpuscular Volume 89.0 FL (80.0-100.0) Mean Corpuscular Hemoglobin 28.9 PG (27.0-34.0) Mean Corpuscular Hemoglobin Concent 32.5 % (32.0-36.0) Red Cell Distribution Width 16.1 % (11.6-17.2) Platelet Count 219 TH/MM3 (150-450) Mean Platelet Volume 8.8 FL (7.0-11.0) Neutrophils (%) (Auto) 60.0 % (16.0-70.0) Lymphocytes (%) (Auto) 19.1 % (9.0-44.0) Monocytes (%) (Auto) 14.4 % (0.0-8.0) Eosinophils (%) (Auto) 5.2 % (0.0-4.0) Basophils (%) (Auto) 1.3 % (0.0-2.0) Neutrophils # (Auto) 3.6 TH/MM3 (1.8-7.7) Lymphocytes # (Auto) 1.1 TH/MM3 (1.0-4.8) Monocytes # (Auto) 0.9 TH/MM3 (0-0.9) Eosinophils # (Auto) 0.3 TH/MM3 (0-0.4) Basophils # (Auto) 0.1 TH/MM3 (0-0.2) CBC Comment DIFF FINAL Differential Comment Blood Urea Nitrogen 33 MG/DL (7-18) Creatinine 9.92 MG/DL (0.60-1.30) Random Glucose 79 MG/DL (74-106) Calcium Level 9.5 MG/DL (8.5-10.1) Magnesium Level 2.4 MG/DL (1.5-2.5) Sodium Level 138 MEQ/L (136-145) Potassium Level 3.9 MEQ/L (3.5-5.1) Chloride Level 97 MEQ/L (98-107) Carbon Dioxide Level 28.1 MEQ/L (21.0-32.0) Anion Gap 13 MEQ/L (5-15) Estimat Glomerular Filtration Rate 6 ML/MIN (>89) (Siva Abarca) Result Diagram: 08/08/17 0735 08/08/17 0735 Assessment and Plan Disease Oriented Problem List: (1) HLD (hyperlipidemia) (2) HTN (hypertension) (3) ESRD (end stage renal disease) on dialysis (4) New onset atrial fibrillation (5) Chronic anemia (6) Dementia with behavioral disturbance Symptom Scale: (1) Altered mental status 0-10 Scale: Unable to quantify Comment: History of dementia and end-stage renal disease . Pertinent Non-Medical Issues Psychosocial:Patient was born and raised in [place], [place]. He was once and . Patient has 4 adult children, 3 sons and 1 daughter. 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 Patient does not have any background. Spiritual:Patient is Sikh-declined supervisor cigar making hand visit. Patient`s brother is a Middleware Developer Legal: DPOA on EMR (2014) Ethical issues impacting care: None identified at this time . Important Contacts [facility] Jvfggq-[phone]/[phone] other [facility]- Tiffany Vasques- [phone] (Dilip currently living with her daughter Tiffany Vasques- call daughter to get in touch with Dilip Vasques) Daughter- Jennifer [phone] Son-Jennifer, Paresh Dove Son- Jennifer, Chandrakant Son-Jennifer, Ez . Prognosis Mr Rodriguez is a 62 years old patient with a past medical history significant for ESRD on hemodialysis, anemia, dementia, hypertension, hyperlipidemia, coronary artery disease and old myocardial infarction. Patient was brought to the ER on 08/03/17 from a hemodialysis center after he was noted to have altered mentation during dialysis with aggressive behavior, attempting to decannulate his dialysis catheter. Clinical course complicated with new onset A. fib with RVR, and altered mental status. Patient has multiple ongoing comorbidities which increase his risk for further complications, deterioration and decline. . Code Status: Full Code Plan PLAN: Legal decision maker: Patient has dementia with behavioral disturbances and is not able to participate in medical decision making. and will most likely not regain capacity to participate in medical decision making. Patient`s sister Dilip Vasques who will serve as his Healthcare Power of Neck Fitter. Goals: Per last discussion with family on , goals are aggressive at this time. CODE STATUS: Full Code SYMPTOMS: * Altered mental status: Patient he has history of dementia with behavioral disturbances and end-stage renal disease on hemodialysis. Patient came in with altered mentation. Patient was evaluated by psychiatry and patient was started on Seroquel twice daily. Psychiatry recommended prn Haldol. Nephrology recommended neurology consult since patient has been showing rapid deterioration in the past few months. Patient is on Memantine 10mg BID. Patient is currently calm. No recommendations at this time. Palliative care will continue to follow the patient during hospital course as condition evolves, to assist patient/decision-maker with understanding of their medical conditions, weighing benefits/burdens of treatment options, for clarification of goals of treatment. Additionally will assist with any symptoms of palliative concern (Siva Abarca) Attestation To help prompt me to consider important information that might be impacting today's encounter and assessment, information from prior notes written by myself or my colleagues may have been "brought forward" into today's note. My signature on this note, however, is an attestation that I personally performed the exam, history, and/or decision-making noted today, and, unless otherwise indicated, the interactions with patient, family, and staff as well as the review of records all occurred today. I also attest that the listed assessment and stated plan reflect my best clinical judgment today based on the combination of historical information, prior notes, and today's exam/ interactions. When time spent is documented, it refers only to time spent today by the signer, or if indicated, combined time spent today by collaborating physician/nurse practitioner. (Siva Abarca) Collaborating MD Comments Chart reviewed. Case discussed with palliative care nurse practitioner. Above SANDY note reviewed and I concur. . (Shamir Gunter MD) Siva Abarca Aug 10, 2017 14:45 Shamir Gunter MD Aug 19, 2017 18:29
--- NOTE | 2017-08-10 16:06 | PD.CONS ---
History of Present Illness Service Neurology Consult Requested By Medical for confusion Primary Care Physician Ana Saxena MD History of Present Illness 62 yo AA M admitted for confusion and combative behavior from his dialysis center. He has a history of dementia with agitation dating back at least since 2017. Psychiatry is following the patient. Neurology is consulted for further evaluation of his mental status. History of atrial fibrillation. Is not on any oral anticoagulation. His upper restraints. Last brain imaging in the system back in 2006 MRI brain which did not show any acute lesion. Review of Systems Except as stated in HPI: all other systems reviewed are Neg Past Family Social History Past Medical History Hypertension, chronic kidney disease dyslipidemia, dementia with behavioral disturbance Past Surgical History Vascular access for dialysis (AV fistula) Allergies: Coded Allergies: No Known Allergies (Verified Allergy, Unknown, 06/30/17) Family History mother from CHF father had unknown cancer Social History In the past 1 beer per week per records Patient has no past history of smoking No IV drug abuse history Past history of cocaine abuse per records Review of Systems All other ROS: ROS reviewed as documented in chart Past Family Social History Allergies: Coded Allergies: No Known Allergies (Verified Allergy, Unknown, 06/30/17) Active Ordered Medications Current Medications Medications (Trade) Dose Ordered Sig/Michell Route Start Time Stop Time Status Last Admin (Brevibloc Bolus Inj) 35 mg BOLUS PRN IV PUSH 08/03/17 12:15 (NS Flush) 2 ml UNSCH PRN IV FLUSH 08/03/17 13:30 (NS Flush) 2 ml BID IV FLUSH 08/03/17 21:00 08/09/17 10:23 (Tylenol) 650 mg Q4H PRN PO 08/03/17 13:30 (Reglan Inj) 5 mg Q6H PRN IV PUSH 08/03/17 13:30 (Heparin Inj) 5,000 units Q12H SQ 08/03/17 14:00 08/10/17 13:18 (Narcan Inj) 0.4 mg UNSCH PRN IV PUSH 08/03/17 13:30 (Hilda-Colace) 1 tab BID PO 08/03/17 21:00 08/10/17 09:23 (Milk Of Magnesia Liq) 30 ml Q12H PRN PO 08/03/17 13:30 (Senokot) 17.2 mg Q12H PRN PO 08/03/17 13:30 (Dulcolax Supp) 10 mg DAILY PRN RECTAL 08/03/17 13:30 (Lactulose Liq) 30 ml DAILY PRN PO 08/03/17 13:30 Sodium Chloride 1,000 ml @ 0 mls/hr Q0M PRN OTHER 08/03/17 13:49 08/07/17 09:40 (Heparin Inj) 8,000 units UNSCH PRN IV FLUSH 08/03/17 14:00 Sodium Chloride 1,000 ml @ 200 mls/hr Q5H PRN IV 08/03/17 13:49 Sodium Chloride 1,000 ml @ 0 mls/hr Q0M PRN OTHER 08/03/17 13:49 (Mannitol Inj) 12.5 gm UNSCH PRN IV 08/03/17 14:00 Albumin Human 100 ml @ 60 mls/hr UNSCH PRN IV 08/03/17 14:00 (NS Flush) 5 ml UNSCH PRN IV FLUSH 08/03/17 14:00 (Heparin Inj) UNSCH PRN .XX 08/03/17 14:00 (Gentamicin Inj) 20 mg UNSCH PRN OTHER 08/03/17 14:00 (Zofran Odt) 4 mg UNSCH PRN PO 08/03/17 14:00 (Tylenol) 650 mg UNSCH PRN PO 08/03/17 14:00 (Benadryl) 25 mg UNSCH PRN PO 08/03/17 14:00 (Nitrostat Sl) 0.4 mg UNSCH PRN SL 08/03/17 14:00 (Catapres) 0.1 mg UNSCH PRN PO 08/03/17 14:00 08/04/17 13:46 (Epogen Inj) 5,000 units UNSCH PRN IV PUSH 08/03/17 14:00 08/07/17 09:39 (Gelfoam 12 Mm/7 Mm Top) 1 foam UNSCH PRN TOP 08/03/17 14:00 08/07/17 09:40 ([facility] Nursing Information) Patient in critical care unit? Ass... Q361D .XX 08/03/17 19:45 08/03/17 19:45 (Cardizem Cd) 120 mg BID PO 08/04/17 21:00 08/10/17 09:23 (Namenda) 10 mg BID PO 08/04/17 21:00 08/10/17 09:22 (Norvasc) 10 mg DAILY PO 08/06/17 12:45 08/10/17 09:23 (SEROquel) 100 mg BID PO 08/10/17 21:00 Exam I&O / VS Vital Signs Date Time Temp Pulse Resp B/P (MAP) Pulse Ox O2 Delivery O2 Flow Rate FiO2 08/10/17 12:06 97.6 88 18 134/80 (98) 99 08/10/17 12:00 Room Air 08/10/17 08:06 97.8 90 19 133/81 (98) 99 08/10/17 08:00 92 08/10/17 08:00 Room Air 08/10/17 04:22 94 08/10/17 04:00 Room Air 08/10/17 04:00 98.8 108 20 118/70 (86) 100 08/10/17 00:31 112 08/10/17 00:00 Room Air 08/10/17 00:00 97.9 114 19 121/74 (90) 99 08/09/17 20:31 21 08/09/17 20:12 92 08/09/17 20:00 Room Air 08/09/17 20:00 98.2 94 18 153/87 (109) 96 08/09/17 16:06 97.9 88 18 132/74 (93) 100 08/09/17 16:00 94 General: No acute distress Eye: EOMI Respiratory: Non-labored respirations, Symmetrical expansion Cardiology: Normal rate Neurologic: Alert Exam Comments Awake alert lying in bed upper extremity restraints. Oriented to himself and attentive. Questionable left homonymous hemianopsia decreased blink to threat in that region. No facial asymmetry no involuntary movements is able to raise all 4 extremities gravity. Reflexes 1+ symmetric plantarflex flex response no clonus elicited. Further sensory cerebellar gait testing limited secondary to patient's mental status. Review/Management Diagnosis/Plan: (1) Dementia with behavioral disturbance ICD Codes: F03.91 - Unspecified dementia with behavioral disturbance Plan: Beclouded dementia. Possibly worsened by metabolic disturbance; however he does display possible visual field deficit therefore exclude a MANAGER AREA territory ischemic infarct Recommendations Brain imaging EEG Repeat ammonia TSH levels check a B12 level ESR CRP Follow exam (2) New onset atrial fibrillation ICD Codes: I48.91 - Unspecified atrial fibrillation Status: Acute Plan: Cardiology seen the patient (3) Chronic anemia ICD Codes: D64.9 - Anemia, unspecified Status: Chronic Plan: Medical renal following (4) HTN (hypertension) ICD Codes: I10 - HTN (hypertension) Status: Chronic Plan: Goal of less than 120/80 Problem Qualifiers (1) Dementia with behavioral disturbance: Qualified Codes: F03.91 - Unspecified dementia with behavioral disturbance Michael Black MD Aug 10, 2017 16:06
[2017-08-10] MEDS: EPOETIN ALFA 10,000 UNITS/ML VIAL IV PUSH PRN (17:57)
[2017-08-10] MEDS: GELATIN 12 MM/7 MM FOAM TOP PRN (17:58)
[2017-08-10] MEDS: THIAMINE INJ 100 MG in SODIUM CHLORIDE 0.9% INJ 100 ML IV SCH (18:00)
--- NOTE | 2017-08-10 20:15 | RADRPT ---
EXAM DATE: 08/10/2017 7:33 PM EDT AGE/SEX: 62 years / Male INDICATIONS: Altered mental status. CLINICAL DATA: This is the patient's initial encounter. Patient reports that signs and symptoms have been present for 1 day and indicates a pain score of 0/10. MEDICAL/SURGICAL HISTORY: Hypertension. Dialysis, dementia. None. RADIATION DOSE: 56.35 CTDI (mGy) COMPARISON: No prior exams available for comparison. TECHNIQUE: CT of the head without contrast. Using automated exposure control and adjustment of the mA and/or kV according to patient size, radiation dose was kept as low as reasonably achievable to ob tain optimal diagnostic quality images. DICOM format image data is available electronically for revi ew and comparison. FINDINGS: Cerebrum: Moderate to prominent diffuse cerebral atrophy. The ventricles are normal for degree of at rophy. No evidence of midline shift, mass lesion, hemorrhage or acute infarction. No extraaxial flui d collections are seen. Posterior Fossa: The cerebellum and brainstem are intact. The 4th ventricle is midline. The cerebe llopontine angle is unremarkable. Extracranial: The visualized portion of the orbits is intact. Skull: The calvaria is intact. No evidence of skull fracture. CONCLUSION: 1. Moderate to prominent cerebral atrophy, out of proportion to patient's age. 2. No acute intracranial abnormality. Electronically signed by: Juan Day MD 08/10/2017 8:13 PM EDT
[2017-08-10] MEDS: QUEtiapine FUMARATE 100 MG TAB PO SCH (21:41)
[2017-08-10 22:12] LABS: C-REACTIVE PROTEIN 1.9 MG/DL (0.00-0.30)
[2017-08-11] VITALS (8 sets, daily range): BP systolic 112–134; BP diastolic 64–86; PULSE 82–100; RESP 17–18; TEMP 97.1–98.9; O2SAT 95–99
[2017-08-11] MEDS: HEPARIN SODIUM - SQ 10,000 UNITS/ML VIAL SQ SCH ×2 (02:33→15:40)
[2017-08-11] MEDS: MEMANTINE HCL 10 MG TAB PO SCH ×2 (08:38→21:42)
[2017-08-11] MEDS: DOCUSATE SODIUM 50 MG/SENNA 8.6 MG TAB PO SCH ×2 (08:38→21:42)
[2017-08-11] MEDS: QUEtiapine FUMARATE 100 MG TAB PO SCH ×2 (08:38→21:42)
[2017-08-11] MEDS: SODIUM CHLORIDE 0.9% FLUSH 10 ML FLUSH IV FLUSH SCH ×2 (08:38→21:00)
[2017-08-11] MEDS: DILTIAZEM-CD 120 MG CAP ER PO SCH ×2 (09:17→21:42)
--- NOTE | 2017-08-11 09:30 | HHI.PR ---
Review/Management Diagnosis/Plan: (1) Dementia with behavioral disturbance ICD Codes: F03.91 - Unspecified dementia with behavioral disturbance Plan: Beclouded dementia. Possibly worsened by metabolic disturbance, congestive heart failure Recommendations Brain imaging; MRI brain pending, CT brain scan showing atrophy no acute lesion EEG; pending Ammonia, TSH, B12 within normal limits Could consider LP Follow exam (2) New onset atrial fibrillation ICD Codes: I48.91 - Unspecified atrial fibrillation Status: Acute Plan: Cardiology seen the patient (3) Chronic anemia ICD Codes: D64.9 - Anemia, unspecified Status: Chronic Plan: Medical renal following (4) HTN (hypertension) ICD Codes: I10 - HTN (hypertension) Status: Chronic Plan: Goal of less than 120/80 Subjective Subjective Comments No acute events reported Active Medications Current Medications Medications (Trade) Dose Ordered Sig/Michell Route Start Time Stop Time Status Last Admin (Brevibloc Bolus Inj) 35 mg BOLUS PRN IV PUSH 08/03/17 12:15 (NS Flush) 2 ml UNSCH PRN IV FLUSH 08/03/17 13:30 (NS Flush) 2 ml BID IV FLUSH 08/03/17 21:00 08/11/17 08:38 (Tylenol) 650 mg Q4H PRN PO 08/03/17 13:30 (Reglan Inj) 5 mg Q6H PRN IV PUSH 08/03/17 13:30 (Heparin Inj) 5,000 units Q12H SQ 08/03/17 14:00 08/11/17 02:33 (Narcan Inj) 0.4 mg UNSCH PRN IV PUSH 08/03/17 13:30 (Hilda-Colace) 1 tab BID PO 08/03/17 21:00 08/11/17 08:38 (Milk Of Magnesia Liq) 30 ml Q12H PRN PO 08/03/17 13:30 (Senokot) 17.2 mg Q12H PRN PO 08/03/17 13:30 (Dulcolax Supp) 10 mg DAILY PRN RECTAL 08/03/17 13:30 (Lactulose Liq) 30 ml DAILY PRN PO 08/03/17 13:30 Sodium Chloride 1,000 ml @ 0 mls/hr Q0M PRN OTHER 08/03/17 13:49 08/07/17 09:40 (Heparin Inj) 8,000 units UNSCH PRN IV FLUSH 08/03/17 14:00 Sodium Chloride 1,000 ml @ 200 mls/hr Q5H PRN IV 08/03/17 13:49 Sodium Chloride 1,000 ml @ 0 mls/hr Q0M PRN OTHER 08/03/17 13:49 (Mannitol Inj) 12.5 gm UNSCH PRN IV 08/03/17 14:00 Albumin Human 100 ml @ 60 mls/hr UNSCH PRN IV 08/03/17 14:00 (NS Flush) 5 ml UNSCH PRN IV FLUSH 08/03/17 14:00 (Heparin Inj) UNSCH PRN .XX 08/03/17 14:00 (Gentamicin Inj) 20 mg UNSCH PRN OTHER 08/03/17 14:00 (Zofran Odt) 4 mg UNSCH PRN PO 08/03/17 14:00 (Tylenol) 650 mg UNSCH PRN PO 08/03/17 14:00 (Benadryl) 25 mg UNSCH PRN PO 08/03/17 14:00 (Nitrostat Sl) 0.4 mg UNSCH PRN SL 08/03/17 14:00 (Catapres) 0.1 mg UNSCH PRN PO 08/03/17 14:00 08/04/17 13:46 (Epogen Inj) 5,000 units UNSCH PRN IV PUSH 08/03/17 14:00 08/10/17 17:57 (Gelfoam 12 Mm/7 Mm Top) 1 foam UNSCH PRN TOP 08/03/17 14:00 08/10/17 17:58 ([facility] [place] [facility] [place] Patient in critical care unit? Ass... Q361D .XX 08/03/17 19:45 08/03/17 19:45 (Cardizem Cd) 120 mg BID PO 08/04/17 21:00 08/11/17 09:17 (Namenda) 10 mg BID PO 08/04/17 21:00 08/11/17 08:38 (Norvasc) 10 mg DAILY PO 08/06/17 12:45 08/11/17 09:17 (SEROquel) 100 mg BID PO 08/10/17 21:00 08/11/17 08:38 Thiamine HCl 100 mg/Sodium Chloride 101 ml @ 101 mls/hr Q24H IV 08/10/17 18:00 Allergies Allergies Coded Allergies No Known Allergies (Verified Allergy, Unknown, 06/30/17) Review of Systems All other ROS: ROS reviewed as documented in chart Exam I&O / VS Vital Signs Date Time Temp Pulse Resp B/P (MAP) Pulse Ox O2 Delivery O2 Flow Rate FiO2 08/11/17 04:34 90 08/11/17 04:00 98.7 88 18 114/76 (89) 95 08/11/17 04:00 Room Air 08/11/17 00:00 Room Air 08/11/17 00:00 84 08/11/17 00:00 98.9 92 17 128/77 (94) 95 08/10/17 20:00 Room Air 08/10/17 20:00 98.1 104 19 122/80 (94) 94 08/10/17 20:00 98 08/10/17 16:00 Room Air 08/10/17 15:50 94 08/10/17 12:06 97.6 88 18 134/80 (98) 99 08/10/17 12:00 Room Air 08/10/17 11:56 90 General: No acute distress Eye: EOMI Respiratory: Non-labored respirations, Symmetrical expansion Cardiology: Normal rate Neurologic: Alert Exam Comments Awake alert lying in bed upper extremity restraints. Oriented to himself and attentive. Follows simple request on occasion show me 2 fingers, No facial asymmetry no involuntary movements is able to raise all 4 extremities gravity. Reflexes 1+ symmetric plantarflex flex response no clonus elicited. Further sensory cerebellar gait testing limited secondary to patient's mental status. Objective Micro and Labs Laboratory Tests Test 08/10/17 21:26 Erythrocyte Sedimentation Rate 30 Ammonia 17 C-Reactive Protein 1.90 Vitamin B12 Level 1106 Thyroid Stimulating Hormone 3rd Gen 1.220 Problem Qualifiers (1) Dementia with behavioral disturbance: Qualified Codes: F03.91 - Unspecified dementia with behavioral disturbance Michael Black MD Aug 11, 2017 09:30
--- NOTE | 2017-08-11 10:56 | HHI.PR ---
Subjective Remarks Is agitated on and off in restraints. Plan for MRI. Will medicate prior to going to MRI. No events overnight. Objective Vitals Vital Signs Date Time Temp Pulse Resp B/P (MAP) Pulse Ox O2 Delivery O2 Flow Rate FiO2 08/11/17 09:58 Room Air 08/11/17 08:00 82 08/11/17 04:34 90 08/11/17 04:00 98.7 88 18 114/76 (89) 95 08/11/17 04:00 Room Air 08/11/17 00:00 Room Air 08/11/17 00:00 84 08/11/17 00:00 98.9 92 17 128/77 (94) 95 08/10/17 20:00 Room Air 08/10/17 20:00 98.1 104 19 122/80 (94) 94 08/10/17 20:00 98 08/10/17 16:00 Room Air 08/10/17 15:50 94 08/10/17 12:06 97.6 88 18 134/80 (98) 99 08/10/17 12:00 Room Air 08/10/17 11:56 90 I/O 08/10/17 08/10/17 08/10/17 08/11/17 08/11/17 08/11/17 07:00 15:00 23:00 07:00 15:00 23:00 Intake Total 280 ml 300 ml Output Total 2000 ml Balance -1720 ml 300 ml Intake Oral 280 ml 300 ml Hemodialysis 2000 ml # Voids 2 1 3 # Bowel Movements 1 0 3 Result Diagram: 08/08/17 0735 08/08/17 0735 Imaging Last Impressions Head CT 08/10/17 0000 Signed Impressions: CONCLUSION: 1. Moderate to prominent cerebral atrophy, out of proportion to patient's age. 2. No acute intracranial abnormality. Chest X-Ray 08/03/17 0000 Signed Impressions: CONCLUSION: 1. Cardiomegaly with vascular congestive changes and small to moderate right p leural effusion. 2. Bibasilar airspace disease. 3. Stable bilateral pleural nodules previously described. Objective Remarks GENERAL: This is a well-nourished, well-developed patient, in no apparent distress. CARDIOVASCULAR: Regular rate and rhythm without murmurs, gallops, or rubs. RESPIRATORY: Clear to auscultation. Breath sounds equal bilaterally. No wheezes , rales, or rhonchi. GASTROINTESTINAL: Abdomen soft, non-tender, nondistended. No hepato-splenomegaly , or palpable masses. No guarding. MUSCULOSKELETAL: Extremities without clubbing, cyanosis, or edema. No joint tenderness, effusion, or edema noted. No calf tenderness. Negative Homans sign bilaterally. NEUROLOGICAL: Awake and alert. Cranial nerves II through XII intact. Motor and sensory grossly within normal limits. Five out of 5 muscle strength in all muscle groups. Normal speech. A/P Assessment and Plan 62-year-old male admitted secondary to new onset Afib with RVR, psychosis and dementia, chronic end-stage renal disease on HD New onset A fib with RVR EKG reviewed with ER physician Patient received multiple labetalol IV bolus in the ED. Discontinue esmolol drip, cardiology signed off. Start on Cardizem p.o. patient is requiring Place on telemetry Consult cardiology 2D ECHO with ejection fraction of 35-40% Acute psychosis/ Dementia. Consult psych . Restart meds per psychiatry recs. Increase Seroquel. Continue neurochecks. Consult neurology Plan for MRI The patient is requiring restraints ESRD on dialysis Consult nephrology. Continue HD per nephro recommendations Monitor renal function Hypertension Continue homemeds Follow blood pressures Adjust treatments as needed Hyperlipidemia Continue present treatment Follow as an outpatient Coronary artery disease [place] Continue home meds DVT prophylaxis SCD/TEDs, lovenox Records reviewed. Discussed Condition With pt, nurse, Heart rate is better controlled now on p.o. Cardizem. Medically appears stable. Psychiatry evaluation, patient is with agitation and confusion. Might benefit from inpatient psychiatric admission ? Consult neurology. Workup in progress. We will consult palliative care for goals of care. Mavis Black MD Aug 11, 2017 10:56
--- NOTE | 2017-08-11 10:56 | HHI.NPPN ---
Subjective General Problems: Anemia Renal Failure: Chronic, End Stage Renal Disease Interval History He seems suspicious of providers during physical exam. Had EEG this morning. (Nicci Nolan) Objective Data Data Vital Signs Date Time Temp Pulse Resp B/P (MAP) Pulse Ox O2 Delivery O2 Flow Rate FiO2 08/11/17 09:58 Room Air 08/11/17 08:00 82 08/11/17 04:34 90 08/11/17 04:00 98.7 88 18 114/76 (89) 95 08/11/17 04:00 Room Air 08/11/17 00:00 Room Air 08/11/17 00:00 84 08/11/17 00:00 98.9 92 17 128/77 (94) 95 08/10/17 20:00 Room Air 08/10/17 20:00 98.1 104 19 122/80 (94) 94 08/10/17 20:00 98 08/10/17 16:00 Room Air 08/10/17 15:50 94 08/10/17 12:06 97.6 88 18 134/80 (98) 99 08/10/17 12:00 Room Air 08/10/17 11:56 90 (Nicci Nolan) -: 08/08/17 0735 08/08/17 0735 Imaging Last [address] 08/10/17 0000 Signed Impressions: CONCLUSION: 1. Moderate to prominent cerebral atrophy, out of proportion to patient's age. 2. No acute intracranial abnormality. (Nicci Nolan) Physical Exam General Appearance: Well Developed, Comfortable, Sleeping, Malnourished (Nicci Nolan) Eyes Eye Exam: Pupils Equal, Pupils Reactive (Nicci Nolan) Throat Throat Exam: Oral Mucosa [place] & Moist (Nicci Nolan) Pulmonary Resp Exam: Clear Bilaterally, Breath Sounds Equal (Nicci Nolan) Cardiology CV Exam: Good Perfusion, Irregular, Tachycardia (Nicci Nolan) Gastrointestinal/Abdomen GI Exam: Soft, Non-Tender, Bowel Sounds Present (Nicci Nolan) Musculoskeletal MS Exam: Joints Intact, Good Strength, Atrophy (Nicci Nolan) Integumentary Skin Exam: Clear, Warm, Dry, Intact (Nicci Nolan) Extremeties Extremities Exam: No Edema, Pedal Pulses Palpable (Nicci Nolan) Neurologic Neuro Exam: Awake, Moving All Extremities (Nicci Nolan) Assessment/Plan Discussed Condition With: Patient Assessment Summary: Anemia of CKD, Hypertension, End Stage Renal Disease Problem List: (1) ESRD (end stage renal disease) on dialysis ICD Codes: N18.6 - ESRD (end stage renal disease) on dialysis; Z99.2 - Dependence on renal dialysis Status: Chronic Plan: We will continue HD TTS. 2L UF yesterday. Monitor electrolytes intermittently. Fluid removal as tolerated. High protein diet ordered, added protein supplements. Needs assistance with eating. 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 (2) Dementia with behavioral disturbance ICD Codes: F03.91 - Unspecified dementia with behavioral disturbance Plan: Psychiatry has followed, currently on Namenda and Seroquel (dosage again increased). PRN Haldol stopped. Neurology has evaluated, CT head shows atrophy. Pending EEG and MRI May need inpatient psych admission. Restraints for safety as needed (3) Chronic anemia ICD Codes: D64.9 - Chronic anemia Status: Acute Plan: Epogen with dialysis (4) HTN (hypertension) ICD Codes: I10 - HTN (hypertension) Status: Chronic Plan: On Cardizem 120 mg BID and Amlodipine (5) A-fib ICD Codes: I48.91 - Unspecified atrial fibrillation Plan: Rate controlled, on PO Cardizem Echo shows EF 30-35% Plan p (Nicci Nolan) Plan patient was seen and examined. Remains confused and disoriented. More sleepy today. EEG today. Dialysis TTS (Cole Valencia MD) Problem Qualifiers (1) Dementia with behavioral disturbance: Qualified Codes: F03.91 - Unspecified dementia with behavioral disturbance Nicci Nolan Aug 11, 2017 10:56 Cole Valencia MD Aug 11, 2017 17:50
[2017-08-11] MEDS ORDERED: LORazepam 2 MG/ML VIAL IV PUSH ONE (12:30)
[2017-08-11] MEDS ORDERED: HALOPERIDOL LACTATE 5 MG/ML AMP IM ONE (12:30)
--- NOTE | 2017-08-11 15:34 | RADRPT ---
EXAM DATE: 08/11/2017 3:14 PM EDT AGE/SEX: 62 years / Male INDICATIONS: Altered mental status. CLINICAL DATA: This is the patient's subsequent encounter. Patient reports that signs and symptoms h ave been present for 1 week and indicates a pain score of 0/10. MEDICAL/SURGICAL HISTORY: Hypertension. Myocardial infarction. Dialysis. Umbilical hernia rep air. Left elbow. AV fistula. COMPARISON: [facility] – [place]RAIN [place]/O CONTRAST, 08/10/2017. . TECHNIQUE: Multiplanar, multisequence examination of the brain was performed without contrast. FINDINGS: Cerebrum: The ventricles and cortical sulci are widened. No evidence of midline shift, mass lesion, hemorrhage or acute infarction. No extraaxial fluid collections are seen. The pituitary gland and suprasellar cistern are normal in configuration. White Matter: No significant signal abnormalities are seen in the white matter. Posterior Fossa: The cerebellum and brainstem are intact. The 4th ventricle is midline. The cerebel lopontine angle is unremarkable. The cerebellar tonsils are normal in position. Diffusion Imaging: No focal areas of restricted diffusion are seen. No evidence of acute infarction . Extracranial: The visualized portions of the orbits and paranasal sinuses are unremarkable. CONCLUSION: 1. No acute abnormality seen. 2. Atrophy. Electronically signed by: Paresh Maria MD 08/11/2017 3:33 PM EDT
[2017-08-11] MEDS: THIAMINE INJ 100 MG in SODIUM CHLORIDE 0.9% INJ 100 ML IV SCH (17:06)
--- NOTE | 2017-08-11 17:35 | MG ---
cc: Casey Novoa MD, PhD Casey Novoa MD PhD TEST NUMBER [id number] TECHNIQUE: A 17-channel EEG. DESCRIPTION: Background rhythm reveals generalized slowing in theta range, roughly 5-6 Hz. Amplitude is 10-20 microvolts. Muscle artifact is present. There are no lateralizing features identified. There are no epileptiform features identified. Hyperventilation was not done. Photic resulted in a poor driving response. INTERPRETATION: Abnormal study consistent with diffuse encephalopathy. No epileptiform discharges. Casey Novoa MD, PhD LUCA/ , 04:32 PM , 04:43 PM
[2017-08-12] VITALS (9 sets, daily range): BP systolic 103–130; BP diastolic 61–72; PULSE 83–133; RESP 18–20; TEMP 97.1–97.9; O2SAT 97–100
[2017-08-12] MEDS: HEPARIN SODIUM - SQ 10,000 UNITS/ML VIAL SQ SCH ×2 (03:00→13:33)
--- NOTE | 2017-08-12 08:30 | HHI.NPPN ---
Subjective General Problems: Anemia Renal Failure: Chronic, End Stage Renal Disease Interval History To have HD today. Notes were reviewed. EEG is consistent with encephalopathy. Objective Data Data Vital Signs Date Time Temp Pulse Resp B/P (MAP) Pulse Ox O2 Delivery O2 Flow Rate FiO2 08/12/17 04:19 Room Air 08/12/17 04:00 97.1 90 18 107/72 (84) 99 08/12/17 04:00 119 08/12/17 00:00 88 08/12/17 00:00 Room Air 08/12/17 00:00 97.9 88 18 103/61 (75) 100 08/11/17 21:33 99 08/11/17 20:00 100 08/11/17 20:00 Room Air 08/11/17 20:00 98.2 96 18 134/64 (87) 98 08/11/17 16:00 97.5 90 18 117/74 (88) 99 08/11/17 16:00 88 08/11/17 12:00 97.1 90 18 113/75 (88) 98 08/11/17 09:58 Room Air -: 08/08/17 0735 08/08/17 0735 Physical Exam General Appearance: Well Developed, Comfortable, Sleeping, Malnourished Eyes Eye Exam: Pupils Equal, Pupils Reactive Throat Throat Exam: Oral Mucosa [place] & Moist Pulmonary Resp Exam: Clear Bilaterally, Breath Sounds Equal Cardiology CV Exam: Good Perfusion, Irregular, Tachycardia Gastrointestinal/Abdomen GI Exam: Soft, Non-Tender, Bowel Sounds Present Musculoskeletal MS Exam: Joints Intact, Good Strength, Atrophy Integumentary Skin Exam: Clear, Warm, Dry, Intact Extremeties Extremities Exam: No Edema, Pedal Pulses Palpable Neurologic Neuro Exam: Awake, Moving All Extremities Assessment/Plan Discussed Condition With: Patient Assessment Summary: Anemia of CKD, Hypertension, End Stage Renal Disease Problem List: (1) ESRD (end stage renal disease) on dialysis ICD Codes: N18.6 - ESRD (end stage renal disease) on dialysis; Z99.2 - Dependence on renal dialysis Status: Chronic Plan: We will continue HD TTS. Monitor electrolytes intermittently. Fluid removal as tolerated. High protein diet ordered, added protein supplements. Needs assistance with eating. 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 (2) Dementia with behavioral disturbance ICD Codes: F03.91 - Unspecified dementia with behavioral disturbance Plan: Psychiatry has followed, currently on Namenda and Seroquel (dosage again increased). PRN Haldol stopped. Neurology has evaluated, CT head shows atrophy. Pending EEG and MRI May need inpatient psych admission. Restraints for safety as needed (3) Chronic anemia ICD Codes: D64.9 - Chronic anemia Status: Acute Plan: Epogen with dialysis (4) HTN (hypertension) ICD Codes: I10 - HTN (hypertension) Status: Chronic Plan: On Cardizem 120 mg BID and Amlodipine (5) A-fib ICD Codes: I48.91 - Unspecified atrial fibrillation Plan: Rate controlled, on PO Cardizem Echo shows EF 30-35% Problem Qualifiers (1) Dementia with behavioral disturbance: Qualified Codes: F03.91 - Unspecified dementia with behavioral disturbance Cole Valencai MD Aug 12, 2017 08:30
[2017-08-12] MEDS: SODIUM CHLORIDE 0.9% FLUSH 10 ML FLUSH IV FLUSH SCH ×2 (09:00→20:41)
[2017-08-12] MEDS: EPOETIN ALFA 10,000 UNITS/ML VIAL IV PUSH PRN (12:19)
--- NOTE | 2017-08-12 13:27 | HHI.PR ---
Subjective Remarks Patient went for dialysis. No change in mental status. Still agitated on and off. Increase seroquel. Objective Vitals Vital Signs Date Time Temp Pulse Resp B/P (MAP) Pulse Ox O2 Delivery O2 Flow Rate FiO2 08/12/17 10:42 99 21 08/12/17 08:00 97.1 91 18 117/72 (87) 97 08/12/17 04:19 Room Air 08/12/17 04:00 97.1 90 18 107/72 (84) 99 08/12/17 04:00 119 08/12/17 00:00 88 08/12/17 00:00 Room Air 08/12/17 00:00 97.9 88 18 103/61 (75) 100 08/11/17 21:33 99 08/11/17 20:00 100 08/11/17 20:00 Room Air 08/11/17 20:00 98.2 96 18 134/64 (87) 98 08/11/17 16:00 97.5 90 18 117/74 (88) 99 08/11/17 16:00 88 I/O 08/11/17 08/11/17 08/11/17 08/12/17 08/12/17 08/12/17 07:00 15:00 23:00 07:00 15:00 23:00 Intake Total 300 ml 480 ml Output Total 2500 ml Balance 300 ml 480 ml -2500 ml Intake Oral 300 ml 480 ml Hemodialysis 2500 ml # Voids 3 1 # Bowel Movements 3 1 Result Diagram: 08/08/17 0735 08/08/17 0735 Imaging Last Impressions Brain MRI 08/11/17 0000 Signed Impressions: CONCLUSION: 1. No acute abnormality seen. 2. Atrophy. Head CT 08/10/17 0000 Signed Impressions: CONCLUSION: 1. Moderate to prominent cerebral atrophy, out of proportion to patient's age. 2. No acute intracranial abnormality. Chest X-Ray 08/03/17 0000 Signed Impressions: CONCLUSION: 1. Cardiomegaly with vascular congestive changes and small to moderate right p leural effusion. 2. Bibasilar airspace disease. 3. Stable bilateral pleural nodules previously described. Objective Remarks GENERAL: This is a well-nourished, well-developed patient, in no apparent distress. CARDIOVASCULAR: Regular rate and rhythm without murmurs, gallops, or rubs. RESPIRATORY: Clear to auscultation. Breath sounds equal bilaterally. No wheezes , rales, or rhonchi. GASTROINTESTINAL: Abdomen soft, non-tender, nondistended. No hepato-splenomegaly , or palpable masses. No guarding. MUSCULOSKELETAL: Extremities without clubbing, cyanosis, or edema. No joint tenderness, effusion, or edema noted. No calf tenderness. Negative Homans sign bilaterally. NEUROLOGICAL: Awake and alert. Cranial nerves II through XII intact. Motor and sensory grossly within normal limits. Five out of 5 muscle strength in all muscle groups. Normal speech. A/P Assessment and Plan 62-year-old male admitted secondary to new onset Afib with RVR, psychosis and dementia, chronic end-stage renal disease on HD New onset A fib with RVR EKG reviewed with ER physician Patient received multiple labetalol IV bolus in the ED. Discontinue esmolol drip, cardiology signed off. Start on Cardizem p.o. Place on telemetry Consult cardiology 2D ECHO with ejection fraction of 35-40% Acute psychosis/ Dementia. Consult psych . Restart meds per psychiatry recs. Increase Seroquel. Continue neurochecks. Consult neurology Brain MRI normal The patient is requiring restraints ESRD on dialysis Consult nephrology. Continue HD per nephro recommendations Monitor renal function Hypertension Continue homemeds Follow blood pressures Adjust treatments as needed Hyperlipidemia Continue present treatment Follow as an outpatient Coronary artery disease [place] Continue home meds DVT prophylaxis SCD/TEDs, lovenox Records reviewed. Discussed Condition With pt, nurse, Heart rate is better controlled now on p.o. Cardizem. Medically appears stable. Psychiatry evaluation, patient is with agitation and confusion. Might benefit from inpatient psychiatric admission ? Consult neurology. Workup in progress. We will consult palliative care for goals of care. Consult neuropsychiatry Mavis Black MD Aug 12, 2017 13:27
[2017-08-12] MEDS: DILTIAZEM-CD 120 MG CAP ER PO SCH ×2 (13:28→20:40)
[2017-08-12] MEDS: DOCUSATE SODIUM 50 MG/SENNA 8.6 MG TAB PO SCH ×2 (13:28→20:40)
[2017-08-12] MEDS: MEMANTINE HCL 10 MG TAB PO SCH ×2 (13:28→20:40)
[2017-08-12] MEDS: QUEtiapine FUMARATE 100 MG TAB PO SCH ×2 (13:28→20:40)
[2017-08-12] MEDS: THIAMINE INJ 100 MG in SODIUM CHLORIDE 0.9% INJ 100 ML IV SCH (17:38)
[2017-08-13] VITALS (12 sets, daily range): BP systolic 118–146; BP diastolic 58–78; PULSE 89–119; RESP 16–20; TEMP 97.5–98.1; O2SAT 90–99
[2017-08-13] MEDS: HEPARIN SODIUM - SQ 10,000 UNITS/ML VIAL SQ SCH ×2 (01:06→12:46)
--- NOTE | 2017-08-13 08:43 | HHI.PR ---
Subjective Remarks Agitated on/off. Responds to questions and repeats words back, not making sense. Discussed with psychiatry for all the medications does not recommend anything else at this time. Discussed with palliative care. Will start melatonin and small dose Tylenol pain. Patient history is not reliable. Objective Vitals Vital Signs Date Time Temp Pulse Resp B/P (MAP) Pulse Ox O2 Delivery O2 Flow Rate FiO2 08/13/17 08:06 98.1 89 17 119/72 (88) 90 08/13/17 04:18 91 08/13/17 04:00 98.0 119 20 146/68 (94) 97 08/13/17 04:00 Room Air 08/13/17 00:05 97.5 90 20 124/64 (84) 98 08/13/17 00:00 Room Air 08/12/17 23:39 122 08/12/17 20:18 21 08/12/17 20:00 97.3 94 20 116/70 (85) 100 08/12/17 20:00 Room Air 08/12/17 19:42 109 08/12/17 16:00 97.5 93 18 130/69 (89) 97 08/12/17 16:00 102 08/12/17 12:00 133 08/12/17 10:42 99 21 I/O 08/12/17 08/12/17 08/12/17 08/13/17 08/13/17 08/13/17 07:00 15:00 23:00 07:00 15:00 23:00 Intake Total 480 ml 240 ml Output Total 2500 ml Balance -2500 ml 480 ml 240 ml Intake Oral 480 ml 240 ml Hemodialysis 2500 ml # Voids 1 1 # Bowel Movements 1 Imaging Last Impressions Brain MRI 08/11/17 0000 Signed Impressions: CONCLUSION: 1. No acute abnormality seen. 2. Atrophy. Head CT 08/10/17 0000 Signed Impressions: CONCLUSION: 1. Moderate to prominent cerebral atrophy, out of proportion to patient's age. 2. No acute intracranial abnormality. Chest X-Ray 08/03/17 0000 Signed Impressions: CONCLUSION: 1. Cardiomegaly with vascular congestive changes and small to moderate right p leural effusion. 2. Bibasilar airspace disease. 3. Stable bilateral pleural nodules previously described. Objective Remarks GENERAL: This is a well-nourished, well-developed patient, in no apparent distress. CARDIOVASCULAR: Regular rate and rhythm without murmurs, gallops, or rubs. RESPIRATORY: Clear to auscultation. Breath sounds equal bilaterally. No wheezes , rales, or rhonchi. GASTROINTESTINAL: Abdomen soft, non-tender, nondistended. No hepato-splenomegaly , or palpable masses. No guarding. MUSCULOSKELETAL: Extremities without clubbing, cyanosis, or edema. No joint tenderness, effusion, or edema noted. No calf tenderness. Negative Homans sign bilaterally. NEUROLOGICAL: Awake and alert. Cranial nerves II through XII intact. Motor and sensory grossly within normal limits. Five out of 5 muscle strength in all muscle groups. Normal speech. A/P Assessment and Plan 62-year-old male admitted secondary to new onset Afib with RVR, psychosis and dementia, chronic end-stage renal disease on HD New onset A fib with RVR EKG reviewed with ER physician Patient received multiple labetalol IV bolus in the ED. Discontinue esmolol drip, cardiology signed off. Start on Cardizem p.o. Place on telemetry Consult cardiology 2D ECHO with ejection fraction of 35-40% Acute psychosis/ Severe Dementia. Consult psych . Restart meds per psychiatry recs. Increase Seroquel. Continue neurochecks. Consult neurology Brain MRI normal The patient is requiring restraints Discussed with psychiatry for all the medications does not recommend anything else at this time. Discussed with palliative care. Will start melatonin and small dose Tylenol pain as might help. Patient history is not reliable. ESRD on dialysis Consult nephrology. Continue HD per nephro recommendations Monitor renal function Hypertension Continue homemeds Follow blood pressures Adjust treatments as needed Hyperlipidemia Continue present treatment Follow as an outpatient Coronary artery disease [place] Continue home meds DVT prophylaxis SCD/TEDs, lovenox Records reviewed. Discussed Condition With pt, nurse, palliative care, Heart rate is better controlled now on p.o. Cardizem. Medically appears stable. Psychiatry evaluation, patient is with agitation and confusion. Might benefit from inpatient psychiatric admission ? Consult neurology. MRI no acute findings. Patient with severe dementia. Consult palliative care for goals of care, appreciate recommendations, ff. Consult neuropsychiatry Dr March Discussed with psychiatry for all the medications does not recommend anything else at this time. Discussed with palliative care. Will start melatonin and small dose Tylenol pain as might help. Patient history is not reliable. He is still agitated on/off and required restraints. Mavis Black MD Aug 13, 2017 08:43
[2017-08-13] MEDS: SODIUM CHLORIDE 0.9% FLUSH 10 ML FLUSH IV FLUSH SCH ×2 (09:00→21:00)
[2017-08-13] MEDS: DILTIAZEM-CD 120 MG CAP ER PO SCH ×2 (09:20→21:00)
[2017-08-13] MEDS: DOCUSATE SODIUM 50 MG/SENNA 8.6 MG TAB PO SCH ×2 (09:21→21:00)
[2017-08-13] MEDS: QUEtiapine FUMARATE 100 MG TAB PO SCH ×2 (09:21→20:59)
[2017-08-13] MEDS: MEMANTINE HCL 10 MG TAB PO SCH ×2 (09:21→21:00)
--- NOTE | 2017-08-13 12:15 | HHI.HCPN ---
Reason for visit a. To assist with evaluation and management of symptoms including: Altered mental status b. To assist medical decision maker(s) with: better understanding of current medical conditions; weighing benefits/burdens of medical treatment options; making medical treatment decisions. Subjective/Interval History Follow-up medically necessary for symptom management and further clarification of goals of care. Patient seen and examined in his room. Patient is currently being fed breakfast by a SOLID WASTE MANAGEMENT ENGINEER. Patient remains restrained. Patient is awake, appears tired, but eating most of his food. Patient remains confused, appears to be responsive to his name been called but confused to time, place and situation. Patient not attentive, no eye contact during visit. Picking on invisible things on his bed and attempting to put "them' in his mouth. Per EMS notes, patient remains aggressive and is on and off restraints. Seroquel was increased from 50 mg twice daily to 100 mg twice daily and is currently on 150 mg twice daily with no significant change in patient's aggressive behavior. Neurology Dr. Black consulted on 08/10/17 for evaluation and management of confusion, recommended brain imaging, EEG, labwork and possible consideration of a lumbar puncture. Brain MRI on 08/11/17 revealed no acute abnormality and atrophy. EEG on 08/11/17 revealed abnormal study consistent with diffuse encephalopathy and no epileptiform discharges. Physical therapy following with patient, recommended PT at rehab. Patient has days that he is very agitated and is not able to participate in physical therapy. No recent laboratory workup or imaging. Patient had hemodialysis yesterday. Telephone conversation with patient`s sister Dilip Vasques and patient`s niece Tiffany Vasques. Updated them on patient`s status, including imaging results. Expressed that patient continues to be agitated and confused despite increment in medication dosage- Seroquel in particular. Discussed with family that as they hope for the best they should start considering which direction to go either having patient restrained due to aggressiveness and being a mable patient he may not understand why he has to be restrained at all times, or medications may be used to keep patient calm which carries a burden of patient most likely being sedated at all times to control the aggressive behavior. Introduced hospice philosophy and benefits. Explained to family that if patient continues to deteriorate, decline and they feel that his quality of life is more compromised than it was prior to this hospitalization and no longer want to pursue aggressive treatment-hospice would be more appropriate for him. Patient`s sister Dilip Vasques , who is patient`s HCS would like to discuss further with other family members on goals of care and at this time would like goals to remain aggressive. Case discussed with Dr. Black. . Family/friend interactions No family at bedside . Advance Directives Living Will: Never completed Health Care Surrogate: Copy in medical record Durable Power of Vehicle Operator: Copy in medical record Advance Directive Specifics Date completed: DPOA-signed 06/22/2013 -No longer valid- Patient updated Health Care Power of Vehicle Operator Appointment of Health Care Agent and Proxy and Unlimited Power of Vehicle Operator signed on 02/06/2015 . Health Care Surrogate(s): Healthcare Power of Vehicle Operator-Sister- Dilip Vasques [phone]/ . Objective Vital Signs Date Time Temp Pulse Resp B/P (MAP) Pulse Ox O2 Delivery O2 Flow Rate FiO2 08/13/17 08:26 92 08/13/17 08:06 98.1 89 17 119/72 (88) 90 08/13/17 07:00 Room Air 08/13/17 04:18 91 08/13/17 04:00 98.0 119 20 146/68 (94) 97 08/13/17 04:00 Room Air 08/13/17 00:05 97.5 90 20 124/64 (84) 98 08/13/17 00:00 Room Air 08/12/17 23:39 122 08/12/17 20:18 21 08/12/17 20:00 97.3 94 20 116/70 (85) 100 08/12/17 20:00 Room Air 08/12/17 19:42 109 08/12/17 16:00 97.5 93 18 130/69 (89) 97 08/12/17 16:00 102 08/12/17 12:00 133 Intake & Output 08/13/17 08/13/17 07:00 19:00 Intake Total 240 ml Balance 240 ml Intake Oral 240 ml # Voids 1 Physical Exam CONSTITUTIONAL/GENERAL: This is an adequately nourished patient, remains in restraints. Currently being fed breakfast TUBES/LINES/DRAINS: SCDs SKIN: No jaundice, rashes, or lesions. No wounds seen anteriorly. Normothermic HEAD: Atraumatic. Normocephalic. EYES: PERRLA. No scleral icterus. Fundi not examined. ENT: No bleeding or drainage noted to bilateral nares. Moist oral mucosa NECK: Trachea midline. Supple, nontender. CARDIOVASCULAR: Irregular rhythm, no murmur. No JVD. Peripheral pulses symmetric. RESPIRATORY/CHEST: Symmetric, unlabored respirations. Clear to auscultation. No rhonchi or wheeze GASTROINTESTINAL: Abdomen soft, non-tender, nondistended. No guarding. Bowel sounds present. GENITOURINARY: Without palpable bladder distension. MUSCULOSKELETAL: Extremities without clubbing, cyanosis, or edema. No joint tenderness or effusion noted. 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 NEUROLOGICAL: Awake and alert, oriented to self only and confused. Moves all extremities spontaneously and intermittently to command. PSYCHIATRIC: No obvious depression. Restless. . Diagnostic Tests Laboratory Laboratory Tests Test 08/10/17 21:26 Erythrocyte Sedimentation Rate 30 mm/hr (0-20) Ammonia 17 MCMOL/L (11-32) C-Reactive Protein 1.90 MG/DL (0.00-0.30) Vitamin B12 Level 1106 PG/ML (193-986) Thyroid Stimulating Hormone 3rd Gen 1.220 uIU/ML (0.358-3.740) Anti-Nuclear Antibody Screen POS (NEG) Imaging Last Impressions Brain MRI 08/11/17 0000 Signed Impressions: CONCLUSION: 1. No acute abnormality seen. 2. Atrophy. Head CT 08/10/17 0000 Signed Impressions: CONCLUSION: 1. Moderate to prominent cerebral atrophy, out of proportion to patient's age. 2. No acute intracranial abnormality. Chest X-Ray 08/03/17 0000 Signed Impressions: CONCLUSION: 1. Cardiomegaly with vascular congestive changes and small to moderate right p leural effusion. 2. Bibasilar airspace disease. 3. Stable bilateral pleural nodules previously described. Assessment and Plan Disease Oriented Problem List: (1) HLD (hyperlipidemia) (2) HTN (hypertension) (3) ESRD (end stage renal disease) on dialysis (4) New onset atrial fibrillation (5) Chronic anemia (6) Dementia with behavioral disturbance Symptom Scale: (1) Altered mental status 0-10 Scale: Unable to quantify Comment: History of dementia and end-stage renal disease . (2) At risk for pain 0-10 Scale: Unable to quantify Pertinent Non-Medical Issues Psychosocial:Patient was born and raised in [place], [place]. He was once and . Patient has 4 adult children, 3 sons and 1 daughter. 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 Patient does not have any background. Spiritual:Patient is Hindu-declined manager work visit. Patient`s brother is a Executive Director Of Marketing Legal: DPOA on EMR (2013) Ethical issues impacting care: None identified at this time . Important Contacts PEY-Nzonaj-EmjwcrcVioleta Cherry-[phone]/[phone] other [place]- Tiffany Vasques- [phone] (Dilip currently living with her daughter Tiffany Vasques- call daughter to get in touch with Dilip Vasques) Daughter- Jennifer [phone] Son-Jennifer, Paresh Dove Son- Jennifer, Chandrakant Son-Jennifer, Ez . Prognosis Mr Rodriguez is a 62 years old patient with a past medical history significant for ESRD on hemodialysis, anemia, dementia, hypertension, hyperlipidemia, coronary artery disease and old myocardial infarction. Patient was brought to the ER on 08/03/17 from a hemodialysis center after he was noted to have altered mentation during dialysis with aggressive behavior, attempting to decannulate his dialysis catheter. Clinical course complicated with new onset A. fib with RVR, and altered mental status. Patient has multiple ongoing comorbidities which increase his risk for further complications, deterioration and decline. . Code Status: Full Code Plan PLAN: Legal decision maker: Patient has dementia with behavioral disturbances and is not able to participate in medical decision making. and will most likely not regain capacity to participate in medical decision making. Patient`s sister Dilip Vasques who will serve as his Healthcare Power of Vehicle Operator. Goals: Goals are aggressive at this time. CODE STATUS: Full Code Telephone conversation with patient`s sister Dilip Vasques and patient`s niece Tiffany Vasques. Updated them on patient`s status, including imaging results. Expressed that patient continues to be agitated and confused despite increment in medication dosage- Seroquel in particular. Discussed with family that as they hope for the best they should start considering which direction to go either having patient restrained due to aggressiveness and being a mable patient he may not understand why he has to be restrained at all times, or medications may be used to keep patient calm which carries a burden of patient most likely being sedated at all times to control the aggressive behavior. Introduced hospice philosophy and benefits. Explained to family that if patient continues to deteriorate, decline and they feel that his quality of life is more compromised than it was prior to this hospitalization and no longer want to pursue aggressive treatment-hospice would be more appropriate for him. Patient`s sister Dilip Vasques , who is patient`s HCS would like to discuss further with other family members on goals of care and at this time would like goals to remain aggressive. SYMPTOMS: * Altered mental status: Patient he has history of dementia with behavioral disturbances and end-stage renal disease on hemodialysis. Patient came in with altered mentation. Patient was evaluated by psychiatry and patient was started on Seroquel twice daily. Psychiatry recommended prn Haldol. Patient is on Memantine 10mg BID.Patient is calm at time of visit, being fed breakfast. Appears tired, and sleepy. Patient may benefit from starting him on Melatonin it may help with controlling behavior as well as improve patient`s sleep. Valproic acid has also been known to help control agitation in dementia patients. * At risk for pain: Patient is confused and may not be able to verbalize his needs. He is mostly in restraints and mostly bedbound. Being in pain can also contribute to patient`s agitation. Recommending starting patient on Tylenol 650mg BID or TID. Palliative care will continue to follow the patient during hospital course as condition evolves, to assist patient/decision-maker with understanding of their medical conditions, weighing benefits/burdens of treatment options, for clarification of goals of treatment. Additionally will assist with any symptoms of palliative concern Attestation To help prompt me to consider important information that might be impacting today's encounter and assessment, information from prior notes written by myself or my colleagues may have been "brought forward" into today's note. My signature on this note, however, is an attestation that I personally performed the exam, history, and/or decision-making noted today, and, unless otherwise indicated, the interactions with patient, family, and staff as well as the review of records all occurred today. I also attest that the listed assessment and stated plan reflect my best clinical judgment today based on the combination of historical information, prior notes, and today's exam/ interactions. When time spent is documented, it refers only to time spent today by the signer, or if indicated, combined time spent today by collaborating physician/nurse practitioner. Siva Abarca Aug 13, 2017 12:15
--- NOTE | 2017-08-13 12:50 | PD.HHIRBSE ---
Patient History Record/History Review Reason for Referral: The patient is a 62 year old unknown handed male with a history of combative behaviors and long history of ESRD, psychosis and dementia admitted to [facility] on 08/03/2017. He has been seen by psychiatry, and has a noted recent admission on 06/09/2017 of this year. Psychiatry restarted him on Seroquel 150 BID, and he is also on Namenda. Recent BUN was 33 and Creatinine was 9.92. Recent brain MRI showed atrophy but otherwise within normal limits. Neurology also saw patient and was concerned about posterior CVA. I was consulted concerning agitation management in the face of his multi medical issues. He is referred for baseline neurobehavioral status examination per trauma protocol to assess cognitive, behavioral and emotional aspects of the injury and to provide treatment recommendations. Past Surgical/Medical History Past Surgery: Yes (ELBOW SURGERY,INGUINAL HERNIA REPAIR, LEFT AV FISTULA) Major surgery in last 100 days: Unknown Hx Anesthesia Reactions: No Hx Orthopedic Surgery: Yes (LEFT ELBOW REPAIR) Hx Cardiac Surgery: No Hx Chest Surgery: No Hx Abdominal Surgery: Yes (hernia repair) Hx Genitourinary Surgery: No Hx Endocrine Surgery: No Hx Eye Surgery: No Hx Ear Surgery: No Hx Oral Surgery: No Hx Other Surgery: insertion of a vas cath Hx of Neuro Prob: Yes (becoming forgetful) Cephalgia (Headaches): No Hx Migraines: No Hx Head Injury: No Hx Falls: No Hx Cerebrovascular Accident: No Hx Dizziness: No Hx Numbness: Yes Hx of Musculoskeletal Pro: Yes (LOW BACK PAIN) Hx Arthritis: No Hx Neck Problems: No Hx Back Problem: No Hypertension (High Blood Press: Yes Hx Clotting Problems: No Hx Chest Pain: No Hx Lightheadedness: Yes Hx Congestive Heart Failure: No Syncope (Fainting): Yes Hx of Respiratory Problem: No Hx Asthma: No Hx Wheezing: No Hx Chronic Obstructive Pulmona: No Hx Dyspnea: No Hx Snoring: No Hx Emphysema: No Hx Sleep Apnea: No Hx of GI Problems: No Hx Heartburn: Yes Hx Gastroesophageal Reflux: No Hx Hiatal Hernia: No Hx Ulcer: No Hx Liver Disease: No Hx of Problems: Yes (dialysis patient) Hx Renal Disease: Yes (RENAL FAILURE, DIALYSIS THIS AM (3 TIMES WK)) Hx Renal Failure: Yes Hx Kidney Stones: No Hx Infection: No Hx Prostate Problems: No Hx Genital Problems: No Hx of Immuno Disor: No Hx Autoimmune Disease: No Hx of Endocrine Problems: No Hx Thyroid Disease: No Hx of Eye Probl: No Hx Anxiety: Yes Hx Depression: No Hx Sickle Cell Disease: No Hx Thrombocytopenia: No Hx Hemophilia: No Hx of MDRO: No Hx of MRSA: No Hx of VRE: No Hx of CDIFF: No Hx of Tuberculosis: No Hx Chicken Pox: No Hx Measles: Yes Hx of Body/Medical Devices: No Hx Pacemaker: No Hx Internal Defibrillator: No Hx Joint Replacement: No Insulin Pump: No Hx Arteriovenous Shunt: Yes Hx Dental Implants: No Hx Eye Prosthesis: No Genitourinary Device: No Genitourinary Ostomy: No Gastrointestinal Ostomy: No Blood Transfusion History Hx Blood Transfusions: No Hx Blood Transfusion Reaction: No Medication Active Medications Quetiapine Fumarate (SEROquel) 150 mg BID PO Last administered on 08/13/17at 09: 21; Admin Dose 150 MG; Start 08/12/17 at 21:00 Mental Status Assessment Orientation: oriented to Self, unable to asses Place, unable to asses Time, unable to asses Situation Mental Status: Impaired: Thought processing, Language/Interactions, Attention, Learning/Memory, Problem-Solving Observation The patient is marginally responsive and oriented only to person; he is not oriented to place, time and circumstances surrounding the reason for hospitalization.In terms of attention skills, the patient was unable to remain on task or remember basic or complex instructions. In terms of memory functioning, the patient demonstrated no carryover of information. The patient did not initiate spontaneous conversation. Speech was unable to be appreciated given that he would not speak with this examiner. Basic naming skills were deferred. Language repetition skills were deferred. The patients comprehensions for basic one- and two-stage commands was impaired. Basic verbal abstraction and problem-solving skills were deferred. The patient appears to posses no insight and awareness into their situation and within the limits of this brief evaluation, impaired judgment. Adjustment/Coping Assessment Adjustment/Coping: Severe: Awareness, Insight Observation The patients thought content was unable to be assessed for suicidal, homicidal or paranoid ideation, and the patients thought processes were impoverished. The patients mood was agitated, and the affect was blunted. LTG Status: Deferred STG Status: Deferred Team Members: Neuropsychologist Behavior Assessment Agitation: Moderate Treatment Engagement: Minimal Observation Behaviorally, the patient demonstrated signs of agitation, impulsivity or disinhibition. He was in four point restraints. Evidence of a formal thought disorder or psychosis was unable to be appreciated. Diagnosis/Discharge Plan Impression 62 year old male with long history of ESRD, psychosis and dementia, now on the unit since 08/03/2017. Patient exhibits significant agitation, hence the referral. Today's evaluation results reflect a delirium state superimposed on an underlying major neurocognitive disorder (previously referred to as dementia) . His ABS scores for today were 33 (31.5, 42, 32.6) which is consistent with moderate severity. Diagnosis: (1) Delirium due to medical condition with behavioral disturbance Status: Acute (2) Major neurocognitive disorder due to another medical condition with behavioral disturbance Status: Chronic Disinhibition Score: 31.50 Aggression Score: 42.00 Lability Score: 32.62 Agitated Behavior Total Score: 33 Maximizing acute care outcome The Agitated Behavior Scale has already been started, which will assist us in managing his behavior. Psychiatry is already following the patient and has him on Seroquel 150 BID. Unless medically contraindicated and okay with psychiatry , considering increasing this to TID, and consider starting Valproic Acid at 250 BID. Our goal is to get his agitation at or below an Agitated Behavior Scale score of 21. We have a long way to go. Also consider using the Semmes Bed , which some patients find very comforting, which would allow him to be out of 4 points and feel somewhat less restricted. It goes without saying that at this point in the recovery process, the patient does not have cognitive capacity as the patient is unable to understand a situation and its likely consequences, nor is he able to manipulate information rationally. Cognitive capacity will be assessed throughout the recovery process. In all likelihood, he will not regain decision making capacity, but this will be a focus of my daily exams regardless. Discharge Planning Anticipated Problems Ongoing areas of concern will include behavioral impulsivity, lack of insight and judgment, which is unlikely to improve with time or treatment. His agitation we will get under control. Presently, the patient is not following commands. Treatment Plan This clinician will continue to follow with you throughout the course of this patients acute care treatment, and I will be available to meet with the patient s family/support system to facilitate their understanding and the ongoing care of their family member. The goals of neuropsychological intervention shall be both educational and supportive to the family/support system as is deemed clinically appropriate. I will round on this patient daily. Thank you Thank you for the opportunity to assist in this patients care. Carlos March, Ph.D., ABPP Board Certified in Clinical Neuropsychology [place] [employer] [place] Licensed Psychologist #[id number] Carlos March PhD Aug 13, 2017 12:50
--- NOTE | 2017-08-13 14:07 | HHI.NPPN ---
Subjective General Problems: Anemia Renal Failure: Chronic, End Stage Renal Disease Additional Remarks Patient is soft limb restrained not responding to commands. Opens eyes spontaneously. (Marry Arrieta) Review of Systems General General Remarks Unable to do ROS secondary to cognition (Marry Arrieta) Objective Data Data Vital Signs Date Time Temp Pulse Resp B/P (MAP) Pulse Ox O2 Delivery O2 Flow Rate FiO2 08/13/17 12:50 93 21 08/13/17 08:26 92 08/13/17 08:06 98.1 89 17 119/72 (88) 90 08/13/17 07:00 Room Air 08/13/17 04:18 91 08/13/17 04:00 98.0 119 20 146/68 (94) 97 08/13/17 04:00 Room Air 08/13/17 00:05 97.5 90 20 124/64 (84) 98 08/13/17 00:00 Room Air 08/12/17 23:39 122 08/12/17 20:18 21 08/12/17 20:00 97.3 94 20 116/70 (85) 100 08/12/17 20:00 Room Air 08/12/17 19:42 109 08/12/17 16:00 97.5 93 18 130/69 (89) 97 08/12/17 16:00 102 (Marry Arrieta) Imaging Last Impressions Brain MRI 08/11/17 0000 Signed Impressions: CONCLUSION: 1. No acute abnormality seen. 2. Atrophy. Head CT 08/10/17 0000 Signed Impressions: CONCLUSION: 1. Moderate to prominent cerebral atrophy, out of proportion to patient's age. 2. No acute intracranial abnormality. Chest X-Ray 08/03/17 0000 Signed Impressions: CONCLUSION: 1. Cardiomegaly with vascular congestive changes and small to moderate right p leural effusion. 2. Bibasilar airspace disease. 3. Stable bilateral pleural nodules previously described. (Marry Arrieta) Physical Exam General Appearance: Well Developed, Comfortable, Malnourished (Marry Arrieta) Eyes Eye Exam: Pupils Equal, Pupils Reactive (Marry Arrieta) Throat Throat Exam: Oral Mucosa [place] & Moist (Marry Arrieta) Pulmonary Resp Exam: Clear Bilaterally, Breath Sounds Equal (Marry Arrieta) Cardiology CV Exam: Good Perfusion, Irregular, Tachycardia (Marry Arrieta) Gastrointestinal/Abdomen GI Exam: Soft, Non-Tender, Bowel Sounds Present (Marry Arrieta) Musculoskeletal MS Exam: Joints Intact, Good Strength, Atrophy (Marry Arrieta) Integumentary Skin Exam: Clear, Warm, Dry, Intact (Marry Arrieta) Extremeties Extremities Exam: No Edema, Pedal Pulses Palpable (Marry Arrieta) Neurologic Neuro Exam: Awake, Moving All Extremities (Marry Arrieta) Assessment/Plan Assessment Summary: Anemia of CKD, Hypertension, End Stage Renal Disease Problem List: (1) ESRD (end stage renal disease) on dialysis ICD Codes: N18.6 - ESRD (end stage renal disease) on dialysis; Z99.2 - Dependence on renal dialysis Status: Chronic Plan: We will continue HD TTS. Monitor electrolytes intermittently. Fluid removal as tolerated. High protein diet ordered, added protein supplements. Needs assistance with eating. 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 Hemodialysis yesterday with 2.5 L of fluid removed. Hemodialysis tomorrow (2) Dementia with behavioral disturbance ICD Codes: F03.91 - Unspecified dementia with behavioral disturbance Plan: Psychiatry has followed, currently on Namenda and Seroquel (dosage again increased). PRN Haldol stopped. Neurology has evaluated, CT head shows atrophy. Pending EEG and MRI May need inpatient psych admission. Restraints for safety as needed (3) Chronic anemia ICD Codes: D64.9 - Chronic anemia Status: Acute Plan: Epogen with dialysis (4) HTN (hypertension) ICD Codes: I10 - HTN (hypertension) Status: Chronic Plan: On Cardizem 120 mg BID and Amlodipine (5) A-fib ICD Codes: I48.91 - Unspecified atrial fibrillation Plan: Rate controlled, on PO Cardizem Echo shows EF 30-35% (Marry Arrieta) Problem List: (1) ESRD (end stage renal disease) on dialysis ICD Codes: N18.6 - ESRD (end stage renal disease) on dialysis; Z99.2 - Dependence on renal dialysis Status: Chronic Plan: We will continue HD TTS. Monitor electrolytes intermittently. Fluid removal as tolerated. High protein diet ordered, added protein supplements. Needs assistance with eating. 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 Hemodialysis yesterday with 2.5 L of fluid removed. Hemodialysis tomorrow. Patient seen and examined, agree with above. HD will be in AM. (2) Dementia with behavioral disturbance ICD Codes: F03.91 - Unspecified dementia with behavioral disturbance Plan: Psychiatry has followed, currently on Namenda and Seroquel (dosage again increased). PRN Haldol stopped. Neurology has evaluated, CT head shows atrophy. Pending EEG and MRI May need inpatient psych admission. Restraints for safety as needed (3) Chronic anemia ICD Codes: D64.9 - Chronic anemia Status: Acute Plan: Epogen with dialysis (4) HTN (hypertension) ICD Codes: I10 - HTN (hypertension) Status: Chronic Plan: On Cardizem 120 mg BID and Amlodipine (5) A-fib ICD Codes: I48.91 - Unspecified atrial fibrillation Plan: Rate controlled, on PO Cardizem Echo shows EF 30-35% (Najma Vilchis MD) Problem Qualifiers (1) Dementia with behavioral disturbance: Qualified Codes: F03.91 - Unspecified dementia with behavioral disturbance Marry Arrieta Aug 13, 2017 14:07 Najma Vilchis MD Aug 13, 2017 22:47
[2017-08-13 14:23] LABS: ANA PATTERN DIFFUSE
[2017-08-13] MEDS: ACETAMINOPHEN 325 MG TAB PO SCH ×2 (15:44→21:00)
[2017-08-13] MEDS: THIAMINE INJ 100 MG in SODIUM CHLORIDE 0.9% INJ 100 ML IV SCH (17:37)
[2017-08-13] MEDS: MELATONIN 5 MG TAB PO SCH (20:59)
[2017-08-14] VITALS (9 sets, daily range): BP systolic 93–137; BP diastolic 57–71; PULSE 81–118; RESP 11–18; TEMP 97–98.2; O2SAT 96–100
[2017-08-14] MEDS: HEPARIN SODIUM - SQ 10,000 UNITS/ML VIAL SQ SCH ×2 (02:33→13:00)
[2017-08-14] MEDS: SODIUM CHLORIDE 0.9% FLUSH 10 ML FLUSH IV FLUSH SCH ×2 (09:00→20:53)
[2017-08-14] MEDS: DILTIAZEM-CD 120 MG CAP ER PO SCH ×2 (09:00→20:52)
[2017-08-14] MEDS: EPOETIN ALFA 10,000 UNITS/ML VIAL IV PUSH PRN (09:06)
[2017-08-14] MEDS: GELATIN 12 MM/7 MM FOAM TOP PRN (09:06)
--- NOTE | 2017-08-14 09:44 | HHI.NPPN ---
Subjective General Problems: Anemia Renal Failure: Chronic, End Stage Renal Disease Additional Remarks Seen on dialysis, no acute complaints Review of Systems General General Remarks Unable to do ROS secondary to cognition Objective Data Data Vital Signs Date Time Temp Pulse Resp B/P (MAP) Pulse Ox O2 Delivery O2 Flow Rate FiO2 08/14/17 08:00 97.4 84 18 110/62 (78) 100 08/14/17 04:00 97.0 89 16 105/57 (73) 96 08/14/17 04:00 82 08/14/17 00:00 97.4 99 16 137/65 (89) 100 08/13/17 20:30 96 Room Air 08/13/17 20:30 97 08/13/17 19:50 97.6 105 16 128/78 (95) 96 08/13/17 16:04 97.5 99 17 145/75 (98) 97 08/13/17 16:00 93 08/13/17 12:50 93 21 08/13/17 12:03 97.5 94 16 118/58 (78) 99 08/13/17 12:00 91 Physical Exam General Appearance: Well Developed, Comfortable, Malnourished Eyes Eye Exam: Pupils Equal, Pupils Reactive Throat Throat Exam: Oral Mucosa [place] & Moist Pulmonary Resp Exam: Clear Bilaterally, Breath Sounds Equal Cardiology CV Exam: Good Perfusion, Irregular, Tachycardia Gastrointestinal/Abdomen GI Exam: Soft, Non-Tender, Bowel Sounds Present Musculoskeletal MS Exam: Joints Intact, Good Strength, Atrophy Integumentary Skin Exam: Clear, Warm, Dry, Intact Extremeties Extremities Exam: No Edema, Pedal Pulses Palpable Neurologic Neuro Exam: Awake, Moving All Extremities Assessment/Plan Assessment Summary: Anemia of CKD, Hypertension, End Stage Renal Disease Problem List: (1) ESRD (end stage renal disease) on dialysis ICD Codes: N18.6 - ESRD (end stage renal disease) on dialysis; Z99.2 - Dependence on renal dialysis Status: Chronic Plan: We will continue HD TTS. Monitor electrolytes intermittently. Fluid removal as tolerated. High protein diet ordered, added protein supplements. Needs assistance with eating. 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 Seen on HD today, tolerating HD. Continue TTS HD (2) Dementia with behavioral disturbance ICD Codes: F03.91 - Unspecified dementia with behavioral disturbance Plan: Psychiatry has followed, currently on Namenda and Seroquel (dosage again increased). PRN Haldol stopped. Neurology has evaluated, CT head shows atrophy. Restraints for safety as needed (3) Chronic anemia ICD Codes: D64.9 - Chronic anemia Status: Acute Plan: Epogen with dialysis (4) HTN (hypertension) ICD Codes: I10 - HTN (hypertension) Status: Chronic Plan: On Cardizem 120 mg BID and Amlodipine BP stable (5) A-fib ICD Codes: I48.91 - Unspecified atrial fibrillation Plan: Rate controlled, on PO Cardizem Echo shows EF 30-35% Problem Qualifiers (1) Dementia with behavioral disturbance: Qualified Codes: F03.91 - Unspecified dementia with behavioral disturbance Jose Roberto Hernandez MD Aug 14, 2017 09:44
--- NOTE | 2017-08-14 10:15 | HHI.PR ---
Subjective Remarks As per RN the patient still having periods of agitation on and off. Objective Vitals Vital Signs Date Time Temp Pulse Resp B/P (MAP) Pulse Ox O2 Delivery O2 Flow Rate FiO2 08/14/17 08:00 97.4 84 18 110/62 (78) 100 08/14/17 04:00 97.0 89 16 105/57 (73) 96 08/14/17 04:00 82 08/14/17 00:00 97.4 99 16 137/65 (89) 100 08/13/17 20:30 96 Room Air 08/13/17 20:30 97 08/13/17 19:50 97.6 105 16 128/78 (95) 96 08/13/17 16:04 97.5 99 17 145/75 (98) 97 08/13/17 16:00 93 08/13/17 12:50 93 21 08/13/17 12:03 97.5 94 16 118/58 (78) 99 08/13/17 12:00 91 I/O 08/13/17 08/13/17 08/13/17 08/14/17 08/14/17 08/14/17 07:00 15:00 23:00 07:00 15:00 23:00 Intake Total 240 ml 240 ml Balance 240 ml 240 ml Intake Oral 240 ml 240 ml # Voids 1 1 2 # Bowel Movements 3 Imaging Last Impressions Brain MRI 08/11/17 0000 Signed Impressions: CONCLUSION: 1. No acute abnormality seen. 2. Atrophy. Head CT 08/10/17 0000 Signed Impressions: CONCLUSION: 1. Moderate to prominent cerebral atrophy, out of proportion to patient's age. 2. No acute intracranial abnormality. Chest X-Ray 08/03/17 0000 Signed Impressions: CONCLUSION: 1. Cardiomegaly with vascular congestive changes and small to moderate right p leural effusion. 2. Bibasilar airspace disease. 3. Stable bilateral pleural nodules previously described. Objective Remarks GENERAL: This is a well-nourished, well-developed patient, in no apparent distress. CARDIOVASCULAR: Regular rate and rhythm without murmurs, gallops, or rubs. RESPIRATORY: Clear to auscultation. Breath sounds equal bilaterally. No wheezes , rales, or rhonchi. GASTROINTESTINAL: Abdomen soft, non-tender, nondistended. No hepato-splenomegaly , or palpable masses. No guarding. MUSCULOSKELETAL: Extremities without clubbing, cyanosis, or edema. No joint tenderness, effusion, or edema noted. No calf tenderness. Negative Homans sign bilaterally. NEUROLOGICAL: Awake and alert. Cranial nerves II through XII intact. Motor and sensory grossly within normal limits. Five out of 5 muscle strength in all muscle groups. Normal speech. A/P Problem List: (1) Atrial fibrillation with RVR ICD Code: I48.91 - Unspecified atrial fibrillation Status: Resolved (2) New onset atrial fibrillation ICD Code: I48.91 - Unspecified atrial fibrillation Status: Acute (3) ESRD (end stage renal disease) on dialysis ICD Code: N18.6 - ESRD (end stage renal disease) on dialysis; Z99.2 - Dependence on renal dialysis Status: Chronic (4) HLD (hyperlipidemia) ICD Code: E78.5 - HLD (hyperlipidemia) Status: Chronic (5) HTN (hypertension) ICD Code: I10 - HTN (hypertension) Status: Chronic (6) Dementia with behavioral disturbance ICD Code: F03.91 - Unspecified dementia with behavioral disturbance Status: Chronic (7) Unspecified psychosis ICD Code: F29 - Unspecified psychosis not due to a substance or known physiological condition Status: Chronic Assessment and Plan 62-year-old male admitted secondary to new onset Afib with RVR, psychosis and dementia, chronic end-stage renal disease on HD New onset A fib with RVR EKG reviewed with ER physician Patient received multiple labetalol IV bolus in the ED. Discontinue esmolol drip, cardiology signed off. Start on Cardizem p.o. Place on telemetry Consult cardiology 2D ECHO with ejection fraction of 35-40% Acute psychosis/ Severe Dementia. Continue neurochecks. Consult neurology Brain MRI normal The patient is requiring restraints Discussed with psychiatry for all the medications does not recommend anything else at this time. Discussed with palliative care. Will start melatonin and small dose Tylenol pain as might help. Patient history is not reliable. 08/14 the patient is currently on Seroquel 150 minutes p.o. twice daily. Continue melatonin small dose of Tylenol. Patient however still with episodes of agitation. Neurology consulted, MRI without acute finding. Patient has severe dementia. Appreciate palliative care recommendations. Neuropsychology consultation pending. ESRD on dialysis Consult nephrology. Continue HD per nephro recommendations Monitor renal function Hypertension Continue amlodipine 10 minutes p.o. daily, clonidine as needed. Follow blood pressures Adjust treatments as needed Hyperlipidemia Continue present treatment Follow as an outpatient Coronary artery disease [place] Continue home meds DVT prophylaxis SCD/TEDs, lovenox Records reviewed. Discharge Planning The patient still requiring restraints for on and off agitation. Problem Qualifiers (1) Dementia with behavioral disturbance: Qualified Codes: F03.91 - Unspecified dementia with behavioral disturbance Sylvain Matias MD Aug 14, 2017 10:15
[2017-08-14] MEDS: MEMANTINE HCL 10 MG TAB PO SCH ×2 (12:53→20:52)
[2017-08-14] MEDS: QUEtiapine FUMARATE 100 MG TAB PO SCH ×2 (12:53→20:52)
[2017-08-14] MEDS: ACETAMINOPHEN 325 MG TAB PO SCH ×2 (12:54→20:53)
[2017-08-14] MEDS: DOCUSATE SODIUM 50 MG/SENNA 8.6 MG TAB PO SCH ×2 (12:54→20:52)
[2017-08-14] MEDS: THIAMINE INJ 100 MG in SODIUM CHLORIDE 0.9% INJ 100 ML IV SCH (13:00)
[2017-08-14] MEDS: MELATONIN 5 MG TAB PO SCH (20:52)
[2017-08-15] VITALS (14 sets, daily range): BP systolic 108–154; BP diastolic 69–88; PULSE 86–102; RESP 18–20; TEMP 97.3–98.2; O2SAT 95–100
[2017-08-15] MEDS: DILTIAZEM-CD 120 MG CAP ER PO SCH ×2 (08:01→21:17)
[2017-08-15] MEDS: QUEtiapine FUMARATE 100 MG TAB PO SCH ×2 (08:01→21:17)
[2017-08-15] MEDS: DOCUSATE SODIUM 50 MG/SENNA 8.6 MG TAB PO SCH ×2 (08:01→21:17)
[2017-08-15] MEDS: MEMANTINE HCL 10 MG TAB PO SCH ×2 (08:01→21:17)
[2017-08-15] MEDS: ACETAMINOPHEN 325 MG TAB PO SCH ×2 (08:02→21:18)
[2017-08-15] MEDS: THIAMINE INJ 100 MG in SODIUM CHLORIDE 0.9% INJ 100 ML IV SCH (08:02)
[2017-08-15] MEDS: SODIUM CHLORIDE 0.9% FLUSH 10 ML FLUSH IV FLUSH SCH ×2 (08:02→21:00)
--- NOTE | 2017-08-15 09:18 | HHI.PR ---
Subjective Remarks Patient still agitated on and off. No events overnight. Objective Vitals Vital Signs Date Time Temp Pulse Resp B/P (MAP) Pulse Ox O2 Delivery O2 Flow Rate FiO2 08/15/17 04:00 98.2 98 18 123/79 (94) 97 08/15/17 03:55 94 08/15/17 00:05 95 08/15/17 00:00 97.9 102 18 154/69 (97) 96 08/15/17 00:00 Room Air 08/14/17 22:53 18 08/14/17 22:09 21 08/14/17 20:50 Room Air 08/14/17 20:00 98.2 100 16 103/71 (82) 97 08/14/17 20:00 103 08/14/17 16:00 97.6 88 18 129/71 (90) 100 08/14/17 15:54 100 08/14/17 15:26 21 08/14/17 12:51 98.1 95 11 93/61 (72) 98 08/14/17 11:48 118 I/O 08/14/17 08/14/17 08/14/17 08/15/17 08/15/17 08/15/17 07:00 15:00 23:00 07:00 15:00 23:00 Intake Total 240 ml Output Total 1500 ml Balance -1500 ml 240 ml Intake Oral 240 ml Hemodialysis 1500 ml # Voids 2 3 # Bowel Movements 3 1 Imaging Last Impressions Brain MRI 08/11/17 0000 Signed Impressions: CONCLUSION: 1. No acute abnormality seen. 2. Atrophy. Head CT 08/10/17 0000 Signed Impressions: CONCLUSION: 1. Moderate to prominent cerebral atrophy, out of proportion to patient's age. 2. No acute intracranial abnormality. Chest X-Ray 08/03/17 0000 Signed Impressions: CONCLUSION: 1. Cardiomegaly with vascular congestive changes and small to moderate right p leural effusion. 2. Bibasilar airspace disease. 3. Stable bilateral pleural nodules previously described. Objective Remarks GENERAL: This is a well-nourished, well-developed patient, in no apparent distress. CARDIOVASCULAR: Regular rate and rhythm without murmurs, gallops, or rubs. RESPIRATORY: Clear to auscultation. Breath sounds equal bilaterally. No wheezes , rales, or rhonchi. GASTROINTESTINAL: Abdomen soft, non-tender, nondistended. No hepato-splenomegaly , or palpable masses. No guarding. MUSCULOSKELETAL: Extremities without clubbing, cyanosis, or edema. No joint tenderness, effusion, or edema noted. No calf tenderness. Negative Homans sign bilaterally. NEUROLOGICAL: Awake and alert. Cranial nerves II through XII intact. Motor and sensory grossly within normal limits. Five out of 5 muscle strength in all muscle groups. Normal speech. A/P Problem List: (1) Atrial fibrillation with RVR ICD Code: I48.91 - Unspecified atrial fibrillation Status: Resolved (2) New onset atrial fibrillation ICD Code: I48.91 - Unspecified atrial fibrillation Status: Acute (3) ESRD (end stage renal disease) on dialysis ICD Code: N18.6 - ESRD (end stage renal disease) on dialysis; Z99.2 - Dependence on renal dialysis Status: Chronic (4) HLD (hyperlipidemia) ICD Code: E78.5 - HLD (hyperlipidemia) Status: Chronic (5) HTN (hypertension) ICD Code: I10 - HTN (hypertension) Status: Chronic (6) Dementia with behavioral disturbance ICD Code: F03.91 - Unspecified dementia with behavioral disturbance Status: Chronic (7) Unspecified psychosis ICD Code: F29 - Unspecified psychosis not due to a substance or known physiological condition Status: Chronic Assessment and Plan 62-year-old male admitted secondary to new onset Afib with RVR, psychosis and dementia, chronic end-stage renal disease on HD New onset A fib with RVR EKG reviewed with ER physician Patient received multiple labetalol IV bolus in the ED. Discontinue esmolol drip, cardiology signed off. Start on Cardizem p.o. Place on telemetry Consult cardiology 2D ECHO with ejection fraction of 35-40% Acute psychosis/ Severe Dementia. Consult psych . Restart meds per psychiatry recs. Increase Seroquel. Continue neurochecks. Consult neurology Brain MRI normal The patient is requiring restraints Discussed with psychiatry for all the medications does not recommend anything else at this time. Discussed with palliative care. Will start melatonin and small dose Tylenol pain as might help. Patient history is not reliable. ESRD on dialysis Consult nephrology. Continue HD per nephro recommendations Monitor renal function Hypertension Continue homemeds Follow blood pressures Adjust treatments as needed Hyperlipidemia Continue present treatment Follow as an outpatient Coronary artery disease [place] Continue home meds DVT prophylaxis SCD/TEDs, lovenox Records reviewed. Discussed Condition With pt, nurse, palliative care, Heart rate is better controlled now on p.o. Cardizem. Medically appears stable. Psychiatry evaluation, patient is with agitation and confusion. Might benefit from inpatient psychiatric admission ? Consult neurology. MRI no acute findings. Patient with severe dementia. Consult palliative care for goals of care, appreciate recommendations, ff. Consult neuropsychiatry Dr March Discussed with psychiatry for all the medications does not recommend anything else at this time. Discussed with palliative care. Will start melatonin and small dose Tylenol pain as might help. Patient history is not reliable. He is still agitated on/off and required restraints. Problem Qualifiers (1) Dementia with behavioral disturbance: Qualified Codes: F03.91 - Unspecified dementia with behavioral disturbance Mavis Black MD Aug 15, 2017 09:18
[2017-08-15] MEDS: MELATONIN 5 MG TAB PO SCH (21:17)
[2017-08-16] VITALS (8 sets, daily range): BP systolic 102–122; BP diastolic 62–86; PULSE 80–93; RESP 16–18; TEMP 97.1–98.1; O2SAT 94–100
--- NOTE | 2017-08-16 08:15 | HHI.PR ---
Neuropsych Behavior Behavior: Moderate: Impulsive/Agitated Cognitive Cognitive: Severe: Cognitive, Attention/Concentration, Confused/Orientation, Insight/Awareness, Judgement/Problem-Solving, Memory Psychosocial Psychosocial: Moderate: Psychosocial, Family/Other Adjustment, Realistic Expectation, Unable to Asses: Self-Esteem/Confidence Progress Notes/Response to Tx Contents of Sessions: Adjustment, Level of Consciousness Time with Patient: 30 minutes Premorbid psychological status Premorbid Cognitive, Emotional and Behavioral Status: Tenuous. The patient has high school years of education and minimal work history. The patient has no known psychiatric difficulties, as described above. Substance abuse history is unremarkable. Behavioral Reactions of Patient and Family/Support System: Deferred. The patients family is experiencing ongoing issues of adjustment given the nature of the injury, and this aspect of recovery will require ongoing monitoring. Emotional/Behavioral Status of Patient and Family/Support System: Deferred. Pertinent issues, if appropriate to this patients clinical care, are described in detail above. Maximizing acute care outcome The Agitated Behavior Scale has already been started, which will assist us in managing his behavior. Psychiatry is already following the patient and has him on Seroquel 150 BID. Unless medically contraindicated and okay with psychiatry , considering increasing this to TID, and consider starting Valproic Acid at 250 BID. Our goal is to get his agitation at or below an Agitated Behavior Scale score of 21. We have a long way to go. Also consider using the Michael Bed , which some patients find very comforting, which would allow him to be out of 4 points and feel somewhat less restricted. It goes without saying that at this point in the recovery process, the patient does not have cognitive capacity as the patient is unable to understand a situation and its likely consequences, nor is he able to manipulate information rationally. Cognitive capacity will be assessed throughout the recovery process. In all likelihood, he will not regain decision making capacity, but this will be a focus of my daily exams regardless. Anticipated Problems Ongoing areas of concern will include behavioral impulsivity, lack of insight and judgment, which is unlikely to improve with time or treatment. His agitation we will get under control. Presently, the patient is not following commands. Treatment Plan As I described above, the Agitated Behavior Scale has already been started, which will assist us in managing his behavior. Psychiatry is already following the patient and has him on Seroquel 150 BID. Unless medically contraindicated and okay with psychiatry, considering increasing this to TID, and consider starting Valproic Acid at 250 BID. Our goal is to get his agitation at or below an Agitated Behavior Scale score of 21. We have a long way to go. Also consider using the [place] Bed, which some patients find very comforting, which would allow him to be out of 4 points and feel somewhat less restricted. It goes without saying that at this point in the recovery process, the patient does not have cognitive capacity as the patient is unable to understand a situation and its likely consequences, nor is he able to manipulate information rationally. Cognitive capacity will be assessed throughout the recovery process. In all likelihood, he will not regain decision making capacity, but this will be a focus of my daily exams regardless. Disinhibition Score: 31.50 Aggression Score: 42.00 Lability Score: 32.62 Agitated Behavior Total Score: 33 Impression 62 year old male with long history of ESRD, psychosis and dementia, now on the unit since 08/03/2017. Patient exhibits significant agitation, hence the referral. Today's evaluation results reflect a delirium state superimposed on an underlying major neurocognitive disorder (previously referred to as dementia) . His ABS scores for today were 33 (31.5, 42, 32.6) which is consistent with moderate severity. Diagnosis: (1) Delirium due to medical condition with behavioral disturbance Status: Acute (2) Major neurocognitive disorder due to another medical condition with behavioral disturbance Status: Chronic Progress Note Narrative Day 13 of hospitalization. Please note that I had seen the patient on Wednesday, but due to a [email or web address] issue that is unable to be resolved, my initial report files under "Other Reports." This patient remains encephalopathic, not following commands and is agitated. His ABS is 33 (31.5, 42, 32.6). I provide some suggestions going forward, unless these suggestions are medically contraindicated. I will follow. Carlos Macrh PhD Aug 16, 2017 8:15 am
[2017-08-16] MEDS: SODIUM CHLORIDE 0.9% FLUSH 10 ML FLUSH IV FLUSH SCH ×2 (09:00→20:33)
[2017-08-16] MEDS: ACETAMINOPHEN 325 MG TAB PO SCH (09:45)
[2017-08-16] MEDS: QUEtiapine FUMARATE 100 MG TAB PO SCH ×2 (09:46→20:33)
[2017-08-16] MEDS: MEMANTINE HCL 10 MG TAB PO SCH ×2 (09:46→20:33)
[2017-08-16] MEDS: DOCUSATE SODIUM 50 MG/SENNA 8.6 MG TAB PO SCH ×2 (09:46→20:33)
[2017-08-16] MEDS: DILTIAZEM-CD 120 MG CAP ER PO SCH ×2 (09:47→20:33)
[2017-08-16 10:34] LABS: INTERNATIONAL NORMALIZED RATIO 1.1 RATIO
--- NOTE | 2017-08-16 11:12 | HHI.PR ---
Subjective Remarks Follow-up agitation. Patient still requiring restraints. He remains confused Objective Vitals Vital Signs Date Time Temp Pulse Resp B/P (MAP) Pulse Ox O2 Delivery O2 Flow Rate FiO2 08/16/17 10:08 95 21 08/16/17 08:06 97.4 91 17 122/85 (97) 98 08/16/17 08:00 Room Air 08/16/17 04:00 Room Air 08/16/17 04:00 81 08/16/17 04:00 98.1 80 18 105/62 (76) 94 08/16/17 00:00 97.8 80 16 107/74 (85) 96 08/15/17 23:55 86 08/15/17 22:22 18 08/15/17 21:20 Room Air 08/15/17 20:00 97.7 92 18 108/78 (88) 95 08/15/17 19:55 97 21 08/15/17 19:47 97 08/15/17 16:00 97.4 91 20 121/80 (94) 100 08/15/17 15:48 89 08/15/17 12:00 97.4 90 20 129/88 (102) 100 08/15/17 11:40 90 I/O 08/15/17 08/15/17 08/15/17 08/16/17 08/16/17 08/16/17 07:00 15:00 23:00 07:00 15:00 23:00 Intake Total 120 ml Balance 120 ml Intake Oral 120 ml # Voids 0 # Bowel Movements 2 1 Imaging Last Impressions Brain MRI 08/11/17 0000 Signed Impressions: CONCLUSION: 1. No acute abnormality seen. 2. Atrophy. Head CT 08/10/17 0000 Signed Impressions: CONCLUSION: 1. Moderate to prominent cerebral atrophy, out of proportion to patient's age. 2. No acute intracranial abnormality. Chest X-Ray 08/03/17 0000 Signed Impressions: CONCLUSION: 1. Cardiomegaly with vascular congestive changes and small to moderate right p leural effusion. 2. Bibasilar airspace disease. 3. Stable bilateral pleural nodules previously described. Objective Remarks GENERAL: This is a well-nourished, well-developed patient, in no apparent distress. CARDIOVASCULAR: Regular rate and rhythm without murmurs, gallops, or rubs. RESPIRATORY: Clear to auscultation. Breath sounds equal bilaterally. No wheezes , rales, or rhonchi. GASTROINTESTINAL: Abdomen soft, non-tender, nondistended. No guarding. MUSCULOSKELETAL: Extremities without clubbing, cyanosis, or edema. No joint tenderness, effusion, or edema noted. No calf tenderness. Negative Homans sign bilaterally. NEUROLOGICAL: Awake and alert. Cranial nerves II through XII intact. Motor and sensory grossly within normal limits. Five out of 5 muscle strength in all muscle groups. Normal speech. Confused intermittently following commands on four-point restraints A/P Problem List: (1) Atrial fibrillation with RVR ICD Code: I48.91 - Unspecified atrial fibrillation Status: Resolved (2) New onset atrial fibrillation ICD Code: I48.91 - Unspecified atrial fibrillation Status: Acute (3) ESRD (end stage renal disease) on dialysis ICD Code: N18.6 - ESRD (end stage renal disease) on dialysis; Z99.2 - Dependence on renal dialysis Status: Chronic (4) HLD (hyperlipidemia) ICD Code: E78.5 - HLD (hyperlipidemia) Status: Chronic (5) HTN (hypertension) ICD Code: I10 - HTN (hypertension) Status: Chronic (6) Dementia with behavioral disturbance ICD Code: F03.91 - Unspecified dementia with behavioral disturbance Status: Chronic (7) Unspecified psychosis ICD Code: F29 - Unspecified psychosis not due to a substance or known physiological condition Status: Chronic Assessment and Plan 62-year-old male admitted secondary to new onset Afib with RVR, psychosis and dementia, chronic end-stage renal disease on HD New onset A fib with RVR EKG reviewed with ER physician Patient received multiple labetalol IV bolus in the ED. Discontinue esmolol drip, cardiology signed off. Ct Cardizem p.o. Place on telemetry 2D ECHO with ejection fraction of 35-40% Acute psychosis/ Severe Dementia. Consult psych . Restart meds per psychiatry recs. Increase Seroquel. Continue neurochecks. Consult neurology Brain MRI normal The patient is requiring restraints Discussed with psychiatry, does not recommend anything else at this time. Discussed with palliative care. Ct melatonin and small dose Tylenol pain as might help. Patient history is not reliable. For LP. Continue IV thiamine check urinalysis. EEG with no seizure activity ESRD on dialysis Consult nephrology. Continue HD per nephro recommendations Monitor renal function Hypertension Continue homemeds Follow blood pressures Adjust treatments as needed Hyperlipidemia Continue present treatment Follow as an outpatient Coronary artery disease [place] Continue home meds DVT prophylaxis SCD/TEDs, subcu heparin discontinued for LP Problem Qualifiers (1) Dementia with behavioral disturbance: Qualified Codes: F03.91 - Unspecified dementia with behavioral disturbance Zen Dougherty MD Aug 16, 2017 11:12
--- NOTE | 2017-08-16 16:34 | HHI.NPPN ---
Subjective General Problems: Anemia Renal Failure: Chronic, End Stage Renal Disease Additional Remarks No complaints, in 4 point soft limb restraints. (Marry Arrieta) Review of Systems General General Remarks Unable to do ROS secondary to cognition (Marry Arrieta) Objective Data Data Vital Signs Date Time Temp Pulse Resp B/P (MAP) Pulse Ox O2 Delivery O2 Flow Rate FiO2 08/16/17 12:06 97.8 93 17 102/71 (81) 98 08/16/17 10:45 18 08/16/17 10:08 95 21 08/16/17 08:06 97.4 91 17 122/85 (97) 98 08/16/17 08:00 Room Air 08/16/17 04:00 Room Air 08/16/17 04:00 81 08/16/17 04:00 98.1 80 18 105/62 (76) 94 08/16/17 00:00 97.8 80 16 107/74 (85) 96 08/15/17 23:55 86 08/15/17 21:20 Room Air 08/15/17 20:00 97.7 92 18 108/78 (88) 95 08/15/17 19:55 97 21 08/15/17 19:47 97 (Marry Arrieta) Physical Exam General Appearance: Well Developed, Comfortable, Malnourished (Marry Arrieta) Eyes Eye Exam: Pupils Equal, Pupils Reactive (Marry Arrieta) Throat Throat Exam: Oral Mucosa Petronila & Moist (Marry Arrieta) Pulmonary Resp Exam: Clear Bilaterally, Breath Sounds Equal (Marry Arrieta) Cardiology CV Exam: Good Perfusion, Irregular, Tachycardia (Marry Arrieta) Gastrointestinal/Abdomen GI Exam: Soft, Non-Tender, Bowel Sounds Present (Marry Arrieta) Musculoskeletal MS Exam: Joints Intact, Good Strength, Atrophy (Marry Arrieta) Integumentary Skin Exam: Clear, Warm, Dry, Intact (Marry Arrieta) Extremeties Extremities Exam: No Edema, Pedal Pulses Palpable (Marry Arrieta) Neurologic Neuro Exam: Awake, Moving All Extremities (Marry Arrieta) Assessment/Plan Assessment Summary: Anemia of CKD, Hypertension, End Stage Renal Disease Problem List: (1) ESRD (end stage renal disease) on dialysis ICD Codes: N18.6 - ESRD (end stage renal disease) on dialysis; Z99.2 - Dependence on renal dialysis Status: Chronic Plan: Hemodialysis on TTS. Monitor electrolytes intermittently. Fluid removal as tolerated. High protein diet ordered, added protein supplements. Needs assistance with eating. 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 Hemodialysis tomorrow will order labs (2) Dementia with behavioral disturbance ICD Codes: F03.91 - Unspecified dementia with behavioral disturbance Status: Chronic Plan: Psychiatry has followed, currently on Namenda and Seroquel (dosage again increased). PRN Haldol stopped. Neurology has evaluated, CT head shows atrophy. Restraints for safety as needed (3) Chronic anemia ICD Codes: D64.9 - Chronic anemia Status: Acute Plan: Epogen with dialysis (4) HTN (hypertension) ICD Codes: I10 - HTN (hypertension) Status: Chronic Plan: On Cardizem 120 mg BID and Amlodipine BP stable (5) A-fib ICD Codes: I48.91 - Unspecified atrial fibrillation Plan: Rate controlled, on PO Cardizem Echo shows EF 30-35% (Marry Arrieta) Problem List: (1) ESRD (end stage renal disease) on dialysis ICD Codes: N18.6 - ESRD (end stage renal disease) on dialysis; Z99.2 - Dependence on renal dialysis Status: Chronic Plan: Hemodialysis on TTS. Monitor electrolytes intermittently. Fluid removal as tolerated. High protein diet ordered, added protein supplements. Needs assistance with eating. 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 Hemodialysis tomorrow will order labs. Continue HD TTS. (2) Dementia with behavioral disturbance ICD Codes: F03.91 - Unspecified dementia with behavioral disturbance Status: Chronic Plan: Psychiatry has followed, currently on Namenda and Seroquel (dosage again increased). PRN Haldol stopped. Neurology has evaluated, CT head shows atrophy. Restraints for safety as needed (3) Chronic anemia ICD Codes: D64.9 - Chronic anemia Status: Acute Plan: Epogen with dialysis (4) HTN (hypertension) ICD Codes: I10 - HTN (hypertension) Status: Chronic Plan: On Cardizem 120 mg BID and Amlodipine BP stable (5) A-fib ICD Codes: I48.91 - Unspecified atrial fibrillation Plan: Rate controlled, on PO Cardizem Echo shows EF 30-35% (Najma Vilchis MD) Problem Qualifiers (1) Dementia with behavioral disturbance: Qualified Codes: F03.91 - Unspecified dementia with behavioral disturbance Marry Arrieta Aug 16, 2017 16:34 Najma Vilchis MD Aug 16, 2017 22:36
[2017-08-16] MEDS: THIAMINE INJ 100 MG in SODIUM CHLORIDE 0.9% INJ 100 ML IV SCH (18:27)
[2017-08-16] MEDS: MELATONIN 5 MG TAB PO SCH (20:33)
[2017-08-17] VITALS (14 sets, daily range): BP systolic 95–136; BP diastolic 62–80; PULSE 79–138; RESP 12–18; TEMP 96.5–97.6; O2SAT 97–100
[2017-08-17 06:56] LABS: ALBUMIN 3.2 GM/DL (3.4-5.0); BICARBONATE 24.6 MEQ/L (21.0-32.0); CALCIUM 9.7 MG/DL (8.5-10.1)
[2017-08-17 07:03] LABS: PHOSPHORUS 8.3 MG/DL (2.5-4.9)
[2017-08-17 07:07] LABS: AUTOMATED NEUTROPHIL # 4.5 TH/MM3 (1.8-7.7); BASOPHIL # 0.1 TH/MM3 (0-0.2); EOSINOPHIL # 0.4 TH/MM3 (0-0.4); EOSINOPHIL % 5.3 % (0.0-4.0); HEMATOCRIT 36.8 % (39.0-51.0); HEMOGLOBIN 11.8 GM/DL (13.0-17.0); LYMPH % 16.7 % (9.0-44.0); LYMPHOCYTE # 1.1 TH/MM3 (1.0-4.8); MEAN CELL VOLUME 88.6 FL (80.0-100.0); MEAN CORPUSCULAR HEMOGLOBIN 28.5 PG (27.0-34.0); MEAN CORPUSCULAR HGB CONC 32.1 % (32.0-36.0); MEAN PLATELET VOLUME 8.6 FL (7.0-11.0); MONO % 9.1 % (0.0-8.0); MONOCYTE # 0.6 TH/MM3 (0-0.9); NEUT % 67.9 % (16.0-70.0); PLATELET COUNT 197 TH/MM3 (150-450); RED BLOOD COUNT 4.16 MIL/MM3 (4.50-5.90); RED CELL DISTRIBUTION WIDTH 15.7 % (11.6-17.2); WHITE BLOOD COUNT 6.6 TH/MM3 (4.0-11.0)
[2017-08-17 07:08] LABS: CREATININE 14.81 MG/DL (0.60-1.30)
--- NOTE | 2017-08-17 07:31 | HHI.PR ---
Subjective Remarks Follow-up agitation. Remains confused discussed with nursing no agitation overnight tries to get out of bed remains on restraints. Left message with next of kin Dilip. Patient has a pending lumbar puncture Objective Vitals Vital Signs Date Time Temp Pulse Resp B/P (MAP) Pulse Ox O2 Delivery O2 Flow Rate FiO2 08/17/17 04:06 96.5 87 17 120/80 (93) 98 08/17/17 04:00 Room Air 08/17/17 04:00 102 08/17/17 00:08 97.1 91 17 124/79 (94) 99 08/17/17 00:00 91 08/17/17 00:00 Room Air 08/16/17 20:07 97.1 93 16 121/86 (98) 98 08/16/17 20:00 93 08/16/17 20:00 Room Air 08/16/17 16:06 97.9 90 18 113/78 (90) 100 08/16/17 12:06 97.8 93 17 102/71 (81) 98 08/16/17 10:45 18 08/16/17 10:08 95 21 08/16/17 08:06 97.4 91 17 122/85 (97) 98 08/16/17 08:00 Room Air I/O 08/16/17 08/16/17 08/16/17 08/17/17 08/17/17 08/17/17 07:00 15:00 23:00 07:00 15:00 23:00 Intake Total 480 ml 240 ml Output Total 0 ml Balance 480 ml 240 ml Intake Oral 480 ml 240 ml Stool Total 0 ml # Voids 0 0 1 # Bowel Movements 1 0 Result Diagram: 08/17/17 0606 08/17/17 0606 Imaging Last Impressions Brain MRI 08/11/17 0000 Signed Impressions: CONCLUSION: 1. No acute abnormality seen. 2. Atrophy. Head CT 08/10/17 0000 Signed Impressions: CONCLUSION: 1. Moderate to prominent cerebral atrophy, out of proportion to patient's age. 2. No acute intracranial abnormality. Chest X-Ray 08/03/17 0000 Signed Impressions: CONCLUSION: 1. Cardiomegaly with vascular congestive changes and small to moderate right p leural effusion. 2. Bibasilar airspace disease. 3. Stable bilateral pleural nodules previously described. Objective Remarks GENERAL: This is a well-nourished, well-developed patient, in no apparent distress. CARDIOVASCULAR: Regular rate and rhythm without murmurs, gallops, or rubs. RESPIRATORY: Clear to auscultation. Breath sounds equal bilaterally. No wheezes , rales, or rhonchi. GASTROINTESTINAL: Abdomen soft, non-tender, nondistended. No guarding. MUSCULOSKELETAL: Extremities without clubbing, cyanosis, or edema. No joint tenderness, effusion, or edema noted. No calf tenderness. Negative Homans sign bilaterally. NEUROLOGICAL: Awake and alert. Cranial nerves II through XII intact. Motor and sensory grossly within normal limits. Five out of 5 muscle strength in all muscle groups. Normal speech. Confused intermittently following commands on four-point restraints A/P Problem List: (1) Atrial fibrillation with RVR ICD Code: I48.91 - Unspecified atrial fibrillation Status: Resolved (2) New onset atrial fibrillation ICD Code: I48.91 - Unspecified atrial fibrillation Status: Acute (3) ESRD (end stage renal disease) on dialysis ICD Code: N18.6 - ESRD (end stage renal disease) on dialysis; Z99.2 - Dependence on renal dialysis Status: Chronic (4) HLD (hyperlipidemia) ICD Code: E78.5 - HLD (hyperlipidemia) Status: Chronic (5) HTN (hypertension) ICD Code: I10 - HTN (hypertension) Status: Chronic (6) Dementia with behavioral disturbance ICD Code: F03.91 - Unspecified dementia with behavioral disturbance Status: Chronic (7) Unspecified psychosis ICD Code: F29 - Unspecified psychosis not due to a substance or known physiological condition Status: Chronic Assessment and Plan 62-year-old male admitted secondary to new onset Afib with RVR, psychosis and dementia, chronic end-stage renal disease on HD New onset A fib with RVR EKG reviewed with ER physician Patient received multiple labetalol IV bolus in the ED. Discontinue esmolol drip, cardiology signed off. Ct Cardizem p.o. Place on telemetry 2D ECHO with ejection fraction of 35-40% Acute psychosis/ Severe Dementia. Consult psych . Restart meds per psychiatry recs. Increased Seroquel. Continue neurochecks. Consult neurology Brain MRI normal The patient is requiring restraints. Discussed with nursing discontinue restraints if patient not agitated. Fall precautions Discussed with psychiatry, does not recommend anything else at this time. Discussed with palliative care. Ct melatonin and small dose Tylenol pain as might help. Patient history is not reliable. For LP. Continue IV thiamine check urinalysis, patient not voiding check bladder scan may need straight catheterization. EEG with no seizure activity ESRD on dialysis Consult nephrology. Continue HD per nephro recommendations Monitor renal function. Creatinine bumped to 14 will alert nephrology check CK may have developed rhabdomyolysis from agitation Hypertension Continue home meds Follow blood pressures Adjust treatments as needed Hyperlipidemia Continue present treatment Follow as an outpatient Coronary artery disease [place] Continue home meds DVT prophylaxis SCD/TEDs, subcu heparin discontinued for LP Problem Qualifiers (1) Dementia with behavioral disturbance: Qualified Codes: F03.91 - Unspecified dementia with behavioral disturbance Zen Dougherty MD Aug 17, 2017 07:31
[2017-08-17] MEDS ORDERED: LORazepam 2 MG/ML VIAL IV PUSH SCH (08:00)
[2017-08-17] MEDS: MEMANTINE HCL 10 MG TAB PO SCH ×2 (08:30→20:26)
[2017-08-17] MEDS: QUEtiapine FUMARATE 100 MG TAB PO SCH ×2 (08:30→20:27)
[2017-08-17] MEDS: DOCUSATE SODIUM 50 MG/SENNA 8.6 MG TAB PO SCH ×2 (08:30→20:26)
[2017-08-17] MEDS: DILTIAZEM-CD 120 MG CAP ER PO SCH ×2 (08:30→20:26)
[2017-08-17] MEDS: SODIUM CHLORIDE 0.9% FLUSH 10 ML FLUSH IV FLUSH SCH ×2 (08:31→20:27)
[2017-08-17] MEDS ORDERED: MIDAZOLAM HCL 2 MG/2 ML VIAL ONE (09:50)
[2017-08-17] MEDS ORDERED: FLUMAZENIL 0.5 MG/5 ML VIAL ONE (10:35)
[2017-08-17 10:52] LABS: TOTAL PROTEIN,CSF 54.1 MG/DL (15.0-45.0)
[2017-08-17 11:31] LABS: SUPERNATE COLOR TUBE #1 CLEAR (CLEAR); VOLUME TUBE # 1 2.8 ML
[2017-08-17 11:32] LABS: CSF LYMPHOCYTES 0 %; CSF NEUTROPHILS 0 %
[2017-08-17 11:34] LABS: WBC TUBE #1 0 /MM3 (0-10); WBC TUBE #4 0 /MM3 (0-10)
[2017-08-17 11:35] LABS: RBC TUBE #1 0 /MM3; RBC TUBE #4 0 /MM3
--- NOTE | 2017-08-17 14:39 | HHI.HCPN ---
Reason for visit a. To assist with evaluation and management of symptoms including: Altered mental status b. To assist medical decision maker(s) with: better understanding of current medical conditions; weighing benefits/burdens of medical treatment options; making medical treatment decisions. Subjective/Interval History Follow-up medically necessary for symptom management. Patient seen and examined in his room. Patient is sleeping, arouses briefly, calm and goes back to sleep. Patient does not appear to be in pain, or any form of distress or discomfort. Patient remains in 4 point soft restraints. Remains afebrile and vital signs stable. Neuropsychology Dr. March consulted on 08/13/17 for evaluation and management of agitation in a demented patient, recommended increasing Seroquel dosage and frequency per day and starting patient on valproic acid. Laboratory workup today revealing WBC 6.6, hemoglobin 11.8, hematocrit 36.8, platelet count 197, sodium 137, potassium 3.9, BUN/creatinine 73/14.81, calcium 9.7, phosphorus 8.3, total creatinine kinase 59 and albumin 3.2. Patient underwent lumbar puncture by interventional radiology today. Physical therapy following, recommending PT and rehab though patient continues to have difficulty with mobility and gait due to cognitive issues and weakness. Brief telephone conversation with patient`s sister Dilip. She mentioned that she spoke to the medical doctor when she was her today visiting with patient and she is "o.k with everything". Asked if she had any questions regarding her brother`s condition and she verbalized no. Goals remain aggressive. Case discussed with bedside RN. Family/friend interactions No family at bedside. Brief telephone conversation with patient`s sister Dilip. She mentioned that she spoke to the medical doctor when she was her today visiting with patient and she is "o.k with everything". Asked if she had any questions regarding her brother`s condition and she verbalized no. Goals remain aggressive. . Advance Directives Living Will: Never completed Health Care Surrogate: Copy in medical record Durable Power of Head Pumper: Copy in medical record Advance Directive Specifics Date completed: DPOA-signed 06/22/2013 -No longer valid- Patient updated Health Care Power of Head Pumper Appointment of Health Care Agent and Proxy and Unlimited Power of Head Pumper signed on 02/06/2015 . Health Care Surrogate(s): Healthcare Power of Head Pumper-- Dilip Vasques [phone]/ . Objective Vital Signs Date Time Temp Pulse Resp B/P (MAP) Pulse Ox O2 Delivery O2 Flow Rate FiO2 08/17/17 12:00 88 08/17/17 11:46 79 16 111/74 (86) 98 08/17/17 11:00 80 16 103/66 (78) 98 08/17/17 10:40 Nasal Cannula 3.00 08/17/17 10:30 82 12 95/62 (73) 99 08/17/17 10:25 97.6 84 16 97/65 (76) 97 08/17/17 08:06 97.2 94 18 136/69 (91) 100 08/17/17 08:00 Room Air 21 08/17/17 08:00 98 08/17/17 04:06 96.5 87 17 120/80 (93) 98 08/17/17 04:00 Room Air 08/17/17 04:00 102 08/17/17 00:08 97.1 91 17 124/79 (94) 99 08/17/17 00:00 91 08/17/17 00:00 Room Air 08/16/17 20:07 97.1 93 16 121/86 (98) 98 08/16/17 20:00 93 08/16/17 20:00 Room Air 08/16/17 16:06 97.9 90 18 113/78 (90) 100 Intake & Output 08/17/17 08/17/17 07:00 19:00 Intake Total 240 ml Output Total 0 ml Balance 240 ml Intake Oral 240 ml Stool Total 0 ml # Voids 1 Physical Exam CONSTITUTIONAL/GENERAL: This is an adequately nourished patient. Patient in 4 point restraints, currently sleeping, calm. TUBES/LINES/DRAINS: SCDs SKIN: No jaundice, rashes, or lesions. No wounds seen anteriorly. Normothermic HEAD: Atraumatic. Normocephalic. EYES: PERRLA. No scleral icterus. Fundi not examined. ENT: No bleeding or drainage noted to bilateral nares. CARDIOVASCULAR: Irregular rhythm, no murmur. No JVD. Peripheral pulses symmetric. RESPIRATORY/CHEST: Symmetric, unlabored respirations. Clear to auscultation. No rhonchi or wheeze GASTROINTESTINAL: Abdomen soft, non-tender, nondistended. No guarding. Bowel sounds present. MUSCULOSKELETAL: Extremities without clubbing, cyanosis, or edema. No joint tenderness or effusion noted. 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 NEUROLOGICAL: Awake and alert, oriented to self only and confused. Moves all extremities spontaneously and intermittently to command. PSYCHIATRIC: No obvious depression. Currently sleeping and calm . Diagnostic Tests Laboratory Laboratory Tests Test 08/16/17 10:04 08/17/17 06:06 08/17/17 10:08 Prothrombin Time 11.0 SEC (9.8-11.6) Prothromb Time International Ratio 1.1 RATIO Activated Partial Thromboplast Time 30.4 SEC (24.3-30.1) White Blood Count 6.6 TH/MM3 (4.0-11.0) Red Blood Count 4.16 MIL/MM3 (4.50-5.90) Hemoglobin 11.8 GM/DL (13.0-17.0) Hematocrit 36.8 % (39.0-51.0) Mean Corpuscular Volume 88.6 FL (80.0-100.0) Mean Corpuscular Hemoglobin 28.5 PG (27.0-34.0) Mean Corpuscular Hemoglobin Concent 32.1 % (32.0-36.0) Red Cell Distribution Width 15.7 % (11.6-17.2) Platelet Count 197 TH/MM3 (150-450) Mean Platelet Volume 8.6 FL (7.0-11.0) Neutrophils (%) (Auto) 67.9 % (16.0-70.0) Lymphocytes (%) (Auto) 16.7 % (9.0-44.0) Monocytes (%) (Auto) 9.1 % (0.0-8.0) Eosinophils (%) (Auto) 5.3 % (0.0-4.0) Basophils (%) (Auto) 1.0 % (0.0-2.0) Neutrophils # (Auto) 4.5 TH/MM3 (1.8-7.7) Lymphocytes # (Auto) 1.1 TH/MM3 (1.0-4.8) Monocytes # (Auto) 0.6 TH/MM3 (0-0.9) Eosinophils # (Auto) 0.4 TH/MM3 (0-0.4) Basophils # (Auto) 0.1 TH/MM3 (0-0.2) CBC Comment DIFF FINAL Differential Comment Blood Urea Nitrogen 73 MG/DL (7-18) Creatinine 14.81 MG/DL (0.60-1.30) Random Glucose 79 MG/DL (74-106) Albumin 3.2 GM/DL (3.4-5.0) Calcium Level 9.7 MG/DL (8.5-10.1) Phosphorus Level 8.3 MG/DL (2.5-4.9) Sodium Level 137 MEQ/L (136-145) Potassium Level 3.9 MEQ/L (3.5-5.1) Chloride Level 97 MEQ/L (98-107) Carbon Dioxide Level 24.6 MEQ/L (21.0-32.0) Anion Gap 15 MEQ/L (5-15) Estimat Glomerular Filtration Rate 4 ML/MIN (>89) Total Creatine Kinase 59 U/L (39-308) CSF Volume (Tube 1) 2.8 ML CSF Supernatant Color (tube 1) CLEAR (CLEAR) CSF Gross Blood (Tube 1) 0 (0) CSF WBC (Tube 1) 0 /MM3 (0-10) CSF RBC (Tube 1) 0 /MM3 (NONE) CSF Volume (Tube 2) 3.5 ML CSF Supernatant Color (tube 2) CLEAR (CLEAR) CSF Gross Blood (Tube 2) 0 (0) CSF Volume (Tube 3) 2.9 ML CSF Supernatant Color (tube 3) CLEAR (CLEAR) CSF Gross Blood (Tube 3) 0 (0) CSF Volume (Tube 4) 3.2 ML CSF Supernatant Color (tube 4) CLEAR (CLEAR) CSF Gross Blood (Tube 4) 0 (0) CSF WBC (Tube 4) 0 /MM3 (0-10) CSF RBC (Tube 4) 0 /MM3 (NONE) CSF Neutrophils 0 % CSF Lymphocytes 0 % Result Diagram: 08/17/17 0606 08/17/17 0606 Microbiology Microbiology Date/Time Source Procedure Growth Status 08/17/17 10:08 Cerebral Spinal Fluid Lumbar Puncture Gram Stain - Final Resulted 08/17/17 10:08 Cerebral Spinal Fluid Lumbar Puncture CSF Culture Pending Resulted Imaging Last Impressions Brain MRI 08/11/17 0000 Signed Impressions: CONCLUSION: 1. No acute abnormality seen. 2. Atrophy. Head CT 08/10/17 0000 Signed Impressions: CONCLUSION: 1. Moderate to prominent cerebral atrophy, out of proportion to patient's age. 2. No acute intracranial abnormality. Chest X-Ray 08/03/17 0000 Signed Impressions: CONCLUSION: 1. Cardiomegaly with vascular congestive changes and small to moderate right p leural effusion. 2. Bibasilar airspace disease. 3. Stable bilateral pleural nodules previously described. Procedures 08/17/2017-lumbar puncture by interventional radiology . Assessment and Plan Disease Oriented Problem List: (1) HLD (hyperlipidemia) (2) HTN (hypertension) (3) ESRD (end stage renal disease) on dialysis (4) New onset atrial fibrillation (5) Chronic anemia (6) Dementia with behavioral disturbance Symptom Scale: (1) Altered mental status 0-10 Scale: Unable to quantify Comment: History of dementia and end-stage renal disease . (2) At risk for pain 0-10 Scale: Unable to quantify Pertinent Non-Medical Issues Psychosocial:Patient was born and raised in [place], [place]. He was once and . Patient has 4 adult children, 3 sons and 1 daughter. 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 Patient does not have any background. Spiritual:Patient is [employer]ism-declined human resources benefits assistant visit. Patient`s brother is a [employer] Weaver Legal: DPOA on EMR (2014) Ethical issues impacting care: None identified at this time . Important Contacts [facility] Fhyipl-[phone]/[phone] other [facility]- Tiffany Vasques- [phone] (Dilip currently living with her daughter Tiffany Vasques- call daughter to get in touch with Dilip Vasques) Daughter- Jennifer [phone] Son-Jennifer, Paresh Dove Son- Jennifer, Chandrakant Son-Jennifer, Ez . Prognosis Mr Rodriguez is a 62 years old patient with a past medical history significant for ESRD on hemodialysis, anemia, dementia, hypertension, hyperlipidemia, coronary artery disease and old myocardial infarction. Patient was brought to the ER on 08/03/17 from a hemodialysis center after he was noted to have altered mentation during dialysis with aggressive behavior, attempting to decannulate his dialysis catheter. Clinical course complicated with new onset A. fib with RVR, and altered mental status. Patient has multiple ongoing comorbidities which increase his risk for further complications, deterioration and decline. . Code Status: Full Code Plan PLAN: Legal decision maker: Patient has dementia with behavioral disturbances and is not able to participate in medical decision making. and will most likely not regain capacity to participate in medical decision making. Patient`s sister Dilip Vasques who will serve as his Healthcare Power of Head Pumper. Goals: Goals remain aggressive. CODE STATUS: Full Code Brief telephone conversation with patient`s sister Dilip. She mentioned that she spoke to the medical doctor when she was her today visiting with patient and she is "o.k with everything". Asked if she had any questions regarding her brother`s condition and she verbalized no. Goals remain aggressive. SYMPTOMS: * Altered mental status: Patient he has history of dementia with behavioral disturbances and end-stage renal disease on hemodialysis. Patient came in with altered mentation. Patient was evaluated by psychiatry and patient was started on Seroquel twice daily. Haldol prn available. Patient is on Memantine 10mg BID. Pt is s/p lumbar puncture. He was started on melatonin on 08/13/17. Remains in 4 point soft restraints to all 4 extremities with on and off agitation. Neuropsychology recommended starting patient on valproic acid- Valproic acid has also been known to help control agitation in patients with dementia . * At risk for pain: Patient is confused and may not be able to verbalize his needs. He is mostly in restraints and mostly bedbound. Being in pain can also contribute to patient`s agitation. Tylenol prn available. Continue to monitor for signs and symptoms of pain. Palliative care will continue to follow the patient during hospital course as condition evolves, to assist patient/decision-maker with understanding of their medical conditions, weighing benefits/burdens of treatment options, for clarification of goals of treatment. Additionally will assist with any symptoms of palliative concern Attestation To help prompt me to consider important information that might be impacting today's encounter and assessment, information from prior notes written by myself or my colleagues may have been "brought forward" into today's note. My signature on this note, however, is an attestation that I personally performed the exam, history, and/or decision-making noted today, and, unless otherwise indicated, the interactions with patient, family, and staff as well as the review of records all occurred today. I also attest that the listed assessment and stated plan reflect my best clinical judgment today based on the combination of historical information, prior notes, and today's exam/ interactions. When time spent is documented, it refers only to time spent today by the signer, or if indicated, combined time spent today by collaborating physician/nurse practitioner. Siva Abarca Aug 17, 2017 14:39
--- NOTE | 2017-08-17 15:28 | HHI.NPPN ---
Subjective General Problems: Anemia Renal Failure: Chronic, End Stage Renal Disease Additional Remarks Sedated s/p lumbar puncture. Seen during hemodialysis (Marry Arrieta) Review of Systems General General Remarks Unable to do ROS secondary to cognition (Marry Arrieta) Objective Data Data Vital Signs Date Time Temp Pulse Resp B/P (MAP) Pulse Ox O2 Delivery O2 Flow Rate FiO2 08/17/17 12:00 88 08/17/17 11:46 79 16 111/74 (86) 98 08/17/17 11:00 80 16 103/66 (78) 98 08/17/17 10:40 Nasal Cannula 3.00 08/17/17 10:30 82 12 95/62 (73) 99 08/17/17 10:25 97.6 84 16 97/65 (76) 97 08/17/17 08:06 97.2 94 18 136/69 (91) 100 08/17/17 08:00 Room Air 21 08/17/17 08:00 98 08/17/17 04:06 96.5 87 17 120/80 (93) 98 08/17/17 04:00 Room Air 08/17/17 04:00 102 08/17/17 00:08 97.1 91 17 124/79 (94) 99 08/17/17 00:00 91 08/17/17 00:00 Room Air 08/16/17 20:07 97.1 93 16 121/86 (98) 98 08/16/17 20:00 93 08/16/17 20:00 Room Air 08/16/17 16:06 97.9 90 18 113/78 (90) 100 (Marry Arrieta) -: 08/17/17 0606 08/17/17 0606 Microbiology 08/17/17 Gram Stain - Final, Resulted 08/17/17 CSF Culture, Resulted Pending Imaging Last Impressions Brain MRI 08/11/17 0000 Signed Impressions: CONCLUSION: 1. No acute abnormality seen. 2. Atrophy. Head CT 08/10/17 0000 Signed Impressions: CONCLUSION: 1. Moderate to prominent cerebral atrophy, out of proportion to patient's age. 2. No acute intracranial abnormality. Chest X-Ray 08/03/17 0000 Signed Impressions: CONCLUSION: 1. Cardiomegaly with vascular congestive changes and small to moderate right p leural effusion. 2. Bibasilar airspace disease. 3. Stable bilateral pleural nodules previously described. (Marry Arrieta. CALENDER ROLL OPERATOR) Physical Exam General Appearance: Well Developed, Comfortable, Malnourished (Marry Arrieta. CALENDER ROLL OPERATOR) Eyes Eye Exam: Pupils Equal, Pupils Reactive (Marry Arrieta. CALENDER ROLL OPERATOR) Throat Throat Exam: Oral Mucosa Wye & Moist (Marry Arrieta. CALENDER ROLL OPERATOR) Pulmonary Resp Exam: Clear Bilaterally, Breath Sounds Equal (Marry Arrieta. CALENDER ROLL OPERATOR) Cardiology CV Exam: Good Perfusion, Irregular, Tachycardia (Marry Arrieta. CALENDER ROLL OPERATOR) Gastrointestinal/Abdomen GI Exam: Soft, Non-Tender, Bowel Sounds Present (Marry Arrieta. CALENDER ROLL OPERATOR) Musculoskeletal MS Exam: Joints Intact, Good Strength, Atrophy (Marry Arrieta. CALENDER ROLL OPERATOR) Integumentary Skin Exam: Clear, Warm, Dry, Intact (Marry Arrieta. CALENDER ROLL OPERATOR) Extremeties Extremities Exam: No Edema, Pedal Pulses Palpable (Marry Arrieta. CALENDER ROLL OPERATOR) Neurologic Neuro Exam: Awake, Moving All Extremities (Marry Arrieta. CALENDER ROLL OPERATOR) Assessment/Plan Assessment Summary: Anemia of CKD, Hypertension, End Stage Renal Disease Problem List: (1) ESRD (end stage renal disease) on dialysis ICD Codes: N18.6 - ESRD (end stage renal disease) on dialysis; Z99.2 - Dependence on renal dialysis Status: Chronic Plan: Hemodialysis on TTS. Monitor electrolytes intermittently. Fluid removal as tolerated. Avoid IVF PhosLo added Aneurysmal AVF on left, functions well, protect that extremity. Seen during hemodialysis remove fluid as tolerated. (2) Dementia with behavioral disturbance ICD Codes: F03.91 - Unspecified dementia with behavioral disturbance Status: Chronic Plan: Psychiatry has followed, currently on Namenda and Seroquel (dosage again increased). PRN Haldol stopped. Neurology has evaluated, CT head shows atrophy. Restraints for safety as needed (3) Chronic anemia ICD Codes: D64.9 - Chronic anemia Status: Acute Plan: Epogen with dialysis (4) HTN (hypertension) ICD Codes: I10 - HTN (hypertension) Status: Chronic Plan: On Cardizem 120 mg BID and Amlodipine BP stable (5) A-fib ICD Codes: I48.91 - Unspecified atrial fibrillation Plan: Rate controlled, on PO Cardizem Echo shows EF 30-35% (Marry Arrieta) Problem List: (1) ESRD (end stage renal disease) on dialysis ICD Codes: N18.6 - ESRD (end stage renal disease) on dialysis; Z99.2 - Dependence on renal dialysis Status: Chronic Plan: Hemodialysis on TTS. Monitor electrolytes intermittently. Fluid removal as tolerated. Avoid IVF PhosLo added Aneurysmal AVF on left, functions well, protect that extremity. Seen during hemodialysis remove fluid as tolerated. Patient seen and examined, agree with above. Seen during HD, sleepy after given sedation. (2) Dementia with behavioral disturbance ICD Codes: F03.91 - Unspecified dementia with behavioral disturbance Status: Chronic Plan: Psychiatry has followed, currently on Namenda and Seroquel (dosage again increased). PRN Haldol stopped. Neurology has evaluated, CT head shows atrophy. Restraints for safety as needed (3) Chronic anemia ICD Codes: D64.9 - Chronic anemia Status: Acute Plan: Epogen with dialysis (4) HTN (hypertension) ICD Codes: I10 - HTN (hypertension) Status: Chronic Plan: On Cardizem 120 mg BID and Amlodipine BP stable (5) A-fib ICD Codes: I48.91 - Unspecified atrial fibrillation Plan: Rate controlled, on PO Cardizem Echo shows EF 30-35% (Najma Vilchis MD) Problem Qualifiers (1) Dementia with behavioral disturbance: Qualified Codes: F03.91 - Unspecified dementia with behavioral disturbance Marry Arrieta Aug 17, 2017 15:28 Najma Vilchis MD Aug 17, 2017 21:23
[2017-08-17] MEDS: EPOETIN ALFA 10,000 UNITS/ML VIAL IV PUSH PRN (15:33)
--- NOTE | 2017-08-17 17:56 | RADRPT ---
EXAM DATE: 08/17/2017 10:38 AM EDT AGE/SEX: 62 years / Male INDICATIONS: Patient presents with dementia and psychosis in need of lumbar puncture for further lori luation. CLINICAL DATA: This is the patient's initial encounter. Patient reports that signs and symptoms have been present for 2 weeks and indicates a pain score of Nonresponsive. MEDICAL/SURGICAL HISTORY: . [id number] 10 years ago . AV fistula COMPARISON: No prior exams available for comparison. FLUORO TIME (min): 1.0 IMAGE SERIES: 2 ACCESS SITE: L3-4 SEDATION TIME (min): 5 LUMBAR PUNCTURE TIME: 10:04 hours FLUID: Total volume of 13.5 cc of MEDICATION(S): 1 mg midazolam (Versed) IV . . PROCEDURE: 1. Fluoroscopic guided lumbar puncture. The risks, benefits and alternatives to the procedure were explained and verbal and written consent w as obtained. The site was prepped in sterile fashion. Full sterile technique was used, including ca p, mask, sterile gloves and gown and a large sterile sheet. Hand hygiene and 2% chlorhexidine and/or betadine/alcohol prep was utilized per protocol for cutaneous antisepsis. The skin and subcutaneous tissues were infiltrated with local anesthetic solution. With fluoroscopic guidance the lumbar thecal sac was punctured at the level above. The fluid describ ed above was removed without difficulty. The patient tolerated the procedure well and there were no complications. CONCLUSION: Uncomplicated fluoroscopically guided lumbar puncture. Electronically signed by: Paresh Brooks MD 08/17/2017 5:55 PM EDT
[2017-08-17] MEDS: CALCIUM ACETATE 667 MG CAP PO SCH (18:12)
[2017-08-17] MEDS: THIAMINE INJ 100 MG in SODIUM CHLORIDE 0.9% INJ 100 ML IV SCH (18:12)
[2017-08-17] MEDS: MELATONIN 5 MG TAB PO SCH (20:27)
[2017-08-18] VITALS: PULSE 83
[2017-08-18 00:06] VITALS: BP 124/80; PULSE 99; RESP 16; TEMP 97.1; O2SAT 100
[2017-08-18 04:00] VITALS: PULSE 81
[2017-08-18 04:05] VITALS: BP 138/78; PULSE 86; RESP 16; TEMP 97; O2SAT 100
[2017-08-18 08:00] VITALS: PULSE 93
--- NOTE | 2017-08-18 08:14 | HHI.PR ---
Review/Management Diagnosis/Plan: (1) Dementia with behavioral disturbance ICD Codes: F03.91 - Unspecified dementia with behavioral disturbance Status: Chronic Plan: Beclouded dementia. Possibly worsened by metabolic disturbance, congestive heart failure Recommendations csf-negative mri brain- atrophy eeg- slowing, no sz snf appears to have poor qol overall. dementia, esrd (2) New onset atrial fibrillation ICD Codes: I48.91 - Unspecified atrial fibrillation Status: Acute Plan: Cardiology seen the patient (3) Chronic anemia ICD Codes: D64.9 - Anemia, unspecified Status: Chronic Plan: Medical renal following (4) HTN (hypertension) ICD Codes: I10 - HTN (hypertension) Status: Chronic Plan: Goal of less than 120/80 Subjective Subjective Comments No acute events reported Active Medications Current Medications Medications (Trade) Dose Ordered Sig/Michell Route Start Time Stop Time Status Last Admin (NS Flush) 2 ml UNSCH PRN IV FLUSH 08/03/17 13:30 (NS Flush) 2 ml BID IV FLUSH 08/03/17 21:00 08/17/17 20:27 (Tylenol) 650 mg Q4H PRN PO 08/03/17 13:30 (Reglan Inj) 5 mg Q6H PRN IV PUSH 08/03/17 13:30 (Narcan Inj) 0.4 mg UNSCH PRN IV PUSH 08/03/17 13:30 (Hilda-Colace) 1 tab BID PO 08/03/17 21:00 08/17/17 20:26 (Milk Of Magnesia Liq) 30 ml Q12H PRN PO 08/03/17 13:30 (Senokot) 17.2 mg Q12H PRN PO 08/03/17 13:30 (Dulcolax Supp) 10 mg DAILY PRN RECTAL 08/03/17 13:30 (Lactulose Liq) 30 ml DAILY PRN PO 08/03/17 13:30 Sodium Chloride 1,000 ml @ 0 mls/hr Q0M PRN OTHER 08/03/17 13:49 08/07/17 09:40 (Heparin Inj) 8,000 units UNSCH PRN IV FLUSH 08/03/17 14:00 Sodium Chloride 1,000 ml @ 200 mls/hr Q5H PRN IV 08/03/17 13:49 Sodium Chloride 1,000 ml @ 0 mls/hr Q0M PRN OTHER 08/03/17 13:49 (Mannitol Inj) 12.5 gm UNSCH PRN IV 08/03/17 14:00 Albumin Human 100 ml @ 60 mls/hr UNSCH PRN IV 08/03/17 14:00 08/17/17 17:50 (NS Flush) 5 ml UNSCH PRN IV FLUSH 08/03/17 14:00 (Heparin Inj) UNSCH PRN .XX 08/03/17 14:00 (Gentamicin Inj) 20 mg UNSCH PRN OTHER 08/03/17 14:00 (Zofran Odt) 4 mg UNSCH PRN PO 08/03/17 14:00 (Tylenol) 650 mg UNSCH PRN PO 08/03/17 14:00 (Benadryl) 25 mg UNSCH PRN PO 08/03/17 14:00 (Nitrostat Sl) 0.4 mg UNSCH PRN SL 08/03/17 14:00 (Catapres) 0.1 mg UNSCH PRN PO 08/03/17 14:00 08/04/17 13:46 (Epogen Inj) 5,000 units UNSCH PRN IV PUSH 08/03/17 14:00 08/17/17 15:33 (Gelfoam 12 Mm/7 Mm Top) 1 foam UNSCH PRN TOP 08/03/17 14:00 08/14/17 09:06 ([facility] [place] [facility] [place] Patient in critical care unit? Ass... Q361D .XX 08/03/17 19:45 08/03/17 19:45 (Cardizem Cd) 120 mg BID PO 08/04/17 21:00 08/17/17 20:26 (Namenda) 10 mg BID PO 08/04/17 21:00 08/17/17 20:26 Thiamine HCl 100 mg/Sodium Chloride 101 ml @ 101 mls/hr Q24H IV 08/10/17 18:00 08/17/17 18:12 (SEROquel) 150 mg BID PO 08/12/17 21:00 08/17/17 20:27 (Melatonin) 5 mg HS PO 08/13/17 21:00 08/17/17 20:27 (Phoslo) 1,334 mg TID PO 08/17/17 18:00 08/17/17 18:12 Allergies Allergies Coded Allergies No Known Allergies (Verified Allergy, Unknown, 06/30/17) Review of Systems All other ROS: ROS reviewed as documented in chart Exam I&O / VS Vital Signs Date Time Temp Pulse Resp B/P (MAP) Pulse Ox O2 Delivery O2 Flow Rate FiO2 08/18/17 07:00 Room Air 3.00 21 08/18/17 04:05 97.0 86 16 138/78 (98) 100 08/18/17 04:00 Room Air 08/18/17 04:00 81 08/18/17 00:06 97.1 99 16 124/80 (95) 100 08/18/17 00:00 Room Air 08/18/17 00:00 83 08/17/17 20:31 98 Nasal Cannula 3.00 08/17/17 20:00 97.5 99 18 111/64 (80) 100 08/17/17 20:00 138 08/17/17 19:00 Nasal Cannula 3.00 21 08/17/17 16:00 80 08/17/17 12:00 88 08/17/17 12:00 88 08/17/17 11:46 79 16 111/74 (86) 98 08/17/17 11:00 80 16 103/66 (78) 98 08/17/17 10:40 Nasal Cannula 3.00 08/17/17 10:30 82 12 95/62 (73) 99 08/17/17 10:25 97.6 84 16 97/65 (76) 97 General: No acute distress Eye: EOMI Respiratory: Non-labored respirations, Symmetrical expansion Cardiology: Normal rate Neurologic: Alert Exam Comments Awake alert, Oriented to himself and attentive. Follows simple request on occasion show me 2 fingers but not consistently, No facial asymmetry, mild tremulousness, is able to raise all 4 extremities gravity. Reflexes 1+ symmetric plantarflex flex response no clonus elicited. Further sensory cerebellar gait testing limited secondary to patient's mental status. Objective Micro and Labs Laboratory Tests Test 08/17/17 10:08 CSF Volume (Tube 1) 2.8 CSF Supernatant Color (tube 1) CLEAR CSF Gross Blood (Tube 1) 0 CSF WBC (Tube 1) 0 CSF RBC (Tube 1) 0 CSF Volume (Tube 2) 3.5 CSF Supernatant Color (tube 2) CLEAR CSF Gross Blood (Tube 2) 0 CSF Volume (Tube 3) 2.9 CSF Supernatant Color (tube 3) CLEAR CSF Gross Blood (Tube 3) 0 CSF Volume (Tube 4) 3.2 CSF Supernatant Color (tube 4) CLEAR CSF Gross Blood (Tube 4) 0 CSF WBC (Tube 4) 0 CSF RBC (Tube 4) 0 CSF Neutrophils 0 CSF Lymphocytes 0 Date/Time Source Procedure Growth Status 08/17/17 10:08 Cerebral Spinal Fluid Lumbar Puncture Gram Stain - Final Resulted 08/17/17 10:08 Cerebral Spinal Fluid Lumbar Puncture CSF Culture Pending Resulted Problem Qualifiers (1) Dementia with behavioral disturbance: Qualified Codes: F03.91 - Unspecified dementia with behavioral disturbance Michael Black MD Aug 18, 2017 08:14
[2017-08-18] MEDS ORDERED: DILT120C50 PO (08:20)
[2017-08-18] MEDS ORDERED: MELA5 PO (08:20)
[2017-08-18] MEDS ORDERED: QUET1TAB8 PO (08:20)
--- NOTE | 2017-08-18 08:24 | HHI.DS ---
Discharge Summary Admission Date Aug 03, 2017 at 13:12 Discharge Date: Aug 18, 2017 Admitting Diagnosis Atrial fibrillation with RVR, ESRD on HD, dementia with psychosis (1) New onset atrial fibrillation ICD Code: I48.91 - Unspecified atrial fibrillation Diagnosis: Principal Status: Acute (2) ESRD (end stage renal disease) on dialysis ICD Code: N18.6 - ESRD (end stage renal disease) on dialysis; Z99.2 - Dependence on renal dialysis Diagnosis: Principal Status: Chronic (3) HLD (hyperlipidemia) ICD Code: E78.5 - HLD (hyperlipidemia) Diagnosis: Principal Status: Chronic (4) HTN (hypertension) ICD Code: I10 - HTN (hypertension) Diagnosis: Principal Status: Chronic (5) Dementia with behavioral disturbance ICD Code: F03.91 - Unspecified dementia with behavioral disturbance Diagnosis: Principal Status: Chronic (6) Unspecified psychosis ICD Code: F29 - Unspecified psychosis not due to a substance or known physiological condition Diagnosis: Principal Status: Chronic Procedures HD Brief History - From Admission 62 yo AA M with PMH of ESRD on dialysis, HTN, HLD, PA---10 years ago, psychosis and dementia who went for HD today. The patient presents to the emergency department from the dialysis center for evaluation of combative behavior. The patient has a history of end-stage renal disease and is on hemodialysis followed by his endoscopy nurse, Dr. Hi Hernandez. The patient was receiving dialysis earlier today when he became combative, started picking at his dialysis catheters, subsequently was sent to the emergency department. The patient does have a history of dementia and psychosis and is a poor historian. Upon arrival the patient was noted to be tachycardic with underlying atrial fibrillation. The patient is unable to tell me if he has any history of atrial fibrillation. Symptoms are moderate. He denies any chest pain or shortness of breath, however, is a limited historian. History is limited as patient is a very poor historian and due to clinical presentation. history is obtained from records, staff. CBC/BMP: 08/17/17 0606 08/17/17 0606 Significant Findings Laboratory Tests Test 08/16/17 10:04 08/17/17 06:06 08/17/17 10:08 Activated Partial Thromboplast Time 30.4 SEC (24.3-30.1) Red Blood Count 4.16 MIL/MM3 (4.50-5.90) Hemoglobin 11.8 GM/DL (13.0-17.0) Hematocrit 36.8 % (39.0-51.0) Monocytes (%) (Auto) 9.1 % (0.0-8.0) Eosinophils (%) (Auto) 5.3 % (0.0-4.0) Blood Urea Nitrogen 73 MG/DL (7-18) Creatinine 14.81 MG/DL (0.60-1.30) Albumin 3.2 GM/DL (3.4-5.0) Phosphorus Level 8.3 MG/DL (2.5-4.9) Chloride Level 97 MEQ/L (98-107) Estimat Glomerular Filtration Rate 4 ML/MIN (>89) Imaging Last Impressions Lumbar Puncture Fluoroscopy 08/17/17 0000 Signed Impressions: CONCLUSION: Uncomplicated fluoroscopically guided lumbar puncture. Brain MRI 08/11/17 0000 Signed Impressions: CONCLUSION: 1. No acute abnormality seen. 2. Atrophy. Head CT 08/10/17 0000 Signed Impressions: CONCLUSION: 1. Moderate to prominent cerebral atrophy, out of proportion to patient's age. 2. No acute intracranial abnormality. Chest X-Ray 08/03/17 0000 Signed Impressions: CONCLUSION: 1. Cardiomegaly with vascular congestive changes and small to moderate right p leural effusion. 2. Bibasilar airspace disease. 3. Stable bilateral pleural nodules previously described. PE at Discharge GENERAL: This is a well-nourished, well-developed patient, in no apparent distress. CARDIOVASCULAR: Regular rate and rhythm without murmurs, gallops, or rubs. RESPIRATORY: Clear to auscultation. Breath sounds equal bilaterally. No wheezes , rales, or rhonchi. GASTROINTESTINAL: Abdomen soft, non-tender, nondistended. No guarding. MUSCULOSKELETAL: Extremities without clubbing, cyanosis, or edema. No joint tenderness, effusion, or edema noted. No calf tenderness. Negative Homans sign bilaterally. NEUROLOGICAL: Awake and alert. Cranial nerves II through XII intact. Motor and sensory grossly within normal limits. Five out of 5 muscle strength in all muscle groups. Normal speech. Confused intermittently following commands on four-point restraints Hospital Course 62-year-old male admitted secondary to new onset Afib with RVR, psychosis and dementia, chronic end-stage renal disease on HD New onset A fib with RVR EKG reviewed with ER physician Patient received multiple labetalol IV bolus in the ED. Discontinued esmolol drip, cardiology signed off. Ct Cardizem p.o. Place on telemetry 2D ECHO with ejection fraction of 35-40% Acute psychosis/ Severe Dementia. Consult psych . Restart meds per psychiatry recs. Increased Seroquel. Continue neurochecks. Consult neurology Brain MRI normal The patient is requiring restraints 2/2 fall risk. Discussed with nursing discontinue restraints if patient not agitated. Fall precautions. Billy CM. NH will take pt even on restraints Discussed with psychiatry, does not recommend anything else at this time. Discussed with palliative care. Ct melatonin and small dose Tylenol pain as might help. Patient history is not reliable. S/p LP studies negatove so far f/u pending labs. Continue IV thiamine check urinalysis, patient not voiding check bladder scan may need straight catheterization. EEG with no seizure activity Per neuro, exacerbation of encephalopathy secondary to metabolic disorder ESRD on dialysis Consult nephrology. Continue HD per nephro recommendations Monitor renal function. Creatinine bumped to 14 nephrology aware normal CK Hypertension Continue home meds Follow blood pressures Adjust treatments as needed Hyperlipidemia Continue present treatment Follow as an outpatient Coronary artery disease Old PA Continue home meds DVT prophylaxis SCD/TEDs, subcu heparin discontinued for LP Pt Condition on Discharge: Stable Discharge Disposition: Discharge to SNF Discharge Time: > 30 minutes Discharge Instructions DIET: Follow Instructions for: Dialysis Diet Activities you can perform: Regular-No Restrictions Activities to Avoid: Driving Follow up Referrals: Cardiology - 1 Week Nephrology - 2-3 Days PCP Follow-up - 2-3 Days New Medications: Diltiazem CD 24 HR (Diltiazem CD 24 HR) 120 Mg Caper 120 MG PO BID for Regulate Heart Beat, #60 CAP Melatonin (Melatonin) 5 Mg Tab 5 MG PO HS for insomnia, #30 TAB Quetiapine (Quetiapine) 100 Mg Tab 150 MG PO BID for agiiation, #90 TAB Continued Medications: Aspirin DR (Aspirin Adult Low Strength) 81 Mg Tabdr 81 MG PO DAILY, TAB B-Complex W/ C & Folic Acid (Nephro-Minal) 1 Tab 1 TAB PO DAILY for Nutritional Supplement, #30 TAB 0 Refills Calcium Acetate (Phosphate Binder) (Calcium Acetate (Phosphate Binder)) 667 Mg Cap 1334 MG PO TID for Hyperphosphatemia, #180 CAP 0 Refills Cinacalcet (Sensipar) 30 Mg Tab 30 MG PO HS, #30 TAB 0 Refills Escitalopram (Lexapro) 10 Mg Tab 10 MG PO DAILY, #30 TAB 0 Refills Folic Acid (Folic Acid) 1 Mg Tablet 1 MG PO DAILY for Nutritional Supplement, #30 TAB Furosemide (Furosemide) 40 Mg Tab 40 MG PO DAILY for fluid, #30 TAB 0 Refills give on non-dialysis days ONLY (Wednesday, Wednesday, Wed, Wed) Memantine Er (Namenda Xr) 14 Mg Caper 14 MG PO DAILY for Alzheimer Disease, #30 CAP 0 Refills Omeprazole (Omeprazole) 40 Mg Cap 40 MG PO DAILY for GERD, #30 CAP 0 Refills Pravastatin (Pravastatin) 40 Mg Tab 40 MG PO DAILY for Cholesterol Management, #30 TAB 0 Refills Sevelamer Carbonate (Renvela) 800 Mg Tab 1600 MG PO TIDAC for health for 30 Days, #90 TAB Zen Dougherty MD Aug 18, 2017 08:24
[2017-08-18 08:25] VITALS: BP 122/71; PULSE 87; RESP 20; TEMP 98.3; O2SAT 96
[2017-08-18] MEDS: DILTIAZEM-CD 120 MG CAP ER PO SCH (09:21)
[2017-08-18] MEDS: QUEtiapine FUMARATE 100 MG TAB PO SCH (09:21)
[2017-08-18] MEDS: DOCUSATE SODIUM 50 MG/SENNA 8.6 MG TAB PO SCH (09:21)
[2017-08-18] MEDS: MEMANTINE HCL 10 MG TAB PO SCH (09:21)
[2017-08-18] MEDS: CALCIUM ACETATE 667 MG CAP PO SCH (09:21)
[2017-08-18] MEDS: SODIUM CHLORIDE 0.9% FLUSH 10 ML FLUSH IV FLUSH SCH (09:21)
[2017-08-18 12:38] LABS: HSV 1,PCR Negative (Negative)
--- NOTE | 2017-08-18 16:18 | PQ ---
Physician Query Response Document PATIENT: MARCELO NAIR : 1955 ADMIT DATE: 08/03/2017 1:12 PM DISCH DATE: 08/18/2017 10:45 AM RESPONDING PROVIDER #: Tania QUERY TEXT: Clarification of Clinical Findings Physician?s Documentation Request This Form is Not a Permanent Document in the Medical Record Pt Name: MARCELO NAIR MR #: [id number] Payor: MEDICARE Unit/Bed: [id number] Adm Date: 08/03/2017 1:12:00 PM Reviewer: Vikki Chi Ext. Query Date: 08/18/2017 2:51:46 PM Clarification of Clinical Findings By submitting this query, we are merely seeking further clarification of documentation to accurately reflect all conditions that you are monitoring, evaluating, treating or that extend the hospitalizati on or utilize additional resources of care. Please utilize your independent clinical judgment when ad dressing the question(s) below. Dear Doctor Zen Dougherty, The patient?s Clinical Indicators include: Please clarify and document your clinical opinion in the progress notes and discharge summary includi ng the definitive and/or presumptive diagnosis (suspected or probable), related to the above clinical findings. Please include clinical findings supporting your diagnosis. Thank you, Vikki Chi CDS: Vikki Chi Patient Unit: N04A Room: 1406 Contact Number: CDS/RN ext. [phone] Metabolic encephalopathy in a patient w end stage renal failure w new finding a fib rvr , cardiomegal y w vascular congestive changes Other explanation of clinical findings. Unable to determine (no explanation for clinical findings). The medical record reflects the following clinical findings, treatment, and risk factors. * Clinical New onset of Acute psychosis and dementia * Risk Factors ESRD chronic anemia CHF * Treatment Neurology consulted, LP , CT brain, daily labs PLEASE DOCUMENT ANY ADDITIONAL DIAGNOSES AND/OR SPECIFICITY IN THE PROGRESS NOTES AND/OR DISCHARGE MAZA MMARY. Agreed Clinically unable to determine/unknown Disagree with the above request Need to discuss Query created by: Vikki Chi on 08/18/2017 2:51 PM RESPONSE TEXT: Chronic systolic HF Electronically signed by: Zen Dougherty MD 08/18/2017 4:14 PM
[2017-08-19 23:49] LABS: ENTEROVIRUS PCR RESULT Negative (Negative); ENTEROVIRUS PCR SPEC SOURCE CSF
== END 2017-08-18 10:45 | DRG 308 ==
LOC: NEPC 10:10 → NEDA 13:12 → HIME 19:20 → N04A 08-04 16:48
PROVIDERS: ADMIT Internal Medicine; ATTEND Internal Medicine
PROC: 5A1D70Z Performance of Urinary Filtration, Intermittent, Less than 6 Hours Per Day (ICD-10-PCS; 2017-08-03)
PROC: 009U3ZX Drainage of Spinal Canal, Percutaneous Approach, Diagnostic (ICD-10-PCS; principal; 2017-08-17)
PROC: B01BZZZ Fluoroscopy of Spinal Cord (ICD-10-PCS; 2017-08-17)
DX: I48.91 Unspecified atrial fibrillation (principal); N18.6 End stage renal disease; G93.41 Metabolic encephalopathy; F02.81 Dementia in other diseases classified elsewhere, unspecified severity, with behavioral disturbance; F23 Brief psychotic disorder; I13.11 Hypertensive heart and chronic kidney disease without heart failure, with stage 5 chronic kidney disease, or end stage renal disease; I50.22 Chronic systolic (congestive) heart failure; D63.1 Anemia in chronic kidney disease; R00.0 Tachycardia, unspecified; E78.5 Hyperlipidemia, unspecified; F41.9 Anxiety disorder, unspecified; I25.10 Atherosclerotic heart disease of native coronary artery without angina pectoris; G47.00 Insomnia, unspecified; Z51.5 Encounter for palliative care; Z78.1 Physical restraint status; Z79.82 Long term (current) use of aspirin; Z99.2 Dependence on renal dialysis; I25.2 Old myocardial infarction; Z82.49 Family history of ischemic heart disease and other diseases of the circulatory system
CPT/HCPCS: 62270; 70450; 70551; 71045; 77003; 80048; 80053; 80069; 82140; 82550; 82607; 82945; 83735; 84157; 84443; 85025; 85610; 85652; 85730; 86038; 86039; 86140; 86403; 86592; 87070; 87205; 87498; 87529; 87641; 88108; 89051; 90935; 93005; 93306; 95819; 96374; 96375; 96376; 99152; J1630; J1644; J2060; J2250; J3411; J7030; P9047; Q4081